=== PATIENT | female | born 1980 | race Caucasian/White ===

== ENCOUNTER → 2018-01-17 14:18 | Outpatient (CLI) | payer OTHER, SELFPAY ==
--- NOTE | 2018-01-17 14:21 | CT_ITS ---
CT abdomen pelvis wo con CLINICAL INDICATION: Right lower quadrant pain, bilateral lower abdominal pain ITS.REASON: RLQ pain ORDERING PHYSICIAN: SRI Barboza PATIENT AGE: 37 years COMPARISON: 07/08/1715 TECHNIQUE: Axial images obtained with sagittal and coronal reformats. All CT scans at the facility use one or more dose reduction, viz: automated exposure control; ma/kV adjustment per patient size (including targeted exams where dose is matched to indication; i.e. head); or iterative reconstruction technique. PROCEDURE: Oral Contrast: None IV Contrast: None . FINDINGS: There is a 6 mm noncalcified nodule right lung base laterally unchanged. The remaining lungs are clear. Prior gastric sleeve surgery. No focal liver lesion. The spleen, adrenal glands, and pancreas are unremarkable. No obstructing renal or ureteral calculi. No obvious renal mass. No radio opaque gallstones. No intestinal obstruction or free air. The appendix is slightly prominent measuring up to 7 mm in diameter. There is however no stranding of the periappendiceal fat. There is a minimal amount luminal gas as expected. No abscess or perforation. 4 x 3.6 cm isodensity noted in the left adnexa and may represent an ovarian cyst which may be confirmed with ultrasound if clinically warranted. Minimal amount fluid in the cul-de-sac. No abscess or other pelvic anomalies evident. IMPRESSION: 1. Appendix is slightly prominent. This is of questionable clinical significance. If symptoms persist then, follow-up study within 24 hours with IV and oral contrast would be recommended for further evaluation. 2. 4 cm left ovarian cyst
== END ==
PROVIDERS: PCP Physician Assistant; Visit Provider Physician Assistant
DX: R10.31 Right lower quadrant pain (principal)
CPT/HCPCS: 74176

== ENCOUNTER → 2018-01-30 13:55 | Outpatient (CLI) | payer OTHER, SELFPAY ==
--- NOTE | 2018-01-30 13:57 | US_ITS ---
US pelvis (no fetus) HISTORY: Left adnexal mass/cyst ITS.REASON: Abnormal CT ORDERING PHYSICIAN: SRI Barboza PATIENT AGE: 37 years COMPARISON: 01/17/2018 FINDINGS: There uterus measures 9 x 4 x 5 cm with a combined endometrial thickness of 4 mm. No uterine mass The right ovary is 3 x 2 cm and has an unremarkable appearance. The left ovary is 2 x 2 cm. No adnexal mass evident. Previously noted left ovarian cyst is no longer apparent. No cul-de-sac fluid. IMPRESSION: Negative pelvic ultrasound. Previously described left ovarian cyst no longer apparent
== END ==
PROVIDERS: PCP Physician Assistant; Visit Provider Physician Assistant
DX: R10.2 Pelvic and perineal pain (principal); R93.5 Abnormal findings on diagnostic imaging of other abdominal regions, including retroperitoneum
CPT/HCPCS: 76856

== ENCOUNTER 2018-03-08 12:07 | Outpatient (RCR) | payer OTHER, SELFPAY | END 2018-03-08 12:08 | disposition home or self-care (01) | LOC: PT 12:07 | PROVIDERS: PCP Physician Assistant; Visit Provider Orthopaedic Surgery | DX: S93.402A Sprain of unspecified ligament of left ankle, initial encounter (principal) | CPT/HCPCS: 97760 ==

== ENCOUNTER → 2018-07-19 18:02 | Outpatient (CLI) | payer OTHER, SELFPAY ==
[2018-07-19 18:31] LABS: Basophils % 0.3 % (0.1-2.0); Eosinophils # 0.1 K/mm3 (0.0-0.4); Eosinophils % 1.1 % (0.1-12.0); Hematocrit 39.8 % (37.0-47.0); Hemoglobin 12.8 g/dL (12.2-16.2); Lymphocytes # 2.8 K/mm3 (0.7-4.5); Lymphocytes % 32.1 K/mm3 (10-50); Mean Corpuscular HGB Conc 32.1 g/dL (31.8-35.4); Mean Corpuscular Hemoglobin 27.1 pg (27.0-31.2); Mean Corpuscular Volume 84.5 fl (81-99); Mean Platelet Volume 7.9 fl (7.4-10.4); Monocytes # 0.3 K/mm3 (0.1-1.0); Monocytes % 3.3 % (1.7-9.3); Neutrophils # 5.5 K/mm3 (1.8-7.8); Neutrophils % 63.2 % (37.0-80.0); Platelet Count 279 K/mm3 (142-424); Red Blood Count 4.71 M/mm3 (4.20-5.40); Red Cell Distribution Width 13.4 % (11.5-17.5); White Blood Count 8.8 K/mm3 (4.8-10.8)
[2018-07-19 19:27] LABS: Alanine Aminotransferase 21 U/L (12-78); Albumin Level 3.7 gm/dL (3.4-5.0); Albumin/Globulin Ratio 1.2 (1.1-1.8); Alkaline Phosphatase 108 U/L (46-116); Anion Gap 13.3 mEq/L (5-15); Aspartate Amino Transferase 17 U/L (15-37); Bilirubin,Total 0.3 mg/dL (0.2-1.0); Blood Urea Nitrogen 14 mg/dL (7-18); Calcium 8.4 mg/dL (8.5-10.1); Carbon Dioxide 27 mmol/L (21.0-32.0); Chloride 105 mmol/L (98-107); Chol/HDL Ratio 2.7 (1-3.5); Cholesterol 131 mg/dL (140-200); Creatinine,Serum 0.65 mg/dL (0.55-1.02); Estimated Glomerular Filt Rate 102 ml/min (>60); GFR (African American) 123 ML/MIN (>60); Globulin 3.1 gm/dl (1.3-3.2); Glucose 81 mg/dL (74-106); HDL Cholesterol 49 mg/dL (29-89); LDL Cholesterol 71 mg/dL (0-130); Potassium 4.3 mmoL/L (3.5-5.1); Sodium 141 mmol/L (136-145); T4 (Thyroxine) 13.3 ug/dl (4.7-13.3); Total Protein,Serum 6.8 gm/dL (6.4-8.2); Triglycerides 53 mg/dL (30-200); VLDL Cholesterol 11 mg/dL (0-40)
[2018-07-21 14:15] LABS: Vitamin D 25 Hydroxy 41.5 ng/mL (30.0-100.0)
== END ==
PROVIDERS: Visit Provider Physician Assistant
DX: E07.9 Disorder of thyroid, unspecified (principal)
CPT/HCPCS: 80053; 80061; 82652; 84436; 84443; 85025

== ENCOUNTER → 2019-06-26 16:30 | Outpatient (CLI) | payer OTHER, SELFPAY ==
--- NOTE | 2019-06-26 16:40 | XR_ITS ---
PROCEDURE: XR LUMBAR SPINE MIN 4V CLINICAL INDICATION: LOW BACK PAIN COMPARISON: LS5 LUMBAR SPINE 5 VIEWS from 10/29/2013 FINDINGS: Mild thoracolumbar curvature convex left. There is degenerative disc disease at L1-L2 L2-L3 and L3-L4 and L5-S1 which is slightly progressed compared to the previous exam. No fracture or dislocation SI joints have an unremarkable appearance IMPRESSION: Progression of degenerative changes. Dictated by: Yrn Pruitt MD 06/26/2019 20:12 Electronically signed by Yrn Pruitt MD in [place] 06/26/2019 20:12
== END ==
PROVIDERS: PCP Family Medicine; Visit Provider Family Medicine
DX: M54.5 Low back pain (principal)
CPT/HCPCS: 72110

== ENCOUNTER → 2019-07-05 15:44 | Outpatient (CLI) | payer OTHER, SELFPAY ==
--- NOTE | 2019-07-05 15:47 | MR_ITS ---
PROCEDURE: MR LUMBAR SPINE WO CON CLINICAL INDICATION: LOW BACK PAIN, LUMBAR DDD Low back pain with bilateral hip and buttock pain COMPARISON: XR LUMBAR SPINE MIN 4V from 06/26/2019 TECHNIQUE: Standard multiplanar multiecho sequences are performed without contrast. 3-D MIP and myelographic images are also rendered and reviewed FINDINGS: There is normal alignment. The spinal cord ends at the L2 level. T11-T12: Mild degenerative disc disease with mild facet ligamentum hypertrophy. T12-L1: Mild degenerative disc disease with mild right-sided facet and ligamentum hypertrophy with type 1 endplate changes along the anterior and inferior endplate of T12. L1-L2: Mild degenerative disc disease the L2-L3: Mild degenerative disc disease with mild disc desiccation and minimal bulging disc. Mild bilateral foraminal narrowing L3-L4: Unremarkable. L4-5: Mild facet hypertrophic change with mild bilateral foraminal narrowing L5-S1: There is a small left paracentral disc protrusion/herniation. This is causing narrowing of the left lateral recess and is abutting the left S1 nerve root. There are type 1 endplate changes at this level. IMPRESSION: 1. Small left paracentral disc protrusion/herniation at L5-S1 abutting the anterior medial aspect of the left S1 nerve root 2. Mild multilevel lumbar spondylosis with degenerative disc disease and facet ligamentum hypertrophy. Please see above for detailed description at each level Dictated by: Yrn Pruitt MD 07/06/2019 06:22 Electronically signed by Yrn Pruitt MD in [place] 07/06/2019 06:22
== END ==
PROVIDERS: PCP Family Medicine; Visit Provider Family Medicine
DX: M54.5 Low back pain (principal); M51.36 Other intervertebral disc degeneration, lumbar region
CPT/HCPCS: 72148; 76376

== ENCOUNTER → 2019-07-10 10:13 | Outpatient (POV) | payer OTHER, SELFPAY ==
[2019-07-10 10:54] VITALS: BP 131/80; PULSE 60; RESP 18; O2SAT 99; BMI 35.4
--- NOTE | 2019-07-10 12:17 | HMH.PMCON ---
Assessment and Plan (1) Lumbar back pain Current visit: Yes Status: Acute Category: Medical Code(s): M54.5 - Low back pain (2) Lumbar radiculopathy Current visit: Yes Status: Acute Category: Medical Code(s): M54.16 - Radiculopathy, lumbar region (3) Sacroiliitis Current visit: Yes Status: Acute Category: Medical Code(s): M46.1 - Sacroiliitis, not elsewhere classified - Assessment and plan all Dx Assessment and Plan for all problems:: Given the patient's symptoms, I do think she would benefit from bilateral SI joint injections. She does have notable point tenderness noted to bilateral SI joints. We will schedule her for the injections and see her back in the clinic following the procedure to reassess her symptoms. He has been instructed to call the clinic if she has any questions before her next appointment. Dr. Lawson has reviewed this note and agrees with this plan of care. This note was dictated using voice recognition software and make contain errors or omissions. HPI - Data of Consult Consult date: 07/10/19 Requesting Physician: Ashley Ortiz APRN Primary Care Provider: Rudi Arce MD - Consult Narrative Reason for consult: Back pain, bilateral groin pain History of present illness: Ms. Chaudhari is a 38 year old female who presents today for consultation for low back pain with radiation into bilateral groin area. Patient says she has had this pain for greater than 2 years. She says the pain has progressively gotten worse. Patient says she has had multiple consultations and tests for her groin pain, however, patient states that they were unable to find anything . Patient does report that her pain is worse with ambulating and with standing. She says she does get some relief when she is sitting. She rates her pain a 7 out of 10 today. She did have an MRI imaging. She is also following up with a chiropractor and says that she is got little to no relief with him. She is continuing with anti-inflammatories and a home stretching program. She has tried ice and heat therapies with little to no relief. She has also tried physical therapy for greater than 6 weeks in the past. Patient has never had injective therapy. CC: Ashley Ortiz APRN [facility] History I have reviewed the patient's past medical history: Yes 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: Reports:: Hypertension Denies:: Cancer, Diabetes Mellitus Type 1, Diabetes Mellitus Type 2, MRSA *Have you ever received a pneumonia vaccine?: No *Have you received a flu vaccine this season?: No Other 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: Reports: Hypothyroidism, Thyroid Disease Laterality Cases: Bilateral: Tonsillectomy, Other Other Surgeries: Yes: Bariatric Surgery, Cardiac Catheterization, , Thyroidectomy, Other Amputation: No Fractures: No - *Social History Smoking Status: Never smoker Alcohol Intake: never Alcohol Intake Frequency:: holidays/special occasions only *Occupational Status:: other Housing: house Household Members: other *Travel in the last 8 weeks: None Family Hx:: Diabetes, Stroke Review of Systems - Review of Systems Review of Systems General: No recent weight changes, no fever, no sleep disturbances Respiratory: No cough, no shortness of air, no recurring pulmonary infections Cardiovascular/peripheral vascular: No chest pain, no palpitations, no edema, no shortness of breath Gastrointestinal: No new onset incontinence, normal bowel movements reported Genitourinary: No new onset incontinence Musculoskeletal: Back pain, bilateral hip pain, bilateral groin pain Psychiatric: Normal mood/affect Neurological: [Denies weakness in extremities], [denies balance issues] Meds Home Medications Medication Instructions Recorded Confirmed Type etonogestrel 68 mg subdermal 1 implant SUBDERMAL ONCE 12/28/17 10/10/18 History implant levothyroxine 150 mcg tablet 150 mcg PO DAILY #90 tab 03/01/19 Rx PARoxetine HCl [Paxil] 10 mg PO SUZETTE
--- NOTE | 2019-07-10 12:20 | P.CONS_ITS ---
Assessment and Plan (1) Lumbar back pain Current visit: Yes Status: Acute Category: Medical Code(s): M54.5 - Low back pain (2) Lumbar radiculopathy Current visit: Yes Status: Acute Category: Medical Code(s): M54.16 - Radiculopathy, lumbar region (3) Sacroiliitis Current visit: Yes Status: Acute Category: Medical Code(s): M46.1 - Sacroiliitis, not elsewhere classified - Assessment and plan all Dx Assessment and Plan for all problems:: Given the patient's symptoms, I do think she would benefit from bilateral SI joint injections. She does have notable point tenderness noted to bilateral SI joints. We will schedule her for the injections and see her back in the clinic following the procedure to reassess her symptoms. He has been instructed to call the clinic if she has any questions before her next appointment. Dr. Lawson has reviewed this note and agrees with this plan of care. This note was dictated using voice recognition software and make contain errors or omissions. HPI - Data of Consult Consult date: 07/10/19 Requesting Physician: Ashley Ortiz APRN Primary Care Provider: Rudi Arce MD - Consult Narrative Reason for consult: Back pain, bilateral groin pain History of present illness: Ms. Chaudhari is a 38 year old female who presents today for consultation for low back pain with radiation into bilateral groin area. Patient says she has had this pain for greater than 2 years. She says the pain has progressively gotten worse. Patient says she has had multiple consultations and tests for her groin pain, however, patient states that they were unable to find anything . Patient does report that her pain is worse with ambulating and with standing. She says she does get some relief when she is sitting. She rates her pain a 7 out of 10 today. She did have an MRI imaging. She is also following up with a chiropractor and says that she is got little to no relief with him. She is continuing with anti-inflammatories and a home stretching program. She has tried ice and heat therapies with little to no relief. She has also tried physical therapy for greater than 6 weeks in the past. Patient has never had injective therapy. CC: Ashley Ortiz APRN [facility] History I have reviewed the patient's past medical history: Yes 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: Reports:: Hypertension Denies:: Cancer, Diabetes Mellitus Type 1, Diabetes Mellitus Type 2, MRSA *Have you ever received a pneumonia vaccine?: No *Have you received a flu vaccine this season?: No Other 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: Reports: Hypothyroidism, Thyroid Disease Laterality Cases: Bilateral: Tonsillectomy, Other Other Surgeries: Yes: Bariatric Surgery, Cardiac Catheterization, , Thyroidectomy, Other Amputation: No Fractures: No - *Social History Smoking Status: Never smoker Alcohol Intake: never Alcohol Intake Frequency:: holidays/special occasions only *Occupational Status:: other Housing: house Household Members: other *Travel in the last 8 weeks: None Family Hx:: Diabetes, Stroke Review of Systems - Review of Systems Review of Systems General: No recent weight changes, no fever, no sleep disturbances Respiratory: No cough, no shortness of air, no recurring pulmonary infections Cardiovascular/peripheral vascular: No chest pain, no palpitations, no edema, no shortness of breath Gastrointestinal: No new onset incontinence, normal bowel movements reported Genitourinary: No new onset incontinence Musculoskeletal: Back pain, bilateral hip pain, bilateral groin pain P
== END ==
PROVIDERS: PCP Family Medicine; Visit Provider Clinical Nurse Specialist Family Health
DX: M54.5 Low back pain (principal); M54.16 Radiculopathy, lumbar region; M46.1 Sacroiliitis, not elsewhere classified
CPT/HCPCS: 99202

== ENCOUNTER → 2019-08-14 10:23 | Outpatient (POV) | payer OTHER, SELFPAY ==
[2019-08-14 10:41] VITALS: BP 111/67; PULSE 73; RESP 18; O2SAT 98; BMI 35.4
--- NOTE | 2019-08-14 11:04 | P.CONS_ITS ---
[facility] Pain Management SOAP Note Subjective:: Patient is a pleasant 38-year-old white female who presents today for follow-up after bilateral SI joint injections. Patient rates her pain an 8 out of 10. For 2 weeks she had 90% pain relief. Was able to do much more. Patient states that she did extremely well and would like to repeat the injections. Patient I discussed long-term plans I do think a repeat injection will be beneficial. She is also utilizing an SI joint belt and is continuing a home stretching program. ROS General: no recent weight change, no fever, no sleep disturbances Respiratory: no cough, no shortness of air, no recurring pulmonary infections Cardiovascular/Peripheral Vascular: No chest pain, No palpitations, no edema, no shortness of breath. Gastrointestinal: no new onset incontinence, normal bowel movements reported Genitourinary: no new onset incontinence Musculoskeletal: Bilateral SI joint pain Psychiatric: normal mood/ affect Neurological: [denies new onset weakness in extremities], [denies new onset balance issues] Objective:: Physical Exam General: Alert and oriented x3, no acute distress, pleasant and cooperative, [on room air] Lungs: Resps E/U, Symmetrical chest expansion, Eyes: PERRL Musculoskeletal: Flexion and extension of lumbar spine somewhat guarded secondary to pain, deep tendon reflexes normal, strength in upper and lower extremities [5/5], [abnormal gait noted] positive Mary test positive SI joint compression test and positive Marin's test bilaterally. Neurological: speech clear, yard cleaner equal, no gross sensory deficits Assessment:: Sacroiliitis Plan:: We will repeat her SI joint injections and potentially talk about an RFA in the future. She is continuing her home stretching program. Patient's been instructed to call the office if she has any issues prior to her next peg ointment. Dr. Lawson has reviewed this note and agrees with this plan of care. This note was dictated using voice recognition software and may contain errors or omissions [facility] History I have reviewed the patient's past medical history: Yes 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: Reports:: Hypertension Denies:: Cancer, Diabetes Mellitus Type 1, Diabetes Mellitus Type 2, MRSA, Seizures *Have you ever received a pneumonia vaccine?: Yes *Have you received a flu vaccine this season?: Yes Other 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: Reports: Hypothyroidism, Thyroid Disease Laterality Cases: Bilateral: Tonsillectomy, Other Other Surgeries: Yes: Bariatric Surgery, Cardiac Catheterization, , Thyroidectomy, Other Amputation: No Fractures: No - *Social History Smoking Status: Never smoker Alcohol Intake: never Alcohol Intake Frequency:: holidays/special occasions only *Occupational Status:: other Housing: house Household Members: other *Travel in the last 8 weeks: None Family Hx:: Cancer, Diabetes, Thyroid Disorder
== END ==
PROVIDERS: PCP Family Medicine; Visit Provider Clinical Nurse Specialist Family Health
DX: M46.1 Sacroiliitis, not elsewhere classified (principal)
CPT/HCPCS: 99212

== ENCOUNTER → 2019-09-25 11:32 | Outpatient (POV) | payer OTHER, SELFPAY ==
[2019-09-25 11:57] VITALS: BP 164/89; PULSE 76; RESP 18; O2SAT 98; BMI 37.5
--- NOTE | 2019-09-25 12:10 | P.CONS_ITS ---
[facility] Pain Management SOAP Note Subjective:: Patient is a pleasant 38-year-old white female who presents today for follow-up after SI joint injections. Patient got about 90% relief of her symptomology for a week. Patient gets good relief with her SI joint injections however then her pain begins to return. We discussed about next steps including an RFA and potential coronary lock procedure. Patient is interested in pursuing an RFA and I do believe it would be beneficial for her. She has had pain for over 6 months and is failed physical therapy, anti-inflammatories, medication. Patient rates her pain today a 7 out of 10. She is continuing a home stretching program. ROS General: no recent weight change, no fever, no sleep disturbances Respiratory: no cough, no shortness of air, no recurring pulmonary infections Cardiovascular/Peripheral Vascular: No chest pain, No palpitations, no edema, no shortness of breath. Gastrointestinal: no new onset incontinence, normal bowel movements reported Genitourinary: no new onset incontinence Musculoskeletal: SI joint pain bilaterally Psychiatric: normal mood/ affect Neurological: [denies new onset weakness in extremities], [denies new onset balance issues] Objective:: Physical Exam General: Alert and oriented x3, no acute distress, pleasant and cooperative, [on room air] Lungs: Resps E/U, Symmetrical chest expansion, Eyes: PERRL Musculoskeletal: Flexion and extension of lumbar spine somewhat guarded secondary to pain, deep tendon reflexes normal, strength in upper and lower extremities [5/5], antalgic gait noted, positive SI joint compression test positive Mary test positive Marin's test bilaterally Neurological: speech clear, hydraulic lift driver 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 We will start with the right side in 2 weeks later do the left side. She is been instructed to call the office if she has any issues prior to her next appointment. I will follow-up with her after her injections reassess her symptoms at that time Dr. Lawson has reviewed this note and agrees with this plan of care. This note was dictated using voice recognition software and may contain errors or omissions [facility] History I have reviewed the patient's past medical history: Yes 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: Reports:: Hypertension Denies:: Cancer, Diabetes Mellitus Type 1, Diabetes Mellitus Type 2, MRSA, Seizures *Have you ever received a pneumonia vaccine?: Yes *Have you received a flu vaccine this season?: Yes Other 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: Reports: Hypothyroidism, Thyroid Disease Laterality Cases: Bilateral: Tonsillectomy, Other Other Surgeries: Yes: Bariatric Surgery, Cardiac Catheterization, , Thyroidectomy, Other Amputation: No Fractures: No - *Social History Smoking Status: Former smoker Alcohol Intake: never Alcohol Intake Frequency:: holidays/special occasions only *Occupational Status:: other Housing: house Household Members: spouse, children, other *Travel in the last 8 weeks: None Family Hx:: Cancer, Diabetes, Thyroid Disorder
== END ==
PROVIDERS: PCP Family Medicine; Visit Provider Clinical Nurse Specialist Family Health
DX: M46.1 Sacroiliitis, not elsewhere classified (principal)
CPT/HCPCS: 99212

== ENCOUNTER 2020-01-01 17:42 | Emergency (ER) | payer OTHER, SELFPAY ==
[2020-01-01 17:57] VITALS: BP 100/68; PULSE 58; RESP 16; TEMP 36.9; O2SAT 100; BMI 36.0
--- NOTE | 2020-01-01 18:08 | HMH.EDGENADL ---
ED Disposition Clinical Impression: Right ovarian cyst, Right lower quadrant pain, Pulmonary nodule seen on imaging study Disposition: Home, Self-Care Condition on Discharge: Good Instructions: DI for Ovarian Cyst, DI for Abdominal Pain-Adult Additional Instructions: Follow-up with primary care provider or [employer] for ovarian cyst. Follow-up with primary care provider for pulmonary nodules. Tylenol 3 as needed for pain. Additional instructions for ABDOMINAL PAIN: See your physician as soon as possible for further evaluation. Return immediately if worsening abdominal pain, vomiting, shortness of breath, fever, vomiting of blood or abdominal distention. Additional instructions for CONTROLLED SUBSTANCES: You have been prescribed a medication that is a controlled substance. Controlled substances include pain medications known as opiates and sedative nerve medications known as benzodiazepines. Tramadol, fioricet, and gabapentin are also controlled substances. Some common opiates include: Codeine (such as Tylenol #3) Hydrocodone (Vicodin, Lortab, Lorcet, [place]) Oxycodone (Percocet, Percodan, Oxycodone, Oxy IR) Some common benzodiazepines include: Diazepam (Valium) Lorazepam (Ativan) Alprazolam (Xanax) Clonazepam (Klonopin) Oxazepam (Serax) All of these controlled substances are highly addictive and frequently abused. Misuse can and frequently does lead to addiction as well as overdose and . Medication should be stored in a locked cabinet or other secure storage unit. Do not store the medication in a motor vehicle. Short term supplies, 3 days or less, are prescribed because of the highly addictive nature of the medication. Any of the controlled substance medication NOT taken should be disposed of properly and NOT SAVED. The recommended method of disposing of unused medications is: Place the medicines in a sealable plastic bag. If the medicine is a solid, crush it or add water to dissolve it. Add something undesirable (cat litter, coffee grounds, etc.) Dispose of sealed bag in household trash Do not flush or pour unused medicines down a sink or drain. Controlled substances should not be shared, given away or sold. Because of the addictive nature and frequent abuse, these medications are sometimes stolen. These medications should be kept in a safe place where they cannot be stolen. Do not keep them in your car or purse. Lost or stolen prescriptions for controlled substances WILL NOT BE REFILLED in this emergency department, regardless of whether a police report was filed. Referrals: Rudi Arce MD [Primary Care Provider] - - Critical Care Critical Care Time: No Attestation: On , the high probability of a clinically significant, sudden or life threatening deterioration of the following system(s) required my full and direct attention, intervention and personal management. The time I documented below is in addition to time spent performing reported procedures but includes the following listed in this critical care notation. Medical Decision Making - Greg Inquiry Pt receiving controlled substance: Yes Greg was queried for this patient: Yes Reference #:: [id number] Risks and benefits of using a controlled substance: were discussed with pt by me Comment: 0 rxs. Vital Signs: 01/01/20 17:57 Temperature 98.4 F Temperature Source Oral Pulse Rate [Right Brachial] 58 L Respiratory Rate 16 Blood Pressure [Right Arm] 100/68 L Blood Pressure Mean [Right Arm] 78 Blood Pressure Source [Right Arm] Automatic Cuff Blood Pressure Position [Right Arm] Sitting 02 Sat by Pulse Oximetry 100 Oxygen Delivery Method Room Air - Lab Data Lab Results 01/01/20 18:07: Urine Color Yellow, Urine Appearance Clear, Urine pH 6.5, Ur Specific [place] 1.025, Urine Protein Negative, Urine Glucose (UA) Negative, Urine Ketones Negative, Urine Blood Negative, Urine Nitrate Negative, Urine Bilirubin Negative, Urine
--- NOTE | 2020-01-01 18:35 | CT_ITS ---
PROCEDURE: CT ABDOMEN PELVIS W CON CLINICAL INDICATION: ABD PAIN Right flank pain radiating into the back COMPARISON: ABDPELWO CT abdomen pelvis wo con from 04/15/2018 TECHNIQUE: IV Contrast: 75ML OPTIRAY 350 Oral Contrast none Axial images obtained with sagittal and coronal reformats. All CT scans at the facility use one or more dose reduction, viz: automated exposure control, ma/kV adjustment per patient size (including targeted exams where dose is matched to indication, i.e. head), or iterative reconstruction technique. FINDINGS: LOWER THORAX: Stable right lower lobe nodule which may be partially calcified. Stable left lower lobe nodule which may also be partially calcified. ABDOMEN & PELVIS: The liver, gallbladder, spleen, pancreas and adrenal glands are unremarkable., there are postsurgical changes of the stomach from prior gastric sleeve surgery. No renal or ureteral calculi. No hydronephrosis. No evidence of appendicitis or diverticulitis. No intestinal obstruction or free air. There is a 5.7 x 3.9 cm right adnexal cystic appearing lesion. Consider ultrasound for more thorough evaluation. There is mild prominence of the left pelvic veins which may be seen with pelvic congestion syndrome. No acute bony findings. IMPRESSION: 1. 5.7 x 3.9 cm right adnexal cystic appearing lesion. Suggest ultrasound for further characterization. 2. Possible pelvic congestion syndrome. 3. Otherwise negative with incidental findings as described above. Dictated by: Yrn Pruitt MD 01/02/2020 07:03 Electronically signed by Yrn Pruitt MD in [place] 01/02/2020 07:03
[2020-01-01 18:41] LABS: Microscopic, Urine URINE MICROSCOPIC (MICROSCOPIC)
[2020-01-01 18:46] LABS: Chloride 105 mmol/L (98-107); Potassium 3.6 mmoL/L (3.5-5.1); Sodium 138 mmol/L (136-145)
[2020-01-01 18:46] LABS: Appearance,Urine CLEAR (Clear); Bilirubin,Urine Negative (Negative); Blood, Urine Negative (Negative); Color,Urine YELLOW (Yellow); Glucose,Urine (UA) Negative (Negative); Ketones,Urine Negative (Negative); Leukocyte Esterase,Urine Negative (Negative); Nitrate,Urine Negative (Negative); PH,Urine 6.5 (5.0-8.5); Protein,Urine Negative (Negative); Specific Gravity, Urine 1.025 (1.005-1.030); Urobilinogen,Urine 0.2 EU/dl (0.2)
[2020-01-01 18:48] LABS: Amylase 68 U/L (30-110); Blood Urea Nitrogen 14 mg/dl (7-17); Creatinine Clearance Estimated 205 mL/min (50-200); Estimated Glomerular Filt Rate 111 ml/min (>60); GFR (African American) 134 ML/MIN (>60); Lipase 170 U/L (23-300)
[2020-01-01 18:49] LABS: Alanine Aminotransferase 12 U/L (12-78); Albumin Level 3.9 g/dl (3.5-5.0); Albumin/Globulin Ratio 1.5 (1.1-1.8); Alkaline Phosphatase 73 U/L (38-126); Anion Gap 8.6 mEq/L (5-15); Aspartate Amino Transferase 24 U/L (14-36); Calcium 8.2 mg/dl (8.4-10.2); Carbon Dioxide 28 mmol/L (22.0-30.0); Globulin 2.6 g/dL (1.3-3.2); Glucose 86 mg/dl (74-100); Total Protein,Serum 6.5 g/dl (6.3-8.2)
[2020-01-01 18:53] LABS: Basophils % 0.3 % (0.1-2.0); Eosinophils # 0.1 K/mm3 (0.0-0.4); Eosinophils % 0.8 % (0.1-12.0); Hematocrit 39.7 % (37.0-47.0); Hemoglobin 12.6 g/dL (12.2-16.2); Lymphocytes # 3.5 K/mm3 (0.7-4.5); Lymphocytes % 27.5 % (10-50); Mean Corpuscular HGB Conc 31.7 g/dL (31.8-35.4); Mean Corpuscular Hemoglobin 27.6 pg (27.0-31.2); Mean Corpuscular Volume 87.2 fl (81-99); Mean Platelet Volume 7.7 fl (7.4-10.4); Monocytes # 0.4 K/mm3 (0.1-1.0); Monocytes % 2.8 % (1.7-9.3); Neutrophils # 8.8 K/mm3 (1.8-7.8); Neutrophils % 68.6 % (37.0-80.0); Platelet Count 269 K/mm3 (142-424); Red Blood Count 4.55 M/mm3 (4.20-5.40); Red Cell Distribution Width 13.4 % (11.5-17.5); White Blood Count 12.9 K/mm3 (4.8-10.8)
[2020-01-01 18:54] LABS: Bilirubin,Total 0.1 mg/dl (0.2-1.3)
[2020-01-01 18:58] LABS: Urine Pregnancy, HCG Qual. Negative (Negative)
[2020-01-01 19:04] LABS: Bacteria,Urine Trace /lpf
[2020-01-01 19:51] VITALS: BP 132/75; PULSE 81; RESP 19; TEMP 36.8; O2SAT 98
== END 2020-01-01 20:13 | disposition home or self-care (01) ==
PROVIDERS: Emergency Provider Emergency Medicine; PCP Family Medicine
DX: N83.201 Unspecified ovarian cyst, right side (principal); R91.1 Solitary pulmonary nodule; I10 Essential (primary) hypertension; E03.9 Hypothyroidism, unspecified; Z87.891 Personal history of nicotine dependence; Z90.09 Acquired absence of other part of head and neck
CPT/HCPCS: 74177; 80053; 81001; 81025; 82150; 83690; 85025; 96374; 96375; 99282; 99283; J2405; Q9967

== ENCOUNTER 2020-01-04 09:17 | Day surgery (SDC) | payer OTHER, SELFPAY ==
[2020-01-04 09:31] VITALS: BP 139/87; PULSE 75; RESP 18; TEMP 36.8; O2SAT 96; BMI 36.0
[2020-01-04 09:49] VITALS: BP 123/64; PULSE 70; RESP 18; O2SAT 99
[2020-01-04 09:57] VITALS: BP 125/68; PULSE 70; RESP 18; O2SAT 98
--- NOTE | 2020-01-04 10:03 | HMH.PMPROC ---
- Procedure Date: 01/04/20 Time: 10:03 Anesthesiologist:: Jame Lawson MD Complications:: None Pre-procedure Diagnosis:: Sacroiliitis Post-procedure Diagnosis:: Same Indications for Procedure:: Patient is a pleasant 39-year-old white female who we are treating for chronic sacroiliitis. She is status post right SI joint RFA. She presents for left SI joint RFA today. She has previously had SI joint injections which have given her great relief however they have been short-lived. Her pain is returned significantly over her left SI joint. She has a positive Stanford's test on left side. She has a positive Mary test on left side. She has a positive SI joint compression test on left side. Her pain is starting to affect her activities of daily living and functionality. We will do a left SI joint RFA to give her long-term relief to keep her out of the emergency room and off oral opioids. We will do this today. Procedure Details:: Left SI joint RFA Informed consent was obtained the risk and benefits of the procedure were explained the patient. Patient was taken to the procedure room placed prone on the procedure table. She was prepped and draped in sterile fashion. C-arm fluoroscopy was used to view the left SI joint. A 20-gauge RF needle was placed into the left SI joint. Will place a total of 4 needles encompassing the entire left SI joint. We underwent sensory stimulation. There is good sensory stimulation at all needles at 0.8 V. We then underwent motor stimulation. There was no motor stimulation at all needles at 3 V. We then anesthetized all needles with lidocaine and Depo-Medrol. We then burned each needle for 4 minutes at 80 ?C encompassing the entire left SI joint. Patient tolerated the procedure well with no complications. Plan and Disposition:: We will follow-up with her in 2 weeks. Will reevaluate her symptoms at that time.
[2020-01-04 10:12] VITALS: BP 140/86; PULSE 63; RESP 20; O2SAT 96
== END 2020-01-04 10:13 | disposition home or self-care (01) ==
LOC: SC.PAINP 09:20
PROVIDERS: PCP Family Medicine; Visit Provider Anesthesiology
DX: M46.1 Sacroiliitis, not elsewhere classified (principal); Z79.899 Other long term (current) drug therapy; Z79.3 Long term (current) use of hormonal contraceptives; I10 Essential (primary) hypertension; Z80.9 Family history of malignant neoplasm, unspecified; Z83.3 Family history of diabetes mellitus; Z83.49 Family history of other endocrine, nutritional and metabolic diseases
CPT/HCPCS: 64625; J1040

== ENCOUNTER → 2020-01-28 09:33 | Outpatient (POV) | payer OTHER, SELFPAY ==
--- NOTE | 2020-01-28 09:37 | HMH.VVPMSO ---
[facility] Virtual Visit SOAP Consent for virtual visit:: With the recent concerns about the COVID-19, we are trying to minimize exposure to you by shifting to telehealth appointments whenever possible. It restricts me from seeing you in person, but the trade off is protecting you during this pandemic. Can you see and hear me okay, and do you consent to this option? If not, I would be happy to see if we can reschedule your appointment in the future, when feasible. Has patient consented to this virtual visit?: Yes Subjective:: Patient is a pleasant 39-year-old white female who we are treating for chronic sacroiliitis she is following up after her second SI joint RFA. She is now had bilateral sides done. She rates her pain a 2 out of 10 and has had over 80% relief of her symptomology. Patient overall doing well would like to follow-up in a couple months. ROS General: no recent weight change, no fever, no sleep disturbances Respiratory: no cough, no shortness of air, no recurring pulmonary infections Cardiovascular/Peripheral Vascular: No chest pain, No palpitations, no edema, no shortness of breath. Gastrointestinal: no new onset incontinence, normal bowel movements reported Genitourinary: no new onset incontinence Musculoskeletal: SI joint pain at times Psychiatric: normal mood/ affect Neurological: [denies new onset weakness in extremities], [denies new onset balance issues] Objective:: Physical exam: Constitutional: Healthy appearing, well-developed, alert, in no acute distress Psychiatric: Judgment and insight intact, Alert and oriented x4 Mood and affect: Mood normal, affect appropriate Head and face: Inspection: Normocephalic atraumatic, extraocular movement intact Respiratory: Breathing nonlabored, nondyspneic Cardiovascular: No cyanosis, clubbing, or edema observed Skin: Head and neck: Skin with no lesions or rash observed Gait: Able to walk without assistive device: Able to heel and toe walk Neurologic: Sensation grossly intact per patient Musculoskeletal: Decreased range of motion lumbar spine noted Assessment:: Sacroiliitis Plan:: We will see the patient back in 3 months reassess her symptoms at that time she has been instructed to call the office if she has any issues prior to her next appointment. This encounter was performed as a telemedicine visit via secure 2 way video and audio to minimize risk and transmission of Covid-19. The patient and we understand the limitations of a telemedicine visit including inability to check reflexes, possibly missing subtle findings on physical exam. Alternative options were presented to the patient and the patient elected to proceed with the visit. We specifically discussed risk factors for Covid-19 including age, heart or lung disease, diabetes, immunosuppression and travel. We also discussed that NSAIDs may worsen Covid-19 infection symptoms and that they should not be used to treat Covid-19 symptoms. Patient was also informed that corticosteroids in any form oral or injectable will decrease immune response and may increase risk of Covid-[address] Lawson has reviewed this patient's chart and this note and agrees with plan of care. Patient has been instructed to call the office if they have any issues prior to the next appointment. Time In:: 09:35 Time Out:: 09:45 [facility] History I have reviewed the patient's past medical history: Yes 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: Reports:: Hypertension Denies:: Cancer, Diabetes Mellitus Type 1, Diabetes Mellitus Type 2, MRSA, Seizures *Have you ever received a pneumonia vaccine?: No *Have you received a flu vaccine this season?: No Other 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: Reports: Hypothyroidism, Thyroid Disease Laterality Cases: Bilateral: Tonsillectomy, Other Other Surgeries: Yes: Bariatric Surgery, Cardiac Catheterization, , Thyroidectomy, Other Amputation: No Fractures: No - *Social History Smoking Status: Former smoker Alcohol Intake: ne
== END ==
PROVIDERS: Visit Provider Clinical Nurse Specialist Family Health
DX: M46.1 Sacroiliitis, not elsewhere classified (principal)
CPT/HCPCS: 99212

== ENCOUNTER 2020-02-24 16:20 | Emergency (ER) | payer OTHER, SELFPAY ==
[2020-02-24 16:34] VITALS: BP 118/86; PULSE 60; RESP 18; TEMP 36.8; O2SAT 99; BMI 37.5
--- NOTE | 2020-02-24 16:38 | HMH.EDUTC ---
[facility] [place] Clinical Impression: Bee sting reaction Qualifiers: Encounter type: initial encounter Injury intent: undetermined intent Qualified Code(s): T63.444A - Toxic effect of venom of bees, undetermined, initial encounter Disposition: Home, Self-Care Condition on Discharge: Good Instructions: How to Care for an Insect Bite or Sting, Insect Bites and Stings (Alternative Therapy), Insect Bites and Stings, DI for Insect Bites and Stings Additional Instructions: Keep area clean and dry *Watch area for worsening of swelling and redness Over the counter Benadryl may help with itching and irritation of sting Follow up with family doctor if needed Ice to area may help with swelling Return if needed Straight to ER if any life threatening symptoms Prescriptions: Fluticasone Propionate [Flonase 50mcg nasal spray 16gm] 1 spr NS DAILY #1 bottle Transmission Status: Received by [facility] Referrals: Rudi Arce MD [Primary Care Provider] - As needed Forms: Work/School Release Medical Decision Making - Greg Inquiry Pt receiving controlled substance: No Greg was queried for this patient: No Vital Signs: 02/24/20 16:34 Temperature 98.3 F Temperature Source Oral Pulse Rate [Right Brachial] 60 Respiratory Rate 18 Blood Pressure [Right Arm] 118/86 Blood Pressure Mean [Right Arm] 96 Blood Pressure Source [Right Arm] Automatic Cuff Blood Pressure Position [Right Arm] Sitting 02 Sat by Pulse Oximetry 99 Oxygen Delivery Method Room Air Orders (Tests/Meds): ED MEDICATIONS Discontinued Medications Generic Name Dose Route Start Last Admin Trade Name Freq PRN Reason Stop Dose Admin Methylprednisolone Sodium Succinate 125 mg 02/24/20 16:39 Solu-Medrol 125mg/2ml Vial IM 02/24/20 16:40 ONCE ONE [facility] [place] HPI - General Stated complaint: Stung by wasp 02/23/20 on l hand, swelling Time Seen by Provider: 02/24/20 16:39 Mode of Arrival: Ambulatory Source of Information: Patient Limitations: No Limitations Description of Symptoms (Recalled from Triage Doc. by RN): Pt reports beig stung by a bee yesterday evening on her left hand. Swelling, redness noted. HEENT Symptoms (Recalled from RN notes): No Resp Symptoms (Recalled from RN notes): No Skin Symptoms (Recalled from RN notes): No MS Symptoms (Recalled from RN notes): No Functional Status (Recalled from RN notes): Na - History of Present Illness Provider Complaint: Patient states that she was outside yesterday and she was stung on her right hand/finger States that she has continued to have swelling and redness States that she has taken over the counter Benadryl but didnt help and now swelling is starting to go up into her wrist area - Related Data Home Medications Medication Instructions Recorded Confirmed PARoxetine HCl [Paxil] 10 mg PO DAILY 04/27/19 01/04/20 Etonogestrel [Nexplanon] 68 mg SQ CONT 12/18/19 01/04/20 Previous Rx's Medication Instructions Recorded levothyroxine 150 mcg tablet 150 mcg PO DAILY #90 tab 03/01/19 Fluticasone Propionate [Flonase 1 spr NS DAILY #1 bottle 02/24/20 50mcg nasal spray 16gm] Allergies Allergy/AdvReac Type Severity Reaction Status Date / Time No Known Allergies Allergy Verified 01/04/20 09:31 - Worker's Comp Is this a Worker's Comp case?: No [facility] History - Hepatitis A Screen Drug use history?: No High risk sexual behaviors?: No History of sexually transmitted infection?: No Currently employed?: No Childcare worker?: No Do you have indoor plumbing?: Yes Do you have electricity?: Yes Attestation statement:: This patient has been screened for Hepatitis A risk factors. I have reviewed the patient's past medical history: Yes 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: Reports:: Hypertension Denies:: Cancer, Diabetes Mellitus Type 1, Diabetes Mellitus Type 2, MRSA, Seizures Other 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: Reports: Hypothyroidism, Thyroid Disease Laterality Cases: Bilateral: Tonsillectomy, Other Other
--- NOTE | 2020-02-24 16:52 | PC.NURSE ---
Solu-medrol 125 given in left deltoid at this time. Unable to sign off on in emr
[2020-02-24 17:09] VITALS: BP 118/86; PULSE 60; RESP 18; TEMP 36.8; O2SAT 99
== END 2020-02-24 17:10 | disposition home or self-care (01) ==
PROVIDERS: Emergency Provider Nurse Practitioner; PCP Family Medicine
DX: T63.441A Toxic effect of venom of bees, accidental (unintentional), initial encounter (principal); I10 Essential (primary) hypertension; E03.9 Hypothyroidism, unspecified; Z87.891 Personal history of nicotine dependence; Z79.899 Other long term (current) drug therapy
CPT/HCPCS: 99201

== ENCOUNTER 2020-05-14 07:34 | Emergency (ER) | payer OTHER, SELFPAY ==
--- NOTE | 2020-05-14 07:29 | ECG_ITS ---
APPROVED REPORT Exam: Resting ECG HR:69 bpm ECG Measurements Heart Rate 69 AXES WI 134 P 69 QRSd 76 QRS 43 QT 396 T 54 QTc 424 <Conclusion> Normal sinus rhythm Low voltage QRS Borderline ECG Electronically signed by : Oscar Ochoa, 05/18/2020 07:16:29
[2020-05-14 07:35] VITALS: BP 144/86; PULSE 82; RESP 17; TEMP 36.8; O2SAT 100; BMI 37.5
--- NOTE | 2020-05-14 07:41 | XR_ITS ---
PROCEDURE: XR CHEST 2V CLINICAL HISTORY: SOA Chest pain with shortness of air, former smoker COMPARISON: CR CXR CHEST(2 VIEWS-NOT PORTABLE) from 04/27/2014 CR CXR CHEST(2 VIEWS-NOT PORTABLE) from 06/03/2014 FINDINGS: The cardiomediastinal silhouette and pulmonary vascularity are within normal limits. The lungs are clear without infiltrates, suspicious nodules, or pleural effusions. No acute bony abnormalities. IMPRESSION: No acute findings. Dictated by: Yrn Pruitt MD 05/14/2020 08:45 Yrn Pruitt MD in [place] 05/14/2020 08:45
--- NOTE | 2020-05-14 07:57 | HMH.EDGENADL ---
ED Disposition Clinical Impression: Chest pain Qualifiers: Chest pain type: chest pain on breathing Qualified Code(s): R07.1 - Chest pain on breathing Disposition: Home, Self-Care Condition on Discharge: Good Referrals: Rudi Arce MD [Primary Care Provider] - Forms: Work/School Release - Critical Care Critical Care Time: No Attestation: On 05/14/20, the high probability of a clinically significant, sudden or life threatening deterioration of the following system(s) required my full and direct attention, intervention and personal management. The time I documented below is in addition to time spent performing reported procedures but includes the following listed in this critical care notation. Medical Decision Making - Greg Inquiry Pt receiving controlled substance: No Vital Signs: 05/14/20 07:35 05/14/20 09:05 05/14/20 09:30 Temperature 98.2 F Temperature Source Oral Pulse Rate [Right] 82 66 62 Respiratory Rate 17 13 20 Blood Pressure [Right Arm] 144/86 H 123/76 118/78 Blood Pressure Mean [Right Arm] 105 91 91 Blood Pressure Source [Right Arm] Automatic Cuff Blood Pressure Position [Right Arm] Supine 02 Sat by Pulse Oximetry 100 100 98 Oxygen Delivery Method Room Air - Lab Data Lab Results 05/14/20 07:50: WBC 8.5, RBC 4.87, Hgb 13.6, Hct 41.5, MCV 85.2, MCH 27.9, MCHC 32.8, RDW 13.7, Plt Count 283, MPV 7.7, Neut % (Auto) 63.6, Lymph % (Auto) 31.2, Vilas % (Auto) 2.9, Eos % (Auto) 1.9, Baso % (Auto) 0.5, Neut # (Auto) 5.4, Lymph # (Auto) 2.6, Vilas # (Auto) 0.2, Eos # (Auto) 0.2, Baso # (Auto) 0.0 05/14/20 07:50: Sodium 139, Potassium 3.8, Chloride 107, Carbon Dioxide 23, Anion Gap 12.8, BUN 17, Creatinine 0.70, Estimated Creat Clear 184, Estimated GFR 93, Est GFR ( Amer) 112, Glucose 72 L, Calcium 8.7, Troponin I < 0.01 05/14/20 09:55: Troponin I < 0.01 Result diagrams: 05/14/20 07:50 05/14/20 07:50 Orders (Tests/Meds): ORDERS Category Date Time Status Troponin I Q3H Lab 05/14/20 13:45 Ordered ECG Request by /Elda Stat Y 05/14/20 07:40 Ordered - JULIANNA Score for Non-Stemi Age of Patient: 40-49 years old Heart Rate: 70-89 bpm Systolic Blood Pressure: 140-159 mmHg CHF Killip Class: I-No CHF Medical Decision Narrative: At this point, the exact cause of the patient's current symptom complex is unknown. Initial EKG is nondiagnostic and initial delta troponin testing protocols are within normal limits. At the present time, I doubt pulmonary embolus secondary to the lack of tachycardia, tachypnea, or hypoxia. The patient is also PERC negative. Similarly, I doubt aortic dissection or abdominal aortic aneurysm secondary to history and description of pain, the patient's nonfocal vascular examination in all four extremities, and CXR unremarkable for signs of mediastinal widening. Doubt pneumothorax given good bilateral breath sounds and chest X ray with good lung markings out to the periphery. No signs suggestive of pneumonia on history or physical exam as well. Patient discharged home, follow-up with primary care doctor for further work-up. General Adult HPI - General Chief complaint: Chest Pain Stated complaint: chest pain Time Seen by Provider: 05/14/20 07:57 Mode of Arrival: Ambulatory Limitations: No Limitations Description of Symptoms (Recalled from ER Triage Doc. by RN): PT STATES THIS MORNING AT WORK SHE BEGAN TO HAVE MID STERNAL CP AND SOA. - History of Present Illness HPI narrative: Patient presents for chest pain. Pain started last night, stable, not exertional, pain is worse with inspiration. Patient chest pain is 8 out of 10, nonradiating, pleuritic in nature. Patient denies any history of DVT or PE in the past, no history of ACS, OR or stents. Patient went to work today and was told to come here for evaluation. - Related Data Home Medications Medication Instructions Recorded Confirmed PARoxetine HCl [Paxil] 10 mg PO DAILY 04/27/19 01/04/20
[2020-05-14 08:04] LABS: Basophils % 0.5 % (0.1-2.0); Eosinophils # 0.2 K/mm3 (0.0-0.4); Eosinophils % 1.9 % (0.1-12.0); Hematocrit 41.5 % (37.0-47.0); Hemoglobin 13.6 g/dL (12.2-16.2); Lymphocytes # 2.6 K/mm3 (0.7-4.5); Lymphocytes % 31.2 % (10-50); Mean Corpuscular HGB Conc 32.8 g/dL (31.8-35.4); Mean Corpuscular Hemoglobin 27.9 pg (27.0-31.2); Mean Corpuscular Volume 85.2 fl (81-99); Mean Platelet Volume 7.7 fl (7.4-10.4); Monocytes # 0.2 K/mm3 (0.1-1.0); Monocytes % 2.9 % (1.7-9.3); Neutrophils # 5.4 K/mm3 (1.8-7.8); Neutrophils % 63.6 % (37.0-80.0); Platelet Count 283 K/mm3 (142-424); Red Blood Count 4.87 M/mm3 (4.20-5.40); Red Cell Distribution Width 13.7 % (11.5-17.5); White Blood Count 8.5 K/mm3 (4.8-10.8)
[2020-05-14 08:06] LABS: Chloride 107 mmol/L (98-107); Potassium 3.8 mmoL/L (3.5-5.1); Sodium 139 mmol/L (136-145)
[2020-05-14 08:09] LABS: Anion Gap 12.8 mEq/L (5-15); Blood Urea Nitrogen 17 mg/dl (7-17); Calcium 8.7 mg/dl (8.4-10.2); Carbon Dioxide 23 mmol/L (22.0-30.0); Creatinine Clearance Estimated 184 mL/min (50-200); Estimated Glomerular Filt Rate 93 ml/min (>60); GFR (African American) 112 ML/MIN (>60); Glucose 72 mg/dl (74-100)
[2020-05-14 08:22] LABS: Troponin I < 0.01 ng/ml (0.00-0.034)
[2020-05-14 09:05] VITALS: BP 123/76; PULSE 66; RESP 13; O2SAT 100
[2020-05-14 09:30] VITALS: BP 118/78; PULSE 62; RESP 20; O2SAT 98
--- NOTE | 2020-05-14 09:53 | PC.NURSE ---
2ND TROP DRAWN AND SENT TO LAB
[2020-05-14 10:28] LABS: Troponin I < 0.01 ng/ml (0.00-0.034)
[2020-05-14 11:21] VITALS: BP 132/87; PULSE 80; RESP 18; TEMP 36.8; O2SAT 100
== END 2020-05-14 11:21 | disposition home or self-care (01) ==
PROVIDERS: Emergency Medicine; Emergency Provider Emergency Medicine; PCP Family Medicine
DX: R07.1 Chest pain on breathing (principal); R06.02 Shortness of breath; I10 Essential (primary) hypertension; E03.9 Hypothyroidism, unspecified; Z90.09 Acquired absence of other part of head and neck; Z79.899 Other long term (current) drug therapy
CPT/HCPCS: 71046; 80048; 84484; 85025; 93005; 99283

== ENCOUNTER → 2020-05-16 15:41 | Outpatient (CLI) | payer OTHER, SELFPAY ==
[2020-05-16 16:36] LABS: D-Dimer 0.38 ug/mL (0.15-8.0)
[2020-05-18 17:23] LABS: Covid-19 Nasal PCR Sendout UK Not Detected
== END ==
PROVIDERS: PCP Physician Assistant; Visit Provider Physician Assistant
DX: Z03.818 Encounter for observation for suspected exposure to other biological agents ruled out (principal)
CPT/HCPCS: 36415; 85378; U0003; U0004

== ENCOUNTER → 2020-05-21 09:02 | Outpatient (CLI) | payer OTHER, SELFPAY ==
--- NOTE | 2020-05-21 09:06 | US_ITS ---
PROCEDURE: US ABDOMEN LIMITED CLINICAL INDICATION: RUQ ABD PAIN COMPARISON: No exams were available for comparison FINDINGS: PANCREAS: Unremarkable. No obvious mass or abnormal fluid collection. No ductal dilatation LIVER: No focal liver lesions demonstrated. Homogeneous echogenicity. No intrahepatic biliary ductal dilatation evident. There is appropriate direction of blood flow within a non dilated portal vein RIGHT KIDNEY: Unremarkable. Normal size and echogenicity. The right kidney measures 11.8 x 5.5 x 6.1 cm. No hydronephrosis GALLBLADDER: No gallstones, gallbladder wall thickening, pericholecystic fluid, or biliary dilatation. IMPRESSION: Unremarkable limited abdominal ultrasound as detailed above disc Dictated by: Dr. Syed Quick MD 05/22/2020 13:20 Dr. Syed Quick MD in [place] 05/22/2020 13:20
== END ==
PROVIDERS: PCP Family Medicine; Visit Provider Family Medicine
DX: R10.11 Right upper quadrant pain (principal)
CPT/HCPCS: 76705

== ENCOUNTER → 2020-05-30 12:39 | Outpatient (CLI) | payer OTHER, SELFPAY ==
--- NOTE | 2020-05-30 12:42 | US_ITS ---
PROCEDURE: US TRANSVAGINAL CLINICAL INDICATION: PELVIC PAIN COMPARISON: US PTV US PELVIS-TRANSVAGINAL ONLY from 09/29/2015 FINDINGS: UTERUS: 8cm x 5cmx 4cm with a combined endometrial thickness of 9.4mm LEFT OVARY: [id number] with a volume of 48.5ml. RIGHT OVARY: [id number] with a volume of 5.4ml. There is a 5 x 3 cm simple appearing left ovarian cyst and a 15 mm simple appearing right ovarian cyst. No cul-de-sac fluid is evident. IMPRESSION: 5 cm simple appearing left ovarian cyst. Suggest 3 month follow-up to confirm resolution or stability Dictated by: Yrn Pruitt MD 05/30/2020 14:48 Yrn Pruitt MD in [place] 05/30/2020 14:48
== END ==
PROVIDERS: PCP Family Medicine; Visit Provider Family Medicine
DX: R10.2 Pelvic and perineal pain (principal)
CPT/HCPCS: 76830

== ENCOUNTER → 2020-07-16 13:15 | Outpatient (CLI) | payer OTHER, SELFPAY ==
--- NOTE | 2020-07-16 13:15 | US_ITS ---
PROCEDURE: US TRANSVAGINAL CLINICAL INDICATION: possible Lt. ovarian cyst A cysts on the right breast scalp left light the a fibroadenoma missing hypokinetic septated cyst right air VA once he feels than on the tiny cyst but not well itself was ideas solid left EIA MLO the like mm 4 mm highly ice optimal ring-like but I but the right 1 at the 8 young a degenerative facet there like 5th endo solid is 1 of the 1 solid in the right breast as it looks like a fibroid COMPARISON: US US TRANSVAGINAL from 05/30/2020 FINDINGS: UTERUS: 8cm x 5cmx 4cm with a combined endometrial thickness of 8mm LEFT OVARY: [id number] with a volume of 25.6ml. RIGHT OVARY: [id number] with a volume of 5.5ml. Endometrial thickness is 8 mm. There is an area of hypoechogenicity in the fundus of the uterus at 2.4 cm consistent with a fibroid. An additional area of decreased echogenicity in the posterior body of the uterus at 8 mm consistent with a fibroid. There is a 3.9 x 2.6 cm left ovarian simple cyst. Small right ovarian follicles are present. There is bilateral ovarian blood flow. No cul-de-sac fluid IMPRESSION: Uterine fibroids. Simple appearing 3.9 cm left ovarian cyst. Previously the left ovarian cyst measures 5.5 x 3.6 cm. Previously noted right ovarian cyst has resolved Dictated by: Yrn Pruitt MD 07/16/2020 16:31 Yrn Pruitt MD in [place] 07/16/2020 16:31
== END ==
PROVIDERS: PCP Family Medicine; Visit Provider Nurse Practitioner Obstetrics & Gynecology
DX: N83.209 Unspecified ovarian cyst, unspecified side (principal)
CPT/HCPCS: 76830

== ENCOUNTER → 2020-07-25 15:55 | Outpatient (CLI) | payer OTHER, SELFPAY ==
[2020-07-25 17:10] LABS: Basophils % 0.4 % (0.1-2.0); Eosinophils # 0.1 K/mm3 (0.0-0.4); Eosinophils % 0.8 % (0.1-12.0); Hemoglobin 14.1 g/dL (12.2-16.2); Lymphocytes % 24.1 % (10-50); Mean Corpuscular HGB Conc 32.8 g/dL (31.8-35.4); Mean Corpuscular Hemoglobin 27.9 pg (27.0-31.2); Mean Corpuscular Volume 85.1 fl (81-99); Mean Platelet Volume 7.6 fl (7.4-10.4); Monocytes # 0.3 K/mm3 (0.1-1.0); Monocytes % 2.7 % (1.7-9.3); Neutrophils # 8.9 K/mm3 (1.8-7.8); Platelet Count 352 K/mm3 (142-424); Red Blood Count 5.06 M/mm3 (4.20-5.40); Red Cell Distribution Width 14.4 % (11.5-17.5); White Blood Count 12.3 K/mm3 (4.8-10.8)
[2020-07-25 17:53] LABS: Anion Gap 13.2 mEq/L (5-15); Blood Urea Nitrogen 20 mg/dl (7-17); Calcium 8.8 mg/dl (8.4-10.2); Carbon Dioxide 28 mmol/L (22.0-30.0); Chloride 105 mmol/L (98-107); Estimated Glomerular Filt Rate 79 ml/min (>60); GFR (African American) 96 ML/MIN (>60); Glucose 73 mg/dl (74-100); HCG Qualitative, Serum Negative (Negative); Potassium 4.2 mmoL/L (3.5-5.1); Sodium 142 mmol/L (136-145)
[2020-07-25 19:14] LABS: Coronavirus 19 IgG Antibody Negative (Negative); Coronavirus 19 IgM Antibody Negative (Negative)
== END ==
PROVIDERS: Visit Provider Nurse Practitioner Obstetrics & Gynecology
DX: Z01.818 Encounter for other preprocedural examination (principal); N83.209 Unspecified ovarian cyst, unspecified side; R10.2 Pelvic and perineal pain
CPT/HCPCS: 36415; 80048; 84703; 85025; 86328

== ENCOUNTER 2020-07-28 06:10 | Day surgery (SDC) | payer OTHER, SELFPAY ==
[2020-07-24 14:00] VITALS: BMI 39.3
[2020-07-28] VITALS (13 sets, daily range): BP systolic 118–165; BP diastolic 70–104; PULSE 55–87; RESP 13–18; TEMP 36.4–43; O2SAT 98–100
--- NOTE | 2020-07-28 06:50 | HMH.ANESCL ---
[facility] Anesthesia Checklist - Structural Data Admitted From: Home Planned Operative Procedure/s: dx lap Consent for Planned Operative Procedure(s) Verified: Yes - Additional verifications Anesthesia Reactions: No Hx Blood Transfusions: No Blood Transfusion Reaction: No - Airway Assessment C-Spine Mobility Assessed: Yes TMJ Mobility Assessed: Yes Dentition: Good Dentition - Neurological Assessment Level of Consciousness: Awake, Alert, Appropriate - Anesthesia Plan Anesthesia Risk discussed: Yes Anesthesia Plan: Verified ASA Class: II Anesthesia Type: General [facility] History I have reviewed the patient's past medical history: Yes 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: Reports:: Hypertension Denies:: Cancer, Diabetes Mellitus Type 1, Diabetes Mellitus Type 2, Internal Pacemaker, MRSA, Seizures *Have you ever received a pneumonia vaccine?: No *Have you received a flu vaccine this season?: Yes Other 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: Reports: Hypothyroidism, Thyroid Disease. Denies: Blood Transfusion Reaction Anesthesia experience/problems:: none Laterality Cases: Bilateral: Tonsillectomy, Other Other Surgeries: Yes: Bariatric Surgery, Cardiac Catheterization, , Thyroidectomy, Other. No: Pacemaker Amputation: No Fractures: No - *Social History Last grade of school completed: Some college Smoking Status: Former smoker Alcohol Intake: never Alcohol Intake Frequency:: holidays/special occasions only Substance Use Type: denies use *Occupational Status:: employed Housing: intermediate Household Members: spouse *Travel in the last 8 weeks: None Family Hx:: Cancer, Diabetes, Thyroid Disorder
--- NOTE | 2020-07-28 07:07 | SUR.PREOP ---
0705- Pt assisted to BR and back to stretcher. Pt stated she was comfortable
--- NOTE | 2020-07-28 08:35 | HMH.OPNOTE ---
Date of procedure: 07/28/20 Pre-op Diagnosis:: Left lower quadrant pain, left ovarian cyst, desire for sterilization Post-op Diagnosis:: Left lower quadrant pain, left ovarian cyst, desire for sterilization Procedure performed:: Laparoscopic bilateral salpingectomy, left ovarian cystectomy Surgeon:: Semaj Allen MD [employer] SERGEANT:: Oscar Cartyty Anesthesia: GETA Estimated blood loss (mL): 50 Clinical Note:: She is a 39-year-old lady who complains of severe left lower quadrant pain. Ultrasounds have shown that she has a persistent left ovarian cyst. After having discussed the risk-benefit she elected to have this cyst removed. She also expressed desire for sterilization risk and benefits as well as the irreversibility of bilateral salpingectomy were discussed with the patient prior to surgery. Operative findings:: She had a 4 cm simple left ovarian cyst. Ovaries and tubes appeared normal. The the appendix was visualized and appeared normal. The upper abdomen appeared normal. The deep pelvis otherwise appeared normal. Operative note:: She was taken to the operating room where general anesthesia was found be adequate. She was prepped and draped in normal sterile fashion in the semilithotomy position. A weighted speculum was placed in the vagina and the anterior lip of the cervix was grasped with a tenaculum. I then inserted a Leona uterine manipulator into the cervical os. The balloon was then insufflated. I changed gloves and injected 10 cc of 0.5% ropivacaine around her umbilicus and made a small incision within the umbilicus. I inserted a Veress needle into the abdominal cavity. The peritoneal cavity was then insufflated with carbon dioxide gas to a pressure of 20 mmHg. I then inserted a 5 millimeter trocar under direct vision. I injected through and through the pubic hairline, made a small incision here and inserted an 8 mm trocar under direct vision. I identified the inferior epigastric artery on the left side, went lateral to these and injected through and through. I then placed a 5 mm trocar here under direct vision. The pelvis and upper abdomen were then inspected and the findings were as previously dictated. I grasped the right tube at the cornua and using harmonic scalpel on coagulation mode I cut through the tube. I then grasped the distal tube and using harmonic scalpel cut along the mesosalpinx. The tube was removed through 8 mm trocar site. This was similarly performed on the patient's left side. The left ovary was grasped and I opened up into the left ovarian cyst and drained straw-colored fluid. I then grasped the ovary and using harmonic scalpel removed a good portion of the ovarian cyst wall. I then rinsed the pelvis well with saline. I then placed a large piece of Surgicel around the left ovary and into the defect where the cyst had been. Once again I assured hemostasis. I then injected 30 cc of 0.5% ropivacaine into the pelvis. After assuring hemostasis the gas was let out of the abdomen and hemostasis was once again assured. The abdomen was then reinsufflated. The secondary trochars were removed under direct vision. The gas was let out her abdomen. The primary trocar was then removed. The 8 mm trocar site was closed deeply with 2-0 Vicryl suture followed by subcuticular 4-0 Monocryl suture. The 5 mm trocar sites were closed with subcuticular 4-0 Monocryl. Sterile dressings were applied. The patient tolerated the procedure well and was taken to the recovery room in excellent condition. All sponge instrument and needle counts were correct. The estimated blood loss was less than 50 cc. Condition: stable Disposition: PACU Specimens:: Bilateral fallopian tubes, ovarian cyst wall Complications:: None
--- NOTE | 2020-07-28 08:50 | HMH.ANESI ---
[facility] Anesthesia Record Part I Intake, IV Amount: 650 Estimated blood loss (mL): 43 Urine output (mL): 100 Blood Products used (#): none Blood Pressure: 153/92 SaO2: 99 Pulse Rate: 67 Respiratory Rate: 18 Temperature: 98.7 F Patient is:: Drowsy, Stable Stable to PACU at:: 08:45
--- NOTE | 2020-07-28 09:53 | SUR.PHASEII ---
Please disregard all charting under Harpreet Jimenez RN wrong patient
--- NOTE | 2020-07-28 10:26 | HMH.ANESII ---
[facility] Anesthesia Record Part II Discharge Time: 09:15 Destination: Surgical Day Care (OP Surgery) PACU nurse assessment reviewed?: Yes Patient Condition:: Good Anesthesia Complications:: None Swallowing reflex intact?: Yes Cyanosis?: No Blood Pressure: 128/77 Pulse Rate: 66 Temperature: 97.9 F Mental Status: Alert & Oriented Pain level:: 5 Nausea and/or vomitting:: None Intake, IV Amount: 35
== END 2020-07-28 10:30 ==
LOC: OR 06:11
PROVIDERS: PCP Family Medicine; Visit Provider Nurse Practitioner Obstetrics & Gynecology
PROC: 0TTB4ZZ Resection of Bladder, Percutaneous Endoscopic Approach (ICD-10-PCS; CPT 51999; principal; 2020-07-28 07:30)
DX: Z30.2 Encounter for sterilization (principal); N83.292 Other ovarian cyst, left side
CPT/HCPCS: 58662; 58700; 96374; J2405; J2710

== ENCOUNTER 2021-01-13 10:07 | Emergency (ER) | payer OTHER, SELFPAY ==
[2021-01-13 10:16] VITALS: BP 123/71; PULSE 60; RESP 18; TEMP 37.2; O2SAT 100; BMI 38.2
[2021-01-13 10:30] VITALS: BP 126/70; PULSE 75; RESP 16; TEMP 36.8; O2SAT 100; BMI 38.2
--- NOTE | 2021-01-13 10:38 | HMH.EDUTC ---
[facility] [place] Disposition Clinical Impression: Otitis media Qualifiers: Otitis media type: unspecified Laterality: left Qualified Code(s): H66.92 - Otitis media, unspecified, left ear Disposition: Home, Self-Care Condition on Discharge: Good Instructions: Ear Infections (Alternative Therapy), Middle Ear Infection, Amoxicillin Additional Instructions: *Monitor Temp, Over the counter Motrin or Tylenol as directed/as needed Tylenol every 4 hours and Motrin every 6 hours (as long as your family doctor has told you that you can take it) for fever or pain. and straight to ER if unable to lower temp less than 101.0 after medication given *Warm salt water gargles may help to soothe the throat *Throat Lozenges *Warm fluids like tea with honey may help to soothe the throat *Sleep elevated *Humidifier/Vaporizer *Flonase 2 sprays in each nostril daily but be aware that it may take 2-3 days before you notice improvement Follow up IMMEDIATELY for new or worsening symptoms or no Noticeable improvement over the next 48-72 hours. 911 for difficulty breathing or swallowing Prescriptions: Amoxicillin [Amoxicillin 875MG Tab] 875 mg PO Q12H #14 tab Transmission Status: Pending to [facility] Fluticasone Propionate [Flonase 50mcg nasal spray 16gm] 1 spr NS DAILY #1 bottle Transmission Status: Pending to [facility] Referrals: Rudi Arce MD [Primary Care Provider] - As needed Forms: Work/School Release Time of Disposition: 10:43 Medical Decision Making - Greg Inquiry Pt receiving controlled substance: No Greg was queried for this patient: No Vital Signs: 01/13/21 10:16 01/13/21 10:30 Temperature 99.0 F 98.2 F Temperature Source Oral Oral Pulse Rate [Left Radial] 60 75 Respiratory Rate 18 16 Blood Pressure [Right Arm] 123/71 126/70 Blood Pressure Mean [Right Arm] 88 88 Blood Pressure Source [Right Arm] Automatic Cuff Automatic Cuff Blood Pressure Position [Right Arm] Sitting Sitting 02 Sat by Pulse Oximetry 100 100 Oxygen Delivery Method Room Air Room Air [facility] HPI - General Stated complaint: ear pain,lutheran and jaw pain Time Seen by Provider: 01/13/21 10:38 Mode of Arrival: Ambulatory Source of Information: Patient Limitations: No Limitations Description of Symptoms (Recalled from Triage Doc. by RN): Left ear ache. hurting down into jaw and cough. HEENT Symptoms (Recalled from RN notes): Yes Resp Symptoms (Recalled from RN notes): Yes Skin Symptoms (Recalled from RN notes): No MS Symptoms (Recalled from RN notes): No Functional Status (Recalled from RN notes): wnl - History of Present Illness Provider Complaint: Patient states that she has been having pain on and off in her left ear for about a week States over the last couple of days it has got worse States that now pain is so bad in her ear it feels like it shoots pain down into her jaw and lutheran area States that she feels like her ear is full and having pressure States that also she has had a nagging cough - Related Data Home Medications Medication Instructions Recorded Confirmed duloxetine 60 mg capsule,delayed 60 mg PO DAILY cap 06/12/20 08/21/20 release meloxicam 15 mg tablet 15 mg PO DAILY tab 06/12/20 08/21/20 etonogestrel 68 mg subdermal 1 implant SUBDERMAL each 08/21/20 08/21/20 implant Previous Rx's Medication Instructions Recorded levothyroxine 150 mcg tablet 150 mcg PO DAILY #90 tab 03/01/19 Oxycodone HCl/Acetaminophen 1 tab PO Q4-6H PRN #20 tab 07/28/20 [Percocet 5/325mg tablet] Amoxicillin [Amoxicillin 875MG 875 mg PO Q12H #14 tab 01/13/21 Tab] Fluticasone Propionate [Flonase 1 spr NS DAILY #1 bottle 01/13/21 50mcg nasal spray 16gm] Allergies Allergy/AdvReac Type Severity Reaction Status Date / Time No Known Allergies Allergy Verified 08/21/20 09:53 - Worker's Comp Is this a Worker's Comp case?: No [facility] History - Hepatitis A Screen Drug use history?: No High risk sexual behaviors
[2021-01-13 11:00] VITALS: BP 126/70; PULSE 75; RESP 16; TEMP 36.8; O2SAT 100
== END 2021-01-13 11:01 | disposition home or self-care (01) ==
PROVIDERS: Emergency Provider Nurse Practitioner; PCP Family Medicine
DX: H66.92 Otitis media, unspecified, left ear (principal); I10 Essential (primary) hypertension; E03.9 Hypothyroidism, unspecified; Z79.899 Other long term (current) drug therapy
CPT/HCPCS: 99202; G0463

== ENCOUNTER → 2021-05-20 09:03 | Outpatient (CLI) | payer OTHER, SELFPAY ==
[2021-05-20 09:15] LABS: Coronavirus 19, PCR Not Detected (NotDetected); Influenza A, PCR Not Detected (NotDetected); Influenza B, PCR Not Detected (NotDetected)
== END ==
PROVIDERS: PCP Family Medicine; Visit Provider Nurse Practitioner Family
DX: Z20.822 Contact with and (suspected) exposure to COVID-19 (principal)
CPT/HCPCS: U0003

== ENCOUNTER 2021-06-24 16:38 | Emergency (ER) | payer OTHER, SELFPAY ==
[2021-06-24 16:38] VITALS: BP 126/82; PULSE 90; RESP 16; TEMP 37; O2SAT 98; BMI 34.7
[2021-06-24 17:04] VITALS: BMI 34.7
--- NOTE | 2021-06-24 17:05 | CT_ITS ---
PROCEDURE INFORMATION: Exam: CT Abdomen And Pelvis With Contrast Exam date and time: 06/24/2021 5:05 PM Age: 40 years old Clinical indication: Abdominal pain; Generalized; Additional info: Abd pain TECHNIQUE: Imaging protocol: Computed tomography of the abdomen and pelvis with contrast. Radiation optimization: All CT scans at this facility use at least one of these dose optimization techniques: automated exposure control; mA and/or kV adjustment per patient size (includes targeted exams where dose is matched to clinical indication); or iterative reconstruction. Contrast material: ISOVUE; Contrast volume: 75 ml; Contrast route: IV; COMPARISON: CT ABDOMEN PELVIS W CON 01/01/2020 7:05 PM FINDINGS: Mediastinal space: Small hiatal hernia. Postsurgical changes seen related to the stomach. Liver: Normal. No mass. Gallbladder and bile ducts: Normal. No calcified stones. No ductal dilation. Pancreas: Normal. No ductal dilation. Spleen: Normal. No splenomegaly. Adrenal glands: Normal. No mass. Kidneys and ureters: Normal. No hydronephrosis. Stomach and bowel: See Mediastinal space finding. Appendix: No evidence of appendicitis. Intraperitoneal space: Unremarkable. No free air. No significant fluid collection. Vasculature: Unremarkable. No abdominal aortic aneurysm. Lymph nodes: Unremarkable. No enlarged lymph nodes. Urinary bladder: Unremarkable as visualized. Reproductive: Prominent bilateral ovaries, but similar to prior. Ultrasound offered if there are any referable symptoms. Bones/joints: Unremarkable. No acute fracture. Soft tissues: Unremarkable. Other findings: Calcified nodule again seen in the left lung base. Another unchanged calcified nodule in the right base. IMPRESSION: No acute intra-abdominal pathology
--- NOTE | 2021-06-24 17:22 | HMH.EDGENADL ---
ED Disposition Clinical Impression: Enteritis Disposition: Home, Self-Care Condition on Discharge: Fair Instructions: DI for Enteritis Additional Instructions: Phenergan take-home pack for nausea and vomiting, then fill prescription for Zofran. Rest and drink plenty of fluids. Tylenol or ibuprofen for pain. Off work until diarrhea resolves. Outpatient diarrhea panel. Additional instructions for VOMITING/DIARRHEA: See your physician as soon as possible for further evaluation. Return immediately if severe abdominal pain, uncontrollable vomiting, shortness of breath, fever, vomiting of blood or abdominal distention. Prescriptions: Ondansetron [Zofran 4mg ODT] 4 mg PO TIDP PRN #10 tab PRN Reason: Nausea And Vomiting Transmission Status: Pending to [facility] Referrals: Rudi Arce MD [Primary Care Provider] - - Critical Care Critical Care Time: No Attestation: On 06/24/21, the high probability of a clinically significant, sudden or life threatening deterioration of the following system(s) required my full and direct attention, intervention and personal management. The time I documented below is in addition to time spent performing reported procedures but includes the following listed in this critical care notation. Medical Decision Making - Greg Inquiry Pt receiving controlled substance: Yes Greg was queried for this patient: Yes Risks and benefits of using a controlled substance: were not discussed with pt by me Vital Signs: 06/24/21 16:38 06/24/21 17:35 06/24/21 18:04 Temperature 98.6 F Temperature Source Oral Pulse Rate 77 71 Pulse Rate [Right] 90 Respiratory Rate 16 16 Blood Pressure 144/97 H 144/97 H Blood Pressure [Right Arm] 126/82 Blood Pressure Mean [Right Arm] 96 Blood Pressure Source [Right Arm] Automatic Cuff Blood Pressure Position Sitting Blood Pressure Position [Right Arm] Sitting 02 Sat by Pulse Oximetry 98 99 95 Oxygen Delivery Method Room Air Room Air - Lab Data Lab Results 06/24/21 17:00: WBC 15.6 H, RBC 4.85, Hgb 13.7, Hct 43.7, MCV 90.2, MCH 28.2, MCHC 31.2 L, RDW 14.2, Plt Count 312, MPV 8.8, Neut % (Auto) 83.1 H, Lymph % (Auto) 12.7, [place] % (Auto) 3.2, Eos % (Auto) 0.6, Baso % (Auto) 0.5, Neut # (Auto) 13.0 H, Lymph # (Auto) 2.0, [place] # (Auto) 0.5, Eos # (Auto) 0.1, Baso # (Auto) 0.1, Total Counted 100, Neutrophils % (Manual) 83 H, Lymphocytes % (Manual) 14, Monocytes % (Manual) 3, Platelet Estimate Normal 06/24/21 17:00: Sodium 140, Potassium 4.2, Chloride 107, Carbon Dioxide 25, Anion Gap 12.2, BUN 15, Creatinine 0.60, Estimated Creat Clear 208, Estimated GFR 110, Est GFR ( Amer) 133, Glucose 83, Calcium 8.4, Total Bilirubin 0.1 L, AST 28, ALT 16, Alkaline Phosphatase 88, Total Protein 7.2, Albumin 4.2, Globulin 3.0, Albumin/Globulin Ratio 1.4, Amylase 103, Lipase 228 06/24/21 17:00: SARS-CoV-2 (PCR) Not detected, Influenza A Untype (PCR) Not detected, Influenza Type B (PCR) Not detected 06/24/21 17:00: Serum HCG, Qual Negative 06/24/21 17:11: Urine Color Yellow, Urine Appearance Clear, Urine pH 5.5, Ur Specific [place] >= 1.030, Urine Protein Negative, Urine Glucose (UA) Negative, Urine Ketones Negative, Urine Blood Negative, Urine Nitrate Negative, Urine Bilirubin Negative, Urine Urobilinogen 0.2, Ur Leukocyte Esterase Negative, Urine WBC 3-5, Ur Squamous Epith Cells Occasional, Urine Bacteria 3+ Result diagrams: 06/24/21 17:00 06/24/21 17:00 Orders (Tests/Meds): ED MEDICATIONS Generic Name Dose Route Start Last Admin Trade Name Freq PRN Reason Stop Dose Admin Promethazine HCl 1 lola 06/24/21 19:48 Promethazine 25mg Tablet Take Home Pack (10) PO 07/24/21 19:47 Q6HP PRN Nausea And Vomiting Discontinued Medications Generic Name Dose Route Start Last Admin Trade Name Freq PRN Reason Stop Dose Admin Sodium Chloride 1,000 mls @ 999 mls/hr 06/24/21 17:15 06/24/21 17:10 Sod Chlor 0.9% 1000ml B
[2021-06-24 17:24] LABS: Microscopic, Urine URINE MICROSCOPIC (MICROSCOPIC)
[2021-06-24 17:30] LABS: Coronavirus 19, PCR Not Detected (NotDetected); Influenza A, PCR Not Detected (NotDetected); Influenza B, PCR Not Detected (NotDetected)
--- NOTE | 2021-06-24 17:30 | PC.NURSE ---
Pt to rad
[2021-06-24 17:35] VITALS: BP 144/97; PULSE 77; RESP 16; O2SAT 99
--- NOTE | 2021-06-24 17:36 | PC.NURSE ---
Ayana called and advised contrast had blown pt's IV. Zheng RN to ayana to start another line.
[2021-06-24 17:37] LABS: Chloride 107 mmol/L (98-107)
[2021-06-24 17:37] LABS: Appearance,Urine CLEAR (Clear); Bilirubin,Urine Negative (Negative); Blood, Urine Negative (Negative); Color,Urine YELLOW (Yellow); Glucose,Urine (UA) Negative (Negative); Ketones,Urine Negative (Negative); Leukocyte Esterase,Urine Negative (Negative); Nitrate,Urine Negative (Negative); PH,Urine 5.5 (5.0-8.5); Protein,Urine Negative (Negative); Specific Gravity, Urine >= 1.030 (1.005-1.030); Urobilinogen,Urine 0.2 EU/dl (0.2)
[2021-06-24 17:38] LABS: Potassium 4.2 mmoL/L (3.5-5.1); Sodium 140 mmol/L (136-145)
[2021-06-24 17:40] LABS: Amylase 103 U/L (30-110); Blood Urea Nitrogen 15 mg/dl (7-17); Creatinine Clearance Estimated 208 mL/min (50-200); Estimated Glomerular Filt Rate 110 ml/min (>60); GFR (African American) 133 ML/MIN (>60)
[2021-06-24 17:41] LABS: Alanine Aminotransferase 16 U/L (12-78); Albumin Level 4.2 g/dl (3.5-5.0); Albumin/Globulin Ratio 1.4 (1.1-1.8); Alkaline Phosphatase 88 U/L (38-126); Anion Gap 12.2 mEq/L (5-15); Aspartate Amino Transferase 28 U/L (14-36); Basophils # 0.1 K/mm3 (0-0.2); Basophils % 0.5 % (0.1-2.0); Calcium 8.4 mg/dl (8.4-10.2); Carbon Dioxide 25 mmol/L (22.0-30.0); Eosinophils # 0.1 K/mm3 (0.0-0.4); Eosinophils % 0.6 % (0.1-12.0); Glucose 83 mg/dl (74-100); Hematocrit 43.7 % (37.0-47.0); Hemoglobin 13.7 g/dL (12.2-16.2); Lipase 228 U/L (23-300); Lymphocytes % 12.7 % (10-50); Mean Corpuscular HGB Conc 31.2 g/dL (31.8-35.4); Mean Corpuscular Hemoglobin 28.2 pg (27.0-31.2); Mean Corpuscular Volume 90.2 fl (81-99); Mean Platelet Volume 8.8 fl (7.4-10.4); Monocytes # 0.5 K/mm3 (0.1-1.0); Monocytes % 3.2 % (1.7-9.3); Neutrophils % 83.1 % (37.0-80.0); Platelet Count 312 K/mm3 (142-424); Red Blood Count 4.85 M/mm3 (4.20-5.40); Red Cell Distribution Width 14.2 % (11.5-17.5); Total Protein,Serum 7.2 g/dl (6.3-8.2); White Blood Count 15.6 K/mm3 (4.8-10.8)
[2021-06-24 17:42] LABS: Bilirubin,Total 0.1 mg/dl (0.2-1.3); MANUAL DIFFERENTIAL MANUAL DIFFERENTIAL (MANUAL DIFF)
[2021-06-24 17:56] LABS: Bacteria,Urine 3+ /lpf; Squamous Epithelial Cell,Urine Occasional #/hpf (0-5)
--- NOTE | 2021-06-24 18:01 | PC.NURSE ---
Pt returned from CT
[2021-06-24 18:04] VITALS: BP 144/97; PULSE 71; O2SAT 95
[2021-06-24 18:14] LABS: Lymphocytes % 14 % (10-50); Monocytes % 3 % (2-9); Neutrophils % 83 % (42-76); Platelet Estimate Normal; Total Cells Counted 100
[2021-06-24 18:27] LABS: HCG Qualitative, Serum Negative (Negative)
[2021-06-24 20:19] VITALS: BP 135/72; PULSE 80; RESP 20; TEMP 36.6; O2SAT 99
--- NOTE | 2021-06-24 20:35 | PC.NURSE ---
pT GIVEN OUTPT ORDER FOR DIARRHEA PANEL, AND SUPPLIES & INSTRUCTIONS FOR COLLECTION.
== END 2021-06-24 20:34 | disposition home or self-care (01) ==
PROVIDERS: Emergency Provider Emergency Medicine; PCP Family Medicine
DX: K52.9 Noninfective gastroenteritis and colitis, unspecified (principal); I10 Essential (primary) hypertension; E03.9 Hypothyroidism, unspecified; Z20.822 Contact with and (suspected) exposure to COVID-19
CPT/HCPCS: 74177; 80053; 81001; 82150; 83690; 84703; 85007; 85025; 87086; 96365; 96375; 99283; C9803; J2405; Q9967; U0003; U0005

== ENCOUNTER → 2021-06-25 13:40 | Outpatient (CLI) | payer OTHER, SELFPAY ==
[2021-06-25 13:54] LABS: Adenovirus F 40/41, stool Not Detected (NotDetected); Astrovirus Not Detected (NotDetected); Campylobacter Not Detected (NotDetected); Clostridium Difficile A/B, PCR Not Detected (NotDetected); Cryptosporidium Not Detected (NotDetected); Cyclospora Cayetanesis Not Detected (NotDetected); Entamoeba histolytica Not Detected (NotDetected); Enteroaggregative E coli Not Detected (NotDetected); Enteropathogenic E coli Not Detected (NotDetected); Enterotoxigenic E coli Not Detected (NotDetected); Giardia lamblia Not Detected (NotDetected); Norovirus Not Detected (NotDetected); Plesimonas Shigalloides, PCR Not Detected (NotDetected); Rotavirus A Not Detected (NotDetected); Salmonella, PCR Not Detected (NotDetected); Sapovirus Not Detected (NotDetected); Shiga-like toxin E coli Not Detected (NotDetected); Shigella Enterovasive E coli Not Detected (NotDetected); Vibrio Cholerae Not Detected (NotDetected); Vibrio, PCR Not Detected (NotDetected); Yersinia Entercolitica, PCR Not Detected (NotDetected)
== END ==
PROVIDERS: PCP Family Medicine; Visit Provider Emergency Medicine
DX: K52.9 Noninfective gastroenteritis and colitis, unspecified (principal)
CPT/HCPCS: 87506

== ENCOUNTER → 2021-07-16 09:00 | Outpatient (CLI) | payer OTHER, SELFPAY ==
[2021-07-16 16:40] VITALS: BMI 35.5
== END ==
PROVIDERS: PCP Family Medicine; Visit Provider Nurse Practitioner
DX: R09.89 Other specified symptoms and signs involving the circulatory and respiratory systems (principal)

== ENCOUNTER → 2021-08-12 17:28 | Outpatient (CLI) | payer OTHER, SELFPAY ==
[2021-08-12 22:07] VITALS: BMI 34.0
== END ==
PROVIDERS: PCP Family Medicine; Visit Provider Nurse Practitioner Family
DX: R05.9 Cough, unspecified (principal); R09.89 Other specified symptoms and signs involving the circulatory and respiratory systems; H92.09 Otalgia, unspecified ear
CPT/HCPCS: 96374; 96375

== ENCOUNTER → 2021-08-31 08:51 | Outpatient (CLI) | payer OTHER, SELFPAY ==
--- NOTE | 2021-08-31 08:55 | XR_ITS ---
PROCEDURE: XR FOOT WT BEARING LT 3V CLINICAL INDICATION: pain COMPARISON: CR FTL3 FOOT-LT-3 VIEWS from 08/13/2014 CR FTL3 FOOT-LT-3 VIEWS from 12/25/2014 CR [id number] XR foot LT min 3V from 03/02/2018 FINDINGS: No fracture or dislocation. No lytic or blastic change. There is normal mineralization. Bony hypertrophic changes are present along the dorsal aspect of the talonavicular joint with mild pes planus. Prominent calcaneal spur. Other findings:None. IMPRESSION: No change with no acute finding. Hypertrophic change at the dorsal aspect of the talonavicular joint with mild pes planus Dictated by: Yrn Pruitt MD 08/31/2021 12:46 Yrn Pruitt MD in [place] 08/31/2021 12:46
--- NOTE | 2021-08-31 08:55 | XR_ITS ---
PROCEDURE: XR FOOT WT BEARING RT 3V CLINICAL INDICATION: pain COMPARISON: CR FTL3 FOOT-LT-3 VIEWS from 08/13/2014 CR FTL3 FOOT-LT-3 VIEWS from 12/25/2014 CR [id number] XR foot LT min 3V from 03/02/2018 FINDINGS: Hallux valgus with mild osteoarthritis at the 1st MTP joint and hypertrophic changes at the distal aspect of the 1st metatarsal. There is hyperostosis along the anterior aspect of the proximal aspect of the navicular. A lucency is present at the bony prominence and could represent an old fracture versus ununited ossification center. Prominent calcaneal spur. Other findings:None. IMPRESSION: Osteoarthritis with hallux valgus at the 1st MTP joint and bunion formation Bony projection along the anterior and proximal aspect of the navicular with lucency at its base and could represent an old fracture or ununited ossification center Dictated by: Yrn Pruitt MD 08/31/2021 12:48 Yrn Pruitt MD in [place] 08/31/2021 12:48
== END ==
PROVIDERS: PCP Family Medicine; Visit Provider Podiatrist
DX: M79.672 Pain in left foot (principal); M79.671 Pain in right foot
CPT/HCPCS: 73630

== ENCOUNTER → 2021-09-17 14:55 | Outpatient (CLI) | payer OTHER, SELFPAY ==
[2021-09-17 18:23] VITALS: BMI 34.9
== END ==
PROVIDERS: PCP Family Medicine; Visit Provider Nurse Practitioner
DX: J06.9 Acute upper respiratory infection, unspecified (principal)

== ENCOUNTER → 2021-10-11 20:02 | Outpatient (CLI) | payer OTHER, SELFPAY ==
[2021-10-11 21:28] VITALS: BMI 34.9
== END ==
PROVIDERS: PCP Family Medicine; Visit Provider Nurse Practitioner
DX: M54.50 Low back pain, unspecified (principal); M46.1 Sacroiliitis, not elsewhere classified
CPT/HCPCS: J0696

== ENCOUNTER → 2021-10-12 18:11 | Outpatient (CLI) | payer OTHER, SELFPAY ==
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
[2021-10-12 21:46] VITALS: BMI 34.9
== END ==
PROVIDERS: PCP Family Medicine; Visit Provider Nurse Practitioner Family
DX: M25.561 Pain in right knee (principal); S89.91XA Unspecified injury of right lower leg, initial encounter
CPT/HCPCS: 73562

== ENCOUNTER → 2021-10-13 09:42 | Outpatient (POV) | payer OTHER, SELFPAY ==
[2021-10-13 10:05] VITALS: BP 157/83; PULSE 82; RESP 20; TEMP 36.8; O2SAT 100; BMI 34.0
--- NOTE | 2021-10-13 10:20 | HMH.PMCON ---
Assessment and Plan (1) Low back pain Status: Chronic Category: Medical Code(s): M54.50 - Low back pain, unspecified (2) Bilateral sacroiliitis Status: Chronic Category: Medical Code(s): M46.1 - Sacroiliitis, not elsewhere classified - Assessment and plan all Dx Assessment and Plan for all problems:: Patient would like to proceed with bilateral SI joint injections. If she does not get significant relief she would like to proceed with corner lock. She is having worse pain on the right side. She has gotten significant relief at about 70 to 80% in the past with initial injections, however, relief is short-lived. We will follow up with her after the injections for further evaluation. She has tried conservative therapies and failed. She continues with home stretching. Possible side effects of corticosteroids have been discussed with the patient. Risks and benefits of the procedure have been explained to the patient. Patient would like to proceed with the procedure. Patient has been instructed to contact the clinic with any concerns before the next appointment. Dr. Lawson has reviewed this note and agrees with this plan of care. This note was dictated using voice recognition software and make contain errors or omissions. HPI - Data of Consult Patient: new to practice Consult date: 10/13/21 Requesting Physician: Ashley Ortiz APRN - Consult Narrative Reason for consult: Bilateral low back pain History of present illness: Ms. Chaudhari is a 41 year old female who presents today for consultation for chronic low back pain. She is been seen in the clinic in 2020 for bilateral sacroiliitis. She has had bilateral SI injections as well as bilateral SI RFA's. She got significant relief but pain did return. 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 She says that she is having significant pain low back with radiation into bilateral buttock and hips. She is also having worse pain into her right back area. The pain does not radiate past the knees. She says pain is constant and is stabbing and throbbing in nature. Movement does not change the pain. She says she is now unable to sleep due to pain. She has seen Dr. Prater in the past. She is currently on ibuprofen 800 mg 3 times daily as needed as well as chiropractic therapy with minimal relief. She has tried physical therapy for more than 6 weeks and continues with home stretching. She rates her pain a 10 out of 10 today. CC: Ashley Ortiz APRN [facility] History I have reviewed the patient's past medical history: Yes 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: Reports:: Hypertension Denies:: Cancer, Diabetes Mellitus Type 1, Diabetes Mellitus Type 2, Internal Pacemaker, MRSA, Seizures *Have you ever received a pneumonia vaccine?: No *Have you received a flu vaccine this season?: Yes Other 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: Reports: Arthritis, Hypothyroidism, Thyroid Disease. Denies: Blood Transfusion Reaction Laterality Cases: Bilateral: Tonsillectomy, Other Other Surgeries: Yes: Bariatric Surgery, Cardiac Catheterization, , Thyroidectomy, Other. No: Pacemaker Amputation: No Fractures: No - *Social History Smoking Status: Former smoker Alcohol Intake: never Alcohol Intake Frequency:: holidays/special occasions only Substance Use Type: denies use *Occupational Status:: employed Housing: house Household Members: other *Travel in the last 8 weeks: None Family Hx:: Cancer, Diabetes, Thyroid Disorder Review of Systems - Review of Systems Review of Systems General: No recent weight changes, no fever, no sleep disturbances Respiratory: No cough, no shortness of air, no recurring pulmonary infections Cardiovascular/peripheral vascular: No chest pain, no palpitations, no edema, no shortness of breath Gastrointestinal: No new onset incontinence, normal bowel movements reported Genitourinary: No new onset incontinence Musculoskeletal: Low back pain wit
== END ==
PROVIDERS: Visit Provider Clinical Nurse Specialist Family Health
DX: M54.50 Low back pain, unspecified (principal); M46.1 Sacroiliitis, not elsewhere classified
CPT/HCPCS: 99202; G0463

== ENCOUNTER 2021-11-03 15:30 | Day surgery (SDC) | payer OTHER, SELFPAY ==
[2021-11-03 15:33] VITALS: BP 149/91; PULSE 86; RESP 20; TEMP 36.7; O2SAT 99; BMI 37.5
[2021-11-03 15:46] VITALS: BP 124/72; PULSE 77; RESP 18; O2SAT 100
[2021-11-03 15:47] VITALS: PULSE 85; RESP 18; O2SAT 99
--- NOTE | 2021-11-03 15:50 | HMH.PMPROC ---
- Procedure Date: 11/03/21 Time: 15:51 Anesthesiologist:: Jame Lawson MD Complications:: None Pre-procedure Diagnosis:: Sacroiliitis Post-procedure Diagnosis:: Same Indications for Procedure:: Patient is a pleasant 41-year-old white female who we are treating for bilateral hip pain. She is tender over both SI joints. She has a positive Stanford's test bilaterally. She is positive Mary test bilaterally. She is positive SI joint compression test bilaterally. We will plan on bilateral SI joint injections under fluoroscopy today to help with pain symptoms. Procedure Details:: B/L SI joint injection under fluoroscopy Informed consent was obtained and the risks and benefits of the procedure was explained to the patient. The patient was taken to the procedure room and placed prone on the procedure table. The patient was prepped using ChloraPrep. The skin and subcutaneous tissues overlying the SI joints were anesthetized using lidocaine. I placed a 22-gauge needle first in the left SI joint and second in the right SI joint. Needle placement was confirmed with dye. After this we injected 5 mL bupivacaine 0.25% and Depo-Medrol 40 mg into each SI joint. Patient tolerated the procedure well with no complication. Plan and Disposition:: We will follow-up with her in 2 weeks. Will reevaluate symptoms at that time.
[2021-11-03 15:56] VITALS: BP 132/91; PULSE 73; RESP 20; O2SAT 100
== END 2021-11-03 15:56 | disposition home or self-care (01) ==
LOC: SC.PAINP 15:31
PROVIDERS: PCP Family Medicine; Visit Provider Anesthesiology
DX: M46.1 Sacroiliitis, not elsewhere classified (principal); I10 Essential (primary) hypertension; E03.9 Hypothyroidism, unspecified; M19.90 Unspecified osteoarthritis, unspecified site; M79.7 Fibromyalgia; Z87.891 Personal history of nicotine dependence; F41.9 Anxiety disorder, unspecified
CPT/HCPCS: 27096; 76000; G0260; Q9966

== ENCOUNTER → 2021-12-12 11:35 | Outpatient (CLI) | payer OTHER, SELFPAY ==
[2021-12-12 20:56] VITALS: BMI 38.0
== END ==
PROVIDERS: PCP Family Medicine; Visit Provider Nurse Practitioner Family
DX: J06.9 Acute upper respiratory infection, unspecified (principal)
CPT/HCPCS: J2405

== ENCOUNTER 2021-12-18 19:06 | Emergency (ER) | payer OTHER, SELFPAY ==
[2021-12-18 19:06] VITALS: BP 133/85; PULSE 87; RESP 18; TEMP 37; O2SAT 100; BMI 36.0
[2021-12-18 19:57] LABS: Microscopic, Urine URINE MICROSCOPIC (MICROSCOPIC)
--- NOTE | 2021-12-18 20:11 | CT_ITS ---
PROCEDURE INFORMATION: Exam: CT Abdomen With Contrast Exam date and time: 12/18/2021 8:35 PM Age: 41 years old Clinical indication: Abdominal pain; Generalized TECHNIQUE: Imaging protocol: Computed tomography images of the abdomen with intravenous contrast. Radiation optimization: All CT scans at this facility use at least one of these dose optimization techniques: automated exposure control; mA and/or kV adjustment per patient size (includes targeted exams where dose is matched to clinical indication); or iterative reconstruction. Contrast material: ISOVUE; Contrast volume: 75 ml; Contrast route: IV; COMPARISON: CT ABDOMEN PELVIS W CON 06/24/2021 5:24 PM FINDINGS: Tubes, catheters and devices: None noted. Lungs: Lung bases appear clear. Pleural space: No pleural effusion is noted. Heart: No significant coronary calcifications. No significant cardiomegaly. No large pericardial effusion. Liver: Normal. No mass. Gallbladder and bile ducts: Normal. No calcified stones. No ductal dilation. Pancreas: Normal. No ductal dilation. Spleen: Normal. No splenomegaly. Adrenals: Normal. No mass. Kidneys and ureters: Normal. No hydronephrosis. Stomach and bowel: Gastric bypass. No obstruction. No mucosal thickening. Intraperitoneal space: Unremarkable. No free air. No significant fluid collection. Retroperitoneal space: No retroperitoneal inflammatory changes are noted. Lymph nodes: Unremarkable. No enlarged lymph nodes. Vasculature: Unremarkable. No abdominal aortic aneurysm. Bones/joints: Vacuum disc L5-S1. No acute fracture. No dislocation. Soft tissues: Unremarkable. IMPRESSION: 1. No acute findings. 2. Gastric bypass.
[2021-12-18 20:17] LABS: Basophils # 0.1 K/mm3 (0-0.2); Basophils % 0.8 % (0.1-2.0); Eosinophils # 0.1 K/mm3 (0.0-0.4); Eosinophils % 1.2 % (0.1-12.0); Hematocrit 43.8 % (37.0-47.0); Hemoglobin 14.1 g/dL (12.2-16.2); Lymphocytes # 2.3 K/mm3 (0.7-4.5); Lymphocytes % 20.3 % (10-50); Mean Corpuscular HGB Conc 32.3 g/dL (31.8-35.4); Mean Corpuscular Hemoglobin 28.6 pg (27.0-31.2); Mean Corpuscular Volume 88.4 fl (81-99); Mean Platelet Volume 7.7 fl (7.4-10.4); Monocytes # 0.4 K/mm3 (0.1-1.0); Monocytes % 3.9 % (1.7-9.3); Neutrophils # 8.2 K/mm3 (1.8-7.8); Neutrophils % 73.8 % (37.0-80.0); Platelet Count 369 K/mm3 (142-424); Red Blood Count 4.95 M/mm3 (4.20-5.40); Red Cell Distribution Width 14.4 % (11.5-17.5); White Blood Count 11.1 K/mm3 (4.8-10.8)
[2021-12-18 20:23] LABS: Appearance,Urine CLEAR (Clear); Bilirubin,Urine Negative (Negative); Blood, Urine TRACE-I (Negative); Color,Urine YELLOW (Yellow); Glucose,Urine (UA) Negative (Negative); Ketones,Urine Negative (Negative); Leukocyte Esterase,Urine Negative (Negative); Nitrate,Urine Negative (Negative); Protein,Urine Negative (Negative); Specific Gravity, Urine <= 1.005 (1.005-1.030); Urobilinogen,Urine 0.2 EU/dl (0.2)
[2021-12-18 20:27] LABS: Urine Pregnancy, HCG Qual. Negative (Negative)
[2021-12-18 20:39] LABS: Erythrocyte Sedimentation Rate 14 mm/hr (0-20)
[2021-12-18 20:44] LABS: Alanine Aminotransferase 17 U/L (12-78); Albumin Level 4.2 g/dl (3.5-5.0); Albumin/Globulin Ratio 1.6 (1.1-1.8); Alkaline Phosphatase 73 U/L (38-126); Amylase 75 U/L (30-110); Anion Gap 10.9 mEq/L (5-15); Aspartate Amino Transferase 22 U/L (14-36); Bilirubin,Total 0.4 mg/dl (0.2-1.3); Blood Urea Nitrogen 14 mg/dl (7-17); Calcium 8.6 mg/dl (8.4-10.2); Carbon Dioxide 27 mmol/L (22.0-30.0); Chloride 107 mmol/L (98-107); Creatinine Clearance Estimated 172 mL/min (50-200); Estimated Glomerular Filt Rate 92 ml/min (>60); GFR (African American) 111 ML/MIN (>60); Globulin 2.7 g/dL (1.3-3.2); Glucose 70 mg/dl (74-100); Lipase 163 U/L (23-300); Potassium 4.9 mmoL/L (3.5-5.1); Sodium 140 mmol/L (136-145); Total Protein,Serum 6.9 g/dl (6.3-8.2)
--- NOTE | 2021-12-18 20:55 | HMH.EDNVD ---
ED Disposition Clinical Impression: Abdominal pain Qualifiers: Abdominal location: generalized Qualified Code(s): R10.84 - Generalized abdominal pain Disposition: Home, Self-Care Condition on Discharge: Good Instructions: DI for Acute Abdominal Pain Additional Instructions: see pcp for follow up and possible gb eval Referrals: Rudi Arce MD [Primary Care Provider] - - Critical Care Critical Care Time: No Attestation: On 12/18/21, the high probability of a clinically significant, sudden or life threatening deterioration of the following system(s) required my full and direct attention, intervention and personal management. The time I documented below is in addition to time spent performing reported procedures but includes the following listed in this critical care notation. Medical Decision Making - Medical Records Medical records reviewed: Yes: I reviewed the patient's medical records. - Greg Inquiry Pt receiving controlled substance: No Vital Signs: 12/18/21 19:06 12/18/21 22:19 Temperature 98.6 F 98.6 F Temperature Source Oral Oral Pulse Rate 81 Pulse Rate [Left Radial] 87 Respiratory Rate 18 18 Blood Pressure 124/75 Blood Pressure [Right Arm] 133/85 Blood Pressure Mean [Right Arm] 101 02 Sat by Pulse Oximetry 100 Oxygen Delivery Method Room Air Room Air - Lab Data Lab results reviewed: Yes: I reviewed the patient's lab results. Lab Results 12/18/21 19:38: Urine Color Yellow, Urine Appearance Clear, Urine pH 6.0, Ur Specific [place] <= 1.005, Urine Protein Negative, Urine Glucose (UA) Negative, Urine Ketones Negative, Urine Blood Trace-i, Urine Nitrate Negative, Urine Bilirubin Negative, Urine Urobilinogen 0.2, Ur Leukocyte Esterase Negative, Urine RBC 3-5, Ur Squamous Epith Cells 3-5 12/18/21 19:38: Urine HCG, Qual Negative 12/18/21 20:00: WBC 11.1 H, RBC 4.95, Hgb 14.1, Hct 43.8, MCV 88.4, MCH 28.6, MCHC 32.3, RDW 14.4, Plt Count 369, MPV 7.7, Neut % (Auto) 73.8, Lymph % (Auto) 20.3, [place] % (Auto) 3.9, Eos % (Auto) 1.2, Baso % (Auto) 0.8, Neut # (Auto) 8.2 H, Lymph # (Auto) 2.3, [place] # (Auto) 0.4, Eos # (Auto) 0.1, Baso # (Auto) 0.1, ESR 14 12/18/21 20:00: Sodium 140, Potassium 4.9, Chloride 107, Carbon Dioxide 27, Anion Gap 10.9, BUN 14, Creatinine 0.70, Estimated Creat Clear 172, Estimated GFR 92, Est GFR ( Amer) 111, Glucose 70 L, Calcium 8.6, Total Bilirubin 0.4, AST 22, ALT 17, Alkaline Phosphatase 73, C-Reactive Protein 3.0, Total Protein 6.9, Albumin 4.2, Globulin 2.7, Albumin/Globulin Ratio 1.6, Amylase 75, Lipase 163, Procalcitonin 0.036 Result diagrams: 12/18/21 20:00 12/18/21 20:00 Orders (Tests/Meds): ED MEDICATIONS Generic Name Dose Route Start Last Admin Trade Name Freq PRN Reason Stop Dose Admin Sodium Chloride 8 ml 12/18/21 20:05 Sodium Chloride 0.9% 10ml Vial IV 01/17/22 20:04 NEEDED PRN dilute pepcid Discontinued Medications Generic Name Dose Route Start Last Admin Trade Name Freq PRN Reason Stop Dose Admin Famotidine 20 mg 12/18/21 20:05 12/18/21 20:15 Famotidine 20mg/2ml Vial IV 12/18/21 20:06 20 mg ONCE ONE Administration Sodium Chloride 1,000 mls @ 999 mls/hr 12/18/21 20:15 12/18/21 20:15 Sod Chlor 0.9% 1000ml Bag IV 12/18/21 21:15 999 mls/hr .Q1H1M HARVINDER Administration Iopamidol 75 ml 12/18/21 20:44 12/18/21 20:45 Iopamidol-370 (76%);100ml Bottle IV 12/18/21 20:45 75 ml ONCE ONE Administration Ketorolac Tromethamine 30 mg 12/18/21 20:05 12/18/21 20:15 Ketorolac 30mg/Ml Vial IV 12/18/21 20:06 30 mg ONCE ONE Administration Metoclopramide HCl 10 mg 12/18/21 20:05 12/18/21 20:15 Metoclopramide Hcl 10mg/2ml Vial IVP 12/18/21 20:06 10 mg ONCE ONE Administration Ondansetron HCl 4 mg 12/18/21 20:05 12/18/21 20:14 Ondansetron 4mg/2ml Vial IV 12/18/21 20:06 4 mg ONCE ONE Administration Sodium Chloride 10 ml 12/18/21 20:44 12/18/21 20:45 Sodium Chloride 0.9
[2021-12-18 21:05] LABS: Procalcitonin 0.036 ng/mL (0.0-2.0)
[2021-12-18 22:19] VITALS: BP 124/75; PULSE 81; RESP 18; TEMP 37; O2SAT 100
== END 2021-12-18 22:34 | disposition home or self-care (01) ==
PROVIDERS: Emergency Provider Emergency Medicine; PCP Family Medicine
DX: R10.84 Generalized abdominal pain (principal); R11.10 Vomiting, unspecified; I10 Essential (primary) hypertension
CPT/HCPCS: 74160; 80053; 81001; 81025; 82150; 83690; 84145; 85025; 85651; 86140; 96360; 96365; 96375; 99284; J2405; Q9967

== ENCOUNTER → 2021-12-29 09:13 | Outpatient (CLI) | payer OTHER, SELFPAY ==
--- NOTE | 2021-12-29 09:16 | US_ITS ---
FINAL REPORT CLINICAL HISTORY: EPIGASTRIC PAIN FINDINGS: Ultrasound images of the right upper quadrant were obtained. The liver parenchyma is normal in echogenicity. The gallbladder is well visualized and the wall appears normal. There is a trace amount of sludge. There are no gallstones. The common duct is normal. Limited images of the right kidney are unremarkable. IMPRESSION: Trace amount of sludge in the gallbladder. Reviewed, Interpreted and Dictated by Juarez Carr MD Transcribed by Jamari Martinez Authenticated by Juarez Carr MD on 12/29/2021 12:30:[address] [facility]
== END ==
PROVIDERS: PCP Family Medicine; Visit Provider Family Medicine
DX: R10.13 Epigastric pain (principal)
CPT/HCPCS: 76705

== ENCOUNTER → 2022-01-12 08:49 | Outpatient (CLI) | payer OTHER, SELFPAY ==
--- NOTE | 2022-01-12 08:51 | US_ITS ---
FINAL REPORT CLINICAL HISTORY: heavy bleeding; pelvic pain FINDINGS: US TRANSVAGINAL Transvaginal sonographic images of the pelvis were obtained. The uterus measures 8.4 x 4.6 x 5.5 cm. The endometrium measures 8 mm, which is within normal limits. There are 2 fibroids within the uterus measuring up to 1.7 cm. A scar is noted. The right ovary measures 2.9 cm in length and left ovary measures 5.4 cm in length. Normal blood flow seen to the ovaries. A 5.1 x 2.6 cm left ovarian cyst is seen which appears to be a simple cyst and is probably physiologic. There is no evidence of free fluid. IMPRESSION: Uterine fibroids. Left ovarian cyst. Recommend follow-up ultrasound in 6 or 10 weeks. Reviewed, Interpreted and Dictated by Juarez Carr MD Transcribed by Hanny Rivas Authenticated by Juarez Carr MD on 01/12/2022 11:15:27 AM [facility]
== END ==
PROVIDERS: PCP Family Medicine; Visit Provider Nurse Practitioner Obstetrics & Gynecology
DX: N92.0 Excessive and frequent menstruation with regular cycle (principal)
CPT/HCPCS: 76830

== ENCOUNTER → 2022-01-13 16:35 | Outpatient (CLI) | payer OTHER, SELFPAY ==
[2022-01-13 20:14] VITALS: BMI 35.7
== END ==
PROVIDERS: PCP Family Medicine; Visit Provider Nurse Practitioner Family
DX: R10.2 Pelvic and perineal pain (principal)
CPT/HCPCS: J0696

== ENCOUNTER → 2022-01-15 10:05 | Outpatient (CLI) | payer OTHER, SELFPAY ==
--- NOTE | 2022-01-15 10:09 | NM_ITS ---
FINAL REPORT CLINICAL HISTORY: SLUDGE,APIGASTRIC PAIN FINDINGS: HEPATOBILIARY SCAN WITH CCK INJECTION Following intravenous administration of approximately 8.74 of technetium Choletec, multiple scintigraphic images were obtained. The hepatic parenchymal phase shows homogeneous distribution of the tracer throughout the liver. Prompt appearance of tracer is noted in the intrahepatic and extrahepatic biliary systems. The gallbladder visualizes normal. Biliary to bowel transit is within normal limits. Following intravenous CCK injection, gallbladder ejection fraction is estimated to be 89 %. IMPRESSION: Normal gallbladder ejection fraction of 89 %. Reviewed, Interpreted and Dictated by Juarez Carr MD Transcribed by Jamari Martinez Authenticated by Juarez Carr MD on 01/15/2022 03:18:35 PM [facility]
== END ==
PROVIDERS: PCP Family Medicine; Visit Provider Family Medicine
DX: R10.13 Epigastric pain (principal); K82.8 Other specified diseases of gallbladder
CPT/HCPCS: 78227; A9537; J2805

== ENCOUNTER → 2022-02-01 14:12 | Outpatient (CLI) | payer OTHER, SELFPAY ==
[2022-02-01 14:55] LABS: Basophils # 0.1 K/mm3 (0-0.2); Eosinophils # 0.1 K/mm3 (0.0-0.4); Hematocrit 42.1 % (37.0-47.0); Hemoglobin 13.6 g/dL (12.2-16.2); Lymphocytes # 3.1 K/mm3 (0.7-4.5); Lymphocytes % 26.2 % (10-50); Mean Corpuscular HGB Conc 32.3 g/dL (31.8-35.4); Mean Corpuscular Hemoglobin 28.1 pg (27.0-31.2); Mean Corpuscular Volume 86.9 fl (81-99); Mean Platelet Volume 7.9 fl (7.4-10.4); Monocytes # 0.4 K/mm3 (0.1-1.0); Monocytes % 3.4 % (1.7-9.3); Neutrophils % 68.5 % (37.0-80.0); Platelet Count 326 K/mm3 (142-424); Red Blood Count 4.84 M/mm3 (4.20-5.40); Red Cell Distribution Width 14.2 % (11.5-17.5); White Blood Count 11.7 K/mm3 (4.8-10.8)
[2022-02-01 15:32] LABS: HCG Qualitative, Serum Negative (Negative)
[2022-02-01 15:35] LABS: Anion Gap 10.5 mEq/L (5-15); Blood Urea Nitrogen 17 mg/dl (7-17); Calcium 8.5 mg/dl (8.4-10.2); Carbon Dioxide 27 mmol/L (22.0-30.0); Chloride 107 mmol/L (98-107); Estimated Glomerular Filt Rate 92 ml/min (>60); GFR (African American) 111 ML/MIN (>60); Glucose 93 mg/dl (74-100); Potassium 4.5 mmoL/L (3.5-5.1); Sodium 140 mmol/L (136-145)
== END ==
PROVIDERS: Visit Provider Nurse Practitioner Obstetrics & Gynecology
DX: Z01.818 Encounter for other preprocedural examination (principal); N92.0 Excessive and frequent menstruation with regular cycle; Z11.52 Encounter for screening for COVID-19
CPT/HCPCS: 36415; 80048; 84703; 85025; C9803; U0003; U0005

== ENCOUNTER 2022-02-03 07:16 | Day surgery (SDC) | payer OTHER, SELFPAY ==
[2022-02-01 13:51] VITALS: BMI 37.5
[2022-02-03] VITALS (10 sets, daily range): BP systolic 115–139; BP diastolic 70–93; PULSE 66–111; RESP 12–18; TEMP 36.8–43; O2SAT 98–100
--- NOTE | 2022-02-03 08:09 | HMH.ANESCL ---
[facility] Anesthesia Checklist - Patient Identification Patient Identification: Arm Band - Structural Data Admitted From: Home Planned Operative Procedure/s: Hyst/D & C/ Novasure Consent for Planned Operative Procedure(s) Verified: Yes - NPO Status Verified Time NPO: 00:00 - Additional verifications Anesthesia Reactions: No Hx Blood Transfusions: No Blood Transfusion Reaction: No - Airway Assessment C-Spine Mobility Assessed: Yes TMJ Mobility Assessed: Yes Dentition: Good Dentition - Neurological Assessment Level of Consciousness: Awake Hx Seizures: No Numbness or tingling in extremities: No - Anesthesia Plan Anesthesia Risk discussed: Yes Anesthesia Plan: Verified ASA Class: II Anesthesia Type: General [facility] History I have reviewed the patient's past medical history: Yes 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: Reports:: Anxiety, Depression Denies:: Cancer, Diabetes Mellitus Type 1, Diabetes Mellitus Type 2, Internal Pacemaker, MRSA, Seizures *Have you ever received a pneumonia vaccine?: No *Have you received a flu vaccine this season?: Yes Other 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: Reports: Arthritis, Hypothyroidism, Thyroid Disease. Denies: Blood Transfusion Reaction Anesthesia experience/problems:: None Laterality Cases: Bilateral: Tonsillectomy, Other Other Surgeries: Yes: Bariatric Surgery, Cardiac Catheterization, , Thyroidectomy, Other. No: Pacemaker Amputation: No Fractures: No - *Social History Last grade of school completed: Some college Smoking Status: Former smoker Alcohol Intake: never Alcohol Intake Frequency:: holidays/special occasions only Substance Use Type: denies use *Occupational Status:: employed Housing: house Household Members: other *Travel in the last 8 weeks: None Family Hx:: No significant family history HAND NAILER history: Tubal Ligation
--- NOTE | 2022-02-03 09:45 | HMH.OPNOTE ---
Date of procedure: 02/03/22 Pre-op Diagnosis:: Menorrhagia Post-op Diagnosis:: Menorrhagia Procedure performed:: hysteroscopy, dilation and curettage, NovaSure ablation Surgeon:: Semaj Allen MD CORPORATE DEVELOPMENT ANALYST:: Mikey Welch Anesthesia: LMA Estimated blood loss (mL): 50 Clinical Note:: She is a 41-year-old lady who complains of heavy periods. After having discussed the risk and benefits she elected to have a hysteroscopy, D&C and NovaSure ablation. Operative findings:: She had a normal-appearing endometrial cavity. The endometrium appeared thin. Tubal ostia were both seen and appeared normal. Operative note:: She was taken to the operating room where LMA anesthesia was found be adequate. She was prepped and draped in the normal sterile fashion in the lithotomy position. A weighted speculum was placed in the vagina and the anterior lip of the cervix was grasped with a tenaculum. The cervix was then dilated to approximately 6 mm. I then inserted a hysteroscope into the uterine cavity and the findings were as previously dictated. I then performed a gentle curettage with a medium curette. I then sounded the uterus and determine the length of the uterus. I then inserted the NovaSure device and determine the width of the endometrial cavity. The length of the cavity was 6.0 cm and the width was 3.3 cm. This was placed into the NovaSure device. I then ran the device through its program. I further inspected the endometrial cavity and was found to be completely charred. I then injected 30 cc of 0.5% ropivacaine at the 3:00, 5:00, 7:00, and 9:00 positions of the cervix. She tolerated procedure well and was taken to the recovery room in excellent condition. All sponge and instrument counts were correct. The estimated blood loss was less than 50 cc. Condition: stable Disposition: PACU Specimens:: Endometrial curettings Complications:: None
--- NOTE | 2022-02-03 09:47 | P.PN_ITS ---
[facility] Anesthesia Record Part I Intake, IV Amount: 500 Estimated blood loss (mL): 0 Urine output (mL): 0 Blood Pressure: 139/85 SaO2: 99 Pulse Rate: 108 Respiratory Rate: 12 Temperature: 98.5 F Patient is:: Awake, Stable Stable to PACU at:: 09:45
--- NOTE | 2022-02-04 07:52 | P.PN_ITS ---
[facility] Anesthesia Record Part II Discharge Time: 10:15 Destination: home PACU nurse assessment reviewed?: Yes Patient Condition:: Good Anesthesia Complications:: None Swallowing reflex intact?: Yes Cyanosis?: No Blood Pressure: 133/85 Pulse Rate: 92 Temperature: 98.2 F Mental Status: Alert & Oriented Pain level:: 0 Nausea and/or vomitting:: None Intake, IV Amount: 0
[2022-02-04 07:53] VITALS: BP 133/85; PULSE 92; TEMP 36.8
== END 2022-02-03 10:50 | disposition home or self-care (01) ==
LOC: OR 07:18
PROVIDERS: PCP Family Medicine; Visit Provider Nurse Practitioner Obstetrics & Gynecology
PROC: 0U5B8ZZ Destruction of Endometrium, Via Natural or Artificial Opening Endoscopic (ICD-10-PCS; CPT 58563; principal; 2022-02-03 09:00)
DX: N92.0 Excessive and frequent menstruation with regular cycle (principal); F41.9 Anxiety disorder, unspecified; F32.A Depression, unspecified; M19.90 Unspecified osteoarthritis, unspecified site; E03.9 Hypothyroidism, unspecified; Z87.891 Personal history of nicotine dependence; Z79.899 Other long term (current) drug therapy
CPT/HCPCS: 58563; 96374; J2405

== ENCOUNTER → 2022-03-16 15:07 | Outpatient (CLI) | payer OTHER, SELFPAY ==
[2022-03-16 17:04] LABS: Strep Scrn Group A (Rapid) Negative (Negative)
== END ==
PROVIDERS: PCP Family Medicine; Visit Provider Nurse Practitioner Family
DX: J02.9 Acute pharyngitis, unspecified (principal)
CPT/HCPCS: 87430

== ENCOUNTER → 2022-04-18 09:04 | Outpatient (CLI) | payer OTHER, SELFPAY ==
[2022-04-18 20:31] VITALS: BMI 37.5
== END ==
PROVIDERS: PCP Family Medicine; Visit Provider Nurse Practitioner Family
DX: J06.9 Acute upper respiratory infection, unspecified (principal)
CPT/HCPCS: C9803; U0003; U0005

== ENCOUNTER → 2022-05-23 11:15 | Outpatient (CLI) | payer OTHER, SELFPAY ==
[2022-05-23 11:32] VITALS: BMI 36.8
== END ==
PROVIDERS: PCP Family Medicine; Visit Provider Nurse Practitioner
DX: J02.0 Streptococcal pharyngitis (principal)
CPT/HCPCS: J0561

== ENCOUNTER → 2022-06-17 16:40 | Outpatient (CLI) | payer OTHER, SELFPAY ==
[2022-06-17 16:51] VITALS: BMI 36.0
== END ==
PROVIDERS: PCP Family Medicine; Visit Provider Nurse Practitioner Family
DX: M54.50 Low back pain, unspecified (principal)
CPT/HCPCS: 96372

== ENCOUNTER → 2022-06-23 08:47 | Outpatient (POV) | payer OTHER, SELFPAY ==
[2022-06-23 08:59] VITALS: BP 141/94; PULSE 75; RESP 18; TEMP 36.4; O2SAT 99; BMI 36.8
--- NOTE | 2022-06-23 09:15 | EXP.PAIN.SOA ---
[facility] Pain Management SOAP Note Subjective:: Patient is a pleasant 41-year-old female that presents today for follow-up. We are currently treating the patient for sacroiliitis, chronic low back pain, degenerative disc disease of lumbar spine with lumbar radiculopathy symptoms. Today she rates her pain a 10 out of 10. She states the pain is all in her low back with radicular symptoms into her bilateral lower extremities. We have done multiple SI injections in the past as well as a RFA procedure with some improvement of her symptoms. Patient describes this as a aching, throbbing, occasional sharp pain that is worse with increased activity. Patient states it affects her activities of daily living and often makes turning or bending down painful. Patient states that she has trouble sleeping at night due to the pain and often has numbness in her legs. Patient has been to the chiropractor however this did not help but made her symptoms worse. Patient has tried [id number] Tylenol with minimal improvement of her symptoms. Patient is not currently on any scheduled medications. Her Greg is [phone]. It has been reviewed and appropriate. Review of Systems: General: No recent weight changes, no fever, no sleep disturbances Respiratory: No cough, no shortness of air, no recurring pulmonary infections Cardiovascular/peripheral vascular: No chest pain, no palpitations, no edema, no shortness of breath Gastrointestinal: No new onset incontinence, normal bowel movements reported Genitourinary: No new onset incontinence Musculoskeletal: Low back pain, leg pain Psychiatric: [Normal mood/affect] Neurological: [Denies weakness in extremities], [denies balance issues] Objective:: Physical Exam: General: Alert and oriented x3, no acute distress, pleasant and cooperative Lungs: Respirations even and unlabored, symmetrical chest expansion Eyes: PERRL Musculoskeletal: Flexion and extension of lumbar [spine] somewhat guarded secondary to pain, [antalgic gait noted]. Positive Kemps test Neurological: Speech clear, no gross sensory deficit FINDINGS: There is normal alignment.? The spinal cord ends at the L2 level. T11-T12: Mild degenerative disc disease with mild facet ligamentum hypertrophy. T12-L1: Mild degenerative disc disease with mild right-sided facet and ligamentum hypertrophy with type 1 endplate changes along the anterior and inferior endplate of T12. L1-L2: Mild degenerative disc disease the L2-L3: Mild degenerative disc disease with mild disc desiccation and minimal bulging disc.? Mild bilateral foraminal narrowing L3-L4: Unremarkable. L4-5: Mild facet hypertrophic change with mild bilateral foraminal narrowing L5-S1: There is a small left paracentral disc protrusion/herniation.? This is causing narrowing of the left lateral recess and is abutting the left S1 nerve root.? There are type 1 endplate changes at this level. IMPRESSION: 1. Small left paracentral disc protrusion/herniation at L5-S1 abutting the anterior medial aspect of the left S1 nerve root 2. Mild multilevel lumbar spondylosis with degenerative disc disease and facet ligamentum hypertrophy.? Please see above for detailed description at each level Dictated by:? Yrn Pruitt MD 07/06/2019 06:22 Electronically signed by? Yrn Pruitt MD in OV 07/06/2019 06:22 Assessment:: Sacroiliitis, chronic low back pain, degenerative disc disease lumbar spine with lumbar radiculopathy symptoms, lumbar spondylosis, lumbar arthropathy Plan:: Patient continues to have significant pain in her low back that radiates into her bilateral lower extremities. Patient had limited range of motion of her lumbar spine and a positive Kemps test during today's visit. I have discussed with the patient regarding trying a diagnostic medial branch block. Risk and benefits have been discussed with the patient. She would like to proceed forward with these injections. I will also order the patient tizanidine
== END | disposition home or self-care (01) ==
PROVIDERS: PCP Family Medicine; Visit Provider Nurse Practitioner Family
DX: M51.16 Intervertebral disc disorders with radiculopathy, lumbar region (principal); M47.26 Other spondylosis with radiculopathy, lumbar region; M46.1 Sacroiliitis, not elsewhere classified
CPT/HCPCS: 99212; G0463

== ENCOUNTER 2022-06-25 10:59 | Emergency (ER) | payer OTHER, SELFPAY ==
[2022-06-25] VITALS (10 sets, daily range): BP systolic 102–132; BP diastolic 69–85; PULSE 64–92; RESP 12–18; TEMP 36.6–36.8; O2SAT 97–100; BMI 29.9
--- NOTE | 2022-06-25 10:59 | ECG_ITS ---
APPROVED REPORT Exam: Resting ECG HR:66 bpm ECG Measurements Heart Rate 66 AXES WV 149 P 77 QRSd 80 QRS 64 QT 391 T 60 QTc 404 Conclusion SINUS RHYTHM NORMAL ECG UNCONFIRMED REPORT Electronically signed by : Oscar Ochoa MD 06/28/2022 18:03:24
--- NOTE | 2022-06-25 11:08 | XR_ITS ---
FINAL REPORT CLINICAL HISTORY: cp in middle of chest COMPARISON: May 14, 2020 FINDINGS: The heart size is normal. The mediastinum is within normal limits. There is no acute cardiopulmonary process. There is no pleural effusion. There is no pneumothorax. The bony thorax is intact. IMPRESSION: No acute cardiopulmonary process. Reviewed, Interpreted and Dictated by Khanh Schmitz III, MD Transcribed by Jamari Martinez Authenticated and [facility]
--- NOTE | 2022-06-25 11:13 | PC.NURSE ---
MARGE RODRIGUEZ at
[2022-06-25 11:17] LABS: Basophils # 0.1 K/mm3 (0-0.2); Basophils % 0.5 % (0.1-2.0); Eosinophils # 0.1 K/mm3 (0.0-0.4); Eosinophils % 0.8 % (0.1-12.0); Hematocrit 43.9 % (37.0-47.0); Hemoglobin 13.4 g/dL (12.2-16.2); Lymphocytes # 2.7 K/mm3 (0.7-4.5); Lymphocytes % 22.4 % (10-50); Mean Corpuscular HGB Conc 30.5 g/dL (31.8-35.4); Mean Corpuscular Hemoglobin 26.8 pg (27.0-31.2); Mean Platelet Volume 7.2 fl (7.4-10.4); Monocytes # 0.4 K/mm3 (0.1-1.0); Monocytes % 3.3 % (1.7-9.3); Neutrophils # 8.9 K/mm3 (1.8-7.8); Neutrophils % 72.9 % (37.0-80.0); Platelet Count 332 K/mm3 (142-424); Red Blood Count 4.99 M/mm3 (4.20-5.40); Red Cell Distribution Width 13.6 % (11.5-17.5); White Blood Count 12.2 K/mm3 (4.8-10.8)
--- NOTE | 2022-06-25 11:17 | HMH.EDGENADL ---
Discharge Plan Disposition Patient Disposition: Home, Self-Care Condition: Good Chief Complaint: Chest Pain Prescriptions Prescriptions: No Action duloxetine 60 mg capsule,delayed release(DR/EC) 60 mg PO DAILY meloxicam 15 mg tablet 15 mg PO DAILY levothyroxine 150 mcg tablet 150 mcg PO DAILY Qty: 90 0RF tizanidine [Zanaflex] 4 mg tablet 4 mg PO HS Qty: 14 0RF Referrals Follow up/Referrals: Provider,MD Stefany [Referring] - See instructions Lemuel Riggins MD [Staff Physician] - See instructions (Please call and make an appointment with cardiology) Activity Restrictions/Add. Instructions Additional Instructions/Restrictions: At this time was felt you are safe to be discharged from the emergency department. If new or worsening symptoms please do not hesitate to return for continued evaluation at this time. Please call and schedule an appointment with cardiology for continued evaluation. Clinical Impressions Clinical Impression: Chest pain Discharge ED Provider: Omer Galvan General Adult HPI General Chief complaint: Chest Pain Stated complaint: Chest Pain Time Seen by Provider: 06/25/22 11:40 Mode of Arrival: Ambulatory Source of Information: Patient Limitations: No Limitations Description of Symptoms (Recalled from ER Triage Doc. by RN): pt to ed c/o mid sternal chest pain that radiates to her shoulder blades. pt states she has been having this pain x1 week. pt denies any associated symptoms besides the pain. pt reports nothing makes this pain better or worse. History of Present Illness HPI narrative: Patient is a 41-year-old female with past medical history of hyperthyroidism status post thyroidectomy, otherwise healthy who presents emergency department for evaluation of chest pain. It has been waxing and waning over the course of 1 week, chest pain in a bandlike distribution across her chest, intermittently radiating to her shoulder blades. Pain is moderate in intensity. Denies other acute complaints at this time. No cough or fevers. No abdominal pain. Related Data Home Medications Medication Instructions Recorded Confirmed duloxetine 60 mg capsule,delayed 60 mg PO DAILY Depression 06/12/20 06/23/22 release meloxicam 15 mg tablet 15 mg PO DAILY Pain 01/06/22 06/23/22 Previous Rx's Medication Instructions Recorded levothyroxine 150 mcg tablet 150 mcg PO DAILY thyroid #90 tabs 03/01/19 tizanidine 4 mg tablet (Zanaflex) 4 mg PO HS #14 tabs 06/23/22 Allergies Allergy/AdvReac Type Severity Reaction Status Date / Time No Known Allergies Allergy Verified 02/16/22 11:50 PFSH [facility] 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 (Updated 06/25/22 @ 15:00 by Omer Galvan MD) Anxiety Hypothyroidism RLQ abdominal pain Social History Smoking Status: Never smoker second hand exposure: No alcohol intake: never substance use type: denies use current occupational status: employed Travel in the last 8 weeks: None household members: other housing: house current occupation: [employer] current occupational exposures/hazards: No caffeine: Yes ROS Obtained: Yes All systems reviewed & no additional complaints except as documented Physical Exam General General appearance: alert and in no apparent distress Head Head exam: atraumatic and normocephalic Eye Eye exam: Present PERRL and EOMI ENT ENT exam: Present mucous membranes moist Neck Neck exam: Present normal inspection Chest Chest inspection: Present normal inspection and symmetric chest wall rise Respiratory Respiratory exam: Present normal lung sounds bilaterally; Absent respiratory distress Cardiovascular Cardiovascular exam: Present regular rate and normal rhythm Abdominal Exam Abdominal exam: Present soft; Absent tenderness Extremities Exam Extremities exam: Present normal inspection Neurological Exam Neurological exam: Present alert and oriented X3 Psychiatric Psychiatric exam: Present normal affec
--- NOTE | 2022-06-25 11:20 | PC.NURSE ---
IV established and blood sent to the lab
[2022-06-25 11:27] LABS: Anion Gap 11.8 mEq/L (5-15); Blood Urea Nitrogen 21 mg/dl (7-17); Calcium 8.3 mg/dl (8.4-10.2); Carbon Dioxide 27 mmol/L (22.0-30.0); Chloride 102 mmol/L (98-107); Creatinine Clearance Estimated 118 mL/min (50-200); Estimated Glomerular Filt Rate 79 ml/min (>60); GFR (African American) 95 ML/MIN (>60); Glucose 90 mg/dl (74-100); Potassium 4.8 mmoL/L (3.5-5.1); Sodium 136 mmol/L (136-145)
[2022-06-25 11:32] LABS: D-Dimer 0.39 ug/mL (0.0-0.5)
[2022-06-25 11:42] LABS: Troponin I < 0.01 ng/ml (0.00-0.034)
--- NOTE | 2022-06-25 12:05 | PC.NURSE ---
rounded on pt. no needs at this time
--- NOTE | 2022-06-25 12:34 | PC.NURSE ---
checked on pt at this time, pt states no needs at this time, pt updated on POC (second troponin at 3 hr ignacio if not normal plan to d/c home Per ER MD). Pt verbalized understanding
--- NOTE | 2022-06-25 12:48 | PC.NURSE ---
pt up to BR
--- NOTE | 2022-06-25 14:16 | PC.NURSE ---
second troponin sent to the lab
[2022-06-25 14:50] LABS: Troponin I < 0.01 ng/ml (0.00-0.034)
[2022-06-26 18:16] LABS: C-Reactive Protein 4.3 mg/L (0-4)
[2022-06-26 18:28] LABS: Erythrocyte Sedimentation Rate 15 mm/hr (0-20)
[2022-06-26 18:29] LABS: Free T4 (Free Thyroxine) 1.09 ng/dl (0.78-2.19)
[2022-06-26 18:43] LABS: Thyroid Stimulating Hormone 2.03 uIU/mL (0.465-4.68)
== END 2022-06-25 15:14 | disposition home or self-care (01) ==
PROVIDERS: Nurse Practitioner Family; Emergency Provider Emergency Medicine; PCP Family Medicine
DX: R07.9 Chest pain, unspecified (principal); Z79.899 Other long term (current) drug therapy; E89.0 Postprocedural hypothyroidism
CPT/HCPCS: 71045; 80048; 84439; 84443; 84484; 85025; 85378; 85651; 86140; 93005; 99284

== ENCOUNTER 2022-07-02 13:42 | Day surgery (SDC) | payer OTHER, SELFPAY ==
[2022-07-02 13:55] VITALS: BP 119/75; PULSE 67; RESP 20; O2SAT 100; BMI 36.0
[2022-07-02 14:09] VITALS: BP 116/71; PULSE 66; RESP 18; O2SAT 98
[2022-07-02 14:10] VITALS: BP 116/70; PULSE 69; RESP 18; O2SAT 98
[2022-07-02 14:30] VITALS: BP 119/75; PULSE 67; RESP 20; O2SAT 100
--- NOTE | 2022-07-02 15:27 | EXP.PAIN.PRO ---
Procedure Date: 07/02/22 Time: 15:28 Anesthesiologist:: Jame Lawson MD Complications:: None Pre-procedure Diagnosis:: Degenerative disc disease of lumbar spine with lumbar spondylosis and lumbar facet arthropathy Post-procedure Diagnosis:: Same Indications for Procedure:: This patient is a pleasant 41-year-old white female who we have been treating for low back pain with lumbar spondylosis and lumbar facet arthropathy. She has increasing pain in her back over the facet joints of L4-5 and L5-S1. She has increased pain with extension and twisting. We will plan on lumbar medial branch block/facet joint injections of L4-5 and L5-S1 today. Procedure Details:: Lumbar medial branch block diagnostic #1 Informed consent was obtained and the risks and benefits of the procedure was explained to the patient. The back was prepped using ChloraPrep. The skin and subcutaneous tissues were anesthetized using lidocaine. I placed 22-gauge spinal needles into the facet joint/medial branches of L4-L5 and L5-S1 bilaterally. Needle placement was confirmed with dye. After this we injected 3 mL bupivacaine 0.25% and Depo-Medrol 20 mg into each facet joint/medial branch of L4-L5 and L5-S1 bilaterally. We used a total of 80 mg Depo-Medrol for both levels bilaterally. The patient tolerated the procedure well with no complications. Plan and Disposition:: We will follow-up with this patient in 2 weeks. Will reevaluate symptoms at that time. If successful we will plan on a second round of diagnostic medial branch blocks of L4-5 and L5-S1 followed by RFA if needed.
== END 2022-07-02 14:30 | disposition home or self-care (01) ==
LOC: SC.PAINP 13:42
PROVIDERS: PCP Family Medicine; Visit Provider Anesthesiology
DX: M51.36 Other intervertebral disc degeneration, lumbar region (principal); M47.896 Other spondylosis, lumbar region
CPT/HCPCS: 64493; 64494; J1040; Q9966

== ENCOUNTER → 2022-07-15 15:23 | Outpatient (POV) | payer OTHER, SELFPAY ==
[2022-07-15 15:31] VITALS: BP 121/76; PULSE 87; RESP 18; TEMP 36.6; O2SAT 98; BMI 36.0
--- NOTE | 2022-07-15 15:40 | A.OFFVIS_ITS ---
[facility] Pain Management SOAP Note Subjective:: Patient is a pleasant 41-year-old female who presents today for follow-up of lumbar medial branch block at L4-L5 and L5-S1 bilaterally. We are currently treating the patient for degenerative disc disease of lumbar spine with lumbar radiculopathy symptoms, lumbar spondylosis and lumbar facet arthropathy. Today the patient states she had at least 65% improvement following this injection lasting for 1 week. Today she rates her pain a 6 out of 10. She states her pain is back at her baseline. Patient denies any new injury or trauma. Patient denies any new change to location or type of pain she experiences. Patient does have low back pain that radiates into her bilateral lower extremities. We have done multiple SI injections in the past as well as an RFA procedure with some improvement of her symptoms. Patient was recently given a muscle relaxer that she states did provide significant improvement of her symptoms. She is requesting a refill at today's visit. Patient does take [id number] Tylenol as needed however states this does not improve any of her symptoms. She is not currently on any scheduled medications. Her Greg is [id number]. It has been reviewed and appropriate. Review of Systems: General: No recent weight changes, no fever, no sleep disturbances Respiratory: No cough, no shortness of air, no recurring pulmonary infections Cardiovascular/peripheral vascular: No chest pain, no palpitations, no edema, no shortness of breath Gastrointestinal: No new onset incontinence, normal bowel movements reported Genitourinary: No new onset incontinence Musculoskeletal: Low back pain Psychiatric: [Normal mood/affect] Neurological: [Denies weakness in extremities], [denies balance issues] Objective:: Physical Exam: General: Alert and oriented x3, no acute distress, pleasant and cooperative Lungs: Respirations even and unlabored, symmetrical chest expansion Eyes: PERRL Musculoskeletal: Flexion and extension of lumbar [spine] somewhat guarded secondary to pain, [antalgic gait noted] Neurological: Speech clear, no gross sensory deficit Assessment:: Degenerative disc disease of lumbar spine with lumbar radiculopathy symptoms, lumbar spondylosis, lumbar facet arthropathy Plan:: Patient had significant relief of her pain symptoms following her first medial branch block of her lumbar spine. I have discussed with the patient about repeating this injection. Risk and benefits were discussed with the patient. She would like to proceed forward with this plan of care. I will also refill the patient's tizanidine 4 mg at night and provide a 1 month supply of this medication. We will schedule the patient for her second medial branch block of her lumbar spine at L4-L5 and L5-S1 bilaterally. Patient has been instructed to contact the clinic with any concerns before the next appointment. Dr. Lawson has reviewed this note and agrees with this plan of care. This note was dictated using voice recognition software and make contain errors or omissions. PFSH PFSH 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 Anxiety Hypothyroidism RLQ abdominal pain Family History (Updated 07/02/22 @ 14:58 by Annalisa Falk RN) Other No significant family history Social History (Updated 07/02/22 @ 14:58 by Annailsa Falk RN) Smoking Status: Never smoker second hand exposure: No alcohol intake: never substance use type: denies use current occupational status: employed Travel in the last 8 weeks: None household members: other housing: house current occupation: [employer] current occupational exposures/hazards:
== END | disposition home or self-care (01) ==
PROVIDERS: PCP Family Medicine; Visit Provider Nurse Practitioner Family
DX: M51.16 Intervertebral disc disorders with radiculopathy, lumbar region (principal); M47.26 Other spondylosis with radiculopathy, lumbar region; Z79.899 Other long term (current) drug therapy
CPT/HCPCS: 99212; G0463

== ENCOUNTER 2022-07-20 08:01 | Day surgery (SDC) | payer OTHER, SELFPAY ==
[2022-07-20 08:14] VITALS: BP 120/84; PULSE 73; RESP 18; TEMP 36.7; O2SAT 100; BMI 36.0
[2022-07-20 08:45] VITALS: BP 105/81; PULSE 67; RESP 18; O2SAT 97
[2022-07-20 08:50] VITALS: BP 120/67; PULSE 60; RESP 20; O2SAT 100
--- NOTE | 2022-07-20 09:29 | EXP.PAIN.PRO ---
Procedure Date: 07/20/22 Time: 08:15 Anesthesiologist:: Marin Lazo CRNA Complications:: None Pre-procedure Diagnosis:: Degenerative disease lumbar spine multilevels. Lumbar spondylosis. Multilevel lumbar facet arthropathy. Post-procedure Diagnosis:: Same. Indications for Procedure:: Pleasant 41-year-old female that comes our clinic today for repeat lumbar facet/medial branch block L4-5, L5-S1 bilaterally. Patient complains of low back pain with increase in intensity with flexion, extension, left and right rotation. Procedure Details:: Informed consent was obtained and the risk and benefits of the procedure was explained to the patient. Patient was taken to the procedure room where noninvasive monitors were placed, including noninvasive blood pressure cuff as well as pulse oximeter. The area over the lumbar spine was cleansed using chlorhexidine as a cleansing solution. I anesthetized the skin and subcutaneous tissues with 1% Lidocaine. I placed 22-gauge spinal needles into the facet joint/ medial branches of L4-L5, and L5-S1] bilaterally. Needle placement was confirmed with fluoroscopy. After confirmation of needle placement, each site was injected with 1 mL of 1% lidocaine and 0.25 % Marcaine and 10 mg of Depo-Medrol. A total of 80 mg of depo medrol was used for bilateral medial branch blocks of L4-L5, and L5-S1] bilaterally. Patient tolerated the procedure without difficulty. There were no complications. Plan and Disposition:: Patient was discharged without incident.
== END 2022-07-20 08:50 | disposition home or self-care (01) ==
PROVIDERS: PCP Family Medicine; Visit Provider Nurse Anesthetist, Certified Registered
DX: M51.36 Other intervertebral disc degeneration, lumbar region (principal); M47.816 Spondylosis without myelopathy or radiculopathy, lumbar region
CPT/HCPCS: 64493; 64494; J1030

== ENCOUNTER → 2022-08-17 10:18 | Outpatient (CLI) | payer OTHER, SELFPAY ==
[2022-08-17 10:34] VITALS: BMI 36.0
== END ==
LOC: COVID.OUT 10:19 → UTC.OUT 10:21
PROVIDERS: PCP Family Medicine; Visit Provider Nurse Practitioner Family
DX: M46.1 Sacroiliitis, not elsewhere classified (principal)
CPT/HCPCS: 96372

== ENCOUNTER → 2022-08-18 15:27 | Outpatient (POV) | payer OTHER, SELFPAY ==
[2022-08-18 15:37] VITALS: BP 138/81; PULSE 61; RESP 18; O2SAT 97; BMI 36.0
--- NOTE | 2022-08-18 15:48 | EXP.PAIN.SOA ---
[facility] Pain Management SOAP Note Subjective:: Patient is a pleasant 41-year-old female who presents today for follow-up of lumbar medial branch block L4-L5 and L5-S1 bilaterally on 07/20/2022. We are currently treating the patient for degenerative disc disease lumbar spine multilevels with lumbar radiculopathy symptoms, lumbar spondylosis and lumbar facet arthropathy. Today the patient states she has had approximately 30% relief following this injection however only lasting approximately a day and a half. Today the patient rates her pain a 10 out of 10. Patient denies any new injury or trauma. Patient denies any change location or type of pain she experiences. Patient states the pain is all in her low back that radiates into her bilateral hips and down her legs. Patient describes this as a aching, throbbing sensation that is worse with increased activity. Patient frequently cannot tolerate prolonged sitting, standing, walking due to the pain. Patient has done multiple injections in the past including a lumbar epidural steroid injection, multiple SI injections and RFA procedure with some improvement of her symptoms. Patient is currently prescribed tizanidine 4 mg at bedtime however she states she has not noticed significant improvement with this medicine. She is not on any scheduled medications. Her Greg is [phone]. It has been reviewed and appropriate. Review of Systems: General: No recent weight changes, no fever, no sleep disturbances Respiratory: No cough, no shortness of air, no recurring pulmonary infections Cardiovascular/peripheral vascular: No chest pain, no palpitations, no edema, no shortness of breath Gastrointestinal: No new onset incontinence, normal bowel movements reported Genitourinary: No new onset incontinence Musculoskeletal: Low back pain, bilateral hip pain, leg pain Psychiatric: [Normal mood/affect] Neurological: [Denies weakness in extremities], [denies balance issues] Objective:: Physical Exam: General: Alert and oriented x3, no acute distress, pleasant and cooperative Lungs: Respirations even and unlabored, symmetrical chest expansion Eyes: PERRL Musculoskeletal: Flexion and extension of lumbar [spine] somewhat guarded secondary to pain, [antalgic gait noted] extreme point tenderness along bilateral SI's and positive bilateral Stanford's, Cyrus's, Gaenslen's, compression and distraction exam Neurological: Speech clear, no gross sensory deficit Assessment:: Degenerative disc disease of lumbar spine multilevels with lumbar radiculopathy symptoms, lumbar spondylosis, lumbar facet arthropathy, sacroiliitis Plan:: Patient is experiencing significant pain in her low back that radiates into her bilateral lower extremities and hips. Patient did have limited range of motion of her lumbar spine and extreme point tenderness along her bilateral SI's with positive bilateral Stanford's, Cyrus's, Gaenslen's, compression and distraction exam. I have discussed with the patient that she may benefit from repeat SI injections. Risk and benefits were discussed with the patient. She would like to proceed forward with this plan of care. I have also counseled the patient that in the future she might benefit from diagnostic intra-articular hip injections. I will stop her tizanidine medication and prescribe cyclobenzaprine 10 mg at bedtime and provide a 30-day supply of this medication. I will also order the patient a compounding cream. We will schedule the patient for bilateral SI injections. Patient has been instructed to contact the clinic with any concerns before the next appointment. Dr. Lawson has reviewed this note and agrees with this plan of care. This note was dictated using voice recognition software and make contain errors or omissions. [facility] Disclaimer: The information contained in this section may have been updated after the patient was seen, as this information can be updated by other users. 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 (Reviewed 07/20/22 @ 08:1
== END | disposition home or self-care (01) ==
PROVIDERS: Visit Provider Nurse Practitioner Family
DX: M51.16 Intervertebral disc disorders with radiculopathy, lumbar region (principal); M47.26 Other spondylosis with radiculopathy, lumbar region; M46.1 Sacroiliitis, not elsewhere classified; Z79.899 Other long term (current) drug therapy
CPT/HCPCS: 99212; G0463

== ENCOUNTER 2022-08-24 07:43 | Day surgery (SDC) | payer OTHER, SELFPAY ==
[2022-08-24 08:13] VITALS: BP 113/71; PULSE 75; RESP 18; TEMP 36.5; O2SAT 96; BMI 36.0
[2022-08-24 08:34] VITALS: BP 147/79; PULSE 71; RESP 18; O2SAT 98
[2022-08-24 08:37] VITALS: BP 147/72; PULSE 71; RESP 18; O2SAT 98
[2022-08-24 08:39] VITALS: BP 131/76; PULSE 63; RESP 18; O2SAT 96
--- NOTE | 2022-08-24 09:30 | P.PCN_ITS ---
Procedure Date: 08/24/22 Time: 08:20 Anesthesiologist:: Marin Lazo CRNA Complications:: None Pre-procedure Diagnosis:: Bilateral sacroiliitis Post-procedure Diagnosis:: Same. Indications for Procedure:: Patient is a pleasant 41-year-old female that comes our clinic today for bilateral sacroiliac joint injections. She has extreme point tenderness upon examination over the bilateral SI joints. She rates her pain 8/10. Patient states she has had sacroiliac joint injections in the past which have proved to relieve her pain however, they do not last. Patient's had lumbar epidural steroid injections with a similar result. Patient also complains of pain following sacroiliac joint rhizotomy. Sacroiliac joint ablation did help for some time. However the pain returned. Patient has not seen spine surgery for consultation in the past. I suggest to the patient today we pursue consultation with spine surgery for opinion. If no surgery recommended we will have a clearer picture of how to treat her going forward. Procedure Details:: Procedure: Bilateral sacroiliac joint injections under fluoroscopy Informed consent was obtained and the risks and benefits of the procedure were explained to the patient.~ The patient was taken to the procedure room and noninvasive monitors were placed including a noninvasive blood pressure cuff and pulse oximeter.~ The patient was placed prone on the procedure table. Both hips were cleansed using Betadine as a cleansing solution. C-arm fluoroscopy was used to view the right sacroiliac joint.~ The skin and subcutaneous tissues were anesthetized using lidocaine 1.5% and a 25-gauge needle.~ After this, a 22-gauge spinal needle was inserted under fluoroscopic guidance into the inferior aspect of the right sacroiliac joint.~ Omnipaque dye was injected and good spread was seen throughout the joint.~ After this, approximately 5 mL of bupivacaine, 0.25% and Depo-Medrol, 40 mg was incrementally injected into the right sacroiliac joint. We then moved to the left sacroiliac joint.~ The skin and subcutaneous tissues were anesthetized using lidocaine 1.5% and a 25-gauge needle.~ After this, a 22- gauge spinal needle was inserted under fluoroscopic guidance into the inferior aspect of the left sacroiliac joint.~ Omnipaque dye was injected and good spread was seen throughout the joint. After this, approximately 5 mL of bupivacaine, 0.25% and Depo-Medrol, 40 mg was incrementally injected into the left sacroiliac joint.~ The patient tolerated the procedure well with no complications. The patient was observed in the Pain Clinic and then was discharged home neurologically intact. Plan and Disposition:: Patient will follow-up in the clinic for evaluation. Also, we will refer the patient for spine consultation.
== END 2022-08-24 08:39 | disposition home or self-care (01) ==
LOC: SC.PAINP 07:43
PROVIDERS: PCP Family Medicine; Visit Provider Nurse Anesthetist, Certified Registered
DX: M46.1 Sacroiliitis, not elsewhere classified (principal)
CPT/HCPCS: 27096; G0260; J1030

== ENCOUNTER 2022-09-28 19:28 | Outpatient (CLI) | payer OTHER, SELFPAY ==
[2022-09-28 19:35] VITALS: BMI 36.0
[2022-09-28 19:52] VITALS: O2SAT 98
== END 2022-09-28 19:52 | disposition home or self-care (01) ==
PROVIDERS: PCP Family Medicine; Visit Provider Nurse Practitioner Family
DX: M54.50 Low back pain, unspecified (principal)

== ENCOUNTER → 2022-11-15 09:12 | Outpatient (CLI) | payer OTHER, SELFPAY ==
--- NOTE | 2022-11-15 09:18 | FL_ITS ---
FINAL REPORT CLINICAL HISTORY: DYSPHAGIA, FT1:38 FINDINGS: UPPER GI EXAM HISTORY: Dysphagia. Heartburn. PROCEDURE: The patient ingested barium. Spot and overhead films were obtained. FINDINGS: No esophageal stricture is identified. There is a small sliding-type hiatal hernia. Gastroesophageal reflux was demonstrated to the thoracic inlet. The patient is status post sleeve gastrectomy. The stomach empties appropriately. The duodenum is unremarkable. FLUOROSCOPY TIME: 1 minute 38 seconds. 18 radiographs were obtained. IMPRESSION: Postoperative changes of sleeve gastrectomy. Small sliding-type hiatal hernia with gastroesophageal reflux. Films reviewed , interpreted and dictated by Dr. Shanel Dutta. Transcribed by Tej Rashid PA-C. Reviewed, Interpreted and Dictated by Shanel Dutta MD Transcribed by SRI Victor Authenticated and [facility]
== END ==
PROVIDERS: PCP Family Medicine; Visit Provider Family Medicine
DX: R13.19 Other dysphagia (principal)
CPT/HCPCS: 74240

== ENCOUNTER → 2022-12-25 07:38 | Outpatient (CLI) | payer OTHER, SELFPAY ==
--- NOTE | 2022-12-25 07:54 | XR_ITS ---
PROCEDURE INFORMATION: Exam: XR Cervical Spine Exam date and time: 12/25/2022 7:47 AM Age: 42 years old Clinical indication: Radicular pain (radiculopathy); Cervical region; Additional info: Pain radiculopathy TECHNIQUE: Imaging protocol: Radiologic exam of the cervical spine. Views: 2 or 3 views. COMPARISON: CR XR CHEST PORTABLE 06/25/2022 11:57 AM FINDINGS: Bones/joints: No acute fracture or malalignment. Mild degenerative disc disease at C5-C6 and C6-C7. Soft tissues: Unremarkable. IMPRESSION: No acute fracture or malalignment.
== END ==
PROVIDERS: PCP Family Medicine; Visit Provider Family Medicine
DX: M54.12 Radiculopathy, cervical region (principal)
CPT/HCPCS: 72040

== ENCOUNTER 2023-01-04 17:09 | Outpatient (CLI) | payer OTHER, SELFPAY ==
[2023-01-04 17:25] VITALS: BMI 36.0
[2023-01-04 17:26] VITALS: RESP 20; TEMP 36.8; O2SAT 98
== END 2023-01-04 17:26 | disposition home or self-care (01) ==
LOC: INF 17:10
PROVIDERS: PCP Family Medicine; Visit Provider Nurse Practitioner Family
DX: J06.9 Acute upper respiratory infection, unspecified (principal)
CPT/HCPCS: J0696

== ENCOUNTER → 2023-03-29 13:09 | Outpatient (CLI) | payer OTHER, SELFPAY ==
[2023-03-29 13:25] VITALS: BMI 38.7
== END ==
PROVIDERS: PCP Family Medicine; Visit Provider Nurse Practitioner Family
DX: M25.50 Pain in unspecified joint (principal)

== ENCOUNTER → 2023-04-28 10:37 | Outpatient (POV) | payer OTHER, SELFPAY ==
--- NOTE | 2023-04-28 10:55 | EXP.PAIN.SOA ---
[facility] Pain Management SOAP Note Subjective:: Patient is a pleasant 42-year-old female who presents today for follow-up. We are currently treating the patient for degenerative disc disease of lumbar spine with lumbar radiculopathy symptoms, lumbar spondylosis, lumbar facet arthropathy. Today she rates her pain a 10 out of 10. Patient states that for the last months she has had severe low back pain that is into her buttocks and bilateral hips that radiate into her legs. Patient denies any new trauma or injury. She does state this is a constant throbbing sensation that she cannot tolerate sitting or walking due to the pain. Patient states she gets very little sleep due to the worsening symptoms. It does interfere with her ability perform activities of daily living such as cooking or cleaning. Patient in the past has had chronic sacroiliitis and done well with SI injections. Patient has tried multiple medications such as gabapentin, tizanidine and cyclobenzaprine with minimal relief. She is prescribed compounding cream. Her Greg is [id number]. Its been reviewed and appropriate. Review of Systems: General: No recent weight changes, no fever, no sleep disturbances Respiratory: No cough, no shortness of air, no recurring pulmonary infections Cardiovascular/peripheral vascular: No chest pain, no palpitations, no edema, no shortness of breath Gastrointestinal: No new onset incontinence, normal bowel movements reported Genitourinary: No new onset incontinence Musculoskeletal: Low back pain, buttocks pain, bilateral hip pain, bilateral leg pain Psychiatric: [Normal mood/affect] Neurological: [Denies weakness in extremities], [denies balance issues] Objective:: Physical Exam: General: Alert and oriented x3, no acute distress, pleasant and cooperative Lungs: Respirations even and unlabored, symmetrical chest expansion Eyes: PERRL Musculoskeletal: Flexion and extension of lumbar [spine] somewhat guarded secondary to pain, [antalgic gait noted] negative point tenderness along bilateral SIs and negative Stanford's; point tenderness noted along her sacral spine Neurological: Speech clear, no gross sensory deficit Assessment:: Degenerative disc disease of lumbar spine with lumbar radiculopathy symptoms, lumbar spondylosis, lumbar facet arthropathy, low back pain, buttocks pain Plan:: Patient is experiencing significant pain in her buttocks with radiating symptoms to her hips and her bilateral legs. Patient had limited range of motion of her lumbar spine during today's visit however she was negative for point tenderness at her SIs and negative on Stanford's exam. Patient did have point tenderness along her sacral spine. I have discussed with the patient that she may benefit from a caudal epidural steroid injection. Risk and benefits were explained to the patient and she would like to proceed forward with this plan of care. I will also send in a 14-day supply of methocarbamol 750 mg twice daily along with prednisone 20 mg twice daily and provide a 7-day supply of this medication. Patient will be scheduled for a caudal epidural. Patient has been instructed to contact the clinic with any concerns before the next appointment. Dr. Lawson has reviewed this note and agrees with this plan of care. This note was dictated using voice recognition software and make contain errors or omissions. [facility] Disclaimer: The information contained in this section may have been updated after the patient was seen, as this information can be updated by other users. 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 Anxiety Hypothyroidism RLQ abdominal pain Family History Other No significant family history Social History Smoking Status: Never smoker second hand exposure: No alcohol intake: never substance use type: denies use current o
[2023-04-28 11:52] VITALS: BP 137/97; PULSE 81; RESP 18; O2SAT 99; BMI 35.9
== END | disposition home or self-care (01) ==
PROVIDERS: PCP Family Medicine; Visit Provider Nurse Practitioner Family
DX: M51.16 Intervertebral disc disorders with radiculopathy, lumbar region (principal); M47.26 Other spondylosis with radiculopathy, lumbar region; M79.18 Myalgia, other site
CPT/HCPCS: 99212; G0463

== ENCOUNTER 2023-05-03 10:16 | Day surgery (SDC) | payer OTHER, SELFPAY ==
[2023-05-03 10:35] VITALS: BP 162/99; PULSE 70; RESP 18; TEMP 37.4; O2SAT 100; BMI 36.0
[2023-05-03 10:51] VITALS: BP 135/80; PULSE 62; RESP 18; O2SAT 98
[2023-05-03 10:52] VITALS: BP 135/80; PULSE 68; RESP 18; O2SAT 100
--- NOTE | 2023-05-03 10:59 | EXP.PAIN.PRO ---
Procedure Date: 05/03/23 Time: 10:50 Anesthesiologist:: Marin Lazo CRNA Complications:: None Pre-procedure Diagnosis:: Degenerative disease lumbar spine multilevels. Lumbar radiculopathy. Bilateral sacroiliitis. Post-procedure Diagnosis:: Same. Indications for Procedure:: Patient is a very pleasant 42-year-old female that comes our clinic today for consult epidural steroid injection. Patient has had low lumbar and posterior hip pain bilaterally for quite some time. Bilateral sacroiliac joint injections did help to some degree. Procedure Details:: Procedure: Caudal epidural steroid injection under fluoroscopy Informed consent was obtained and the risks and benefits of the procedure were explained to the patient. The patient was taken to the procedure room and noninvasive monitors placed, including noninvasive blood pressure cuff and pulse oximeter. The sacrum was viewed using C-arm Fluoroscopy in lateral position and prepped using Chloraprep as a cleansing solution and the caudal space was visualized. Skin and subcutaneous tissues were anesthetized using lidocaine 1.5% and a 25-gauge needle. After this, an 22-gauge spinal epidural needle was placed into the caudal space. After confirmation of needle placement in the caudal space, with dye, a solution containing normal saline, 3 mL and Depo-Medrol 80 mg were incrementally injected into the lumbar epidural space. The patient tolerated the procedure well with no complications. Plan and Disposition:: Patient was discharged without incident.
[2023-05-03 11:00] VITALS: BP 175/93; PULSE 62; RESP 16; O2SAT 100
== END 2023-05-03 11:00 | disposition home or self-care (01) ==
PROVIDERS: PCP Family Medicine; Visit Provider Nurse Anesthetist, Certified Registered
DX: M51.16 Intervertebral disc disorders with radiculopathy, lumbar region (principal); M46.1 Sacroiliitis, not elsewhere classified
CPT/HCPCS: 62323; J1030; Q9966

== ENCOUNTER 2023-05-11 17:37 | Emergency (ER) | payer OTHER, SELFPAY ==
[2023-05-11] VITALS (12 sets, daily range): BP systolic 124–137; BP diastolic 79–101; PULSE 63–91; RESP 11–20; TEMP 36.8–37.1; O2SAT 94–100; BMI 36.0
--- NOTE | 2023-05-11 17:37 | ECG_ITS ---
APPROVED REPORT Exam: Resting ECG HR:92 bpm ECG Measurements Heart Rate 92 AXES AL 132 P 65 QRSd 83 QRS 23 QT 331 T 51 QTc 380 Conclusion SINUS RHYTHM NORMAL ECG UNCONFIRMED REPORT Electronically signed by : Oscar Ochoa MD 05/12/2023 06:40:26
--- NOTE | 2023-05-11 18:04 | XR_ITS ---
PROCEDURE INFORMATION: Exam: XR Chest Exam date and time: 05/11/2023 6:03 PM Age: 42 years old Clinical indication: Pain; Left-sided; Additional info: Chest pain TECHNIQUE: Imaging protocol: Radiologic exam of the chest. Views: 2 views. COMPARISON: CR XR CHEST PORTABLE 06/25/2022 11:57 AM FINDINGS: Lungs: Unremarkable. No consolidation. Pleural spaces: Unremarkable. No pleural effusion. No pneumothorax. Heart/Mediastinum: Unremarkable. No cardiomegaly. Bones/joints: Unremarkable. IMPRESSION: No acute findings.
--- NOTE | 2023-05-11 18:12 | PC.NURSE ---
to radiology for chest xray
--- NOTE | 2023-05-11 18:15 | HMH.EDGENADL ---
Discharge Plan Disposition Patient Disposition: Home, Self-Care Condition: Good Chief Complaint: Chest Pain Prescriptions Prescriptions: No Action duloxetine 60 mg capsule,delayed release(DR/EC) 60 mg PO DAILY meloxicam 15 mg tablet 15 mg PO DAILY levothyroxine 150 mcg tablet 150 mcg PO DAILY Qty: 90 0RF cyclobenzaprine [cyclobenzaprine] 10 mg tablet 10 mg PO HS ondansetron 4 mg Tablet,Disintegrating 4 mg PO Q8H PRN (Reason: Nausea) Qty: 20 0RF tizanidine [Zanaflex] 4 mg tablet 4 mg PO HS Qty: 30 0RF prednisone 20 mg tablet 20 mg PO BID methocarbamol 750 mg tablet 750 mg PO BID Referrals Follow up/Referrals: Rudi Arce MD [Primary Care Provider] - See instructions Activity Restrictions/Add. Instructions Additional Instructions/Restrictions: At this time is felt you are safe to be discharged home. If new or worsening symptoms please do not hesitate to return the emergency department. If symptoms persist please follow-up with your family doctor within 1 week. Clinical Impressions Clinical Impression: Chest pain Discharge ED Provider: Omer Galvan General Adult HPI General Chief complaint: Chest Pain Stated complaint: cp Time Seen by Provider: 05/11/23 17:37 Mode of Arrival: Ambulatory Source of Information: Patient Limitations: No Limitations Description of Symptoms (Recalled from ER Triage Doc. by RN): pt to ed c/o center chest pain that radiates into her left arm. pt reports pain intermittently since this morning. pt also reports SOA at rest today. History of Present Illness HPI narrative: Patient is a 42-year-old female with past medical history of previous chest pain with reported clean heart catheterization who presents emergency department for evaluation of chest pain. Patient states that it began this morning, onset was acute, moderate to severe in intensity, comes and goes, radiates to the shoulder blades. She has a bifrontal headache, does not state that she has any vision changes, no other acute complaints at this time. Related Data Home Medications Medication Instructions Recorded Confirmed duloxetine 60 mg capsule,delayed 60 mg PO DAILY Depression 06/12/20 05/03/23 release meloxicam 15 mg tablet 15 mg PO DAILY Pain 01/06/22 05/03/23 cyclobenzaprine 10 mg tablet 10 mg PO HS muscle spasms 08/24/22 05/03/23 methocarbamol 750 mg tablet 750 mg PO BID . 05/03/23 05/03/23 prednisone 20 mg tablet 20 mg PO BID . 05/03/23 05/03/23 Previous Rx's Medication Instructions Recorded levothyroxine 150 mcg tablet 150 mcg PO DAILY thyroid #90 tabs 03/01/19 tizanidine 4 mg tablet (Zanaflex) 4 mg PO HS MUSCLES #30 tabs 07/15/22 ondansetron 4 mg disintegrating 4 mg PO Q8H PRN Nausea #20 tabs 11/12/22 tablet Allergies Allergy/AdvReac Type Severity Reaction Status Date / Time No Known Allergies Allergy Verified 05/03/23 10:40 [facility] Disclaimer: The information contained in this section may have been updated after the patient was seen, as this information can be updated by other users. 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 (Updated 05/11/23 @ 22:44 by Omer Galvan MD) Anxiety Hypothyroidism RLQ abdominal pain Family History Other No significant family history Social History Smoking Status: Never smoker second hand exposure: No alcohol intake: never substance use type: denies use current occupational status: employed Travel in the last 8 weeks: None household members: other housing: house current occupation: [employer] current occupational exposures/hazards: No caffeine: Yes ROS Obtained: Yes Systems reviewed as appropriate & no additional complaints except as documented Physical Exam General General appearance: alert and in no apparent distress Head Head exam: atraumatic and normocephalic Eye
--- NOTE | 2023-05-11 18:33 | CT_ITS ---
PROCEDURE INFORMATION: Exam: CTA Chest With Contrast Exam date and time: 05/11/2023 6:52 PM Age: 42 years old Clinical indication: Sternal or substernal pain and left-sided; Additional info: Chest pain radiating to shoulder blades TECHNIQUE: Imaging protocol: Computed tomographic angiography of the chest with contrast. Exam focused on the arteries. 3D rendering (Not supervised by radiologist): MIP and/or 3D reconstructed images were created by the technologist. Radiation optimization: All CT scans at this facility use at least one of these dose optimization techniques: automated exposure control; mA and/or kV adjustment per patient size (includes targeted exams where dose is matched to clinical indication); or iterative reconstruction. Contrast material: ISOVUE 370; Contrast volume: 100 ml; Contrast route: INTRAVENOUS (IV); REPORTING DATA: Count of CT and Cardiac NM exams in prior 12 months: This patient has received 0 known CTs and 0 known cardiac nuclear medicine studies in the 12 months prior to the current study. COMPARISON: CR XR CHEST 2V 11/05/2023 18:03 FINDINGS: Pulmonary arteries: No pulmonary emboli. Aorta: Unremarkable. No aortic aneurysm. No aortic dissection. Lungs: Subtle right upper lobe ground-glass opacities. Pleural spaces: Unremarkable. No pneumothorax. No pleural effusion. Heart: Unremarkable. No cardiomegaly. No pericardial effusion. Lymph nodes: Unremarkable. No enlarged lymph nodes. Diaphragm: Small hiatal hernia. Gallbladder and bile ducts: Contracted gallbladder. Stomach and bowel: Status post gastric sleeve. Liquid fecal contents in the colon could correlate with diarrhea. Bones/joints: Unremarkable. No acute fracture. Soft tissues: Unremarkable. Other findings: Stigmata of old granulomatous disease. IMPRESSION: 1. No pulmonary emboli. 2. Subtle right upper lobe ground-glass opacities. Atypical infection versus aspiration pneumonitis would be most likely. 3. Liquid fecal contents in the colon could correlate with diarrhea. Please exclude enterocolitis.
[2023-05-11 18:48] LABS: Basophils % 0.3 % (0.1-2.0); Chloride 105 mmol/L (98-107); Eosinophils # 0.1 K/mm3 (0.0-0.4); Eosinophils % 0.4 % (0.1-12.0); Hematocrit 46.3 % (37.0-47.0); Hemoglobin 14.8 g/dL (12.2-16.2); Lymphocytes # 3.5 K/mm3 (0.7-4.5); Lymphocytes % 23.4 % (10-50); Mean Corpuscular HGB Conc 31.9 g/dL (31.8-35.4); Mean Corpuscular Hemoglobin 27.1 pg (27.0-31.2); Mean Corpuscular Volume 84.8 fl (81-99); Mean Platelet Volume 7.9 fl (7.4-10.4); Monocytes # 0.5 K/mm3 (0.1-1.0); Monocytes % 3.4 % (1.7-9.3); Neutrophils # 10.9 K/mm3 (1.8-7.8); Neutrophils % 72.6 % (37.0-80.0); Platelet Count 362 K/mm3 (142-424); Red Blood Count 5.45 M/mm3 (4.20-5.40); Red Cell Distribution Width 14.7 % (11.5-17.5); Sodium 138 mmol/L (136-145)
[2023-05-11 18:50] LABS: Blood Urea Nitrogen 19 mg/dl (7-17); Creatinine Clearance Estimated 149 mL/min (50-200); Estimated Glomerular Filt Rate 78 ml/min (>60); GFR (African American) 95 ML/MIN (>60)
[2023-05-11 18:51] LABS: Alanine Aminotransferase 22 U/L (12-78); Albumin Level 4.1 g/dl (3.5-5.0); Albumin/Globulin Ratio 1.2 (1.1-1.8); Alkaline Phosphatase 105 U/L (38-126); Aspartate Amino Transferase 33 U/L (14-36); Bilirubin,Total 0.5 mg/dl (0.2-1.3); Calcium 8.9 mg/dl (8.4-10.2); Carbon Dioxide 24 mmol/L (22.0-30.0); Globulin 3.3 g/dL (1.3-3.2); Glucose 76 mg/dl (74-100); Lipase 212 U/L (23-300); Total Protein,Serum 7.4 g/dl (6.3-8.2)
[2023-05-11 19:01] LABS: MANUAL DIFFERENTIAL MANUAL DIFFERENTIAL (MANUAL DIFF)
[2023-05-11 19:22] LABS: Troponin I < 0.01 ng/ml (0.00-0.034)
--- NOTE | 2023-05-11 19:28 | PC.NURSE ---
rounded on pt nothing needed at this time,call light at bs
[2023-05-11 20:19] LABS: Lymphocytes % 30 % (10-50); Monocytes % 1 % (2-9); Neutrophils % 69 % (42-76); Total Cells Counted 100
[2023-05-11 20:20] LABS: Platelet Estimate Normal; RBC Morphology Normal
[2023-05-11 22:15] LABS: Troponin I < 0.01 ng/ml (0.00-0.034)
== END 2023-05-11 22:58 | disposition home or self-care (01) ==
PROVIDERS: Emergency Provider Emergency Medicine; PCP Family Medicine
DX: R07.89 Other chest pain (principal); E03.9 Hypothyroidism, unspecified; F41.9 Anxiety disorder, unspecified
CPT/HCPCS: 36415; 71046; 71275; 80053; 83690; 84484; 85007; 85025; 93005; 96361; 96374; 96375; 99285; J0131; Q9967

== ENCOUNTER → 2023-05-19 10:26 | Outpatient (POV) | payer OTHER, SELFPAY ==
--- NOTE | 2023-05-19 10:38 | A.OFFVIS_ITS ---
[facility] Pain Management SOAP Note Subjective:: Patient is a pleasant 42-year-old female who presents today for follow-up of caudal epidural on 05/03/2023. We are currently treating the patient for degenerative disc disease of lumbar spine with lumbar radiculopathy symptoms, lumbar spondylosis, lumbar facet arthropathy. Today she rates her pain a 0 out of 10. She states that she has had 100% improvement following her caudal epidural and it is still continuing to provide relief. Patient states she has been able to increase her activity with decreased pain symptoms. She states she is also felt more functional overall. Patient states that her sleeping is back to normal. At our last visit we did try methocarbamol 750 mg twice daily and she states those muscle relaxers did make a big improvement. She is requesting a refill today. Her Greg is [phone]. Its been reviewed and appropriate. Review of Systems: General: No recent weight changes, no fever, no sleep disturbances Respiratory: No cough, no shortness of air, no recurring pulmonary infections Cardiovascular/peripheral vascular: No chest pain, no palpitations, no edema, no shortness of breath Gastrointestinal: No new onset incontinence, normal bowel movements reported Genitourinary: No new onset incontinence Musculoskeletal: Low back pain Psychiatric: [Normal mood/affect] Neurological: [Denies weakness in extremities], [denies balance issues] Objective:: Physical Exam: General: Alert and oriented x3, no acute distress, pleasant and cooperative Lungs: Respirations even and unlabored, symmetrical chest expansion Eyes: PERRL Musculoskeletal: Flexion and extension of lumbar [spine] somewhat guarded secondary to pain, [antalgic gait noted] Neurological: Speech clear, no gross sensory deficit Assessment:: Degenerative disc disease of lumbar spine with lumbar radiculopathy symptoms, lumbar spondylosis, lumbar facet arthropathy Plan:: Patient has had significant improvement following her caudal epidural and does not require any additional injective therapy at this time. I will refill the patient's methocarbamol 750 mg twice daily and provide a 1 month supply of this medication. Patient will return to clinic in 1 month for reevaluation of symptoms and plan of care. Patient has been instructed to contact the clinic with any concerns before the next appointment. Dr. Lawson has reviewed this note and agrees with this plan of care. This note was dictated using voice recognition software and make contain errors or omissions. [facility] Disclaimer: The information contained in this section may have been updated after the patient was seen, as this information can be updated by other users. 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 (Updated 05/11/23 @ 22:44 by Omer Galvan MD) Anxiety Hypothyroidism RLQ abdominal pain Family History Other No significant family history Social History Smoking Status: Never smoker second hand exposure: No alcohol intake: never substance use type: denies use current occupational status: employed Travel in the last 8 weeks: None household members: other housing: house current occupation: [employer] current occupational exposures/hazards: No caffeine: Yes
[2023-05-19 12:51] VITALS: BP 139/85; PULSE 82; RESP 18; O2SAT 100; BMI 36.0
== END | disposition home or self-care (01) ==
PROVIDERS: PCP Family Medicine; Visit Provider Nurse Practitioner Family
DX: M51.16 Intervertebral disc disorders with radiculopathy, lumbar region (principal); M47.26 Other spondylosis with radiculopathy, lumbar region
CPT/HCPCS: 99212; G0463

== ENCOUNTER → 2023-06-16 10:41 | Outpatient (POV) | payer OTHER, SELFPAY ==
--- NOTE | 2023-06-16 11:11 | EXP.PAIN.SOA ---
[facility] Pain Management SOAP Note Subjective:: Patient is a pleasant 42-year-old female who presents today for 1 month follow-up. We are currently treating the patient for degenerative disc disease of lumbar spine with lumbar radiculopathy symptoms, lumbar facet arthropathy, lumbar spondylosis. Today she rates her pain a 2 out of 10. Patient denies any new trauma or injury. She states that she is continued to get significant relief following her caudal epidural that was in the middle of April. She states she has been able to increase her activity with decreased pain. Patient is prescribed methocarbamol 750 mg twice a day. Patient denies any side effects from this medication. She states that she does not need refills at this time. Her Greg is [phone]. Its been reviewed and appropriate. Review of Systems: General: No recent weight changes, no fever, no sleep disturbances Respiratory: No cough, no shortness of air, no recurring pulmonary infections Cardiovascular/peripheral vascular: No chest pain, no palpitations, no edema, no shortness of breath Gastrointestinal: No new onset incontinence, normal bowel movements reported Genitourinary: No new onset incontinence Musculoskeletal: Low back pain Psychiatric: [Normal mood/affect] Neurological: [Denies weakness in extremities], [denies balance issues] Objective:: Physical Exam: General: Alert and oriented x3, no acute distress, pleasant and cooperative Lungs: Respirations even and unlabored, symmetrical chest expansion Eyes: PERRL Musculoskeletal: Flexion and extension of lumbar [spine] somewhat guarded secondary to pain, [antalgic gait noted] Neurological: Speech clear, no gross sensory deficit Assessment:: Degenerative disc disease of lumbar spine with lumbar radiculopathy symptoms, lumbar facet arthropathy, lumbar spondylosis, buttocks pain Plan:: Patient has continued to have significant improvement following her caudal epidural and does not require any additional injective therapy. Patient will return to clinic in 3 months for reevaluation of symptoms and plan of care Patient has been instructed to contact the clinic with any concerns before the next appointment. Dr. Lawson has reviewed this note and agrees with this plan of care. This note was dictated using voice recognition software and make contain errors or omissions. [facility] Disclaimer: The information contained in this section may have been updated after the patient was seen, as this information can be updated by other users. 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 (Updated 05/11/23 @ 22:44 by Omer Galvan MD) Anxiety Hypothyroidism RLQ abdominal pain Family History Other No significant family history Social History Smoking Status: Never smoker second hand exposure: No alcohol intake: never substance use type: denies use current occupational status: employed Travel in the last 8 weeks: None household members: other housing: house current occupation: [employer] current occupational exposures/hazards: No caffeine: Yes
[2023-06-16 11:15] VITALS: BP 148/99; PULSE 72; RESP 18; BMI 36.0
== END ==
PROVIDERS: PCP Family Medicine; Visit Provider Nurse Practitioner Family
DX: M51.16 Intervertebral disc disorders with radiculopathy, lumbar region (principal); M47.26 Other spondylosis with radiculopathy, lumbar region; M79.18 Myalgia, other site
CPT/HCPCS: 99212; G0463

== ENCOUNTER → 2023-07-19 15:52 | Outpatient (CLI) | payer OTHER, SELFPAY ==
--- NOTE | 2023-07-19 18:54 | XR_ITS ---
PROCEDURE INFORMATION: Exam: XR Left Knee Exam date and time: 07/19/2023 6:59 PM Age: 42 years old Clinical indication: Other: Pain and swelling; Additional info: Left knee pain. Got up from chair, knee pulled and popped on medial side, now pain and swelling medially TECHNIQUE: Imaging protocol: Radiologic exam of the left knee. Views: 3 views. COMPARISON: CR XR FOOT WT BEARING LT 3V 08/31/2021 9:10 AM FINDINGS: Bones/joints: Mild tricompartmental degenerative changes. No acute fracture. Small calcifications posteriorly that may reflect intra-articular loose bodies. Soft tissues: Normal. IMPRESSION: DJD and possible loose bodies. No evident fracture.
== END ==
PROVIDERS: PCP Family Medicine; Visit Provider Orthopaedic Surgery
DX: M25.562 Pain in left knee (principal)
CPT/HCPCS: 73562

== ENCOUNTER 2023-08-01 13:08 | Emergency (ER) | payer OTHER, SELFPAY ==
[2023-08-01 13:10] VITALS: PULSE 122; RESP 18; TEMP 36.9; O2SAT 97; BMI 37.1
--- NOTE | 2023-08-01 13:34 | EXP.UTC ---
Discharge Plan Disposition Patient Disposition: Home, Self-Care Condition: Good Prescriptions Prescriptions: No Action duloxetine 60 mg capsule,delayed release(DR/EC) 60 mg PO DAILY meloxicam 15 mg tablet 15 mg PO DAILY omeprazole 40 mg capsule,delayed release(DR/EC) PO levothyroxine 150 mcg tablet 150 mcg PO DAILY Qty: 90 0RF cyclobenzaprine [cyclobenzaprine] 10 mg tablet 10 mg PO HS methocarbamol 750 mg tablet 750 mg PO BID Qty: 60 0RF ondansetron 4 mg Tablet,Disintegrating 4 mg PO Q8H PRN (Reason: Nausea) Qty: 20 0RF Referrals Follow up/Referrals: Rudi Arce MD [Primary Care Provider] - See instructions Activity Restrictions/Add. Instructions Additional Instructions/Restrictions: Drink plenty of fluids. Take tylenol or ibuprofen for pain or fever. Follow up with your regular doctor. GO TO THE ER FOR ANY WORSENING SYMPTOMS Clinical Impressions Clinical Impression: Acute viral syndrome Instructions Patient Instructions: DI for Viral Syndrome Discharge ED Provider: Wellington Sow [facility] General Stated complaint: body aches, diarrhea Mode of Arrival: Ambulatory Source of Information: Patient Limitations: No Limitations Time Seen by Provider: 08/01/23 13:33 Description of Symptoms (Recalled from Triage Doc. by RN): coughing, diarrhea, and body aches HEENT Symptoms (Recalled from RN notes): Yes Resp Symptoms (Recalled from RN notes): No Skin Symptoms (Recalled from RN notes): No MS Symptoms (Recalled from RN notes): No Functional Status (Recalled from RN notes): n/a Related Data Home Medications Medication Instructions Recorded Confirmed duloxetine 60 mg capsule,delayed 60 mg PO DAILY Depression 06/12/20 07/21/23 release meloxicam 15 mg tablet 15 mg PO DAILY Pain 01/06/22 07/21/23 cyclobenzaprine 10 mg tablet 10 mg PO HS muscle spasms 08/24/22 07/21/23 omeprazole 40 mg capsule,delayed mg PO 07/05/23 07/21/23 release Previous Rx's Medication Instructions Recorded levothyroxine 150 mcg tablet 150 mcg PO DAILY thyroid #90 tabs 03/01/19 ondansetron 4 mg disintegrating 4 mg PO Q8H PRN Nausea #20 tabs 11/12/22 tablet methocarbamol 750 mg tablet 750 mg PO BID . #60 tabs 05/19/23 Allergies Allergy/AdvReac Type Severity Reaction Status Date / Time No Known Allergies Allergy Verified 08/01/23 13:14 Worker's Comp Is this a Worker's Comp case?: No [facility] Disclaimer: The information contained in this section may have been updated after the patient was seen, as this information can be updated by other users. 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 Anxiety Hypothyroidism RLQ abdominal pain Family History Other No significant family history Social History Smoking Status: Never smoker second hand exposure: No alcohol intake: never substance use type: denies use current occupational status: employed Travel in the last 8 weeks: None household members: other housing: house current occupation: [employer] current occupational exposures/hazards: No caffeine: Yes ROS Obtained: Yes All systems reviewed & no additional complaints except as documented Constitutional Constitutional: Reports chills and Reports fever(s) Eyes Eyes: Denies eye discharge ENT Ears, Nose, Mouth, and Throat: Reports as per HPI Cardiovascular Cardiovascular: Denies chest pain Respiratory Respiratory: Denies chest congestion and Reports cough Gastrointestinal Gastrointestingal: Reports nausea; Denies abdominal pain, constipation, cramping, diarrhea or vomiting Musculoskeletal Musculoskeletal: Denies arthralgias Integumentary/Breasts Skin/Breast: Denies rash Neurologic Neurologic: Denies paresthesias Physical Exam General General appearance: alert and in no apparent distress Head He
[2023-08-01 13:43] VITALS: BP 0/0; PULSE 122; RESP 18; TEMP 36.9; O2SAT 97
[2023-08-01 13:43] LABS: Coronavirus 19, PCR Not Detected (NotDetected); Influenza A, PCR Not Detected (NotDetected); Influenza B, PCR Not Detected (NotDetected)
== END 2023-08-01 13:43 | disposition home or self-care (01) ==
PROVIDERS: Emergency Provider Nurse Practitioner Family; PCP Family Medicine
DX: R05.9 Cough, unspecified (principal); R19.7 Diarrhea, unspecified; B34.9 Viral infection, unspecified
CPT/HCPCS: 87636; 99212; 99213; G0463

== ENCOUNTER → 2023-08-15 10:00 | Outpatient (CLI) | payer OTHER, SELFPAY ==
--- NOTE | 2023-08-15 10:00 | MR_ITS ---
FINAL REPORT TECHNIQUE: Multiplanar MR without contrast CLINICAL HISTORY: INJURY AT WORK 07/14, LEFT KNEE PAIN AND SWELLING, KNEE GIVES OUT COMPARISON: None FINDINGS: Articular cartilage: There is moderate diffuse thinning as well as small osteochondral defects in the weightbearing surfaces of the medial and lateral femoral condyles and tibial plateaus. The largest lateral femoral condyle defect measures 11 x 3 mm in size. The largest medial femoral condyle defect measures 14 x 3 mm in size. Marrow signal: There is minimal subchondral bone marrow edema in the lateral femoral condyle, likely degenerative. Joint fluid: There is a moderate-sized joint effusion and multiple posterior joint bodies, the largest posterior to the posterior cruciate ligament, measuring up to 10 mm in size. At least 5 joint bodies are identified. Menisci: Unremarkable Ligaments: Unremarkable Note is made of prepatellar bursitis. IMPRESSION: Significant degenerative change as described, with multiple osteochondral defects. Moderate joint effusion and multiple posterior joint bodies as described, at least 5 identified. Unremarkable menisci and ligaments. Reviewed, Interpreted and Dictated by Vanessa Salmeron MD Transcribed by Jocelyn Rojas Authenticated and [facility]
== END ==
PROVIDERS: PCP Family Medicine; Visit Provider Orthopaedic Surgery
DX: M23.92 Unspecified internal derangement of left knee (principal)
CPT/HCPCS: 73721

== ENCOUNTER 2023-10-07 10:26 | Outpatient (CLI) | payer OTHER, SELFPAY ==
--- NOTE | 2023-10-07 10:27 | XR_ITS ---
FINAL REPORT CLINICAL HISTORY: Pre Op COMPARISON: 05/11/2023 FINDINGS: Two views of the chest were obtained. The heart size and pulmonary vascularity are within normal limits. The mediastinum is normal. No acute pulmonary abnormality is identified. There is no pneumothorax. The bony thorax is intact. IMPRESSION: No active cardiopulmonary disease. Reviewed, Interpreted and Dictated by Khanh Schmitz III, MD Transcribed by Jocelyn Rojas Authenticated and [facility]
[2023-10-07 10:55] LABS: Basophils # 0.1 K/mm3 (0-0.2); Basophils % 0.6 % (0.1-2.0); Eosinophils # 0.1 K/mm3 (0.0-0.4); Eosinophils % 0.7 % (0.1-12.0); Hematocrit 45.1 % (37.0-47.0); Hemoglobin 14.4 g/dL (12.2-16.2); Lymphocytes # 3.4 K/mm3 (0.7-4.5); Lymphocytes % 30.4 % (10-50); Mean Corpuscular Hemoglobin 27.5 pg (27.0-31.2); Mean Corpuscular Volume 85.9 fl (81-99); Mean Platelet Volume 8.1 fl (7.4-10.4); Monocytes # 0.4 K/mm3 (0.1-1.0); Monocytes % 3.4 % (1.7-9.3); Neutrophils # 7.3 K/mm3 (1.8-7.8); Neutrophils % 64.9 % (37.0-80.0); Platelet Count 337 K/mm3 (142-424); Red Blood Count 5.25 M/mm3 (4.20-5.40); White Blood Count 11.3 K/mm3 (4.8-10.8)
--- NOTE | 2023-10-07 10:57 | ECG_ITS ---
APPROVED REPORT Exam: Resting ECG HR:82 bpm ECG Measurements Heart Rate 82 AXES OH 139 P 67 QRSd 88 QRS 52 QT 362 T 16 QTc 401 Conclusion SINUS RHYTHM NORMAL ECG UNCONFIRMED REPORT Electronically signed by : Oscar Ochoa MD 10/07/2023 15:05:07
[2023-10-07 11:13] LABS: Chloride 103 mmol/L (98-107); Potassium 3.9 mmoL/L (3.5-5.1); Sodium 136 mmol/L (136-145)
[2023-10-07 11:16] LABS: Alanine Aminotransferase 17 U/L (12-78); Albumin Level 3.8 g/dl (3.5-5.0); Albumin/Globulin Ratio 1.5 (1.1-1.8); Alkaline Phosphatase 102 U/L (38-126); Anion Gap 6.9 mEq/L (5-15); Aspartate Amino Transferase 24 U/L (14-36); Bilirubin,Total 0.5 mg/dl (0.2-1.3); Blood Urea Nitrogen 16 mg/dl (7-17); Carbon Dioxide 30 mmol/L (22.0-30.0); Estimated Glomerular Filt Rate 91 ml/min (>60); GFR (African American) 110 ML/MIN (>60); Globulin 2.5 g/dL (1.3-3.2); Total Protein,Serum 6.3 g/dl (6.3-8.2)
[2023-10-07 11:17] LABS: Calcium 8.6 mg/dl (8.4-10.2); Glucose 78 mg/dl (74-100)
== END 2023-10-07 23:59 ==
LOC: LAB 10:27
PROVIDERS: PCP Family Medicine; Visit Provider Orthopaedic Surgery
DX: M93.262 Osteochondritis dissecans, left knee (principal)
CPT/HCPCS: 36415; 71046; 80053; 85025; 93005

== ENCOUNTER 2023-10-17 08:46 | Day surgery (SDC) | payer OTHER, SELFPAY ==
[2023-10-13 17:11] VITALS: BMI 37.1
[2023-10-17] VITALS (12 sets, daily range): BP systolic 115–159; BP diastolic 63–84; PULSE 62–80; RESP 12–18; TEMP 36.2–43; O2SAT 95–100
[2023-10-17 09:09] LABS: Urine Pregnancy, HCG Qual. Negative (Negative)
[2023-10-17] MEDS: LACTATED RINGERS 1000ML 1,000 ML 25 ML IV (09:15)
--- NOTE | 2023-10-17 10:31 | EXP.ANES.CKL ---
[facility] Disclaimer: The information contained in this section may have been updated after the patient was seen, as this information can be updated by other users. 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 Anxiety History of gastroesophageal reflux (GERD) Hypothyroidism RLQ abdominal pain Surgical History History of bariatric surgery History of History of cardiac cath History of colonoscopy History of hernia repair History of hysteroscopy History of tonsillectomy Family History Other No significant family history Social History Smoking Status: Never smoker second hand exposure: No alcohol intake: never substance use type: denies use current occupational status: employed Travel in the last 8 weeks: None household members: other housing: house current occupation: [employer] current occupational exposures/hazards: No caffeine: Yes [facility] Anesthesia Checklist Patient Identification Patient Identification: Verbal (Name & ) Structural Data Admitted From: Home Planned Operative Procedure/s: knee arthroscopy NPO Status Verified Time NPO: 00:00 Additional verifications Anesthesia Reactions: No Hx Blood Transfusions: No Blood Transfusion Reaction: No Airway Assessment Mallampati Score:: Class II C-Spine Mobility Assessed: Yes TMJ Mobility Assessed: Yes Dentition: Good Dentition Neurological Assessment Level of Consciousness: Awake, Alert and Appropriate Anesthesia Plan Anesthesia Risk discussed: Yes Anesthesia Plan: Verified ASA Class: II Anesthesia Type: General
[2023-10-17] MEDS: CEFAZOLIN SODIUM 2 GM in 0.9 % SODIUM CHLORIDE 100 ML IV (11:11)
[2023-10-17] MEDS: RINGERS SOLUTION,LACTATED 6,000 ML 200 ML IR (11:43)
[2023-10-17] MEDS: BUPIVACAINE 0.25% 30ML VIAL 75 MG (11:44)
--- NOTE | 2023-10-17 12:07 | EXP.OP.NOTE ---
Date of procedure: 10/17/23 Pre-op Diagnosis:: Left knee osteoarthritis intra-articular loose bodies Post-op Diagnosis:: Left knee fissuring medial and lateral femoral condyles Left knee intra-articular loose bodies Procedure performed:: Left knee arthroscopy with chondroplasty medial and lateral femoral condyles Left knee arthroscopy with removal intra-articular loose bodies Surgeon:: Santiago Leyva DO DATA WAREHOUSING ENGINEER:: Fredis Feejennifer Anesthesia: GETA Estimated blood loss (mL): 0 Operative findings:: Multiple intra-articular loose bodies intercondylar notch medial joint line Operative note:: Patient is identified preoperatively. Left knee marked with yes my initials. Transferred operative suite. Placed upon operating bed. General anesthesia ministered airway secured. Left lower extremity prepped and draped within the knee au. Marking pen was used to ignacio the bony landmarks in the and standard portal sites. Esmarch was used to exsanguinate the extremity pneumatic tourniquet was inflated to 300 mmHg. Skin knife is used to incise standard anterior lateral portal blunt with trocar was placed in patellofemoral joint exchange with a camera. Diagnostic arthroscopy began. I swept into the medial joint line where the anterior medial portal was made with the help of an 18-gauge spinal needle. Then placed a probe in the medial joint line there is evidence of intra-articular loose body incarcerated under the medial meniscus as well as 2 additional loose bodies intercondylar notch and medial joint line. Using a grasper the intra-articular loose bodies were removed and sucker shaver was used to remove the smaller loose body. There was evidence of fissuring of the medial and lateral femoral condyles with loose fraying cartilage which is likely source of the intra-articular loose bodies to loose dalila cartilage was then debrided with chondroplasty to stable rim. Tensions brought intercondylar notch back into the lateral joint line the lateral joint line also demonstrated fissuring of the lateral femoral condyle and loose dalila cartilage which was debrided back to stable rim. I swept into the medial and lateral gutters there were no further pathology seen there is some wear and tear undersurface of the patella that did track and midline in the trochlea. Cameras removed the joint was drained local anesthesia filtrated the portal sites skin closed with nylon stitch. Sterile dressing placed from toe to thigh. Patient waken anesthesia taken recovery in stable condition. Condition: stable Disposition: PACU Complications:: None apparent
--- NOTE | 2023-10-17 12:08 | P.PNANES_ITS ---
[facility] Anesthesia Record Part I Anesthesia Record I Intake, IV Amount: 800 Hydration: Adequate Estimated blood loss (mL): 5 Urine output (mL): 0 Blood Products used (#): none Blood Pressure: 158/69 SaO2: 96 Pulse Rate: 80 Airway Patency: Patent Respiratory Rate: 16 Temperature: 97.2 F Patient is:: Drowsy and Stable Stable to PACU at:: 12:00
[2023-10-17] MEDS: MORPHINE 2MG/ML SYRINGE 2 MG IV (12:29)
--- NOTE | 2023-10-17 13:13 | EXP.ANES.II ---
[facility] Anesthesia Record Part II Anesthesia Record Part II Discharge Time: 12:40 Destination: Surgical Day Care (OP Surgery) PACU nurse assessment reviewed?: Yes Patient Condition:: Good Anesthesia Complications:: None Swallowing reflex intact?: Yes Airway Patency: Patent Cyanosis?: No Blood Pressure: 120/72 SaO2: 96 Respiratory Rate: 14 Pulse Rate: 73 Temperature: 97.2 F Mental Status: Alert & Oriented Pain level:: 4 Nausea and/or vomitting:: None Intake, IV Amount: 0 Hydration: Adequate
== END 2023-10-17 13:22 | disposition home or self-care (01) ==
PROVIDERS: PCP Family Medicine; Visit Provider Orthopaedic Surgery
PROC: (CPT 29870; principal; 2023-10-17 10:30)
DX: M93.262 Osteochondritis dissecans, left knee (principal); E03.9 Hypothyroidism, unspecified; Z79.899 Other long term (current) drug therapy; M25.462 Effusion, left knee
CPT/HCPCS: 29879; 81025; 96374; J2405

== ENCOUNTER 2023-12-22 12:59 | Outpatient (CLI) | payer OTHER, SELFPAY ==
--- NOTE | 2023-12-22 13:02 | XR_ITS ---
FINAL REPORT CLINICAL HISTORY: LT KNEE INJURY COMPARISON: None FINDINGS: Three views of the left knee reveal no evidence of fracture or dislocation. The bony alignment is normal. Mild degenerative changes present. A small joint effusion is present as well. There are posterior loose bodies noted in the joint space, which measure up to 10 mm in size. No localized soft tissue abnormality is seen. IMPRESSION: No acute abnormality identified. Mild degenerative change with a small joint effusion and posterior loose bodies noted in the joint space, measuring up to 10 mm in size. Reviewed, Interpreted and Dictated by Khanh Schmitz III, MD Transcribed by Jocelyn Rojas Authenticated and . [facility]
== END 2023-12-22 23:59 ==
LOC: RAD 12:59
PROVIDERS: PCP Family Medicine; Visit Provider Physician Assistant
DX: S89.92XA Unspecified injury of left lower leg, initial encounter (principal)
CPT/HCPCS: 73562

== ENCOUNTER 2024-02-15 08:15 | Emergency (ER) | payer OTHER, SELFPAY ==
[2024-02-15 08:25] VITALS: BP 138/92; PULSE 112; RESP 20; TEMP 36.6; O2SAT 99; BMI 39.9
--- NOTE | 2024-02-15 08:36 | EXP.UTC ---
Discharge Plan Disposition Patient Disposition: Home, Self-Care Condition: Good Prescriptions Prescriptions: New methylprednisolone [Medrol (Yusef)] 4 mg tablets,dose pack See Rx Instructions .Route .COMPLEX 6 Days Qty: 21 0RF Rx Instructions: taper pack; No Action duloxetine 60 mg capsule,delayed release(DR/EC) 60 mg PO DAILY meloxicam 15 mg tablet 15 mg PO DAILY levothyroxine 150 mcg tablet 150 mcg PO DAILY Qty: 90 0RF Referrals Follow up/Referrals: Rudi Arce MD [Primary Care Provider] - See instructions Activity Restrictions/Add. Instructions Additional Instructions/Restrictions: Start oral steriods tomorrow Follow up with your Family Doctor if no improvement or any worsening of symptoms Return if needed Straight to ER if any life threatening symptoms Clinical Impressions Clinical Impression: Sciatica Qualifiers: Laterality: bilateral Qualified Code(s): M54.31 - Sciatica, right side Instructions Patient Instructions: Sciatica, DI for Sciatica, Methylprednisolone Discharge ED Provider: Aurea Brown [facility] General Stated complaint: pain in hips, back, leg Mode of Arrival: Ambulatory Source of Information: Patient Limitations: No Limitations Time Seen by Provider: 02/15/24 08:36 Description of Symptoms (Recalled from Triage Doc. by RN): PATIENT C/O BILATERAL HIP PAIN THAT RADIATES DOWN LEGS THAT STARTED YESTERDAY EVENING HEENT Symptoms (Recalled from RN notes): No Resp Symptoms (Recalled from RN notes): No Skin Symptoms (Recalled from RN notes): No MS Symptoms (Recalled from RN notes): Yes Functional Status (Recalled from RN notes): WNL History of Present Illness Provider Complaint: Patient states that she is having bilateral hip pain that goes down into both legs but worse in the right States feels like it did when she had sciatica Denies known injury but has been walking and bending more than usual Denies loss of control of bowel or bladder Related Data Home Medications Medication Instructions Recorded Confirmed duloxetine 60 mg capsule,delayed 60 mg PO DAILY Depression 06/12/20 02/15/24 release meloxicam 15 mg tablet 15 mg PO DAILY Pain 01/06/22 02/15/24 Previous Rx's Medication Instructions Recorded levothyroxine 150 mcg tablet 150 mcg PO DAILY thyroid #90 tabs 03/01/19 methylprednisolone 4 mg tablets in See Rx Instructions .Route 02/15/24 a dose pack (Medrol (Yusef)) .COMPLEX 6 days #21 tabs Allergies Allergy/AdvReac Type Severity Reaction Status Date / Time No Known Allergies Allergy Verified 12/29/23 11:28 Worker's Comp Is this a Worker's Comp case?: No [facility] Disclaimer: The information contained in this section may have been updated after the patient was seen, as this information can be updated by other users. 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 History of gastroesophageal reflux (GERD) Anxiety Hypothyroidism RLQ abdominal pain Surgical History History of History of bariatric surgery History of colonoscopy History of cardiac cath History of hernia repair History of tonsillectomy History of hysteroscopy Family History Other No significant family history Social History Smoking Status: Never smoker second hand exposure: No alcohol intake: never substance use type: denies use current occupational status: employed Travel in the last 8 weeks: None household members: other housing: house current occupation: [employer] current occupational exposures/hazards: No caffeine: Yes ROS Obtained: Yes All systems reviewed & no additional complaints except as documented and Yes Systems reviewed as appropriate & no additional complaints except as documented Constitutional Constitutional: Reports system reviewed and no additional complaints, except as documented, Reports as per HPI and Denies fever(s) ENT Ears, Nose, Mouth, and Throat: Reports system reviewed and no additional complaints, except as documented and Reports as per HPI Cardiovascular Cardiovascular: Reports system reviewed and no additional complaints, except as documented and Reports as per HPI Respiratory Respiratory: Reports system reviewed and no additional complaints, except as documented, Reports as per HPI and Denies shortness of breath Gastrointestinal Gastrointestingal: Reports system reviewed and no additional complaints, except as documented and as per HPI Musculoskeletal Musculoskeletal: Reports system reviewed and no additional complaints, except as documented, Reports as per HPI and Reports other (pain in bilateral hips that radiates to legs ) Physical Exam General General appearance: alert and in no apparent distress Respiratory Respiratory exam: Present normal lung sounds bilaterally; Absent respiratory distress or wheezes Cardiovascular Cardiovascular exam: Present regular rate, normal rhythm and normal heart sounds Back Exam Back exam: Present tenderness and sciatic notch tenderness (R) Back 1 view image: 1. pain in hips/buttock area that radiates into upper legs worse on right pain with sitting and standing Denies known injury Denies loss of control of bowel or bladder Neurological Exam Neurological exam: Present alert, oriented X3 and normal gait Medical Decision Making Greg Inquiry Pt receiving controlled substance: No Greg was queried for this patient: No Vital Signs: 02/15/24 08:25 Temperature 97.9 F Temperature Source Oral Pulse Rate [Right Brachial] 112 H Respiratory Rate 20 Blood Pressure [Right Arm] 138/92 H Blood Pressure Mean [Right Arm] 107 Blood Pressure Source [Right Arm] Automatic Cuff Blood Pressure Position [Right Arm] Sitting 02 Sat by Pulse Oximetry 99 Oxygen Delivery Method Room Air Medical Decision Narrative: Patient state that she has not taken any of her daily meds today including but not limited to meloxicam and states that she has taken Solu Medrol and Toradol in the past without complications or reactions
[2024-02-15] MEDS: KETOROLAC 60MG/2ML VIAL 60 MG IM (08:50)
[2024-02-15] MEDS: METHYLPREDNISOLONE SOD SUCC 125MG VIAL 125 MG IM (08:50)
[2024-02-15 09:00] VITALS: BP 138/92; PULSE 112; RESP 20; TEMP 36.6; O2SAT 99
== END 2024-02-15 09:05 | disposition home or self-care (01) ==
PROVIDERS: Emergency Provider Nurse Practitioner; PCP Family Medicine
DX: M54.31 Sciatica, right side (principal); M25.551 Pain in right hip; M25.552 Pain in left hip
CPT/HCPCS: 96372; 99212; 99214; G0463

== ENCOUNTER 2024-07-11 14:57 | Emergency (ER) | payer OTHER, SELFPAY ==
[2024-07-11 15:15] VITALS: BP 132/78; PULSE 76; RESP 20; TEMP 36.6; O2SAT 100; BMI 40.3
[2024-07-11] MEDS: DEXAMETHASONE 4MG/ML 1ML VIAL 4 MG IM (15:23)
--- NOTE | 2024-07-11 15:26 | EXP.UTC ---
Discharge Plan Disposition Patient Disposition: Home, Self-Care Condition: Good Prescriptions Prescriptions: New prednisone 20 mg tablet 20 mg PO BID Qty: 10 0RF No Action duloxetine 60 mg capsule,delayed release(DR/EC) 60 mg PO DAILY meloxicam 15 mg tablet 15 mg PO DAILY levothyroxine 150 mcg tablet 150 mcg PO DAILY Qty: 90 0RF methylprednisolone [Medrol (Yusef)] 4 mg tablets,dose pack See Rx Instructions .Route .COMPLEX 6 Days Qty: 21 0RF Rx Instructions: taper pack; ondansetron 4 mg Tablet,Disintegrating 4 mg PO Q8H PRN (Reason: Nausea) Qty: 12 0RF ondansetron 4 mg Tablet,Disintegrating 4 mg PO Q8H PRN (Reason: Nausea) Qty: 20 2RF amoxicillin 875 mg tablet 875 mg PO Q12H Qty: 20 0RF methylprednisolone 4 mg Tablets,Dose Pack 4 mg PO DIRECTED 6 Days Qty: 21 0RF Rx Instructions: Take 1 pack as directed for 6 days udjqvvdoxalregy-crudteqxz-IP [Bromfed DM] 2-30-10 mg/5 mL Syrup 5 ml PO Q6H PRN (Reason: Cough) Qty: 240 0RF Referrals Follow up/Referrals: Rudi Arce MD [Primary Care Provider] - See instructions Activity Restrictions/Add. Instructions Additional Instructions/Restrictions: No sign of a bacterial infection. Likely viral. Viruses can take 7-14 days to run their course. Nasal saline and bulb syringe or nose Elo to remove nasal drainage to help with nasal congestion. Hard to eat, drink, sleep with nasal congestion so important to keep this cleaned out. Monitor temp. Tylenol or Motrin as needed for pain or fever Encourage fluids, water, Gatorade, Powerade, Pedialyte if infant/toddler/child Warm salt water gargles Warm fluids Sore throat lozenges Sleep elevated Humidifier/vaporizer Follow-up immediately for new or worsening symptoms or no noticeable improvement over the next 48-72 hours. Clinical Impressions Clinical Impression: Upper respiratory infection, viral Instructions Patient Instructions: DI for Viral Upper Respiratory Infection -- Adult Print Language Print Language: Gabonese Discharge ED Provider: Deneen ([facility])Bruce [facility] [place] HPI General Stated complaint: congestion, sinus pressure, sore throat, Mode of Arrival: Ambulatory Source of Information: Patient Limitations: No Limitations Time Seen by Provider: 07/11/24 15:06 Description of Symptoms (Recalled from Triage Doc. by RN): PATIENT C/O HEAD PRESSURE, SORE THROAT, EAR PAIN, AND COUGH X 3 DAYS HEENT Symptoms (Recalled from RN notes): Yes Resp Symptoms (Recalled from RN notes): Yes Skin Symptoms (Recalled from RN notes): No MS Symptoms (Recalled from RN notes): No Functional Status (Recalled from RN notes): WNL History of Present Illness Provider Complaint: 43-year-old female presents with complaints of head pressure, sore throat, bilateral ear pain, and cough since Tuesday. Related Data Home Medications ?Medication ?Instructions ?Recorded ?Confirmed duloxetine 60 mg capsule,delayed 60 mg PO DAILY Depression 06/12/20 02/15/24 release meloxicam 15 mg tablet 15 mg PO DAILY Pain 01/06/22 02/15/24 Previous Rx's ?Medication ?Instructions ?Recorded levothyroxine 150 mcg tablet 150 mcg PO DAILY thyroid #90 tabs 03/01/19 methylprednisolone 4 mg tablets in See Rx Instructions .Route 02/15/24 a dose pack (Medrol (Yusef)) .COMPLEX 6 days #21 tabs ondansetron 4 mg disintegrating 4 mg PO Q8H PRN Nausea #12 tabs 02/27/24 tablet ondansetron 4 mg disintegrating 4 mg PO Q8H PRN Nausea #20 tabs 04/19/24 tablet amoxicillin 875 mg tablet 875 mg PO Q12H #20 tabs 06/04/24 vdgfyxqgdysjzvn-mjwiagmegbphxgo-BV 5 ml PO Q6H PRN Cough #240 mL 06/04/24 2 mg-30 mg-10 mg/5 mL oral syrup (Bromfed DM) methylprednisolone 4 mg tablets in 4 mg PO DIRECTED 6 days #21 tabs 06/04/24 a dose pack prednisone 20 mg tablet 20 mg PO BID #10 tabs 07/11/24 Allergies Allergy/AdvReac Type Severity Reaction Status Date / Time No Known Allergies Allergy Verified 12/29/23 11:28 Worker's Comp Is this a Worker's Comp case?: No [facility] Disclaimer: The information contained in this section may have been updated after the patient was seen, as this information can be updated by other users. 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) History of gastroesophageal reflux (GERD) Anxiety Hypothyroidism RLQ abdominal pain Surgical History , RADIOLOGY TRANSCRIPTIONIST) History of History of bariatric surgery History of colonoscopy History of cardiac cath History of hernia repair History of tonsillectomy History of hysteroscopy Family History , RADIOLOGY TRANSCRIPTIONIST) No significant family history Social History , RADIOLOGY TRANSCRIPTIONIST) Smoking Status: Never smoker second hand exposure: No alcohol intake: never substance use type: denies use current occupational status: employed Travel in the last 8 weeks: None household members: other housing: house current occupation: [employer] current occupational exposures/hazards: No caffeine: Yes ROS Obtained: Yes Systems reviewed as appropriate & no additional complaints except as documented Physical Exam General General appearance: alert and in no apparent distress Eye Eye exam: Present normal appearance and PERRL ENT ENT exam: Present mucous membranes moist and TM's normal bilaterally Expanded ENT Exam Throat exam: Present tonsillar erythema, tonsillomegaly and tonsillar exudate Respiratory Respiratory exam: Present normal lung sounds bilaterally Cardiovascular Cardiovascular exam: Present regular rate and normal rhythm Abdominal Exam Abdominal exam: Present soft and normal bowel sounds Neurological Exam Neurological exam: Present alert and oriented X3 Skin Skin exam: Present warm and intact Medical Decision Making Medical Records Medical records reviewed: Yes I reviewed the patient's medical records. Screening: Per USPSTF and CDC recommendations, given the prevalence of disease in our region, it is our hospital?s policy to screen for HIV and viral Hepatitis for all patients aged 18 and over and those with ongoing risk factors. Greg Inquiry Pt receiving controlled substance: No Greg was queried for this patient: No Vital Signs: 07/11/24 15:15 Temperature 97.8 F Temperature Source Oral Pulse Rate [Left Brachial] 76 Respiratory Rate 20 Blood Pressure [Left Arm] 132/78 Blood Pressure Mean [Left Arm] 96 Blood Pressure Source [Left Arm] Automatic Cuff Blood Pressure Position [Left Arm] Sitting 02 Sat by Pulse Oximetry 100 Oxygen Delivery Method Room Air Orders (Tests/Meds): ED MEDICATIONS Discontinued Medications Generic Name Dose Route Start Last Admin Trade Name Freq PRN Reason Stop Dose Admin Dexamethasone Sodium Phosphate 4 mg 07/11/24 15:12 07/11/24 15:23 Dexamethasone 4mg/Ml 1ml Vial IM 07/11/24 15:13 4 mg ONCE ONE Administration
[2024-07-11 15:33] VITALS: BP 132/78; PULSE 76; RESP 20; TEMP 36.6; O2SAT 100
== END 2024-07-11 15:34 | disposition home or self-care (01) ==
PROVIDERS: Emergency Provider Nurse Practitioner Family; PCP Family Medicine
DX: J06.9 Acute upper respiratory infection, unspecified (principal)
CPT/HCPCS: 96372; 99213; G0381; J1100

== ENCOUNTER 2024-07-26 10:36 | Emergency (ER) | payer OTHER, SELFPAY ==
[2024-07-26 10:37] VITALS: BP 116/85; PULSE 88; RESP 18; TEMP 36.6; O2SAT 99; BMI 39.1
--- NOTE | 2024-07-26 10:47 | ED_ITS ---
Discharge Plan Disposition Patient Disposition: Home, Self-Care Condition: Good Prescriptions Prescriptions: No Action duloxetine 60 mg capsule,delayed release(DR/EC) 60 mg PO DAILY meloxicam 15 mg tablet 15 mg PO DAILY levothyroxine 150 mcg tablet 150 mcg PO DAILY Qty: 90 0RF prednisone 20 mg tablet 20 mg PO BID Qty: 10 0RF azithromycin [Zithromax] 250 mg tablet 250 mg PO UD DOSE PK Qty: 6 0RF Rx Instructions: Take two (2) tablets today, then one (1) tablet days #2 thru #5 polymyxin B sulf-trimethoprim 10,000 unit- 1 mg/mL drops 1 drp Eye-Left Q3H 7 Days Qty: 10 0RF Rx Instructions: while awake; do not exceed 6 doses in 24 hours methylprednisolone 4 mg Tablets,Dose Pack 4 mg PO DIRECTED 6 Days Qty: 21 0RF Rx Instructions: Take 1 pack as directed for 6 days evitdxurspbervq-bfipsupml-YS [Bromfed DM] 2-30-10 mg/5 mL Syrup 5 ml PO Q6H PRN (Reason: Cough) Qty: 240 0RF ibuprofen [IBU] 800 mg tablet 800 mg PO Q8HP PRN (Reason: Moderate Pain) Qty: 30 0RF methocarbamol 750 mg tablet 750 mg PO QID PRN (Reason: muscle spasm) Qty: 30 1RF methylprednisolone [Medrol (Yusef)] 4 mg tablets,dose pack See Rx Instructions .Route .COMPLEX 6 Days Qty: 21 0RF Rx Instructions: taper pack; ondansetron 4 mg Tablet,Disintegrating 4 mg PO Q8H PRN (Reason: Nausea) Qty: 12 0RF ondansetron 4 mg Tablet,Disintegrating 4 mg PO Q8H PRN (Reason: Nausea) Qty: 20 2RF amoxicillin 875 mg tablet 875 mg PO Q12H Qty: 20 0RF methylprednisolone 4 mg Tablets,Dose Pack 4 mg PO DIRECTED 6 Days Qty: 21 0RF Rx Instructions: Take 1 pack as directed for 6 days mszccwxbamllvhh-vnxsfrusw-LP [Bromfed DM] 2-30-10 mg/5 mL Syrup 5 ml PO Q6H PRN (Reason: Cough) Qty: 240 0RF Referrals Follow up/Referrals: Rudi Arce MD [Primary Care Provider] - See instructions Clinical Impressions Clinical Impression: Head ache Print Language Print Language: Bengali Discharge ED Provider: Wellington Sow [facility] [place] HPI General Stated complaint: severe headache, body aches Time Seen by Provider: 07/26/24 10:47 Related Data Home Medications ?Medication ?Instructions ?Recorded ?Confirmed duloxetine 60 mg capsule,delayed 60 mg PO DAILY Depression 06/12/20 02/15/24 release meloxicam 15 mg tablet 15 mg PO DAILY Pain 01/06/22 02/15/24 Previous Rx's ?Medication ?Instructions ?Recorded levothyroxine 150 mcg tablet 150 mcg PO DAILY thyroid #90 tabs 03/01/19 methylprednisolone 4 mg tablets in See Rx Instructions .Route 02/15/24 a dose pack (Medrol (Yusef)) .COMPLEX 6 days #21 tabs ondansetron 4 mg disintegrating 4 mg PO Q8H PRN Nausea #12 tabs 02/27/24 tablet ondansetron 4 mg disintegrating 4 mg PO Q8H PRN Nausea #20 tabs 04/19/24 tablet amoxicillin 875 mg tablet 875 mg PO Q12H #20 tabs 06/04/24 upmkbgyltgmfeod-lybnwopepjmmehy-MA 5 ml PO Q6H PRN Cough #240 mL 06/04/24 2 mg-30 mg-10 mg/5 mL oral syrup (Bromfed DM) methylprednisolone 4 mg tablets in 4 mg PO DIRECTED 6 days #21 tabs 06/04/24 a dose pack prednisone 20 mg tablet 20 mg PO BID #10 tabs 07/11/24 azithromycin 250 mg tablet 250 mg PO UD DOSE PK #6 tabs 07/20/24 (Zithromax) uuzjvsanasuqhpx-idgvogqrgpsxldk-GF 5 ml PO Q6H PRN Cough #240 mL 07/20/24 2 mg-30 mg-10 mg/5 mL oral syrup (Bromfed DM) ibuprofen 800 mg tablet (IBU) 800 mg PO Q8HP PRN Moderate Pain 07/20/24 #30 tabs methylprednisolone 4 mg tablets in 4 mg PO DIRECTED 6 days #21 tabs 07/20/24 a dose pack polymyxin B sulfate 10,000 1 drp Eye-Left Q3H 7 days #10 mL 07/20/24 unit-trimethoprim 1 mg/mL eye drops methocarbamol 750 mg tablet 750 mg PO QID PRN muscle spasm #30 07/25/24 tabs Allergies Allergy/AdvReac Type Severity Reaction Status Date / Time No Known Allergies Allergy Verified 12/29/23 11:28 [facility] Disclaimer: The information contained in this section may have been updated after the patient was seen, as this information can be updated by other users. 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 (Reviewed 07/11/24 @ 15:27 by Bruce Brothers ([facility]), HORTICULTURE PROFESSOR) History of gastroesophageal reflux (GERD) Anxiety Hypothyroidism RLQ abdominal pain Surgical History (Reviewed 07/11/24 @ 15:27 by Bruce Brothers ([facility]), HORTICULTURE PROFESSOR) History of History of bariatric surgery History of colonoscopy History of cardiac cath History of hernia repair History of tonsillectomy History of hysteroscopy Family History (Reviewed 07/11/24 @ 15:27 by Bruce Brothers ([facility]), HORTICULTURE PROFESSOR) No significant family history Social History (Reviewed 07/11/24 @ 15:27 by Bruce Brothers ([facility]), HORTICULTURE PROFESSOR) Smoking Status: Never smoker second hand exposure: No alcohol intake: never substance use type: denies use current occupational status: employed Travel in the last 8 weeks: None household members: other housing: house current occupation: [employer] current occupational exposures/hazards: No caffeine: Yes ROS Obtained: Yes All systems reviewed & no additional complaints except as documented Constitutional Constitutional: Denies chills and Denies fever(s) Eyes Eyes: Denies eye discharge ENT Ears, Nose, Mouth, and Throat: Denies dizziness, Denies otalgia and Denies sore throat Cardiovascular Cardiovascular: Denies chest pain Respiratory Respiratory: Denies shortness of breath, Denies chest congestion, Denies cough, Denies stridor and Denies wheezing Gastrointestinal Gastrointestingal: Denies nausea or vomiting Musculoskeletal Musculoskeletal: Reports system reviewed and no additional complaints, except as documented and Denies arthralgias Integumentary/Breasts Skin/Breast: Denies rash Neurologic Neurologic: Reports as per HPI, Denies dizziness and Denies paresthesias Allergic/Immunologic Allergic/Immunologic: Denies wheezing Physical Exam General General appearance: alert and in no apparent distress Head Head exam: atraumatic, normocephalic and normal inspection Eye Eye exam: Present normal appearance, PERRL and EOMI ENT ENT exam: Present normal exam, normal oropharynx, mucous membranes moist, TM's normal bilaterally and normal external ear exam Neck Neck exam: Present normal inspection, full ROM and trachea midline; Absent meningismus or lymphadenopathy Chest Chest inspection: Present normal inspection and symmetric chest wall rise; Absent tenderness Respiratory Respiratory exam: Present normal lung sounds bilaterally; Absent respiratory distress Cardiovascular Cardiovascular exam: Present regular rate and normal rhythm; Absent JVD Abdominal Exam Abdominal exam: Present soft and normal bowel sounds; Absent distention, tenderness or guarding Extremities Exam Extremities exam: Present normal inspection, full ROM and normal capillary refill; Absent calf tenderness Back Exam Back exam: Present normal inspection; Absent tenderness Neurological Exam Neurological exam: Present alert, oriented X3, CN II-XII intact, normal gait and reflexes normal; Absent motor sensory deficit Psychiatric Psychiatric exam: Present normal affect and normal mood Skin Skin exam: Present warm, dry, intact and normal color Lymphatic Lymphatic Findings: no adenopathy Medical Decision Making Medical Records Medical records reviewed: No I reviewed the patient's medical records. Screening: Per USPSTF and CDC recommendations, given the prevalence of disease in our region, it is our hospital?s policy to screen for HIV and viral Hepatitis for all patients aged 18 and over and those with ongoing risk factors. Greg Inquiry Pt receiving controlled substance: No
[2024-07-26] MEDS: DEXAMETHASONE 4MG/ML 1ML VIAL 8 MG IM (10:56)
[2024-07-26] MEDS: KETOROLAC 60MG/2ML VIAL 60 MG IM (10:56)
[2024-07-26 11:00] VITALS: BP 116/85; PULSE 88; RESP 18; TEMP 36.6; O2SAT 99
== END 2024-07-26 11:03 | disposition home or self-care (01) ==
LOC: UTC 10:37
PROVIDERS: Emergency Provider Nurse Practitioner Family; PCP Family Medicine
DX: R51.9 Headache, unspecified (principal)
CPT/HCPCS: 99212; G0381; J1100; J1885

== ENCOUNTER 2024-08-03 08:06 | Emergency (ER) | payer OTHER, SELFPAY ==
--- OUTSIDE RECORDS SUMMARY | 2024-08-03 08:08 | XMS_ITS | Clinical Summary ---
Author Organization [facility] Address [address] [place] [address] Care Team Providers Care Data Communications Technician Name Role Phone Rudi Arce MD Primary Care Provider [phone] Family History 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 Relation Name Comments Diabetes Other Relation Name Status Comments Other Social History Tobacco Use Types Packs/Day Years Used Date Smoking Tobacco: Former Comments Unknown Sex and Gender Information Value Date Recorded Sex Assigned at Not on file Legal Sex Female 6:50 PM EDT Gender Identity Not on file Sexual Orientation Not on file Last Filed Vital Signs Vital Sign Reading Time Taken Comments Blood Pressure - - Pulse - - Temperature - - Respiratory Rate - - Oxygen Saturation - - Inhaled Oxygen Concentration - - Weight 149 kg (328 lb 15.9 oz) 10/27/2016 1:55 P M EST Height 170.2 cm (5' 7 ) 10/27/2016 1:55 PM EST Body Mass Index 51.53 10/27/2016 1:55 PM EST Plan of Treatment Health Maintenance Due Date Last Done Comments [facility]-Depression Screening 1979 [facility]-Infant/Child/Adol SDOH Screenings 1979 [facility]-Varicella Vaccines (1 of 2 - 13+ 2-dose series) 1992 [facility]- SDOH Screenings 1997 [facility]-Adult SDOH Screenings 1997 [facility]-DTaP,Tdap,and Td Vaccine s (1 - Tdap) 1998 [facility]-Hepatitis B Vaccines (1 of 3 - 19+ 3-dose series) 1998 [facility]-Pap Smear 2000 [facility]-Cervical Cancer Screening 2009 [facility]-HPV/Cotest 2009 [id number] Vaccine (1 - 20 23-24 season) 2024 [facility]-Influenza Vaccine (#1) 2024 [facility]-Zoster Vaccines (1 of 2) 2029 [facility]-RSV Vaccine: 60+ Years o r (1 - 1-dose 60+ series) 2039 [facility]-HIB Vaccines Aged Out No longer e ligible based on patient's age to complete this topic [facility]-HPV Vaccines Aged Out No longer e ligible based on patient's age to complete this topic [facility]-Hepatitis A Vaccines Aged Out No longer eligible based on patient's age to complete this topic [facility]-IPV Vaccines Aged Out No longer e ligible based on patient's age to complete this topic [facility]-Pneumococcal Vaccine: Pediatrics (0 to 5 Years) and At-Risk Patients (6 to 64 Years) Aged Out No long er eligible based on patient's age to complete this topic [facility]-Rotavirus Vaccines Aged Out No lo nger eligible based on patient's age to complete this topic Care Teams Data Communications Technician Relationship Specialty Start Date End Date Rudi Arce MD [address] [place] [address] PCP - General 01/30/21
--- OUTSIDE RECORDS SUMMARY | 2024-08-03 08:08 | XMS_ITS | Encounter Summary ---
[facility] Organization [facility] Address [address] [place] [address] Care Team Providers Care Lock Tender Chief Operator Name Role Phone Jasmin Ahumada Primary Care Provider [phone] Encounter Details Date Type Department Care Team (Late st Contact Info) Description 11/14/2017 4:30 PM EST Office Visit [facility]ERY [address] [place] [address] Marixa Del Angel PA-C Status post bariatric surgery (Primary Dx); Obesity, Class II, BMI 35-39.9; Fatigue, unspecified type Social History Tobacco Use Types Packs/Day Years Used Date Smoking Tobacco: Former Cigarettes 2 - 2013 Smokeless Tobacco: Never Comments:is around secondhan d smoke infrequently Alcohol Use Standard Drinks/Week Comments No 0 (1 standard drink = 0.6 oz pur e alcohol) Comments No Sex and Gender Information Value Date Recorded Sex Assigned at Not on file Legal Sex Female 12:11 PM EDT Gender Identity Not on file Sexual Orientation Not on file Occupation Industry Job Start Date Job End Date 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, 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 Not on file Not on fi le Not on file documented as of this encounter Last Filed Vital Signs Vital Sign Reading Time Taken Comments Blood Pressure 125/82 11/14/2017 4:04 PM EST Pulse 82 11/14/2017 4:04 PM EST Temperature 36.6 ??C (97.9 ??F) 11/14/2017 4:04 PM ES T Respiratory Rate 18 11/14/2017 4:04 PM EST Oxygen Saturation 99% 11/14/2017 4:04 PM EST Inhaled Oxygen Concentration - - Weight 108 kg (238 lb 8 oz) 11/14/2017 4:[address] Height 170.2 cm (5' 7 ) 11/14/2017 4:04 PM EST Body Mass Index 37.35 11/14/2017 4:04 PM EST documented in this encounter Progress Notes * Marixa Del Angel PA-C - 11/14/2017 4:30 PM EST [facility] Bariatric Surgery [address] [facility] [phone] Patient Name: eJlena Saha. Date of : 1980 Date of Visit: 11/14/2017 Reason for Visit: 9 month postop HPI: Jelena Saha is a 37 y.o. female s/p LSG by GDW on 01/20/17 (hx AGB 2007 JSO, s/p AGBR 2015 GDW), s/p lap HHR by GDW 10/24/17 complicated by gastrotomy with patch and repair, left with PRAVEEN drain. [place] 10/28/17 Was doing well, PRAVEEN removed. Now POD#21 from HHR, 9 months post LSG. Doing well. Denies abdominal pain, nausea, vomiting, reflux, pulm issues. Dysphagia has resolved. Tolerating all foods well. Protein 70g daily, genepro powder and protein bars in addition to meals. 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 Eating high protein frozen meals. On [place] complete, vit C, iron, tumeric, hair/skin/nail vitamin. Finished actigall. On prilosec 40 daily. Not exercising. 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 Presurgery weight: 321 pounds. Today's weight is 108 kg (238 lb 8 oz) pounds,??today's Body mass index is 37.35 kg/(m^2).,??and??her weight loss since surgery is 83 pounds. Past 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: Diagnosis Date ??? Carpal tunnel syndrome ??? Dysphagia ??? Fatigue ??? Fibromyalgia ??? GERD (gastroesophageal reflux disease) better after AGR removed. serum h. pyl neg ??? Hypothyroidism w/hx partial thyroidectomy ??? Leukocytosis 12.77 asx ??? Microcytic erythrocytes ??? Morbid obesity ??? Scoliosis ??? Wears contact lenses ??? Wears eyeglasses Past Surgical History: Procedure Laterality Date ??? CARDIAC CATHETERIZATION no stents, diagnostic, normal ??? SECTION x 2 ??? COLONOSCOPY 2015 ??? ENDOSCOPY N/A 04/28/2016 Procedure: ESOPHAGOGASTRODUODENOSCOPY WITH BIOPSY; Surgeon: Shane Cunha MD; Location: [facility]; Service: ??? GASTRIC BANDING REMOVAL N/A 06/17/2016 Procedure: GASTRIC BANDING REMOVAL LAPAROSCOPIC; Surgeon: Shane Cunha MD; Location: [facility]; Service: ??? GASTRIC SLEEVE LAPAROSCOPIC N/A 01/20/2017 Procedure: GASTRIC SLEEVE LAPAROSCOPIC; Surgeon: Shane Cunha MD; Location: [facility]; Service: ??? LAPAROSCOPIC GASTRIC BANDING APS, JSO 2007 ??? LIPOMA EXCISION left abdomen ??? OTHER SURGICAL HISTORY Left nexplanon control impant left arm ??? STEROID INJECTION most recently 05/2016, wrist ??? THYROIDECTOMY, PARTIAL ??? TONSILLECTOMY ??? WISDOM TOOTH EXTRACTION Outpatient Prescriptions Marked as Taking for the 11/14/17 encounter (Office Visit) with Marixa Del Angel PA-C Medication Sig Dispense Refill ??? levothyroxine (SYNTHROID, LEVOTHROID) 137 MCG tablet Take 137 mcg by mouth daily. ??? Multiple Vitamins-Minerals (MULTIVITAMIN WITH MINERALS) tablet tablet Take 1 tablet by mouth Daily. ??? omeprazole (priLOSEC) 40 MG capsule ??? ursodiol (ACTIGALL) 300 MG capsule 300 mg 2 (Two) Times a Day. ??? vitamin E 100 UNIT capsule Take 100 Units by mouth Daily. No Known Allergies Social History Social History ??? Marital status: Spouse name: N/A ??? Number of children: N/A ??? Years of education: N/A Occupational History ??? 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 Smoking status: Former Smoker Years: 10.00 Types: Cigarettes Quit date: 2013 ??? Smokeless tobacco: Never Used Comment: is around secondhand smoke infrequently ??? Alcohol use No ??? Drug use: No ??? Sexual activity: Defer Comment: Nexplanon Other Topics Concern ??? Not on file Social History Narrative with 2 male children, lives in [place], [place] and works for the [employer]. Lives with two children and boyfriend. Vitals: 11/14/17 1604 BP: 125/82 Pulse: 82 Resp: 18 Temp: 97.9 ??F (36.6 ??C) SpO2: 99% Weight 108 kg (238 lb 8 oz) Body mass index is 37.35 kg/(m^2). Physical Exam Constitutional: She is oriented to person, place, and time. She appears well- developed and well-nourished. HENT: Head: Normocephalic and atraumatic. Cardiovascular: Normal rate and regular rhythm. Pulmonary/Chest: Effort normal and breath sounds normal. Abdominal: Soft. Bowel sounds are normal. Incisions healing well. Neurological: She is alert and oriented to person, place, and time. Skin: Skin is warm and dry. Psychiatric: She has a normal mood and affect. Her behavior is normal. Assessment: ICD-10-CM ICD-9-CM 1. Status post bariatric surgery Z98.84 V45.86 2. Obesity, Class II, BMI 35-39.9 E66.9 278.00 3. Fatigue, unspecified type R53.83 780.79 Plan: Doing well. Continue to focus on good food choices and healthy habits. Advised other protein options besides Genepro powder, recommend 70-100g protein daily, low carbs. Continue vitamins. Continue with PPI. Will obtain labs and contact with results. Call w/ issues/concerns. RTC in 3 months, sooner w/ problems. documented in this encounter Plan of Treatment Not on file documented as of this encounter Procedures Procedure Name Priority Date/Time Associated Diagnosis Comments METHYLMALONIC ACID, SERUM Routine 11/14/2017 4:06 PM EST Fatigue, unspecified type VITAMIN B1, WHOLE BLOOD Routine 11/14/2017 4:06 PM EST Fatigue, unspecified type CBC (NO DIFF) Routine 11/14/2017 4:06 PM EST Fatigue, unspecified type FOLATE Routine 11/14/2017 4:06 PM EST Fatigue, unspecified type FERRITIN Routine 11/14/2017 4:06 PM EST Fatigue, unspecified type COMPREHENSIVE METABOLIC PANEL Routine 11/14/2017 4:06 PM EST Fatigue, unspecified type documented in this encounter Results * Vitamin B1, Whole Blood (11/14/2017 4:06 PM EST) Vitamin B1, Whole Blood 135.4 66.5 - 200.0 nmol/L [facility] Comment: This test was developed and its performance characteristics determined by [facility]. It has not been cleared or approved by the Food and Drug Administration. Blood 11/14/2017 4:06 PM EST 11/14/2017 Narrative [facility] (AMBULATORY) - 11/17/2017 11:16 AM EST Performed at: ??02 - [address] ??[id number] Combat Systems Operator: Diego Jimenez MD, Phone: ??[phone] Patient Fasting: ??N Marixa Del Angel PA-C LAB BLOOD ORDERABLES Final Result [facility] ([facility] [address] [place] [address], [facility] [address] [place] [address], * Methylmalonic Acid, Serum (11/14/2017 4:06 PM EST) Methylmalonic Acid 138 0 - 378 nmol/L [facility] Blood 11/14/2017 4:06 PM EST 11/14/2017 [facility] (AMBULATORY) - 11/17/2017 11:16 AM EST Performed at: ??02 - [facility] [address] ??[id number] Combat Systems Operator: Diego Jimenez MD, Phone: ??[phone] Patient Fasting: ??N Marixa Del Angel PA-C LAB BLOOD ORDERABLES Final Result Performing Organization Address [facility] Co de Phone Number [facility] (AMBULATORY) [address] [place] [address], [facility] [address] [place] [address], * Folate (11/14/2017 4:06 PM EST) Folate 10.9 >3.0 ng/mL [facility] Comment: A serum folate concentration of less than 3.1 ng/mL is considered to represent clinical deficiency. Blood 11/14/2017 4:06 PM EST 11/14/2017 Narrative [facility] (AMBULATORY) - 11/17/2017 11:16 AM EST Performed at: ??01 - [facility] [address] ??[id number] Combat Systems Operator: Daniel Espinosa PhD, Phone: ??[phone] Patient Fasting: ??N Marixa Del Angel PA-C LAB BLOOD ORDERABLES Final Result Performing Organization Address [facility] de Phone Number [facility] (AMBULATORY) [address] [place] [address], [facility] [address] [place] [address], * Ferritin (11/14/2017 4:06 PM EST) Pathologist [facility] Ferritin 116 15 - 150 ng/mL [facility] Blood 11/14/2017 4:06 PM EST 11/14/2017 Narrative [facility] (AMBULATORY) - 11/17/2017 11:16 AM EST Performed at: ??01 - [facility] ??[id number] Combat Systems Operator: Daniel Espinosa PhD, Phone: ??[phone] Patient Fasting: ??N us Marixa Del Angel PA-C LAB BLOOD ORDERABLES Final Result [facility] ([facility]) [address] [place] [address], [facility] [address] [place] [address], * (ABNORMAL) Comprehensive Metabolic Panel (11/14/2017 4:06 PM EST) Glucose 124(H) 65 - 99 mg/dL [facility] BUN 14 6 - 20 mg/dL [facility] Creatinine 0.82 0.57 - 1.00 mg/dL [facility] eGFR Non Am 91 >59 mL/min/1.7 3 [facility] eGFR Am 105 >59 mL/min/1.7 3 [facility] BUN/Creatinine Ratio 17 9 - 23 [facility] Sodium 144 134 - 144 mmol/L [facility] Potassium 4.1 3.5 - 5.2 mmol/L [facility] Chloride 106 96 - 106 mmol/L [facility] Total CO2 23 18 - 29 mmol/L [facility] Calcium 9.1 8.7 - 10.2 mg/dL [facility] Total Protein 6.7 6.0 - 8.5 g/dL [facility] Albumin 4.0 3.5 - 5.5 g/dL [facility] Globulin 2.7 1.5 - 4.5 g/dL [facility] A/G Ratio 1.5 1.2 - 2.2 [facility] Total Bilirubin 0.3 0.0 - 1.2 mg/dL [facility] Alkaline Phosphatase 88 39 - 117 IU/L [facility] AST (SGOT) 12 0 - 40 IU/L [facility] ALT (SGPT) 10 0 - 32 IU/L [facility] Blood 11/14/2017 4:06 PM EST 11/14/2017 Narrative [facility] (AMBULATORY) - 11/17/2017 11:16 AM EST Performed at: ??01 - [facility] [address] [place], [place] ??[id number] Combat Systems Operator: Daniel Espinosa PhD, Phone: ??[phone] Patient Fasting: ??N Marixa Del Angel PA-C LAB BLOOD ORDERABLES Final Result Performing Organization Address [facility]/ZIP Co de Phone Number [facility] (AMBULATORY) [address] [place] [address], [facility] [address] [place] [address], * CBC (No Diff) (11/14/2017 4:06 PM EST) WBC 10.0 3.4 - 10.8 x10E3/uL [facility] RBC 4.91 3.77 - 5.28 x10E6/uL [facility] Hemoglobin 13.3 11.1 - 15.9 g/dL [facility] Hematocrit 40.4 34.0 - 46.6 % [facility] MCV 82 79 - 97 fL [facility] MCH 27.1 26.6 - 33.0 pg [facility] MCHC 32.9 31.5 - 35.7 g/dL [facility] RDW 14.5 12.3 - 15.4 % [facility] Platelets 345 150 - 379 x10E3/uL [facility] Blood 11/14/2017 4:06 PM EST 11/14/2017 Narrative [facility] (AMBULATORY) - 11/17/2017 11:16 AM EST Performed at: ??01 - [facility] [address] ??[id number] Combat Systems Operator: Daniel Espinosa PhD, Phone: ??[phone] Patient Fasting: ??N Marixa Del Angel PA-C LAB BLOOD ORDERABLES Final Result Performing Organization Address [facility]/ZIP Co de Phone Number [facility] (AMBULATORY) [address] [place] [address], [place] [phone] [facility] [address] [place] [address], [place] [phone] documented in this encounter Visit Diagnoses Diagnosis Status post bariatric surgery- Primary Bariatric surgery status Obesity, Class II, BMI 35-39.9 Fatigue, unspecified type documented in this encounter Care Teams Lock Tender Chief Operator Relationship Specialty Start Date End Date Jasmin Ahumada PA PCP - General Physician Slp 01/17/17 documented as of this encounter
--- OUTSIDE RECORDS SUMMARY | 2024-08-03 08:08 | XMS_ITS | Clinical Summary ---
Author Organization [facility] Address [address] [place] [address] Care Team Providers Care Afternoon Nanny Name Role Phone Jasmin Ahumada Primary Care Provider [phone] Allergies No known active allergies Medications levothyroxine (SYNTHROID, LEVOTHROID) 137 MCG tablet Take 137 mcg by mouth daily. Active Multiple Vitamins-Minera ls (MULTIVITAMIN WITH MINERALS) tablet tablet Take 1 tablet by mouth Daily. Active vitamin D (ERGOCALCIFEROL ) 53229 units capsule capsule Take 1 capsule by mouth 1 (One) Time Per Week. 12 capsule 03/01/2018 Active Active Problems Problem Noted Date Diagnosed Date Status post bariatric surgery 02/18/2017 GERD (gastroesophageal reflux disease) Overview (02/18/2017): better after AGR removed. serum h. pyl neg Hypothyroidism Overview (02/18/2017): w/hx partial thyroidectomy Leukocytosis Overview (02/18/2017): 12.77 asx Microcytic erythrocytes Fatigue Carpal tunnel syndrome Scoliosis Morbid obesity Fibromyalgia Resolved Problems Problem Noted Date Diagnosed Date Resolved Date Morbid obesity with BMI of 50.0-59.9, adult 01/20/2017 04/29/2017 Dysphagia 06/17/2016 04/29/2017 Family History 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 Relation Name Comments Heart attack Father Hypertension Father Diabetes Maternal Grandmother Heart murmur Mother Hypertension Mother Relation Name Status Comments Father Maternal Grandmother Mother Social History Tobacco Use Types Packs/Day Years Used Date Smoking Tobacco: Former Cigarettes 2 - 2013 Smokeless Tobacco: Never Tobacco Cessation:Counseling Given: Yes Comments:is around secondhand smoke infrequently Alcohol Use Standard Drinks/Week Comments No 0 (1 standard drink = 0.6 oz pur e alcohol) Abuse Screen Answer Date Recorded Unsafe at Home or Work/School Not on file Feels Threatened by Someone? Not on file 05/2023 Does Anyone Keep You from Co ntacting Others or Doint Things Outside the Home? Not on file 06/27/2023 Physical Sign of Abuse Present Not on file 1 Housing Stability Answer Date Recorded Current Living Arrangements Not on file 05/2023 Potentially Unsafe Housing Conditions Not on shantel e 06/27/2023 Family and Community Support Answer Jean-Paul e Recorded Help with Day-to-Day Activities Not on file 06/27/2023 Lonely or Isolated Not on file 06/27/2023 Employment Answer Date Recorded Do you want help finding or keeping work or a chucky b? Not on file 06/27/2023 Disabilities Answer Date Recorded Concentrating, Remembering, or Making Decisions Difficulty Not on file 06/27/2023 Doing Errands Independently Difficulty Not on fi le 06/27/2023 Education Answer Date Recorded Help with school or training? 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 Not on file Not on fi le Not on file Last Filed Vital Signs Vital Sign Reading Time Taken Comments Blood Pressure 115/82 02/15/2018 8:42 AM EDT Pulse 60 02/15/2018 8:42 AM EDT Temperature 36.5 ??C (97.7 ??F) 02/15/2018 8:42 AM ED T Respiratory Rate 18 02/15/2018 8:42 AM EDT Oxygen Saturation 99% 02/15/2018 8:42 AM EDT Inhaled Oxygen Concentration - - Weight 108 kg (237 lb 0.2 oz) 02/15/2018 8:42 AM EDT Height 170.2 cm (5' 7 ) 02/15/2018 8:42 AM EDT Body Mass Index 37.12 02/15/2018 8:42 AM EDT Plan of Treatment Health Maintenance Due Date Last Done Comments Annual Gynecologic Pelvic an d Breast Exam 1980 MAMMOGRAM 1980 TDAP/TD VACCINES (1 - Tdap) 1998 ANNUAL PHYSICAL 12/15/2016 HEPATITIS C SCREENING 12/15/2016 PAP SMEAR 12/15/2016 INFLUENZA VACCINE 04/19/2024 COVID-19 Vaccine (1 - 2023-2 5 season) 2024 Pneumococcal Vaccine 0-64 Aged Out No longer eligible based on patient's age to complete this topic Medical Devices Implanted Type Area English Language Learner Tutor Device Identifier Shelf Expiration Date Model / Serial / Lot Stplln Peristrip Dry Veritas Ech60 6fire - [id number] Implanted:Qty : 1 on 01/20/2017 by Shane Cunha MD at [facility] Implant N/A: Stomach [employer] 11/03/2019 [id number] V / / [id number] 1023 Description:1st and 2nd load s Stplln Peristrip Dry Veritas Ech60 6fire - [id number] Implanted:Qty : 1 on 01/20/2017 by Shane Cunha MD at [facility] Implant N/A: Stomach [employer]IS 11/03/2019 [id number] V / / [id number] 1023 Description:3rd and 4th load Stplln Peristrip Dry Veritas Ech60 6fire - [id number] Implanted:Qty : 1 on 01/20/2017 by Shane Cunha MD at [facility] Implant N/A: Stomach [employer] 11/03/2019 [id number] V / / [id number] 1023 Description:5th load Sealant Fibrin Tisseel Fz 4ml - [id number] - [id number] Implanted:Qty : 1 on 01/20/2017 by Shane Cunha MD at [facility] Implant N/A: Stomach [facility] 07/19/2018 [id number] / [id number] / [id number] [place] [address] Advance Directives * Full Code (Latest Code Status on File) Date Activated Date Inactivated Comments 01/20/2017 1:59 PM 01/21/2017 6:10 PM * Full Code Date Activated Date Inactivated Comments 06/17/2016 9:53 AM 06/18/2016 11:41 AM Care Teams Afternoon Nanny Relationship Specialty Start Date End Date Jasmin Ahumada PA PCP - General Physician Game Designer 01/17/17
--- OUTSIDE RECORDS SUMMARY | 2024-08-03 08:08 | XMS_ITS | Encounter Summary ---
[facility] Address [address] [place] [address] Care Team Providers Care Senior Oracle Developer Name Role Phone Jasmin Ahumada Primary Care Provider [phone] Encounter Details Date Type Department Care Team (Late st Contact Info) Description 02/15/2018 9:00 AM EDT Office Visit [facility] BARI[facility]RIC SURGERY [address] [place] [address] Olive Thomson PA [address] [place], [place] [id number] Dyspepsia (Primary Dx); Abnormal blood level of iron; Vitamin D deficiency; Hypothyroidism, unspecified type; Obesity, Class II, BMI 35-39.9; S/P bariatric surgery Social History Tobacco Use Types Packs/Day Years [...] Job Start Date Job End Date 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 : 1980 Date of Visit: 02/17/2018 Reason for Visit: Annual Eval - 1 year postop HPI: Jelena Chaudhari is a 37 y.o. female s/p LSG by GDW on 01/20/17 (hx AGB 2007 JSO, s/p AGBR 2015GDW), s/p lap HHR by GDW 10/24/17 complicated by gastrotomy with patch and repair. Now doing well. She is relieved that all of her swallowing issues prior to HHR have now resolved. Feeling good w/ no issues/concerns. Denies dysphagia, reflux, nausea, vomiting, abdominal pain, memory loss, vision changes and numbness/tingling. Continues w/ high protein food choices. Last labs 11/14/17 WNL. Taking MVI. Exercising - 3 days/week. Presurgery weight: 321 pounds. Today's weight is 108 kg (237 lb 0.2 oz) pounds,??today's Body mass index is 37.12 kg/m??.,??and??her weight loss since surgery is 84 pounds - stable. Past 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: Diagnosis Date ??? Carpal [...] normal ??? SECTION x 2 ??? COLONOSCOPY 2014 ??? ENDOSCOPY N/A 04/28/2016 Procedure: ESOPHAGOGASTRODUODENOSCOPY WITH [...] Outpatient Prescriptions Marked as Taking for the 02/15/18 encounter (Office Visit) with SRI Conley Medication Sig Dispense Refill ??? levothyroxine (SYNTHROID, LEVOTHROID) 137 MCG tablet Take 137 mcg by mouth daily. ??? Multiple Vitamins-Minerals (MULTIVITAMIN WITH MINERALS) tablet tablet Take 1 tablet by mouth Daily. No Known Allergies Social History Social History ??? Marital status: Spouse name: N/A ??? Number of children: N/A ??? Years of education: N/A Occupational History ??? 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 Smoking status: Former Smoker Years: 10.00 Types: Cigarettes Quit date: 2013 ??? Smokeless tobacco: Never Used Comment: is around secondhand smoke infrequently ??? Alcohol use No ??? Drug use: No ??? Sexual activity: Defer Comment: Nexplanon Other Topics Concern ??? Not on file Social History Narrative with 2 male children, lives in [place], [place] and works for the [employer]. Lives with two children and boyfriend. BP 115/82 (BP Location: Left arm, Patient Position: Sitting, Cuff Size: Large Adult) Pulse 60 Temp 97.7 ??F (36.5 ??C) (Temporal Artery ) Resp 18 Ht 170.2 cm (67 ) Wt 108 kg (237 lb 0.2 oz) SpO2 99% BMI 37.12 kg/m?? Physical Exam Constitutional: She appears well-developed and well-nourished. She is cooperative. HENT: Mouth/Throat: Oropharynx is clear and moist and mucous membranes are normal. Eyes: Conjunctivae are normal. No scleral icterus. Cardiovascular: Normal rate. Pulmonary/Chest: Effort normal. Abdominal: Soft. There is no tenderness. Musculoskeletal: Normal range of motion. She exhibits no edema. Neurological: She is alert. Skin: Skin is warm and dry. No rash noted. Psychiatric: She has a normal mood and affect. Judgment normal. Assessment: 1 year s/p LSG by GDW on 01/20/17 (hx AGB 2007 JSO, s/p AGBR 2015 GDW) ICD-10-CM ICD-9-CM 1. Dyspepsia R10.13 536.8 2. Abnormal blood level of iron R79.0 790.6 3. Vitamin D deficiency E55.9 268.9 4. Hypothyroidism, unspecified type E03.9 244.9 5. Obesity, Class II, BMI 35-39.9 E66.9 278.00 6. S/P bariatric surgery Z98.84 V45.86 Plan: Continue w/ good food choices and healthy habits. Continue to focus on high protein, low carb. Encouraged to track intake. Continue routine exercise. Routine bariatric labs ordered. Further input pending lab results. Call w/ problems/concerns. The patient was instructed to follow up in 6 months, sooner if needed. documented in this encounter Plan of Treatment Not on file documented as of this encounter Visit Diagnoses Diagnosis Dyspepsia- Primary Dyspepsia and other specified disorders of function of stomach Abnormal blood level of iron Other abnormal blood chemistry Vitamin D deficiency Hypothyroidism, unspecified type Obesity, Class II, BMI 35-39.9 S/P bariatric surgery documented in this encounter Care Teams Senior Oracle Developer Relationship Specialty Start Date End Date Jasmin Ahumada PA PCP - General Physician Coil Cutter 01/17/17 documented as of this encounter
--- OUTSIDE RECORDS SUMMARY | 2024-08-03 08:08 | XMS_ITS | Encounter Summary ---
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 She states the ER doctor ran some tests but everything came back fine. Pt wanted to make us aware. Thanks. documented in this encounter Plan of Treatment Not on file documented as of this encounter Visit Diagnoses Not on filedocumented in this encounter Care Teams Transit Department Clerk Relationship Specialty Start Date End Date Jasmin Ahumada PA PCP - General Physician Meal Cooker 01/17/17 documented as of this encounter
--- OUTSIDE RECORDS SUMMARY | 2024-08-03 08:08 | XMS_ITS | Encounter Summary ---
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 [address] ? Patient Name: ??Jelena Saha. : ??1980 ? Reason for Visit: ?dysphagia, hiatal hernia ? HPI: Jelena Saha -??37 y/o 9 months s/p LSG by [facility] on 01/20/17 (hx AGB 2007 JSO, s/p AGBR 2015 [facility]) ?? Saw her recently in the office for routine f/up. ??Reportedly has had ongoing issues w/ dysphagia although this has not been discussed at prior appointments - was apparently a problem when she had lapband and has persisted s/p LSG, but again she has never made mention of it before. ??Now says everything just feels like it gets stuck in her throat, but mostly just on the right side, before it goes down. ??Does have a h/o thyroid nodules s/p partial thyroidectomy and wonders if it may actually be related to what is left of her thyroid. ??Denies assoc reflux, nausea, vomiting and abdominal pain. ??Not currently taking a PPI - doesn't like having to take medications and doesn't feel she needsit. ? UGI 08/22/17 @ [facility] reveals mild reflux and small sliding hiatal hernia. EGD 10/03/17 w/ Dr. Cunha revealed a small hiatal hernia but was o/w unremarkable. She wishes to pursue further eval/treatment from a bariatric standpoint before discussing her issues w/ thyroid MD. ??Presents now for HHR. ?? Past 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: Diagnosis Date ??? Carpal [...] WITH BIOPSY; Surgeon: Shane Cunha MD; Location: [facility]; Service: ??? GASTRIC BANDING REMOVAL N/A [...] PARTIAL ??? TONSILLECTOMY ??? WISDOM TOOTH EXTRACTION ?? Current Outpatient Prescriptions: ??? levothyroxine (SYNTHROID, LEVOTHROID) 137 MCG tablet, Take 137 mcg by mouth daily., Disp: , Rfl: ??? Multiple Vitamins-Minerals (MULTIVITAMIN WITH MINERALS) tablet tablet, Take 1 tablet by mouth Daily., Disp: , Rfl: ??? vitamin E 100 UNIT capsule, Take 100 Units by mouth Daily., Disp: , Rfl: ? No Known Allergies ? Social History Social History ??? Marital status: Spouse name: N/A ??? Number of children: N/A ??? Years of education: N/A Occupational History ??? 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 Smoking status: Former Smoker Years: 10.00 Types: Cigarettes Quit date: 2013 ??? Smokeless tobacco: Never Used Comment: is around secondhand smoke infrequently ??? Alcohol use No ??? Drug use: No ??? Sexual activity: Defer Comment: Nexplanon Other Topics Concern ??? Not on file Social History Narrative with 2 male children, lives in [place], [place] and works for the [employer]. Lives with two children and boyfriend. ?? BP 135/83 (BP Location: Left arm, Patient Position: Sitting, Cuff Size: Large Adult) Pulse 96 Temp 98.4 ??F (36.9 ??C) (Temporal Artery ) ?? Resp 18 Ht 67 (170.2 cm) Wt 249 lb 8 oz (113 kg) SpO2 99% BMI 39.08 kg/m2 ? Physical Exam?? Constitutional: She appears well-developed??and well-nourished. She is cooperative. obese?? HENT: Mouth/Throat: Oropharynx is clear and moist??and mucous membranes are normal. Eyes: Conjunctivae??are normal. No scleral icterus. Cardiovascular: Normal rate. ?? Pulmonary/Chest: Effort normal. Abdominal: Soft. Bowel sounds are normal. There is no tenderness. Incisions well healed, unremarkable?? Musculoskeletal: Normal range of motion. She exhibits no edema. Neurological: She is alert. Skin: Skin is warm??and dry. No rash??noted. Psychiatric: She has a normal mood and affect. Judgment??normal. ? Assessment: ??9 months s/p LSG by [facility] on 01/20/17 w/ dysphagia and hiatal hernia ?? Plan: ??Laparoscopic Hiatal Hernia Repair. documented in this encounter Plan of Treatment Not on file documented as of this encounter Visit Diagnoses Not on filedocumented in this encounter Care Teams Oracle Drm Consultant Relationship Specialty Start Date End Date Jasmin Ahumada PA PCP - General Physician Internal Sales 01/17/17 documented as of this encounter
--- OUTSIDE RECORDS SUMMARY | 2024-08-03 08:08 | XMS_ITS | Encounter Summary ---
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 * Telephone Encounter - Rachel Robertson MA - 10/27/2017 2:48 PM EST Pt is scared to remove the bulb, pt is coming to be seen tomorrow as we discussed. * Telephone Encounter - Rachel Robertson MA - 10/27/2017 1:30 PM EST Pt called in stating that where her tube was placed during her HHR on 10/24/2017 (scanned in media) is leaking on her abdomen and is not draining at all in the bulb. Pt stated that she can see in the bulb in stringy blood tinged mucus. Pt wanted to know if she needs to be seen. Please advise, thank you. documented in this encounter Plan of Treatment Not on file documented as of this encounter Visit Diagnoses Not on filedocumented in this encounter Care Teams Painting Machine Operator Relationship Specialty Start Date End Date Jasmin Ahumada PA PCP - General Physician Fruit Buying Grader 01/17/17 documented as of this encounter
--- OUTSIDE RECORDS SUMMARY | 2024-08-03 08:08 | XMS_ITS | Encounter Summary ---
[facility] [address] [place] [address] Care Team Providers Care Potline Monitor Name Role Phone Jasmin Ahumada Primary Care Provider [phone] Reason for Referral * Surgical (Routine) - Closed Specialty Diagnoses / Procedures Referred By Contcharbel t Referred To Contact Diagnoses Hiatal hernia Procedures External Facility Surgical/Procedural Request Olive Thomson PA [address] [place] [id number] Phone: tel: fax: [facility] [address] [place] [address] Phone: tel: fax: Referral ID Status Reason Start Date Expiration Date V isits Requested Visits Authorized [id number] Closed Other 10/04/2017 10/04/2018 1 1 Encounter Details Date Type Department Care Team (Late st Contact Info) Description 10/04/2017 Telephone [facility] BARIATRIC SURGERY [address] [place] [address] Olive Thomson PA [address] [place] [address] Social History Tobacco Use Types Packs/Day Years [...] Industry 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 Thank you. * Telephone Encounter - Ranjeet David MA - 10/04/2017 12:40 PM EST Left voicemail for pt to call me back. * Telephone Encounter - Olive Thomson PA - 10/04/2017 12:31 PM EST OK to sched Lap R, thanks John Cunha MD [facility] Bariatric Surgery documented in this encounter Plan of Treatment Scheduled Orders Name Type Priority Associated Diagnoses Orde r Schedule External Facility Surgical/Procedural Request Procedures Routine Hiatal hernia Ordered: 10/04/2017 documented as of this encounter Visit Diagnoses Diagnosis Hiatal hernia- Primary Diaphragmatic hernia without mention of obstruction or gangrene documented in this encounter Care Teams Potline Monitor Relationship Specialty Start Date End Date Jasmin Ahumada PA PCP - General Physician Foundry Laborer Coreroom 01/17/17 documented as of this encounter
--- OUTSIDE RECORDS SUMMARY | 2024-08-03 08:08 | XMS_ITS | Encounter Summary ---
[facility] Address [address] [place] [address] Care Team Providers Care Strategic Consultant Name Role Phone Jasmin Ahumada Primary Care Provider [phone] Encounter Details Date Type Department Care Team (Late st Contact Info) Description 10/24/2017 9:30 AM EST Outside Facility Service [facility] BARIATRIC SURGERY [address] [place] [address] Shane Cunha MD [address] [place] [address] Social History Tobacco Use Types Packs/Day Years Used Date Smoking Tobacco: Former Cigarettes 2 2013 Smokeless Tobacco: Never Comments:is around secondhan [...] Job Start Date Job End Date 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
--- OUTSIDE RECORDS SUMMARY | 2024-08-03 08:08 | XMS_ITS | Encounter Summary ---
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
--- OUTSIDE RECORDS SUMMARY | 2024-08-03 08:08 | XMS_ITS | Encounter Summary ---
[facility] [address] [place] [address] Care Team Providers Care Job Honer Name Role Phone Jasmin Ahumada Primary Care Provider [phone] Encounter Details Date Type Department Care Team (Late st Contact Info) Description 10/28/2017 9:30 AM EST Office Visit 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 Not on file Not on fi le Not on file documented as of this encounter Last Filed Vital Signs Vital Sign Reading Time Taken Comments Blood Pressure 125/87 10/28/2017 9:35 AM EST Pulse 77 10/28/2017 9:35 AM EST Temperature 36.7 ??C (98.1 ??F) 10/28/2017 9:35 AM ES T Respiratory Rate 18 10/28/2017 9:35 AM EST Oxygen Saturation 99% 10/28/2017 9:35 AM EST Inhaled Oxygen Concentration - - Weight 106 kg (233 lb 8.2 oz) 10/28/2017 9:35 AM EST Height 170.2 cm (5' 7 ) 10/28/2017 9:35 AM EST Body Mass Index 36.57 10/28/2017 9:35 AM EST documented in this encounter Progress Notes * Marixa Del Angel PA-C - 10/28/2017 9:30 AM EST [facility] Bariatric Surgery [address] [facility] [address] Patient Name: Jelena Saha. Date of : 1980 Date of Visit: 10/28/2017 Reason for Visit: POD#4 HHR HPI: Jelena Saha is a 37 y.o. female s/p LSG by [facility] on 01/20/17 (hx AGB 2007 JSO, s/p AGBR 2015 [facility]), most recently POD#4 s/p lap HHR by [facility] 10/24/17 complicated by gastrotomy with patch and repair, left with PRAVEEN drain. Patient had appt scheduled next week but came in sooner with concerns about PRAVEEN drain. Noting it is draining around skin site bloody/ pink drainage, changing guaze once a day.Also tubing is clogged. POD#1 with n/v temp 101. Has been doing well since. She does have a lot of itching around incision sites, reacted to glue, this happened at last surgery as well but she forgot to mention this. Also with rash under breast. Feels like there is still gas in chest. Denies abd pain/n/v/SOA/ dyspnea/ fevers, chills. Is tolerating PO, on soft diet. Drinking 1 bottle water a day. Voiding, is constipated. 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 PRAVEEN draining 20cc POD#1, 65, 75, 50cc per day, pink bloody drainage. Presurgery weight: 321 pounds. Today's weight is 106 kg (233 lb 8.2 oz) pounds,??today's Body mass index is 36.57 kg/(m^2).,??and??her weight loss since surgery is 88 pounds. Past 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: Diagnosis Date ??? 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 Smoking status: Former Smoker Years: 10.00 Types: Cigarettes Quit date: 2013 ??? Smokeless tobacco: Never Used Comment: is around secondhand smoke infrequently ??? Alcohol use No ??? Drug use: No ??? Sexual activity: Defer Comment: Nexplanon Other Topics Concern ??? Not on file Social History Narrative with 2 male children, lives in [place], [place] and works for the [employer]. Lives with two children and boyfriend. Vitals: 10/28/17 0935 BP: 125/87 Pulse: 77 Resp: 18 Temp: 98.1 ??F (36.7 ??C) SpO2: 99% Weight 106 kg (233 lb 8.2 oz) Body mass index is 36.57 kg/(m^2). Physical Exam Constitutional: She is oriented to person, place, and time. She appears well- developed and well-nourished. HENT: Head: Normocephalic and atraumatic. Cardiovascular: Normal rate and regular rhythm. Pulmonary/Chest: Effort normal and breath sounds normal. Abdominal: Soft. Bowel sounds are normal. Incisions healing well. With erythematous skin surrounding each site. Without fluctuance or drainage. PRAVEEN with pink serous drainage and thick tissue through tubing. Neurological: She is alert and oriented to person, place, and time. Skin: Skin is warm and dry. Psychiatric: She has a normal mood and affect. Her behavior is normal. Assessment: ICD-10-CM ICD-9-CM 1. Hiatal hernia K44.9 553.3 Plan: PRAVEEN was removed, site bandaged. Continue soft diet, progressing as tolerated. Increase fluids to 64oz/ day. Keep incision sites clean and dry. Zyrtec ok for itching, antihistamine/ hydrocortisone on irritated abdominal skin ok. Continue with PPI. Call w/ issues/concerns. RTC as scheduled for follow up in a couple week, sooner w/ problems. documented in this encounter Plan of Treatment Not on file documented as of this encounter Visit Diagnoses Diagnosis Hiatal hernia- Primary Diaphragmatic hernia without mention of obstruction or gangrene documented in this encounter Care Teams Job Honer Relationship Specialty Start Date End Date Jasmin Ahumada PA PCP - General Physician Manager Test 01/17/17 documented as of this encounter
--- OUTSIDE RECORDS SUMMARY | 2024-08-03 08:08 | XMS_ITS | Encounter Summary ---
Author Organization Address [address] [place] [address] Care Team Providers Care Drying Can Worker Name Role Phone Rudi Arce MD Primary Care Provider [phone] Encounter Details Date Type Department Care Team (Late st Contact Info) Description 10/27/2016 [facility] Vitals Encounter [facility] OUTPATIENT CONVERSIONS [address] [place] [address] ProviderAyden MD [address] [place] [address] Social History Tobacco Use Types Packs/Day Years Used Date Smoking Tobacco: Never Assessed Comments Unknown Sex and Gender Information Value Date Recorded Sex Assigned at Not on file Legal Sex Female 6:50 PM EDT Gender Identity Not on file Sexual Orientation Not on file documented as of this [...] Mass Index 51.53 10/27/2016 1:55 PM EST documented in this encounter Plan of Treatment Not on file documented as of this encounter Visit Diagnoses Not on filedocumented in this encounter Care Teams Drying Can Worker Relationship Specialty Start Date End Date Rudi Arce MD [address] [facility] [address] [place] [address] PCP - General 01/30/21 documented as of this encounter
--- OUTSIDE RECORDS SUMMARY | 2024-08-03 08:09 | XMS_ITS | Encounter Summary ---
[facility] Address [address] [place] [address] Care Team Providers Care Preschool Lead Teacher Name Role Phone Jasmin Ahumada Primary Care Provider [phone] Reason for Referral * Surgical (Routine) - Closed Specialty Diagnoses / Procedures Referred By Contac t Referred To Contact Diagnoses Dysphagia, unspecified type Procedures External Facility Surgical/Procedural Request Olive Thomson PA [address] [facility] [address] [place] [address] Phone: tel: fax: [address] [address] Phone: tel: fax: Referral ID Status Reason Start Date Expiration Date V isits Requested Visits Authorized [id number] Closed Other 09/05/2017 09/05/2018 1 1 * Diagnostic Imaging (Routine) - Closed Specialty Diagnoses / Procedures Referred By Contac t Referred To Contact Radiology Diagnoses Dysphagia, unspecified type Procedures FL Upper GI Single Contrast With KUB Olive Thomson PA [address] [place] [address] Phone: tel: fax: [facility] [address] [place] [address] Phone: tel: Referral ID Status Reason Start Date Expiration Date Visits Re quested Visits Authorized [id number] Closed 08/17/2017 08/17/2018 1 1 Encounter Details Date Type Department Care Team (Late st Contact Info) Description 08/17/2017 4:30 PM EST Office Visit [facility] BARIATRIC SURGERY [address] [place] [address] Olive Thomson PA [address] [place] [address] Dyspepsia (Primary Dx); Dysphagia, unspecified type; Fatigue, unspecified type; Iron deficiency; Hypothyroidism, unspecified type Social History Tobacco Use Types [...] Job Start Date Job End Date 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, 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 Not on file Not on fi le Not on file documented as of this encounter Last Filed Vital Signs Vital Sign Reading Time Taken Comments Blood Pressure 135/83 08/17/2017 4:06 PM EST Pulse 96 08/17/2017 4:06 PM EST Temperature 36.9 ??C (98.4 ??F) 08/17/2017 4:06 PM ES T Respiratory Rate 18 08/17/2017 4:06 PM EST Oxygen Saturation 99% 08/17/2017 4:06 PM EST Inhaled Oxygen Concentration - - Weight 113 kg (249 lb 8 oz) 08/17/2017 4:[address] Height 170.2 cm (5' 7 ) 08/17/2017 4:06 PM EST Body Mass Index 39.08 08/17/2017 4:06 PM EST documented in this encounter Progress Notes * Olive Thomson PA - 09/05/2017 12:47 PM ESTAddended by: OLIVE THOMSON on: 09/05/2017 12:47 PM Modules accepted: Orders * Olive Thomson PA - 08/17/2017 4:30 PM EST [facility] Bariatric Surgery [address] [facility] [address] Patient Name: Jelena Saha. : 1980 Date of Visit: 08/19/2017 Reason for Visit: 7 months postop HPI: Jelena Saha is a 36 y.o. female s/p LSG by GDW on 01/20/17 Several complaints today -- c/o fatigue, joint pains, and feeling blah all the time - says has dxof fibromyalgia but does not want to take medication for that. Reportedly has had ongoing issues w/dysphagia although this has not been discussed at prior appointments - was apparently a problem when she had lapband and has persisted s/p LSG. Says everything just feels like it gets stuck in her throat, mostly just on the right side, before it goes down. Does have a h/o thyroid nodules s/p partial thyroidectomy and wonders if it may actually be related to what is left of her thyroid. Last UGIwas POD#1 s/p LSG and was unremarkable. Denies any further imaging since that time. Denies assoc reflux, nausea, vomiting and abdominal pain. Not currently taking a PPI - again says she just doesn't like having to take medications. Only other concern is that at times she will have a small spot erupt from her old lapband port site incision that will look like a small pimple, but then resolves later on that same day. Always in the same spot, medial aspect of the incision, but then spontaneously resolves. Denies associated pain/discharge/fevers/etc. Getting 80g prot/day - does use GenePro as a supplement. Labs 04/26/17 - low iron (45), but o/w okay.Advised to start once daily iron supplements. Now taking MVI, iron, Vit C and biotin. Exercising - walking 3-4x/week. Presurgery weight: 321 pounds. Today's weight is 249 lb 8 oz (113 kg) pounds,??today's Body mass index is 39.08 kg/(m^2).,??and??her weight loss since surgery is 72 pounds. Past 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: Diagnosis Date ??? [...] N/A 01/20/2017 Procedure: GASTRIC SLEEVE LAPAROSCOPIC; Surgeon: Shaen Cunha MD; Location: [facility]; Service: ??? LAPAROSCOPIC GASTRIC BANDING APS, JSO 2007 ??? LIPOMA EXCISION left abdomen ??? OTHER SURGICAL HISTORY Left nexplanon control impant left arm ??? STEROID INJECTION most recently 05/2016, wrist ??? THYROIDECTOMY, PARTIAL ??? TONSILLECTOMY ??? WISDOM TOOTH EXTRACTION Outpatient Prescriptions Marked as Taking for the 08/17/17 encounter (Office Visit) with SRI Elias Medication Sig Dispense Refill ??? levothyroxine (SYNTHROID, LEVOTHROID) 137 MCG tablet Take 137 mcg by mouth daily. ??? Multiple Vitamins-Minerals (MULTIVITAMIN WITH MINERALS) tablet tablet Take 1 tablet by mouth Daily. ??? ursodiol (ACTIGALL) 300 MG capsule 300 mg 2 (Two) Times a Day. ??? vitamin E 100 UNIT capsule Take 100 Units by mouth Daily. No Known Allergies Social History Social History ??? Marital status: Spouse name: N/A ??? Number of children: N/A ??? Years of education: N/A Occupational History ??? 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 Smoking status: Former Smoker Years: 10.00 Types: Cigarettes Quit date: 2013 ??? Smokeless tobacco: Never Used Comment: is around secondhand smoke infrequently ??? Alcohol use No ??? Drug use: No ??? Sexual activity: Defer Comment: Nexplanon Other Topics Concern ??? Not on file Social History Narrative with 2 male children, lives in [place], [place] and works for the [employer]. Lives with two children and boyfriend. BP 135/83 (BP Location: Left arm, Patient Position: Sitting, Cuff Size: Large Adult) Pulse 96 Temp 98.4 ??F (36.9 ??C) (Temporal Artery ) Resp 18 Ht 67 (170.2 cm) Wt 249 lb 8 oz (113 kg) SpO2 99% BMI 39.08 kg/m2 Physical Exam Constitutional: She appears well-developed and well-nourished. She is cooperative. obese HENT: Mouth/Throat: Oropharynx is clear and moist and mucous membranes are normal. Eyes: Conjunctivae are normal. No scleral icterus. Cardiovascular: Normal rate. Pulmonary/Chest: Effort normal. Abdominal: Soft. Bowel sounds are normal. There is no tenderness. Incisions well healed, unremarkable Musculoskeletal: Normal range of motion. She exhibits no edema. Neurological: She is alert. Skin: Skin is warm and dry. No rash noted. Psychiatric: She has a normal mood and affect. Judgment normal. Assessment: almost 7 months s/p LSG by GDW on 01/20/17 ICD-10-CM ICD-9-CM 1. Dyspepsia R10.13 536.8 2. Dysphagia, unspecified type R13.10 787.20 3. Fatigue, unspecified type R53.83 780.79 4. Iron deficiency E61.1 280.9 5. Hypothyroidism, unspecified type E03.9 244.9 Plan: UGI ordered to further evaluate dysphagia. Encouraged to follow up w/ PCP/endocrinology re: thyroid concerns as well. Routine bariatric labs ordered. Continue vitamins w/ adjustments pending lab results. Continue w/ good food choices and healthy habits otherwise. Call w/ problems/concerns. The patient was instructed to follow up in 2-3 months, sooner if needed. Total time spent w/ patient 25 minutes and 15 minutes spent counseling the patient on nutrition andnecessary dietary/lifestyle modifications. documented in this encounter Plan of Treatment Scheduled Orders Name Type Priority Associated Diagnoses Orde r Schedule External Facility Surgical/Procedural Request Procedures Routine Dysphagia, unspecified type Ordered: 09/05/2017 documented as of this encounter Procedures Procedure Name Priority Date/Time Associated Diagnosis Comments METHYLMALONIC ACID, SERUM Routine 08/17/2017 4:50 PM EST Dyspepsia Dysphagia, unspecified type Fatigue, unspecified type Iron deficiency Hypothyroidism, unspecified type VITAMIN B1, WHOLE BLOOD Routine 08/17/2017 4:50 PM EST Dyspepsia Dysphagia, unspecified type Fatigue, unspecified type Iron deficiency Hypothyroidism, unspecified type CBC AND DIFFERENTIAL Routine 08/17/2017 4:50 PM EST Dyspepsia Dysphagia, unspecified type Fatigue, unspecified type Iron deficiency Hypothyroidism, unspecified type PREALBUMIN Routine 08/17/2017 4:50 PM EST Dyspepsia Dysphagia, unspecified type Fatigue, unspecified type Iron deficiency Hypothyroidism, unspecified type IRON Routine 08/17/2017 4:50 PM EST Dyspepsia Dysphagia, unspecified type Fatigue, unspecified type Iron deficiency Hypothyroidism, unspecified type FOLATE Routine 08/17/2017 4:50 PM EST Dyspepsia Dysphagia, unspecified type Fatigue, unspecified type Iron deficiency Hypothyroidism, unspecified type FERRITIN Routine 08/17/2017 4:50 PM EST Dyspepsia Dysphagia, unspecified type Fatigue, unspecified type Iron deficiency Hypothyroidism, unspecified type COMPREHENSIVE METABOLIC PANEL Routine 08/17/2017 4:50 PM EST Dyspepsia Dysphagia, unspecified type Fatigue, unspecified type Iron deficiency Hypothyroidism, unspecified type documented in this encounter Results * FL Upper GI Single Contrast With KUB (08/22/2017 9:58 AM EST) Anatomical Region Laterality Modality Body N/A Radio Fluoroscop y 08/22/2017 3:35 PM EST Impressions 08/23/2017 9:52 PM EST 1. Status post vertical sleeve gastrectomy x6 months. There was no evidence of extraluminal contrast. There was no delay in gastric emptying. No postoperative strictures are seen. 2. Mild gastroesophageal reflux to the level of the thoracic inlet 3. Small sized sliding-type hernia ?? This report was finalized on 08/23/2017 9:[address] Matthew Zaman MD. Narrative 08/23/2017 9:52 PM EST EXAMINATION: FL UPPER GI SINGLE CONTRAST W KUB- INDICATION: dyspepsia; R13.10-Dysphagia, unspecified ? TECHNIQUE: 42 seconds of fluoroscopic time was used for this exam. 8 associated images were saved. Lead Caster Helper imaging reveals a nonobstructive bowel gas pattern. There is a suture line visible in the left upper quadrant. COMPARISON: NONE FINDINGS: Under fluoroscopic observation, the patient ingested thin barium. The oral phase of deglutition appeared normal. The esophageal mucosa appeared grossly normal. There was mild gastroesophageal reflux to the level of the thoracic inlet. There was no evidence of a focal esophageal stricture. Examination of the stomach demonstrated postoperative changes that are consistent with a vertical sleeve gastrectomy. There is a small sized sliding-type hiatal hernia. No extravasation of contrast was seen. No postoperative strictures were seen. The gastric folds and gastric mucosa appeared grossly normal. There was no evidence of a gastric or duodenal ulcer. There was no delay in gastric emptying. The duodenal bulb and duodenal C-loop appeared grossly normal. Procedure Note Kari Becerra PA - 08/23/2017 EXAMINATION: FL UPPER GI SINGLE CONTRAST W KUB- INDICATION: dyspepsia; R13.10-Dysphagia, unspecified TECHNIQUE: 42 seconds of fluoroscopic time was used for this exam. 8 associated images were saved. Lead Caster Helper imaging reveals a nonobstructive bowel gas pattern. There is a suture line visible in the left upper quadrant. COMPARISON: NONE FINDINGS: Under fluoroscopic observation, the patient ingested thin barium. The oral phase of deglutition appeared normal. The esophageal mucosa appeared grossly normal. There was mild gastroesophageal reflux to the level of the thoracic inlet. There was no evidence of a focal esophageal stricture. Examination of the stomach demonstrated postoperative changes that are consistent with a vertical sleeve gastrectomy. There is a small sized sliding-type hiatal hernia. No extravasation of contrast was seen. No postoperative strictures were seen. The gastric folds and gastric mucosa appeared grossly normal. There was no evidence of a gastric or duodenal ulcer. There was no delay in gastric emptying. The duodenal bulb and duodenal C-loop appeared grossly normal. IMPRESSION: 1. Status post vertical sleeve gastrectomy x6 months. There was no evidence of extraluminal contrast. There was no delay in gastric emptying. No postoperative strictures are seen. 2. Mild gastroesophageal reflux to the level of the thoracic inlet 3. Small sized sliding-type hernia This report was finalized on 08/23/2017 9:[address] Matthew Zaman MD. Olive FIERRO IMG FLUOROSCOPY ORDERABLES Final Result * Vitamin B1, Whole Blood (08/17/2017 4:50 PM EST) Vitamin B1, Whole Blood 157.0 66.5 - 200.0 nmol/L [facility] Comment: This test was developed and its performance characteristics determined by [employer]. It has not been cleared or approved by the Food and Drug Administration. Blood 08/17/2017 4:50 PM EST 08/17/2017 Narrative [facility] (AMBULATORY) - 08/22/2017 3:11 PM EST Performed at: ??02 - [address] ??[id number] Sanitarian Aide: Diego Jimenez MD, Phone: ??[phone] Patient Fasting: ??N Olive FIERRO LAB BLOOD ORDERABLES Final Result [facility] (AMBULATORY) [address] [place] [address], [facility] [address] [place] [address], * Prealbumin (08/17/2017 4:50 PM EST) Prealbumin 23 14 - 35 mg/dL [facility] Blood 08/17/2017 4:50 PM EST 08/17/2017 Narrative [facility] (AMBULATORY) - 08/22/2017 3:11 PM EST Performed at: ??01 - [facility] [address] [place] [address] ??[id number] Sanitarian Aide: Daniel Espinosa PhD, Phone: ??[phone] Patient Fasting: ??N Olive FIERRO LAB BLOOD ORDERABLES Final Result Performing Organization Address City/[facility]/ZIP Co de Phone Number [facility] (AMBULATORY) [address] [place] [address], [facility] [address] [place] [address], * Methylmalonic Acid, Serum (08/17/2017 4:50 PM EST) Methylmalonic Acid 128 0 - 378 nmol/L [facility] Blood 08/17/2017 4:50 PM EST 08/17/2017 Narrative [facility] ([facility]) - 08/22/2017 3:11 PM EST Performed at: ??02 - [address] ??[id number] Sanitarian Aide: Diego Jimenez MD, Phone: ??[phone] Patient Fasting: ??N Olive [facility] BLOOD ORDERABLES Final Result [facility] (AMBULATORY) [address] [place] [address], [place] [phone] [facility] [address] [place] [address], [place] [phone] * Iron (08/17/2017 4:50 PM EST) Iron 35 27 - 159 ug/dL [facility] Blood 08/17/2017 4:50 PM EST 08/17/2017 Narrative [facility] (AMBULATORY) - 08/22/2017 3:11 PM EST Performed at: ??01 - [facility] [address] ??[id number] Sanitarian Aide: Daniel Espinosa PhD, Phone: ??[phone] Patient Fasting: ??N Olive [facility]ERRO [facility] BLOOD ORDERABLES Final Result [facility] (AMBULATORY) [address] [place] [address], [facility] [address] [place] [address], * Folate (08/17/2017 4:50 PM EST) Folate 13.1 >3.0 ng/mL [facility] Comment: A serum folate concentration of less than 3.1 ng/mL is considered to represent clinical deficiency. Blood 08/17/2017 4:50 PM EST 08/17/2017 Narrative [facility] (AMBULATORY) - 08/22/2017 3:11 PM EST Performed at: ??01 - [facility] ??[id number] Sanitarian Aide: Daniel Espinosa PhD, Phone: ??[phone] Patient Fasting: ??N Olive FIERRO [facility] BLOOD ORDERABLES Final Result [facility] ([facility]) [address] [place] [address], [place] [phone] [facility] [address] [place] [address], [place] [phone] * Ferritin (08/17/2017 4:50 PM EST) Ferritin 132 15 - 150 ng/mL [facility] Blood 08/17/2017 4:50 PM EST 08/17/2017 Narrative [facility] ([facility]) - 08/22/2017 3:11 PM EST Performed at: ??01 - [facility] [address] [place], [place] ??[id number] Sanitarian Aide: Daniel Espinosa PhD, Phone: ??[phone] Patient Fasting: ??N us Olive [facility]ERRO [facility] BLOOD ORDERABLES Final Result [facility] ([facility]) [address] [place] [address], [place] [phone] [facility] [address] [place] [address], * Comprehensive Metabolic Panel (08/17/2017 4:50 PM EST) Glucose 83 65 - 99 mg/dL [facility] BUN 15 6 - 20 mg/dL [facility] Creatinine 0.72 0.57 - 1.00 mg/dL [facility] eGFR Non Am 107 >59 mL/min/1.7 3 [facility] eGFR Am 124 >59 mL/min/1.7 3 [facility] BUN/Creatinine Ratio 21 9 - 23 [facility] Sodium 144 134 - 144 mmol/L [facility] Potassium 4.4 3.5 - 5.2 mmol/L [facility] Chloride 104 96 - 106 mmol/L [facility] Total CO2 24 18 - 29 mmol/L [facility] Calcium 8.8 8.7 - 10.2 mg/dL [facility] Total Protein 6.5 6.0 - 8.5 g/dL [facility] Albumin 4.2 3.5 - 5.5 g/dL [facility] Globulin 2.3 1.5 - 4.5 g/dL [facility] A/G Ratio 1.8 1.2 - 2.2 [facility] Total Bilirubin 0.3 0.0 - 1.2 mg/dL [facility] Alkaline Phosphatase 94 39 - 117 IU/L [facility] AST (SGOT) 13 0 - 40 IU/L [facility] ALT (SGPT) 7 0 - 32 IU/L [facility] Blood 08/17/2017 4:50 PM EST 08/17/2017 Narrative [facility] ([facility]) - 08/22/2017 3:11 PM EST Performed at: ??01 - [facility] [address] [place], [place] ??[id number] Sanitarian Aide: Daniel Espinosa PhD, Phone: ??[phone] Patient Fasting: ??N Olive [facility]ERRO [facility] BLOOD ORDERABLES Final Result [facility] ([facility]) [address] [place] [address], [facility] [address] [place] [address], * (ABNORMAL) CBC & Differential (08/17/2017 4:50 PM EST) WBC 13.1(H) 3.4 - 10.8 x10E3/uL [facility] RBC 4.75 3.77 - 5.28 x10E6/uL [facility] Hemoglobin 13.2 11.1 - 15.9 g/dL [facility] Comment: Effective August 22, 2017 the reference interval ??for Hemoglobin MALES only will be changing to: ?Males 13-15 years: 12.6 - 17.7 ?Males ?? >15 years: 13.0 - 17.7 Hematocrit 39.7 34.0 - 46.6 % [facility] MCV 84 79 - 97 fL [facility] MCH 27.8 26.6 - 33.0 pg [facility] MCHC 33.2 31.5 - 35.7 g/dL [facility] RDW 14.7 12.3 - 15.4 % [facility] Platelets 351 150 - 379 x10E3/uL [facility] Neutrophil Rel % 65 Not Estab. % [facility] Lymphocyte Rel % 30 Not Estab. % [facility] Monocyte Rel % 4 Not Estab. % [facility] Eosinophil Rel % 1 Not Estab. % [facility] Basophil Rel % 0 Not Estab. % [facility] Neutrophils Absolute 8.4(H) 1.4 - 7.0 x10E3/uL [facility] Lymphocytes Absolute 3.9(H) 0.7 - 3.1 x10E3/uL [facility] Monocytes Absolute 0.5 0.1 - 0.9 x10E3/uL [facility] Eosinophils Absolute 0.2 0.0 - 0.4 x10E3/uL [facility] Basophils Absolute 0.0 0.0 - 0.2 x10E3/uL [facility] Immature Granulocyte Rel % 0 Not Estab. % [facility] Immature Grans Absolute 0.0 0.0 - 0.1 x10E3/uL [facility] Blood 08/17/2017 4:50 PM EST 08/17/2017 Narrative [facility] ([facility]) - 08/22/2017 3:11 PM EST Performed at: ??01 - [facility] [address] ??[id number] Sanitarian Aide: Daniel Espinosa PhD, Phone: ??[phone] Patient Fasting: ??N Olive [facility] BLOOD ORDERABLES Final Result Performing Organization Address City/State/[facility] Co de Phone Number [facility] ([facility]) [address] [place] [address], [facility] [address] [place] [address], documented in this encounter Visit Diagnoses Diagnosis Dyspepsia- Primary Dyspepsia and other specified disorders of function of stomach Dysphagia, unspecified type Fatigue, unspecified type Iron deficiency Disorders of iron metabolism Hypothyroidism, unspecified type Dysphagia, unspecified type documented in this encounter Care Teams Preschool Lead Teacher Relationship Specialty Start Date End Date Jasmin Ahumada PA PCP - General Physician Commercial Insulator 01/17/17 documented as of this encounter
--- OUTSIDE RECORDS SUMMARY | 2024-08-03 08:09 | XMS_ITS | Encounter Summary ---
Author Organization [facility] Address [address] [place] [address] Care Team Providers Care Tobacco Primer Machine Operator Name Role Phone Jasmin Ahumada Primary Care Provider Reason for Visit * Auth/Cert Specialty Diagnoses / Procedures Referred By Contac t Referred To Contact Diagnoses Morbid obesity with BMI of 50.0-59.9, adult Morbid obesity with BMI of 50.0-59.9, adult [E66.01, Z68.43] Procedures GASTRIC SLEEVE LAPAROSCOPIC Referral ID Status Reason Start Date Expiration Date Visits Re quested Visits Authorized [id number] 1 1 Encounter Details Date Type Department Care Team (Late st Contact Info) Description 01/20/2017 12:06 PM EDT Anesthesia Event [facility] OR [address] [facility] [place] [address] Sly Grady MD Anesthesia Record Procedure Summary Procedure Name Responsible Anesthesiologist Anesthesia Start Time Anesthesia Stop Time GASTRIC SLEEVE LAPAROSCOPIC (Abdomen) Sly Grady MD 01/20/17 1206 01/20/17 1407 Events Date Time Event Comment 01/20/2017 1206 AN Equip Check 1206 An Start 1206 An Start Data 1213 An Induction The patient was reevaluated immediately before moderate or deep sedation use and before anesthesia induction. 1215 An Intubation 1350 An Extubation 1358 an stop data 1406 Handoff to RN The following has been completed: 1. Identification of Patient, higuera family member(s) or patient surrogate 2. Identification of the responsible Practitioner (primary service) 3. Discussion of the pertinent/attainable medical history 4. Discussion of the surgical/procedure course (procedure, reason for surgery, procedure performed) 5. Intraoperative anesthetic management and issue/concerns to include things such as airway, hemodynamics, narcotic, sedation level and paralytic management and intravenous fluids/blood products and urine output during the procedure 6. Expectations/Plans for the early post-procedure period to include things such as anticipated course (anticipatory guidance), complications, need for laboratory or ECG and medication administration 7. Opportunity for questions and acknowledgment of understanding of report from the receiving PACU/ICU team 1407 An Stop Meds Name Total midazolam (VERSED) 2 mg/2mL 2 mg propofol (DIPRIVAN) injection 200 mg lidocaine (XYLOCAINE) injection 2% 50 mg Rocuronium 50 mg/5mL 50 mg ondansetron 2 mg/mL 4 mg dexamethasone 10 mg/mL 4 mg neostigmine injection 10 mg/10 mL 3 mg glycopyrrolate 0.2 mg/mL 0.4 mg acetaminophen (OFIRMEV) injection 1,000 mg 1,000 mg CeFAZolin in Sodium Chloride (ANCEF) IVP B solution 3 g 3 g propofol (DIPRIVAN) infusion 10 mg/mL 10 0 mL 404.04 mg buprenorphine (BUPRENEX) injection 300 m cg bupivacaine 0.25% PF (MARCAINE) injectio n 60 mL dexamethasone sod phoshate injection PF 10 mg/mL 4 mg atracurium injection 50 mg/5 mL 16 mg lactated ringers infusion 800 mL * Agents Name O2 Desflurane * Blood No blood administrations on file. Lines, Drains, and Airways Type Details Placement Removal Retired Peripheral IV Line - Single Lumen 01/20/17; 0739; median vein (underside of arm), right; [id number] catheter system; 18 gauge; 1; metacarpal vein (top of hand), left; intradermal injection, tolerated well, appears comfortable; louie Villatoro RN; 01/21/17; 1507 01/20/17 0739 by Karyn Rivera RN 01/21/17 1507 by Magdalena House RN Retired Airway 01/20/17; 1238 (created via procedure documentation); 01/20/17; 1350 01/20/17 1238 by Gianfranco Cerna SLICE CUTTING MACHINE OPERATOR 01/20/17 1350 by Kenyatta Phan CRNA Retired Naso/Oral/Gastric Tube 01/20/17; 1252; [place] sump, orogastric; center mouth; In and Out; 01/21/17; 1507 01/20/17 1252 by Gianfranco Cenra CRNA 01/21/17 1507 by Magdalena House RN Retired Incision 01/20/17; 1253; othe r (see comments); abdomen; 02/01/18 (Removed via batch job for 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 post CPM S17 upgrade); 1034 (Removed via batch job for 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 post CPM S17 upgrade) 01/20/17 1253 by Luna Castellanos RN 02/01/18 1034 by Infection Control Practitioner (MASKED), Batch documented in this encounter Social History Tobacco Use Types Packs/Day Years [...] Industry Job Start Date Job End Date 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, 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 Not on file Not on fi le Not on file documented as of this encounter OR Notes * Anesthesia Postprocedure Evaluation - Kenyatta Phan CRNA - 01/20/2017 2:06 PM EDT Patient: Jelena Saha Procedure Summary Date Anesthesia Start Anesthesia Stop Room / Location 01/20/17 1206 [facility] / [facility] Procedure Diagnosis Surgeon Provider GASTRIC SLEEVE LAPAROSCOPIC (N/A Abdomen) Morbid obesity with BMI of 50.0-59.9, adult (Morbid obesity with BMI of 50.0-59.9, adult [E66.01, Z68.43]) MD Sly Faustin MD Anesthesia Type: general Last vitals BP 153/94 Temp 98.3 Pulse 86 Resp 12 SpO2 97% Post Anesthesia Care and Evaluation Patient location during evaluation: PACU Patient participation: complete - patient participated Level of consciousness: awake and alert Pain score: 0 Pain management: adequate Airway patency: patent Anesthetic complications: No anesthetic complications PONV Status: none Cardiovascular status: hemodynamically stable and acceptable Respiratory status: nonlabored ventilation, acceptable and nasal cannula Hydration status: acceptable * Anesthesia Procedure Notes - Gianfranco Cerna CRNA - 01/20/2017 12:38 PM EDTAssociated Order(s): ANESTHESIA INTUBATION Airway Urgency: elective Airway not difficult General Information and Staff Patient location during procedure: OR Indications and Patient Condition Indications for airway management: airway protection Preoxygenated: yes Mask difficulty assessment: 1 - vent by mask Final Airway Details Final airway type: endotracheal airway Successful airway: ETT Successful intubation technique: direct laryngoscopy Facilitating devices/methods: intubating stylet Endotracheal tube insertion site: oral Blade: Toth ETT size: 7.5 mm Cormack-Lehane Classification: grade I - full view of glottis Placement verified by: chest auscultation and capnometry Measured from: lips ETT to lips (cm): 22 Number of attempts at approach: 1 * Anesthesia Procedure Notes - Gianfranco Cerna CRNA - 01/20/2017 12:23 PM EDTAssociated Order(s): ANESTHESIA PERIPHERAL BLOCK Peripheral Block Patient location during procedure: pre-op Reason for block: at surgeon's request and post-op pain management Performed by Anesthesiologist: SLY GRADY Preanesthetic Checklist Completed: patient identified, site marked, surgical consent, pre-op evaluation, timeout performed,IV checked, risks and benefits discussed and monitors and equipment checked Peripheral Block Prep: Sterile barriers:cap, gloves, sterile barriers and mask Prep: ChloraPrep Patient monitoring: blood pressure monitoring, continuous pulse oximetry and EKG Peripheral Procedure Nursing cardiac assessment comments yes: Sedation, GA, Spinal,Epidural Guidance:ultrasound guided Images:still images obtained Laterality:Bilateral Block Type:TAP Injection Technique:single-shot Needle Type:short-bevel Needle Gauge:20 G Needle gauge: 20g 4 Stimuplex. Medications Comment:Block Injection: LA dose divided between Right and Left block Adjuncts: Decadron 4mg PSF, Buprenex 0.3mg (Per total volume of LA) Local Injected:bupivacaine 0.25% without epinephrine Local Amount Injected:60mL Post Assessment Injection Assessment: negative aspiration for heme, incremental injection and no paresthesia on injection Patient Tolerance:comfortable throughout block Complications:no Additional Notes The pt was placed in the Supine Position and was anesthetized with general anesthesia. Under Ultrasound guidance, a BBraun 4inch 360 degree needle was advanced with Normal Saline hydro dissection of tissue. The Internal Oblique and Transversus Abdominus muscles where visualized. At or before the aponeurosis of Internal Oblique, local anesthetic spread was visualized in the Transversus Abdominus Plane. Injection was made incrementally with aspiration every 5 mls. There was no intravascular injection, injection pressure was normal, there was no neural injection, and the procedure was completed without difficulty. Thank You. 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 Plan discussed with SLICE CUTTING MACHINE OPERATOR. documented in this encounter Plan of Treatment Not on file documented as of this encounter Procedures Procedure Name Priority Date/Time Associated Diagnosis Comments ANESTHESIA INTUBATION Routine 01/20/2017 12:38 PM EDT ANESTHESIA PERIPHERAL BLOCK Routine 01/20/2017 12:24 PM EDT documented in this encounter Results * Anesthesia Intubation (01/20/2017 12:38 PM EDT) Narrative Gianfranco Cerna CRNA - 01/20/2017 12:38 PM EDT Gianfranco Cerna CRNA ? 01/20/2017 12:38 PM Airway Urgency: elective Airway not difficult General Information and Staff Patient location during procedure: OR Indications and Patient Condition Indications for airway management: airway protection Preoxygenated: yes Mask difficulty assessment: 1 - vent by mask Final Airway Details Final airway type: endotracheal airway Successful airway: ETT Successful intubation technique: direct laryngoscopy Facilitating devices/methods: intubating stylet Endotracheal tube insertion site: oral Blade: Toth ETT size: 7.5 mm Cormack-Lehane Classification: grade I - full view of glottis Placement verified by: chest auscultation and capnometry Measured from: lips ETT to lips (cm): 22 Number of attempts at approach: 1 Procedure Note Gianfranco Cerna CRNA - 01/20/2017 12:38 PM EDT Airway Urgency: elective Airway not difficult General Information and Staff Patient location during procedure: OR Indications and Patient Condition Indications for airway management: airway protection Preoxygenated: yes Mask difficulty assessment: 1 - vent by mask Final Airway Details Final airway type: endotracheal airway Successful airway: ETT Successful intubation technique: direct laryngoscopy Facilitating devices/methods: intubating stylet Endotracheal tube insertion site: oral Blade: Toth ETT size: 7.5 mm Cormack-Lehane Classification: grade I - full view of glottis Placement verified by: chest auscultation and capnometry Measured from: lips ETT to lips (cm): 22 Number of attempts at approach: 1 us Sly Grady MD ANESTHESIA ORDERABLES Final R esult * Anesthesia Peripheral Block (01/20/2017 12:24 PM EDT) Narrative Gianfranco Cerna CRNA - 01/20/2017 12:24 PM EDT Gianfranco Cerna CRNA ? 01/20/2017 12:24 PM Peripheral Block Patient location during procedure: pre-op Reason for block: at surgeon's request and post-op pain management Performed by Anesthesiologist: SLY GRADY Preanesthetic Checklist Completed: patient identified, site marked, surgical consent, pre-op evaluation, timeout performed, IV checked, risks and benefits discussed and monitors and equipment checked Peripheral Block Prep: Sterile barriers:cap, gloves, sterile barriers and mask Prep: ChloraPrep Patient monitoring: blood pressure monitoring, continuous pulse oximetry and EKG Peripheral Procedure Nursing cardiac assessment comments yes: Sedation, GA, Spinal,Epidural Guidance:ultrasound guided Images:still images obtained Laterality:Bilateral Block Type:TAP Injection Technique:single-shot Needle Type:short-bevel Needle Gauge:20 G Needle gauge: 20g 4 Stimuplex. Medications Comment:Block Injection: ??LA dose divided between Right and Left block ?? Adjuncts: ??Decadron 4mg PSF, Buprenex 0.3mg (Per total volume of LA) Local Injected:bupivacaine 0.25% without epinephrine Local Amount Injected:60mL Post Assessment Injection Assessment: negative aspiration for heme, incremental injection and no paresthesia on injection Patient Tolerance:comfortable throughout block Complications:no Additional Notes The pt was placed in the Supine Position and was ??anesthetized with general anesthesia. Under Ultrasound guidance, a BBraun 4inch 360 degree needle was advanced with Normal Saline hydro dissection of tissue. ??The Internal Oblique and Transversus Abdominus muscles where visualized. ??At or before the aponeurosis of Internal Oblique, local anesthetic spread was visualized in the Transversus Abdominus Plane. Injection was made incrementally with aspiration every 5 mls. ??There was no ??intravascular injection, ??injection pressure was normal, there was no neural injection, and the procedure was completed without difficulty. ??Thank You. Procedure Note Gianfranco Cerna CRNA - 01/20/2017 12:23 PM EDT Peripheral Block Patient location during procedure: pre-op Reason for block: at surgeon's request and post-op pain management Performed by Anesthesiologist: SLY GRADY Preanesthetic Checklist Completed: patient identified, site marked, surgical consent, pre-opevaluation, timeout performed, IV checked, risks and benefits discussedand monitors and equipment checked Peripheral Block Prep: Sterile barriers:cap, gloves, sterile barriers and mask Prep: ChloraPrep Patient monitoring: blood pressure monitoring, continuous pulse oximetryand EKG Peripheral Procedure Nursing cardiac assessment comments yes: Sedation, GA, Spinal,Epidural Guidance:ultrasound guided Images:still images obtained Laterality:Bilateral Block Type:TAP Injection Technique:single-shot Needle Type:short-bevel Needle Gauge:20 G Needle gauge: 20g 4 Stimuplex. Medications Comment:Block Injection: LA dose divided between Right and Left block Adjuncts: Decadron 4mg PSF, Buprenex 0.3mg (Per total volume of LA) Local Injected:bupivacaine 0.25% without epinephrine Local AmountInjected:60mL Post Assessment Injection Assessment: negative aspiration for heme, incremental injectionand no paresthesia on injection Patient Tolerance:comfortable throughout block Complications:no Additional Notes The pt was placed in the Supine Position and was anesthetized withgeneral anesthesia. Under Ultrasound guidance, a BBraun 4inch 360 degree needle was advancedwith Normal Saline hydro dissection of tissue. The Internal Oblique andTransversus Abdominus muscles where visualized. At or before theaponeurosis of Internal Oblique, local anesthetic spread was visualized inthe Transversus Abdominus Plane. Injection was made incrementally withaspiration every 5 mls. There was no intravascular injection, injectionpressure was normal, there was no neural injection, and the procedure wascompleted without difficulty. Thank You. us Sly Grady MD ANESTHESIA ORDERABLES Final R esult documented in this encounter Visit Diagnoses Not on filedocumented in this encounter Administered Medications Inactive Administered Medications - up to 3 most recent administrations Medication Order MAR Action Action Date Dose Rate Site acetaminophen (OFIRMEV) injection 1,000 mg 1,000 mg, Intravenous, Administer over 15 Minutes, Once, On Deedee 01/20/17 at 0815, For 1 dose, Do not exceed 4 grams of acetaminophen in a 24 hr period., Is the medication for pre-op use? Yes, Is the medication used for post-op use? NoIndications:Morbid obesity with BMI of 50.0-59.9, adult Given 01/20/2017 1:26 PM EDT 1,000 mg atracurium injection As Needed, Starting on Deedee 01/20/17 at 1229 Given 01/20/2017 12:50 PM EDT 6 mg Given 01/20/2017 12:29 PM EDT 10 mg bupivacaine PF (MARCAINE) 0.25 % injection As Needed, Starting on Deedee 01/20/17 at 1217 Given 01/20/2017 12:19 PM EDT 3 0 mL Given 01/20/2017 12:17 PM EDT 30 mL buprenorphine (BUPRENEX) injection As Needed, Moderate Pain, Starting on Deedee 01/20/17 at 1219 Given 01/20/2017 12:19 PM EDT 150 mcg Given 01/20/2017 12:17 PM EDT 150 mcg CeFAZolin in Sodium Chloride (ANCEF) IVPB solution 3 g 3 g, Intravenous, Administer over 30 Minutes, Once, On Deedee 01/20/17 at 0815, For 1 dose, Administer within 1 hour of surgical incision. Redose 4 hours from pre-op dose if procedure ongoing or >1.5 L blood loss. Refrigerate, Indications: Surgical ProphylaxisIndications:Surgical Prophylaxis Given 01/20/2017 12:06 PM EDT 3 g dexamethasone (DECADRON) injection Intravenous, As Needed, Starting on Deedee 01/20/17 at 1224 Given 01/20/2017 12:24 PM EDT 4 mg dexamethasone sodium phosphate injection As Needed, Starting on Deedee 01/20/17 at 1219 Given 01/20/2017 12:19 PM EDT 2 mg Given 01/20/2017 12:17 PM EDT 2 mg glycopyrrolate (ROBINUL) injection Intravenous, As Needed, Excess Secretions, Starting on Deedee 01/20/17 at 1359 Given 01/20/2017 1:42 PM EDT 0.4 mg lactated ringers infusion 150 mL/hr, Intravenous, Continuous, Starting on Deedee 01/20/17 at 0815Indications:Morbid obesity with BMI of 50.0-59.9, adult New Bag 01/20/2017 12:06 PM EDT lidocaine (XYLOCAINE) 2% injection Injection, As Needed, Starting on Deedee 01/20/17 at 1212 Given 01/20/2017 12:12 PM EDT 50 mg midazolam (VERSED) injection Intravenous, As Needed, Starting on Deedee 01/20/17 at 1206 Given 01/20/2017 12:06 PM EDT 2 mg neostigmine injection Intravenous, As Needed, Starting on Deedee 01/20/17 at 1359 Given 01/20/2017 1:42 PM EDT 3 mg ondansetron (ZOFRAN) injection Intravenous, As Needed, Nausea, Vomiting, Starting on Deedee 01/20/17 at 1332 Given 01/20/2017 1:32 PM EDT 4 mg propofol (DIPRIVAN) infusion 10 mg/mL 100 mL Continuous PRN, Starting on Deedee 01/20/17 at 1216 New Bag 01/20/2017 12:16 PM EDT 25 mcg/kg/min 21.8 mL/hr Propofol (DIPRIVAN) injection Intravenous, As Needed, Starting on Deedee 01/20/17 at 1213 Given 01/20/2017 12:13 PM EDT 200 mg rocuronium (ZEMURON) injection Intravenous, As Needed, Starting on Deedee 01/20/17 at 1213 Given 01/20/2017 12:13 PM EDT 50 mg documented in this encounter Care Teams Tobacco Primer Machine Operator Relationship Specialty Start Date End Date Jasmin Ahumada PA PCP - General Physician Home Paraprofessional 01/17/17 documented as of this encounter
--- OUTSIDE RECORDS SUMMARY | 2024-08-03 08:09 | XMS_ITS | Encounter Summary ---
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 Patient Name: Jelena Saha. : 1980 ? Reason for Visit: dysphagia ?? HPI: Jelena Saha -??36 y/o 8 months s/p LSG by [facility] on 01/20/17 [...] mild reflux and small sliding hiatal hernia. ??She wishes to pursue further eval from a bariatric standpoint before discussing her issues w/ thyroid MD. ? Past 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: Diagnosis Date ??? Carpal [...] WITH BIOPSY; Surgeon: Shane Cunha MD; Location: [facility]; Service: ??? GASTRIC BANDING REMOVAL N/A 06/17/2016 Procedure: GASTRIC BANDING REMOVAL LAPAROSCOPIC; Surgeon: Shane Cunha MD; Location: [facility]; Service: ??? GASTRIC SLEEVE LAPAROSCOPIC N/A 01/20/2017 Procedure: GASTRIC SLEEVE LAPAROSCOPIC; Surgeon: Shane Cunha MD; Location: [facility]; Service: ??? LAPAROSCOPIC GASTRIC BANDING APS, JSO 2007 ??? LIPOMA EXCISION left abdomen ??? OTHER SURGICAL HISTORY Left nexplanon control impant left arm ??? STEROID INJECTION most recently 05/2016, wrist ??? THYROIDECTOMY, PARTIAL ??? TONSILLECTOMY ??? WISDOM TOOTH EXTRACTION Current Outpatient Prescriptions: ??? levothyroxine (SYNTHROID, LEVOTHROID) 137 MCG tablet, Take 137 mcg by mouth daily., Disp: , Rfl: ??? Multiple Vitamins-Minerals (MULTIVITAMIN WITH MINERALS) tablet tablet, Take 1 tablet by mouth Daily., Disp: , Rfl: ??? ursodiol (ACTIGALL) 300 MG capsule, 300 mg 2 (Two) Times a Day., Disp: , Rfl: ??? vitamin E 100 UNIT capsule, Take 100 Units by mouth Daily., Disp: , Rfl: ?? No Known Allergies ?? Social History Social History ??? Marital status: Spouse name: N/A ??? Number of children: N/A ??? Years of education: N/A Occupational History ??? 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 Smoking status: Former Smoker Years: 10.00 Types: Cigarettes Quit date: 2013 ??? Smokeless tobacco: Never Used Comment: is around secondhand smoke infrequently ??? Alcohol use No ??? Drug use: No ??? Sexual activity: Defer Comment: Nexplanon Other Topics Concern ??? Not on file Social History Narrative with 2 male children, lives in [place], [place] and works for the [employer]. Lives with two children and boyfriend. BP 135/83 (BP Location: Left arm, Patient Position: Sitting, Cuff Size: Large Adult) Pulse 96 Temp 98.4 ??F (36.9 ??C) (Temporal Artery ) Resp 18 Ht 67 (170.2 cm) Wt 249 lb 8 oz (113 kg) SpO2 99% BMI 39.08 kg/m2 ?? Physical Exam Constitutional: She appears well-developed and [...] a normal mood and affect. Judgment normal. ? Assessment: 8 months s/p LSG by [facility] on 01/20/17 w/ dysphagia, possible hiatal hernia ?? Plan: EGD w/ Dr. Cunha for further eval. documented in this encounter Plan of Treatment Not on file documented as of this encounter Visit Diagnoses Not on filedocumented in this encounter Care Teams Party Plan Sales Host/Hostess Relationship Specialty Start Date End Date Jasmin Ahumada PA PCP - General Physician Lime Trimmer 01/17/17 documented as of this encounter
--- OUTSIDE RECORDS SUMMARY | 2024-08-03 08:09 | XMS_ITS | Encounter Summary ---
[facility] Address [address] [place] [address] Care Team Providers Care Naturopathic Doctor Name Role Phone Jasmin Ahumada Primary Care Provider [phone] Encounter Details Date Type Department Care Team (Late st Contact Info) Description 02/18/2017 10:00 AM EDT Office Visit [facility] BARIATRIC SURGERY [address] [facility] [place] [address] [place] [address] Karyn Gunn, PA-C [address] [place] [address] Status post bariatric surgery (Primary Dx); Morbid obesity due to excess calories; Hypothyroidism, unspecified type; Leukocytosis, unspecified type; GERD without esophagitis Social History Tobacco Use Types Packs/Day Years [...] Industry Job 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 Date 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, 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 Not on file Not on fi le Not on file documented as of this encounter Last Filed Vital Signs Vital Sign Reading Time Taken Comments Blood Pressure 118/78 02/18/2017 9:56 AM EDT Pulse 94 02/18/2017 9:56 AM EDT Temperature 36.2 ??C (97.2 ??F) 02/18/2017 9:56 AM ED T Respiratory Rate 18 02/18/2017 9:56 AM EDT Oxygen Saturation 99% 02/18/2017 9:56 AM EDT Inhaled Oxygen Concentration - - Weight 132 kg (291 lb 8 oz) 02/18/2017 9:56 AM E DT Height 170.2 cm (5' 7 ) 02/18/2017 9:56 AM EDT Body Mass Index 45.66 02/18/2017 9:56 AM EDT documented in this encounter Progress Notes * Karyn Gunn, PA - 02/18/2017 10:00 AM EDT [facility] BARIATRIC SURGERY [address] [place] [address] [facility] [phone] Jelena Saha. 1980 Date of visit: 02/18/2017 REASON FOR VISIT: 1 month postop HPI: Jelena Saha is a 36 y.o. female 1 month s/p LSG performed by Dr. Cunha on 01/20/17. Overall feeling good. .she reports Vomiting and Constipation. Vomited a couple of times when she tried eggs and cauliflower. she denies: Abdominal pain, Dysphagia, Diarrhea, Fatigue, Hair loss and Reflux. Progressing through diet w/out issue- on stage 4. Jelena states that ??she is eating 70 grams of protein per day. ??drinking 64-oz. of water per day,??no carbonated beverage consumption and is starting to do more exercises regularly. Jelena is taking Omeprazole and Actigall . Taking MVI, B12, B1, Vit D andiron. Pre-surgery weight: 321 lbs. Today's weight is 291 lb 8 oz (132 kg) pounds,??today's BMI is Body mass index is 45.66 kg/(m^2).,??she has a loss of 13 pounds since the last visit??and??her weight loss since surgery is 30 pounds. Past 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: Diagnosis Date ??? Carpal tunnel syndrome ??? 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 Dysphagia ??? Fatigue ??? Fibromyalgia ??? GERD (gastroesophageal reflux disease) better after AGR removed. serum h. pyl neg ??? Hypothyroidism w/hx partial thyroidectomy ??? Leukocytosis 12.77 asx ??? Microcytic erythrocytes ??? Morbid obesity ??? Obesity ??? Scoliosis ??? Wears contact lenses ??? [...] by mouth daily., Disp: , Rfl: ??? omeprazole (PRILOSEC) 20 MG capsule, Take 1 capsule by mouth Daily., Disp: 60 capsule, Rfl: 1 ??? ursodiol (ACTIGALL) 300 MG capsule, Take 1 capsule by mouth 2 (Two) Times a Day for 30 days. Take twice daily x 6 months, Disp: 60 capsule, Rfl: 5 No Known Allergies Social History Social History ??? Marital status: Spouse name: N/A ??? Number of children: N/A ??? Years of education: N/A Occupational History ??? 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 Smoking status: Former Smoker Years: 10.00 Types: Cigarettes Quit date: 2013 ??? Smokeless tobacco: Never Used Comment: is around secondhand smoke infrequently ??? Alcohol use No ??? Drug use: No ??? Sexual activity: Defer Comment: Nexplanon Other Topics Concern ??? Not on file Social History Narrative with 2 male children, lives in [place], [place] and works for the [employer]. Lives with two children and boyfriend. Review of Systems General ROS: Negative for - fatigue Ophthalmic ROS: Negative for - vision changes ENT ROS: Negative for - swallowing difficulty Gastrointestinal ROS: Negative for - abdominal pain, diarrhea, heartburn/reflux Positive for nausea/vomiting, constipation Neurological ROS: Negative for - dizziness, numbness/tingling of extremities, memory loss Dermatological ROS: Negative for - Hair loss Physical Exam: BP 118/78 (BP Location: Left arm, Patient Position: Sitting, Cuff Size: Large Adult) Pulse 94 Temp 97.2 ??F (36.2 ??C) (Temporal Artery ) Resp 18 Ht 67 (170.2 cm) Wt 291 lb 8 oz (132 kg) SpO2 99% BMI 45.66 kg/m2 General Appearance: Well nourished. In no acute distress. Patient was observed to be obese. Oral Cavity: Buccal Mucosa: The buccal mucosa was moist. Lungs: Normal breath sounds/voice sounds. Cardiovascular: Heart Rate And Rhythm: Heart rate and rhythm normal. Edema: No calf tenderness. Abdomen: Abdomen:incisions healing well. Auscultation: The bowel sounds were normal. Palpation: No mass was palpated in the abdomen, Soft, nontender, and nondistended. Hernia: No hernia was discovered. Musculoskeletal System: General/bilateral: No edema present in extremities. Normal movement of all extremities. Neurological: Was alert and oriented. Gait And Stance: Gait and stance were normal. Psychiatric: Attitude: The attitude was cooperative. Mood: Mood pleasant. Skin: The complexion was normal. The skin moisture was normal and the skin temperature was normal. Assessment: 1 month s/p LSG; the patient is doing well. ICD-10-CM ICD-9-CM 1. Status post bariatric surgery Z98.84 V45.86 2. Morbid obesity due to excess calories E66.01 278.01 3. Hypothyroidism, unspecified type E03.9 244.9 4. Leukocytosis, unspecified type D72.829 288.60 5. GERD without esophagitis K21.9 530.81 Plan: Full bariatric panel ordered. Continue vitamins faithfully - will adjust pending lab results. Orders Placed This Encounter Procedures ??? CBC (No Diff) ??? Comprehensive Metabolic Panel ??? Ferritin ??? Folate ??? Iron ??? Magnesium ??? Methylmalonic Acid, Serum ??? Phosphorus ??? Prealbumin ??? PTH, Intact ??? Vitamin A ??? Vitamin B1, Whole Blood ??? Vitamin D 25 Hydroxy ??? Vitamin E ??? Zinc ?? Advised to take Miralax prn constipation ??? Advance diet per the manual. No ASA, NSAIDs, or steroids for 6 weeks. ??? Diet history reviewed and discussed with the patient. Weight loss to date discussed with the patient. ??? Recommended patient be sure to get at least 70 grams of protein per day by eating small, frequent meals all with high lean protein choices. Be sure to limit/cut back on daily carbohydrate intake.Discussed with the patient the recommended amount of water per day to intake- half of body weight in ounces. Reviewed vitamin requirements. Be sure to do routine exercise, 150 minutes per week minimum, including both cardio and strength training. Behavior modifications recommended??and??instructed to call the office for concerns, questions, or problems. ??? The patient was instructed to follow up in 2 months note: approx 15 of the 25 minute visit was spent counseling on dietary/lifestyle modifications Karyn Gunn, PAC documented in this encounter Plan of Treatment Not on file documented as of this encounter Procedures Procedure Name Priority Date/Time Associated Diagnosis Comments METHYLMALONIC ACID, SERUM Routine 02/18/2017 10:23 AM EDT Status post bariatric surgery Morbid obesity due to excess calories Hypothyroidism, unspecified type Leukocytosis, unspecified type GERD without esophagitis VITAMIN B1, WHOLE BLOOD Routine 02/18/2017 10:23 AM EDT Status post bariatric surgery Morbid obesity due to excess calories Hypothyroidism, unspecified type Leukocytosis, unspecified type GERD without esophagitis ZINC Routine 02/18/2017 10:23 AM EDT Status post bariatric surgery Morbid obesity due to excess calories Hypothyroidism, unspecified type Leukocytosis, unspecified type GERD without esophagitis VITAMIN A Routine 02/18/2017 10:23 AM EDT Status post bariatric surgery Morbid obesity due to excess calories Hypothyroidism, unspecified type Leukocytosis, unspecified type GERD without esophagitis VITAMIN D,25-HYDROXY Routine 02/18/2017 10:23 AM EDT Status post bariatric surgery Morbid obesity due to excess calories Hypothyroidism, unspecified type Leukocytosis, unspecified type GERD without esophagitis CBC (NO DIFF) Routine 02/18/2017 10:23 AM EDT Status post bariatric surgery Morbid obesity due to excess calories Hypothyroidism, unspecified type Leukocytosis, unspecified type GERD without esophagitis VITAMIN E Routine 02/18/2017 10:23 AM EDT Status post bariatric surgery Morbid obesity due to excess calories Hypothyroidism, unspecified type Leukocytosis, unspecified type GERD without esophagitis PREALBUMIN Routine 02/18/2017 10:23 AM EDT Status post bariatric surgery Morbid obesity due to excess calories Hypothyroidism, unspecified type Leukocytosis, unspecified type GERD without esophagitis PHOSPHORUS Routine 02/18/2017 10:23 AM EDT Status post bariatric surgery Morbid obesity due to excess calories Hypothyroidism, unspecified type Leukocytosis, unspecified type GERD without esophagitis PTH, INTACT Routine 02/18/2017 10:23 AM EDT Status post bariatric surgery Morbid obesity due to excess calories Hypothyroidism, unspecified type Leukocytosis, unspecified type GERD without esophagitis MAGNESIUM Routine 02/18/2017 10:23 AM EDT Status post bariatric surgery Morbid obesity due to excess calories Hypothyroidism, unspecified type Leukocytosis, unspecified type GERD without esophagitis IRON Routine 02/18/2017 10:23 AM EDT Status post bariatric surgery Morbid obesity due to excess calories Hypothyroidism, unspecified type Leukocytosis, unspecified type GERD without esophagitis FOLATE Routine 02/18/2017 10:23 AM EDT Status post bariatric surgery Morbid obesity due to excess calories Hypothyroidism, unspecified type Leukocytosis, unspecified type GERD without esophagitis FERRITIN Routine 02/18/2017 10:23 AM EDT Status post bariatric surgery Morbid obesity due to excess calories Hypothyroidism, unspecified type Leukocytosis, unspecified type GERD without esophagitis COMPREHENSIVE METABOLIC PANEL Routine 02/18/2017 10:23 AM EDT Status post bariatric surgery Morbid obesity due to excess calories Hypothyroidism, unspecified type Leukocytosis, unspecified type GERD without esophagitis documented in this encounter Results * Zinc (02/18/2017 10:23 AM EDT) Zinc 105 56 - 134 ug/dL [facility] Comment:Detection Limit = 5 Blood 02/18/2017 10:2 3 AM EDT 02/18/2017 Narrative [facility] (AMBULATORY) - 02/21/2017 5:09 PM EDT Performed at: ??02 - [address] ??[id number] Cancer Registry Manager: Diego Jimenez MD, Phone: ??[phone] Patient Fasting: ??N Karyn Gunn PA-C LAB BLOOD ORDERABLES Final Result [facility] [address] [place] [address], [facility] [address] [place] [address], * (ABNORMAL) Vitamin E (02/18/2017 10:23 AM EDT) Vitamin E (Alpha Tocopherol) 4.3(L) 5.3 - 16.8 mg/L [facility] Blood 02/18/2017 10:2 3 AM EDT 02/18/2017 Narrative [facility] ([facility]) - 02/21/2017 5:09 PM EDT Performed at: ??02 - [address] ??[id number] Cancer Registry Manager: Diego Jimenez MD, Phone: ??[phone] Patient Fasting: ??N Karyn Gunn PA-C LAB BLOOD ORDERABLES Final Result Performing Organization Address [facility] [address] [facility] Co de Phone Number [facility] [address] [place] [address], [facility] [address] [place] [address], * Vitamin D 25 Hydroxy (02/18/2017 10:23 AM EDT) 25 Hydroxy, Vitamin D 32.7 ng/mL [facility] Comment: Reference Ranges for Total Vitamin D 25([place]) Deficiency ?<20.0 ng/ml Insufficiency ?? 20-30 ng/ml Sufficiency ?30-100 ng/ml Toxicity ? >100 ng/ml Blood 02/18/2017 10:2 3 AM EDT 02/18/2017 Narrative [facility] (AMBULATORY) - 02/21/2017 5:09 PM EDT Performed at: ?? [address] ??[id number] Cancer Registry Manager: Marin Farfan MD, Phone: ??[phone] Patient Fasting: ??N Karyn Gunn PA-C LAB BLOOD ORDERABLES Final Result Performing Organization Address [facility] [address]/[facility] de Phone Number [facility] [address] [place] [address], [place] [phone] [facility] [address] [place] [address], * (ABNORMAL) Vitamin B1, Whole Blood (02/18/2017 10:23 AM EDT) Pathologist [facility] Vitamin B1, Whole Blood 229.5(H) 66.5 - 200.0 nmol/L [facility] Blood 02/18/2017 10:2 3 AM EDT 02/18/2017 Narrative [facility] ([facility]) - 02/21/2017 5:09 PM EDT Performed at: ??02 - [facility] [address] ??[id number] Cancer Registry Manager: Diego Jimenez MD, Phone: ??[phone] Patient Fasting: ??N Karyn Gunn PA-C LAB BLOOD ORDERABLES Final Result Performing Organization Address [facility] [address]/[facility] de Phone Number [facility] ([facility]) [address] [place] [address], [facility] [address] [place] [address], * Vitamin A (02/18/2017 10:23 AM EDT) Vitamin A 40 20 - 65 ug/dL [facility] Blood 02/18/2017 10:2 3 AM EDT 02/18/2017 Narrative [facility] ([facility]) - 02/21/2017 5:09 PM EDT Performed at: ??02 - [facility] ??[id number] Cancer Registry Manager: Diego Jimenez MD, Phone: ??[phone] Patient Fasting: ??N Karyn Gunn PA-C LAB BLOOD ORDERABLES Final Result Performing Organization Address [facility] de Phone Number [facility] ([facility]) [address] [place] [address], [facility] [address] [place] [address], * PTH, Intact (02/18/2017 10:23 AM EDT) PTH, Intact 20 15 - 65 pg/mL [facility] Blood 02/18/2017 10:2 3 AM EDT 02/18/2017 Narrative [facility] ([facility]) - 02/21/2017 5:09 PM EDT Performed at: ??03 - [facility] [address] [place], [place] ??[id number] Cancer Registry Manager: Daniel Espinosa PhD, Phone: ??[phone] Patient Fasting: ??N Karyn Gunn PA-C LAB BLOOD ORDERABLES Final Result Performing Organization Address [facility] [address]/[facility] Co de Phone Number [facility] (AMBULATORY) [address] [place] [address], [facility] [address] [place] [address], * Prealbumin (02/18/2017 10:23 AM EDT) Prealbumin 18 14 - 35 mg/dL [facility] Blood 02/18/2017 10:2 3 AM EDT 02/18/2017 Narrative [facility] (AMBULATORY) - 02/21/2017 5:09 PM EDT Performed at: ??03 - [facility] ??[id number] Cancer Registry Manager: Daniel Espinosa PhD, Phone: ??[phone] Patient Fasting: ??N Karyn Gunn PA-C LAB BLOOD ORDERABLES Final Result Performing Organization Address [facility] [address]/[facility] de Phone Number [facility] (AMBULATORY) [address] [place] [address], [facility] [address] [place] [address], * Phosphorus (02/18/2017 10:23 AM EDT) Phosphorus 3.6 2.4 - 5.1 mg/dL [facility] Blood 02/18/2017 10:2 3 AM EDT 02/18/2017 Narrative [facility] ([facility]) - 02/21/2017 5:09 PM EDT Performed at: ??[address], [place], [place] ??[id number] Cancer Registry Manager: Marin Farfan MD, Phone: ??[phone] Patient Fasting: ??N Karyn Gunn PA-C LAB BLOOD ORDERABLES Final Result Performing Organization Address City/[facility] [address]/ZIP Co de Phone Number [facility] (AMBULATORY) [address] [place] [address], [facility] [address] [place] [address], * Methylmalonic Acid, Serum (02/18/2017 10:23 AM EDT) Methylmalonic Acid 77 0 - 378 nmol/L [facility] Blood 02/18/2017 10:2 3 AM EDT 02/18/2017 Narrative [facility] (AMBULATORY) - 02/21/2017 5:09 PM EDT Performed at: ??02 - [address] ??[id number] Cancer Registry Manager: Diego Jimenez MD, Phone: ??[phone] Patient Fasting: ??N Karyn Gnun PA-C LAB BLOOD ORDERABLES Final Result Performing Organization Address City/[facility] [address]/ZIP Co de Phone Number [facility] (AMBULATORY) [address] [place] [address], [facility] [address] [place] [id number], * Magnesium (02/18/2017 10:23 AM EDT) Pathologist [facility] Magnesium 2.0 1.3 - 2.7 mg/dL [facility] Blood 02/18/2017 10:2 3 AM EDT 02/18/2017 Narrative [facility]) - 02/21/2017 5:09 PM EDT Performed at: ??01 - [address] ??[id number] Cancer Registry Manager: Marin Farfan MD, Phone: ??[phone] Patient Fasting: ??N Karyn Gunn PA-C LAB BLOOD ORDERABLES Final Result Performing Organization Address [facility] de Phone Number [facility] ([facility]) [address] [place] [address], [facility] [address] [place] [address], * Iron (02/18/2017 10:23 AM EDT) Iron 62 50 - 175 mcg/dL [facility] Blood 02/18/2017 10:2 3 AM EDT 02/18/2017 Narrative [facility] ([facility]) - 02/21/2017 5:09 PM EDT Performed at: ??[address] ??[id number] Cancer Registry Manager: Marin Farfan MD, Phone: ??[phone] Patient Fasting: ??N us Karyn Gunn PA-C LAB BLOOD ORDERABLES Final Result Performing Organization Address [facility] de Phone Number [facility] ([facility]) [address] [place] [address], [facility] [address] [place] [address], * (ABNORMAL) Folate (02/18/2017 10:23 AM EDT) Folate >24.00(H) 3.20 - 20.00 ng/mL [facility] Blood 02/18/2017 10:2 3 AM EDT 02/18/2017 Narrative [facility] ([facility]) - 02/21/2017 5:09 PM EDT Performed at: ?? [address] ??[id number] Cancer Registry Manager: Marin Farfan MD, Phone: ??[phone] Patient Fasting: ??N us Karyn Gunn PA-C LAB BLOOD ORDERABLES Final Result Performing Organization Address [facility] [address]/[facility] Co de Phone Number [facility] ([facility]) [address] [place] [address], [facility] [address] [place] [address], * Ferritin (02/18/2017 10:23 AM EDT) Ferritin 143.00 10.00 - 291.00 ng/mL [facility] Blood 02/18/2017 10:2 3 AM EDT 02/18/2017 Narrative [facility] ([facility]) - 02/21/2017 5:09 PM EDT Performed at: ??01 - [address], [place], [place] ??[id number] Cancer Registry Manager: Marin Farfan MD, Phone: ??[phone] Patient Fasting: ??N Karyn Gunn PA-C LAB BLOOD ORDERABLES Final Result [facility] ([facility]) [address] [place] [address], [facility] [address] [place] [address], * Comprehensive Metabolic Panel (02/18/2017 10:23 AM EDT) Pathologist [facility] Glucose 84 70 - 100 mg/dL [facility] BUN 11 9 - 23 mg/dL [facility] Creatinine 0.70 0.60 - 1.30 mg/dL [facility] eGFR Non Am 94 >60 mL/min/1.7 3 [facility] Comment: National Kidney Foundation Guidelines Stage ? Description ?GFR 1 ? Normal or High ? 90+ 2 ? Mild decrease ?60-89 3 ? Moderate decrease ??30-59 4 ? Severe decrease ?15-29 5 ? Kidney failure ? <15 eGFR Am 114 >60 mL/min/1.7 3 [facility] BUN/Creatinine Ratio 15.7 7.0 - 25.0 [facility] Sodium 142 132 - 146 mmol/L [facility] Potassium 4.9 3.5 - 5.5 mmol/L [facility] Chloride 107 99 - 109 mmol/L [facility] Total CO2 27.0 20.0 - 31.0 mmol/L [facility] Calcium 9.7 8.7 - 10.4 mg/dL [facility] Total Protein 7.1 5.7 - 8.2 g/dL [facility] Albumin 4.40 3.20 - 4.80 g/dL [facility] Globulin 2.7 gm/dL [facility] A/G Ratio 1.6 1.5 - 2.5 g/dL [facility] Total Bilirubin 0.5 0.3 - 1.2 mg/dL [facility] Alkaline Phosphatase 83 25 - 100 U/L [facility] AST (SGOT) 16 0 - 33 U/L [facility] ALT (SGPT) 16 7 - 40 U/L [facility] Blood 02/18/2017 10:2 3 AM EDT 02/18/2017 Narrative [facility] ([facility]) - 02/21/2017 5:09 PM EDT Performed at: ??[address] ??[id number] Cancer Registry Manager: Marin Farfan MD, Phone: ??[phone] Patient Fasting: ??N Karyn Gunn PA-C LAB BLOOD ORDERABLES Final Result [facility] ([facility]) [address] [place] [address], [facility] [address] [place] [address], * (ABNORMAL) CBC (No Diff) (02/18/2017 10:23 AM EDT) WBC 8.68 3.50 - 10.80 10*3/mm3 [facility] RBC 5.44(H) 3.89 - 5.14 10*6/mm3 [facility] Hemoglobin 13.8 11.5 - 15.5 g/dL [facility] Hematocrit 43.9 34.5 - 44.0 % [facility] MCV 80.7 80.0 - 99.0 fL [facility] MCH 25.4(L) 27.0 - 31.0 pg [facility] MCHC 31.4(L) 32.0 - 36.0 g/dL [facility] RDW 17.1(H) 11.3 - 14.5 % [facility] Platelets 293 150 - 450 10*3/mm3 [facility] Blood 02/18/2017 10:2 3 AM EDT 02/18/2017 Narrative [facility] ([facility]) - 02/21/2017 5:09 PM EDT Performed at: ??[address] ??[id number] Cancer Registry Manager: Marin Farfan MD, Phone: ??[phone] Patient Fasting: ??N Karyn Gunn PA-C LAB BLOOD ORDERABLES Final Result Performing Organization Address City/State/[facility] Co de Phone Number [facility] ([facility]) [address] [place] [address], [place] [phone] [facility] [address] [place] [id number], documented in this encounter Visit Diagnoses Diagnosis Status post bariatric surgery- Primary Bariatric surgery status Morbid obesity due to excess calories Hypothyroidism, unspecified type Leukocytosis, unspecified type GERD without esophagitis Esophageal reflux documented in this encounter Care Teams Naturopathic Doctor Relationship Specialty Start Date End Date Jasmin Ahumada PA PCP - General Physician Creative Arts Therapist 01/17/17 documented as of this encounter
--- OUTSIDE RECORDS SUMMARY | 2024-08-03 08:09 | XMS_ITS | Encounter Summary ---
[facility] Organization [facility] Address [address] [place] [address] Care Team Providers Care Route Sales Person Name Role Phone Jasmin Ahumada Primary Care Provider [phone] Reason for Referral * Diagnostic Imaging (Routine) - Closed Specialty Diagnoses / Procedures Referred By Contac t Referred To Contact Radiology Diagnoses Dysphagia, unspecified type Procedures FL Upper GI Single Contrast With KUB Olive Thomson PA [address] [place] [address] Phone: tel: fax: [place] [phone] Phone: tel: Referral ID Status Reason Start Date Expiration Date Visits Re quested Visits Authorized [id number] Closed 08/17/2017 08/17/2018 1 1 Reason for Visit * Diagnostic Imaging (Routine) - Closed Specialty Diagnoses / Procedures Referred By Contac t Referred To Contact Radiology Diagnoses Dysphagia, unspecified type Procedures FL Upper GI Single Contrast With KUB Olive Thomson PA [address] [place] [address] Phone: tel: fax: [address] [address] Phone: tel: Referral ID Status Reason Start Date Expiration Date Visits Re quested Visits Authorized [id number] Closed 08/17/2017 08/17/2018 1 1 Encounter Details Date Type Department Care Team (Latest Contact Info) Description 08/22/2017 9:23 AM EST - 08/22/2017 11:59 PM EST Hospital Encounter [facility] XRAY [address] [place] [id number] Olive Thomson PA [address] [place], [place] [id number] Dysphagia, unspecified type Discharge Disposition: Home or Self Care Social History Tobacco Use Types Packs/Day Years [...] Industry 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 Multiple Vitamins-Minerals (MULTIVITAMIN WITH MINERALS) tablet tablet Take 1 tablet by mouth Daily. ursodiol (ACTIGALL) 300 MG capsule 300 mg 2 (Two) Times a Day. 04/11/2017 02/15/2018 vitamin E 100 UNIT capsule Take 100 Units by mouth Daily. 02/15/2018 documented as of this encounter Plan of Treatment Not on file documented as of this encounter Procedures Procedure Name Priority Date/Time Associated Diagnosis Comments FL UPPER GI SINGLE CONTRAST W KUB Routine 08/22/2017 9:58 AM EST Dysphagia, unspecified type documented in this encounter Results [...] this exam. 8 associated images were saved. [facility] imaging reveals a nonobstructive bowel gas pattern. [...] this exam. 8 associated images were saved. [facility] imaging reveals a nonobstructive bowel gas pattern. [...] Olive FIERRO IMG FLUOROSCOPY ORDERABLES Final Result documented in this encounter Visit Diagnoses Diagnosis Dysphagia, unspecified type documented in this encounter Care Teams Route Sales Person Relationship Specialty Start Date End Date Jasmin Ahumada PA PCP - General Physician Public Policy Associate 01/17/17 documented as of this encounter
--- OUTSIDE RECORDS SUMMARY | 2024-08-03 08:09 | XMS_ITS | Encounter Summary ---
[facility] Address [address] [place] [address] Care Team Providers Care Communications Advisor Name Role Phone Jasmin Ahumada Primary Care Provider [phone] Encounter Details Date Type Department Care Team (Late st Contact Info) Description 01/28/2017 2:30 PM EDT Office Visit [facility] BARI[facility]RIC SURGERY [address] [facility] [place] [address] [place] [address] Karyn Gunn, PA-C [address] [place] [address] Status post bariatric surgery (Primary Dx); Morbid obesity due to excess calories; Rash Social History Tobacco Use Types Packs/Day Years [...] Job Start Date Job End Date 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, 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 Not on file Not on fi le Not on file documented as of this encounter Last Filed Vital Signs Vital Sign Reading Time Taken Comments Blood Pressure 118/70 01/28/2017 2:26 PM EDT Pulse 84 01/28/2017 2:26 PM EDT Temperature 36.7 ??C (98 ??F) 01/28/2017 2:26 PM EDT Respiratory Rate 18 01/28/2017 2:26 PM EDT Oxygen Saturation 99% 01/28/2017 2:26 PM EDT Inhaled Oxygen Concentration - - Weight 138 kg (304 lb 8 oz) 01/28/2017 2:26 PM E DT Height 170.2 cm (5' 7 ) 01/28/2017 2:26 PM EDT Body Mass Index 47.69 01/28/2017 2:26 PM EDT documented in this encounter Progress Notes * Karyn Gunn, PA - 01/28/2017 2:30 PM EDT [facility] BARIATRIC SURGERY [address] [facility] [address] Jelena Saha. 1980 REASON FOR VISIT: 1 week post-op HPI: Jelena Saha is a 36 y.o. female. 1 week s/p LSG by Dr. Cunha on 01/20/17. Overall feeling good. Reports redness and itching around each incision. Says sx started 3 days ago but has progressivelyworsened. Benadryl cream not helping. No fevers/AP, o/w doing fine. she denies: Abdominal pain, Nausea, Vomiting, Dysphagia, Diarrhea, Constipation, Fatigue and Reflux. Tolerating stage 1 diet w/out issue. she states that she is eating 90 grams of protein per day. She reports drinking 64-oz. of water per day,??no carbonated beverage consumption. she is taking Omeprazole and Lovenox . She's not started on recommended vitamins. Ambulating often. Pre-surgery weight:321 lbs. Today's weight is (!) 30 4 lb 8 oz (138 kg) pounds,??today's BMI is Body mass index is 47.69 kg/(m^2).,??and??her weight loss since surgery is 17 pounds. Past 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: Diagnosis Date ??? [...] WISDOM TOOTH EXTRACTION Current Outpatient Prescriptions: ??? HYDROcodone-acetaminophen (NORCO) 7.5-325 MG per tablet, Take 1 tablet by mouth Every 6 (Six) Hours As Needed for Moderate Pain (4-6)., Disp: 30 tablet, Rfl: 0 ??? levothyroxine (SYNTHROID, LEVOTHROID) 137 MCG tablet, Take 137 mcg by mouth daily., Disp: , Rfl: ??? omeprazole (PRILOSEC) 20 MG capsule, Take 1 capsule by mouth Daily., Disp: 60 capsule, Rfl: 1 No Known Allergies Social History Social History ??? Marital status: Spouse name: N/A ??? Number of children: N/A ??? Years of education: N/A Occupational History ??? 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 Smoking status: Former Smoker Years: 10.00 Types: Cigarettes Quit date: 2013 ??? Smokeless tobacco: Never Used Comment: is around secondhand smoke infrequently ??? Alcohol use No ??? Drug use: No ??? Sexual activity: Defer Comment: Nexplanon Other Topics Concern ??? Not on file Social History Narrative with 2 male children, lives in [place], [place] and works for the [employer]. Lives with two children and boyfriend. Review of Systems General ROS: Negative for - fatigue Ophthalmic ROS: Negative for - vision changes ENT ROS: Negative for - swallowing difficulty Respiratory ROS: no cough, shortness of breath, or wheezing Cardiovascular ROS: no chest pain or dyspnea on exertion Gastrointestinal ROS: Negative for - abdominal pain, constipation, diarrhea, heartburn/reflux, nausea/vomiting Neurological ROS: Negative for - dizziness, numbness/tingling of extremities, memory loss Dermatological ROS: Positive for - Hair loss Physical Exam: BP 118/70 (BP Location: Left arm, Patient Position: Sitting, Cuff Size: Large Adult) Pulse 84 Temp 98 ??F (36.7 ??C) (Temporal Artery ) Resp 18 Ht 67 (170.2 cm) Wt (!) 304 lb 8 oz (138 kg) SpO2 99% BMI 47.69 kg/m2 General Appearance: Well nourished. In no acute distress. Patient was observed to be obese. Oral Cavity: Buccal Mucosa: The buccal mucosa was moist. Lungs: Normal breath sounds/voice sounds. Cardiovascular: Heart Rate And Rhythm: Heart rate and rhythm normal. Edema: No calf tenderness. Abdomen: Abdomen:incisions healing well. Redness around each incision appears allergic, no induration. Auscultation: The bowel sounds were normal. Palpation: [...] normal and the skin temperature was normal. Assessment/Plan: 1 week s/p LSG, the patient is doing well. ICD-10-CM ICD-9-CM 1. Status post bariatric surgery Z98.84 V45.86 2. Morbid obesity due to excess calories E66.01 278.01 ?? Advised to remove as much of the skin glue as possible. Can take Benadryl for itching and use OTC hydrocortisone cream. ?? Call if sx persist/worsen. ?? Advised to start recommended vitamins and Biotin. Activity restrictions: no lifting, pushing or pulling over 25lbs for 3 weeks. Recommended patient be sure to get at least 70g protein per day, preferably > 100 gams of protein per day. Discussed with the patient the recommended amount of water per day to intake. Reviewed vitamin requirements. Be sure to do routine exercise and increase activity as tolerated. Advance diet per the manual. No ASA, NSAIDs, or steroids for 6 weeks. ??? The patient was counseled regarding post op bariatric manual ??? Instructed to call the office for concerns, questions, or problems. ??? The patient was instructed to follow up in 3 weeks. Karyn Gunn, PAC documented in this encounter Plan of Treatment Not on file documented as of this encounter Visit Diagnoses Diagnosis Status post bariatric surgery- Primary Bariatric surgery status Morbid obesity due to excess calories Rash Rash and other nonspecific skin eruption documented in this encounter Care Teams Communications Advisor Relationship Specialty Start Date End Date Jasmin Ahumada PA PCP - General Physician Knit Tubing Dyer 01/17/17 documented as of this encounter
--- OUTSIDE RECORDS SUMMARY | 2024-08-03 08:09 | XMS_ITS | Encounter Summary ---
[facility] Address [address] [place] [address] Care Team Providers Care Packager Or Packer And Weigher Name Role Phone Jasmin Ahumada Primary Care Provider [phone] Reason for Visit * Auth/Cert Specialty Diagnoses / Procedures Referred By Contac t Referred To Contact Diagnoses Morbid obesity with BMI of 50.0-59.9, adult Morbid obesity with BMI of 50.0-59.9, adult [E66.01, Z68.43] Procedures GASTRIC SLEEVE LAPAROSCOPIC Referral ID Status Reason Start Date Expiration Date Visits Re quested Visits Authorized [id number] 1 Encounter Details Date Type Department Care Team (Latest Contact Info) Description 01/20/2017 6:12 AM EDT - 01/21/2017 4:10 PM EDT Hospital Encounter [facility] [address] [place] [address] Shane Cunha MD [address] [place] [address] Morbid obesity with BMI of 50.0-59.9, adult Discharge Disposition: Home or Self Care Social [...] Job 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, 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 Not on file Not on fi le Not on file documented as of this encounter Last Filed Vital Signs Vital Sign Reading Time Taken Comments Blood Pressure 123/65 01/21/2017 8:00 AM EDT Pulse 58 01/21/2017 8:00 AM EDT Temperature 37.1 ??C (98.7 ??F) 01/21/2017 8:00 AM ED T Respiratory Rate 18 01/21/2017 8:00 AM EDT Oxygen Saturation 96% 01/21/2017 8:00 AM EDT Inhaled Oxygen Concentration - - Weight 146 kg (321 lb) 01/20/2017 3:00 PM EDT Height 167.6 cm (5' 6 ) 01/20/2017 3:00 PM EDT Body Mass Index 51.81 01/20/2017 3:00 PM EDT documented in this encounter Discharge Instructions * Attachments The following attachments cannot be sent through Care Everywhere. * BARIATRIC SURGERY INFORMATION (CYMRAES) * OMEPRAZOLE TABLETS (OTC) (CYMRAES) * ENOXAPARIN INJECTION (CYMRAES) * ACETAMINOPHEN; HYDROCODONE TABLETS OR CAPSULES (CYMRAES) documented in this encounter Medications at Time of Discharge levothyroxine (SYNTHROID, LEVOTHROID) 137 MCG tablet Take 137 mcg by mouth daily. enoxaparin (LOVENOX) 40 MG/0.4ML solution syringe Inject 0.4 mL under the skin Daily for 21 doses. 11.2 mL 01/04/2017 01/25/2017 HYDROcodone-acet aminophen (NORCO) 7.5-325 MG per tablet Take 1 tablet by mouth Every 6 (Six) Hours As Needed for Moderate Pain (4-6). 30 tablet 01/21/2017 02/18/2017 omeprazole (PRILOSEC) 20 MG capsule Take 1 capsule by mouth Daily. 60 capsule 1 01/21/2017 04/26/2017 documented as of this encounter Progress Notes * Korin Flores MD - 01/21/2017 2:58 PM EDT Bariatric Surgery Progress Note: Chief Complaint: POD #1 Subjective Interval History: Doing well. No complaints. Pain controlled. Denies N/V. No fevers. Ambulating. Voiding. IS 2000 Objective Vital Signs Blood pressure 123/65, pulse 58, temperature 98.7 ??F (37.1 ??C), temperature source Oral, resp. rate 18, height 66 (167.6 cm), weight (!) 321 lb (146 kg), SpO2 96 %. Intake/Output Summary (Last 24 hours) at 01/21/17 8638 Last data filed at 01/21/17 1007 Gross per 24 hour Intake 0 ml Output 2250 ml Net -2250 ml Physical Exam: General: Alert, NAD Lungs: Clear Heart: RRR Abdomen: soft, appropriate, incisions okay Extremities: warm, (+) SCDs Labs: Lab Results (last 24 hours) Procedure Component Value Units Date/Time CBC & Differential [[id number]] Collected: 01/21/17441 Specimen: Blood Updated: 01/21/17522 Narrative: The following orders were created for panel order CBC & Differential. Procedure Abnormality Status --------- ------ CBC Auto Differential[[id number]] Abnormal Final result Please view results for these tests on the individual orders. CBC Auto Differential [[id number]] (Abnormal) Collected: 01/21/17441 Specimen: Blood Updated: 01/21/17522 WBC 14.40 (H) 10*3/mm3 RBC 4.65 10*6/mm3 Hemoglobin 11.8 g/dL Hematocrit 37.7 % MCV 81.1 fL MCH 25.4 (L) pg MCHC 31.3 (L) g/dL RDW 16.1 (H) % RDW-SD 47.9 fl MPV 10.3 fL Platelets 319 10*3/mm3 Neutrophil % 84.9 (H) % Lymphocyte % 11.7 (L) % Monocyte % 3.0 % Eosinophil % 0.0 % Basophil % 0.1 % Immature Grans % 0.3 % Neutrophils, Absolute 12.24 (H) 10*3/mm3 Lymphocytes, Absolute 1.68 10*3/mm3 Monocytes, Absolute 0.43 10*3/mm3 Eosinophils, Absolute 0.00 (L) 10*3/mm3 Basophils, Absolute 0.01 10*3/mm3 Immature Grans, Absolute 0.04 (H) 10*3/mm3 Comprehensive Metabolic Panel [[id number]] (Abnormal) Collected: 01/21/17441 Specimen: Blood Updated: 01/21/17542 Glucose 106 (H) mg/dL BUN 9 mg/dL Creatinine 0.60 mg/dL Sodium 136 mmol/L Potassium 4.8 mmol/L Chloride 103 mmol/L CO2 26.0 mmol/L Calcium 8.9 mg/dL Total Protein 6.2 g/dL Albumin 3.60 g/dL ALT (SGPT) 18 U/L AST (SGOT) 16 U/L Alkaline Phosphatase 78 U/L Total Bilirubin 0.4 mg/dL eGFR Non Amer 112 mL/min/1.73 Globulin 2.6 gm/dL A/G Ratio 1.4 (L) g/dL BUN/Creatinine Ratio 15.0 Anion Gap 7.0 mmol/L Narrative: National Kid[employer] Guidelines Stage Description GFR 1 Normal or High 90+ 2 Mild decrease 60-89 3 Moderate decrease 30-59 4 Severe decrease 15-29 5 Kidney failure <15 Iron [[id number]] (Abnormal) Collected: 01/21/17441 Specimen: Blood Updated: 01/21/17542 Iron 24 (L) mcg/dL Assessment/Plan POD # 1 s/p LSG. Doing well. UGI normal post-sleeve, images reviewed. IV iron given for low Fe. Patient feels well and has met discharge criteria. Will discharge home with follow up in 1 week with PA. Rx given for Lortab, omeprazole. Discharge instructions reviewed with patient and all questions answered. She will begin her Lovenox this evening (x 3 weeks). Has Rx already filled at home. 01/21/17 2:58 PM Korin Flores MD * Teresa Bautista RN - 01/21/2017 8:30 AM EDT Discharge Planning Assessment [place] Patient Name: Jelena Saha Today's Date: 01/21/2017 Admit Date: 01/20/2017 Discharge Needs Assessment 01/21/17 0827 Living Environment Lives With significant other;child(dami), dependent Living Arrangements mobile home Provides Primary Care For no one Quality Of Family Relationships supportive;helpful;involved Able to Return to Prior Living Arrangements yes Discharge Needs Assessment Concerns To Be Addressed no discharge needs identified;denies needs/concerns at this time Readmission Within The Last 30 Days no previous admission in last 30 days Anticipated Changes Related to Illness none Equipment Currently Used at Home none Equipment Needed After Discharge none Transportation Available car;family or friend will provide Discharge Disposition home or self-care Discharge Contact Information if Applicable Jacques Chaudhari, significant other [phone] Discharge Plan 01/21/17827 Case Management/Social Work Plan Plan Home Patient/Family In Agreement With Plan yes Additional Comments Spoke with patient at bedside regarding discharge planning. Patient denies use of Home Health or DME. Denies difficulty affording medications. Patient lives with her significant other and 2 dependent children in a mobile home. No anticipated discharge needs noted. Patient plans to discharge home via car with family to transport when medically ready. Discharge Placement No information found Expected Discharge Date and Time Expected Discharge Date Expected Discharge Time January 21, 2017 Demographic Summary 01/21/17825 Referral Information Admission Type inpatient Referral Source admission list Reason For Consult discharge planning Record Reviewed clinical discipline documentation;history and physical;patient profile Primary Care Physician Information Name SRI Schulz Functional Status 01/21/17825 Functional Status Current Current Functional Level Comment Per Nursing Assessment Functional Status Prior Ambulation 0-->independent Transferring 0-->independent Toileting 0-->independent Bathing 0-->independent Dressing 0-->independent Eating 0-->independent Communication 0-->understands/communicates without difficulty Swallowing 0-->swallows foods/liquids without difficulty IADL Medications independent Meal Preparation independent Housekeeping independent Laundry independent Shopping independent Oral Care independent Activity Tolerance Current Activity Limitations lifting restrictions Usual Activity Tolerance excellent Current Activity Tolerance good Employment/Financial Employment/Finance Comments AET[employer] Better Health Psychosocial None Abuse/Neglect None Legal None Substance Abuse None Patient Forms None Teresa Bautista RN documented in this encounter H&P Notes * Shane Cunha MD - 01/20/2017 12:00 PM EDT H&P reviewed. The patient was examined and there are no changes to the H&P. Source Note - Shane Cunha MD - 01/04/2017 3:00 PM EDT Images from the original note were not included. [facility] BARIATRIC SURGERY [address] [facility] [address] Patient Name: Jelena Saha. : 1980 Date of Visit: 01/04/2017 Chief Complaint: weight gain; unable to maintain weight loss. Preop LSG History of Present Illness: Jelena Saha is a 36 y.o. female who presents today for evaluation, education and consultation regarding weight loss surgery. The patient is interested in sleeve gastrectomy (previous AGBR 05/2016) Jelena has been overweight for at least 26 years, has been 35 pounds or more overweight for at least30 years, has been 100 pounds or more overweight for 26 or more years and started dieting at age 24. Jelena describes her eating habits as emotional eater. Previous diet attempts include: None; Weight Watchers; None. The most weight Jelena lost was 50 pounds on lapband but was only able to maintain that weight loss for 1 yr. Her maximum lifetime weight is 333 pounds. She has done her medical weight loss, and is s/p band removal by GDW 05/2016. She is here today for H&P update. She has passed psychology (Dr. Echols, 03/03/16), and had favorable cardiac (10/19/16, [place] for Dr. Riggins) and pulmonary (10/27/16 Dr. Oliveros) clearances. Returns for final visit prior to LSG. Aware at her BMI LSG may be 1st stage procedure. No problems w AGBR. Doesn't like old port site scar. Pt is aware that LSG after prev AGB/AGBR carries increased risk over primary LSG alone, dottie wrt bleeding, infection, leak, prolonged OR times with incr risk pulm complications and VTE, etc and still wishes to proceed. Agreed to post op lovenox injxns, but doesn't like them. Says Dr. Galo required post op Lovenox w orig AGB, but Jewed him down to 10 doses rather than the usual 14 at that time. Aware my rec 21, agreeable. Had HC w AGBR w/o prob. Past 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: Diagnosis Date ??? Carpal tunnel syndrome ??? 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 Dysphagia ??? Fatigue ??? Fibromyalgia ??? GERD (gastroesophageal reflux disease) better after AGR removed. ??? Hypothyroidism w/hx partial thyroidectomy ??? Morbid obesity ??? Obesity ??? Scoliosis ??? Wears contact lenses Past Surgical History: Procedure Laterality Date ??? CARDIAC CATHETERIZATION no stents, diagnostic, normal ??? SECTION x 2 ??? COLONOSCOPY 2014 ??? ENDOSCOPY N/A 04/28/2016 Procedure: ESOPHAGOGASTRODUODENOSCOPY WITH BIOPSY; Surgeon: Shane Cunha MD; Location: [facility] ENDOSCOPY; Service: ??? GASTRIC BANDING REMOVAL N/A 06/17/2016 Procedure: GASTRIC BANDING REMOVAL LAPAROSCOPIC; Surgeon: Shane Cunha MD; Location: [facility] OR; Service: ??? LAPAROSCOPIC GASTRIC BANDING APS, JSO 2007 ??? LIPOMA EXCISION left abdomen ??? STEROID INJECTION most recently 05/2016, wrist ??? THYROIDECTOMY, PARTIAL ??? TONSILLECTOMY ??? WISDOM TOOTH EXTRACTION Nexplanon implant LUE No Known Allergies Current Outpatient Prescriptions: ??? levothyroxine (SYNTHROID, LEVOTHROID) 137 MCG tablet, Take 137 mcg by mouth daily., Disp: , Rfl: ??? Cholecalciferol (VITAMIN D3) 5000 UNITS capsule capsule, Take 5,000 Units by mouth Daily., Disp: , Rfl: ??? DULoxetine (CYMBALTA) 60 MG capsule, Take 60 mg by mouth Daily., Disp: , Rfl: ??? gabapentin (NEURONTIN) 300 MG capsule, Take 300 mg by mouth 3 (Three) Times a Day., Disp: , Rfl: Social History Social History ??? Marital status: Spouse name: N/A ??? Number of children: N/A ??? Years of education: N/A Occupational History ??? 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 Smoking status: Former Smoker Years: 10.00 Types: Cigarettes Quit date: 2013 ??? Smokeless tobacco: Never Used Comment: is around secondhand smoke infrequently ??? Alcohol use No ??? Drug use: No ??? Sexual activity: Defer Comment: Nexplanon Other Topics Concern ??? Not on file Social History Narrative with 2 male children, lives in [place], [place] and works for the [employer]. Lives with two children and boyfriend. Family History Problem Relation Age of Onset ??? Heart murmur Mother ??? Hypertension Mother ??? Heart attack Father 54 ??? Hypertension Father ??? Diabetes Maternal Grandmother Review of Systems: Constitutional: The patient reports fatigue, weight gain and denies fevers and chills. Cardiovascular: The patient reports none and denies HTN, HLD, CP, DC, heart disease, DVT and edema. Respiratory: The patient reports none and denies asthma, apnea and PE. Gastrointestinal: The patient reports heartburn and denies pancreatitis, liver disease and IBS. Genitourinary: The patient denies renal insufficiency. Musculoskeletal: The patient reports joint pain, fibromyalgia and denies arthritis and autoimmune disease. Neurological: The patient reports none and denies seizure and stroke. Psychiatric: The patient reports none and denies anxiety, depression and bipolar disorder. Endocrine: The patient reports thyroid disease and denies diabetes and gout. Hematologic: The patient reports none and denies anemia and bleeding disorder. Skin: The patient denies MRSA. Physical Exam: Vital Signs: Weight: (!) 321 lb (146 kg) Body mass index is 50.28 kg/(m^2). Temp: 97.8 ??F (36.6 ??C) Heart Rate: 84 BP: 128/98 Physical Exam Constitutional: She is oriented to person, place, and time. She appears well- developed and well-nourished. No distress. HENT: Head: Normocephalic and atraumatic. Mouth/Throat: No oropharyngeal exudate. Eyes: EOM are normal. Pupils are equal, round, and reactive to light. No scleral icterus. Neck: Normal range of motion. Neck supple. Carotid bruit is not present. No thyromegaly present. Well-healed collar incision Cardiovascular: Normal rate, regular rhythm, normal heart sounds and intact distal pulses. Pulmonary/Chest: Effort normal and breath sounds normal. No respiratory distress. Abdominal: Soft. She exhibits no distension. There is no tenderness. Musculoskeletal: Normal range of motion. She exhibits no edema or deformity. Neurological: She is alert and oriented to person, place, and time. No cranial nerve deficit. Skin: Skin is warm and dry. No erythema. Psychiatric: She has a normal mood and affect. Her behavior is normal. Judgment and thought contentnormal. Patient Active Problem List Diagnosis ??? Dysphagia Greg - HC x 1 w AGBR Assessment: Jelena Saha is a 36 y.o. year old female with medically complicated obesity pursuing sleeve gastrectomy. Weight loss surgery is deemed medically necessary given the following obesity related comorbiditiesincluding knee pain and fibromyalgia with current Weight: (!) 321 lb (146 kg) and Body mass index is 50.28 kg/(m^2).. Patient is aware that surgery is a tool, and that weight loss is not guaranteed but only seen in the context of appropriate use, follow up and exercise. Complications of laparoscopic/possible robotic gastric sleeve were discussed. The patient is well aware of the potential complications of surgery that include but not limited to bleeding, infections,deep venous thrombosis, pulmonary embolism, pulmonary complications such as pneumonia, cardiac events, hernias, small bowel obstruction, damage to the spleen or other organs, bowel injury, disfiguring scars, failure to lose weight, need for additional surgery, conversion to an open procedure, and . Patient is also aware of complications which apply in this particular procedure that can include but are not limited to a leak at the staple line which in some instances may require conversionto gastric bypass. Greater than 10 minutes was spent with the patient discussing avoiding all tobacco products and second hand smoke at least 2 weeks pre-operatively and 6 weeks post-operatively to minimize the risk ofsleeve leak Discussed the risks, benefits and alternative therapies at great length as outlined in our extensive consent forms, consent videos, and educational teaching process under the direction of the center's scientific programmer analyst. A copy of the patient's signed informed consent is on file. R/B/A Rx discussed to postop anticoagulation incl but not limited to bleeding, drug reaction, venothromboembolic events, etc. and agreeable to taking post op lovenox. Prescription 40 mg SQ Q AM #21 Plan: The consultation plan and program requirements were reviewed with the patient. The patient has been advised that a letter of medical support must be obtained from her primary care physician or referring provider. A psychological evaluation will be arranged. A nutritional evaluation will be performed. The patient was advised to start a high protein and low carbohydrate diet. Necessary lifestyle modifications were discussed. Instructions on how to access ABBY was given to the patient. ABBY is an internet based educational video that explains the surgical procedure chosen and answers basicquestions regarding that procedure. Preoperative testing will include: CBC, CMP, Fasting Lipids, TSH, H.Pylori, CXR, EKG and already had EGD before band was taken out. Additional preop clearances required prior to surgery: Cardiac and Pulmonary. Both already done (see HPI) Patient understands that bariatric surgery is not cosmetic surgery but rather a tool to help make alifelong commitment to lifestyle changes including diet, exercise, behavior modifications, and healthy habits. I spent 60 minutes with the patient and over half the time was spent counseling. Shane Cunha MD documented in this encounter Nursing Notes * Magdalena House RN - 01/21/2017 2:29 PM EDT Problem: Patient Care Overview (Adult) Goal: Plan of Care Review Outcome: Ongoing (interventions implemented as appropriate) 01/21/17 1428 Coping/Psychosocial Response Interventions Plan Of Care Reviewed With patient Patient Care Overview Progress improving Outcome Evaluation Outcome Summary/Follow up Plan Pt has ambulated several times, drinking protein, watched educational video. Sitting in the bed comfortably. Goal: Adult Individualization and Mutuality Outcome: Ongoing (interventions implemented as appropriate) 01/20/17 1545 Individualization Patient Specific Interventions monitor pain and nausea prn Problem: Bariatric Surgery (Open/Laparoscopic) (Adult,Pediatric) Goal: Signs and Symptoms of Listed Potential Problems Will be Absent or Manageable (Bariatric Surgery) Outcome: Ongoing (interventions implemented as appropriate) 01/21/17 1428 Bariatric Surgery (Open/Laparoscopic) Problems Assessed (Bariatric Surgery) all Problems Present (Bariatric Surgery) pain * Tanesha Kelley RN - 01/21/2017 3:55 AM EDT Problem: Patient Care Overview (Adult) Goal: Plan of Care Review Outcome: Ongoing (interventions implemented as appropriate) Goal: Adult Individualization and Mutuality Outcome: Ongoing (interventions implemented as appropriate) Goal: Discharge Needs Assessment Outcome: Ongoing (interventions implemented as appropriate) Problem: Bariatric Surgery (Open/Laparoscopic) (Adult,Pediatric) Goal: Signs and Symptoms of Listed Potential Problems Will be Absent or Manageable (Bariatric Surgery) Outcome: Ongoing (interventions implemented as appropriate) * Magdalena House RN - 01/20/2017 3:47 PM EDT Problem: Patient Care Overview (Adult) Goal: Plan of Care Review Outcome: Ongoing (interventions implemented as appropriate) 01/20/17 1545 Coping/Psychosocial Response Interventions Plan Of Care Reviewed With patient Patient Care Overview Progress progress toward functional goals as expected Outcome Evaluation Outcome Summary/Follow up Plan pt states she has some pain, gave morphine, pt resting well in the bed. Encouraged ambulating and incentive spirometer Goal: Adult Individualization and Mutuality Outcome: Ongoing (interventions implemented as appropriate) 01/20/17 1545 Individualization Patient Specific Interventions monitor pain and nausea prn Problem: Bariatric Surgery (Open/Laparoscopic) (Adult,Pediatric) Goal: Signs and Symptoms of Listed Potential Problems Will be Absent or Manageable (Bariatric Surgery) Outcome: Ongoing (interventions implemented as appropriate) 01/20/17 1545 Bariatric Surgery (Open/Laparoscopic) Problems Assessed (Bariatric Surgery) all Problems Present (Bariatric Surgery) pain * Karyn Rivera RN - 01/20/2017 7:35 AM EDT Problem: Perioperative Period (Adult) Goal: Signs and Symptoms of Listed Potential Problems Will be Absent or Manageable (Perioperative Period) Outcome: Ongoing (interventions implemented as appropriate) * Karyn Rivera RN - 01/20/2017 7:35 AM EDT Problem: Patient Care Overview (Adult) Goal: Plan of Care Review Outcome: Ongoing (interventions implemented as appropriate) documented in this encounter OR Notes * Brief Op Note - Shane Cunha MD - 01/20/2017 1:57 PM EDT GASTRIC SLEEVE LAPAROSCOPIC Procedure Note Jelena Saha 01/20/2017 Pre-op Diagnosis: Morbid obesity with BMI of 50.0-59.9, adult [E66.01, Z68.43] Post-op Diagnosis: Post-Op Diagnosis Codes: * Morbid obesity with BMI of 50.0-59.9, adult [E66.01, Z68.43] Procedure/CPT?? Codes: [place] LAP, JEAN PAUL RESTRICT PROC, LONGITUDINAL GASTRECTOMY [37415] [place] ESOPHAGOGASTRODUODENOSCOPY TRANSORAL DIAGNOSTIC [36193] Procedure(s): GASTRIC SLEEVE LAPAROSCOPIC Surgeon(s): Shane Cunha MD Anesthesia: General with Block Staff: Green Prize Packer: Luna Castellanos RN; Ayla Mares RN Scrub Person: Jolene Riggs; Kyara Pérez Electrotype Servicer: Myra Ang CNA; Jessica Joy Estimated Blood Loss: * No values recorded between 01/20/2017 12:06 PM and 01/20/2017 1:57 PM * Urine Voided: * No values recorded between 01/20/2017 12:06 PM and 01/20/2017 1:57 PM * Specimens: ID Type Source Tests Collected by Time Destination A : SUB-TOTAL GASTRECTOMY Tissue Stomach TISSUE EXAM Shane Cunha MD 01/20/2017 1317 Drains: Naso/Oral/Gastric Tube 01/20/17 1252 [place] sump;orogastric center mouth (Active) Findings: Complications: none Shane Cunha MD Date: 01/20/2017 Time: 1:57 PM * Op Note - Shane Cunha MD - 01/20/2017 6:12 AM EDT DATE OF PROCEDURE: 01/20/2017 PREOPERATIVE DIAGNOSIS: Supermorbid obesity with multiple comorbidities, status post laparoscopic Lap-Band placement 09/2007 and removal 05/2016. POSTOPERATIVE DIAGNOSIS: Supermorbid obesity with multiple comorbidities, status post laparoscopic Lap-Band placement 09/2007 and removal 05/2016. PROCEDURES PERFORMED: 1. Laparoscopic sleeve gastrectomy (85% subtotal vertical gastrectomy) over a 36-Lithuanian bougie dilator. 2. Esophagogastroduodenoscopy. SURGEON: Shane Cunha MD ANESTHESIA: General endotracheal. ESTIMATED BLOOD LOSS: 50 mL. FLUIDS: Crystalloid. SPECIMENS: Subtotal gastrectomy. DRAINS: None. COUNTS: Correct. COMPLICATIONS: None. INDICATIONS: This is a 36-year-old super morbidly obese white female, status post laparoscopic Lap-Band placement by Dr. Galo in 09/2007. I removed the band in 05/2016 for intolerance. She presentsnow for elective revision to a sleeve gastrectomy. She understands that this carries increased riskover primary sleeve gastrectomy alone, especially with respect to bleeding, infection, leak, prolonged operative times with increased risk of pulmonary complications and venothromboembolic events, etc., and wished to proceed. She has undergone our extensive education, teaching, and consent process;everything is in order. DESCRIPTION OF PROCEDURE: The patient brought to the operating room and placed supine upon the operating room table. SCD hose were placed. She underwent uneventful general endotracheal anesthesia perthe Anesthesiology staff. She received IV Ancef and subcutaneous Lovenox. The Anesthesiology staff performed a TAP block, and her abdomen was prepped and draped with ChloraPrep in a sterile fashion. An Ioban was used as well. A Peña catheter was not placed. The peritoneal cavity was entered in theupper abdomen to the left of midline using an 11 mm trocar and an Optiview technique, and the abdomen insufflated to pressure of 15 mmHg with CO2 gas. Exploratory laparoscopy revealed no evidence of injury from the entrance technique, normal-appearing liver, mild rectus diastasis; no other abnormalities. Later in the case, the gallbladder was visualized and unremarkable. Remaining trocars were placed under direct visualization, including an additional 11 mm trocar on the left, 5 mm trocars in the right upper quadrant and left subcostal position, and underneath a deep skin fold to the right ofthe umbilicus off the midline, a 15 mm trocar was placed. Through a stab incision in the epigastrium, a Tess retractor was used to elevate the left lobe of liver. Some adhesions of the undersurface of the left lobe of the liver to the lesser omentum were divided and this allowed exposure of the hiatus. No visible hiatal hernia from the anterior view; this was photodocumented. Beginning approximately two-thirds of the way around the greater curvature of the stomach, the gastrocolic vessels were divided with the Harmonic scalpel. This proceeded proximally, taking down all the short gastric vessels and exposing the left clemencia along its length. There were no posterior hernias or lipomas. The old Lap-Band tunnel was opened up as well posteriorly and this was photodocumented. Gastrocolic vessels were then divided medially to 5 cm proximal to the pylorus. Some of the anterior remaining imbrications were sharply divided, taking care to avoid a gastrotomy. The Anesthesiology staff passed [id number] blunt-tip bougie dilator which was manipulated along the lesser curvature into the distalantrum. The 85% subtotal vertical sleeve gastrectomy was then performed over the 36-Lithuanian bougie dilator using an [place] 60 mm articulating electric GST stapler. The first firing was a black load, the next 5 firings were green loads; all included a single absorbable Veritas Amanda-Strip. After clamping down the final green load and prior to firing it, the bougie dilator was removed. The sleeve was performed such that it was uniform in size; no hourglassing or narrowing, especially at the angularis, and the final firing was done a centimeter away from the angle of Hiss to hopefully avoid incorporating esophageal fibers. The second to last staple line, the jimmy did not appear as well-formed as I would like and this was oversewn using running 2-0 Vicryl suture. There is also an area of poor staple formation in the midportion of the first staple line and this was oversewn with a tulozt-ry-wawjg 2-0 Vicryl suture. The sleeve was submerged under saline. I performed upper endoscopy. I advanced the endoscope into the duodenal bulb. No air bubbles or leaks seen; no bleeding from the staple line; no narrowing at the angularis; no gastritis; no pyloric spasm or deformity; no hiatal herniaor Leyva's esophagus, and the endoscope was withdrawn. I inspected the subtotal gastrectomy specimen. Jimmy were all well-formed on the specimen side. It was sent unopened to pathology for permanent section. Irrigation fluid was suctioned free. The sleeve was resting nicely and hemostatic. The sleeve staple line was treated; 4 mL of aerosolized Tisseel fibrin glue, forming a nice seal. Photodo cumentation of the sleeve was obtained. The Tess retractor was removed. Fascia at the 15 mm trocar site incision was closed with a horizontal mattress 0 Vicryl suture, placed with a suture passer under direct visualization and tying the knot extracorporeally. Fascia was infiltrated with approximately 10 mL of 0.25% Marcaine with epinephrine, with the okay from Anesthesia. Remaining trocars were removed under direct visualization; no bleeding noted from their sites. Subcutaneous tissue in the 15 mm incision was closed with a [id number]-gywda 2-0 Vicryl Plus suture, and the skin in each incision was closed using 3-0 Monocryl Plus in an interrupted subcuticular stitch, followed by Skin Affix. The patient tolerated the procedure well without complication and was taken to recovery room in stable condition. MD LEOBARDO Faustin/ms Voice Rec. ID #[id number] Voice Original ID #[id number] Doc ID #[id number] Rev. #0 cc: documented in this encounter Plan of Treatment Scheduled Orders Name Type Priority Associated Diagnoses Orde r Schedule Incentive Spirometer / Coughing Exercises at Least 4 Times / Day for 2 Weeks Respiratory Care Routine Morbid obesity with BMI of 50.0-59.9, adult Ordered: 01/21/2017 documented as of this encounter Procedures Procedure Name Priority Date/Time Associated Diagnosis Comments FL UPPER GI SINGLE CONTRAST W KUB Routine 01/21/2017 9:00 AM EDT CBC WITH AUTO DIFFERENTIAL Routine 01/21/2017 4:42 AM EDT CBC AND DIFFERENTIAL Routine 01/21/2017 4:42 AM EDT IRON Routine 01/21/2017 4:42 AM EDT COMPREHENSIVE METABOLIC PANEL Routine 01/21/2017 4:42 AM EDT TISSUE PATHOLOGY EXAM Routine 01/20/2017 1:17 PM EDT Morbid obesity with BMI of 50.0-59.9, adult GASTRIC SLEEVE LAPAROSCOPIC 01/20/2017 11:51 AM EDT Morbid obesity with BMI of 50.0-59.9, adult POCT PEFORM URINE Routine 01/20/2017 7:50 AM EDT SCANNED - TELEMETRY 01/20/2017 SCANNED - TELEMETRY 01/20/2017 documented in this encounter Results * FL Upper GI Single Contrast With KUB (01/21/2017 9:00 AM EDT) Anatomical Region Laterality Modality Body N/A Radio Fluoroscop y 01/21/2017 3:49 PM EDT Impressions 01/21/2017 3:49 PM EDT Status post vertical sleeve gastrectomy. There was no evidence of extraluminal contrast. There was no delay in gastric emptying. ?? This report was finalized on 01/21/2017 3:[address] Harpreet Villafuerte MD. Narrative 01/21/2017 3:49 PM EDT EXAMINATION: FL UPPER GI SINGLE CONTRAST W KUB- INDICATION: sleeve water soluble; E66.01-Morbid (severe) obesity due to excess calories; Z68.43-Body mass index (bmi) 50-59.9 , adult ? TECHNIQUE: 1 minute and 12 seconds of fluoroscopic time was used for this exam. 8 associated images were saved. Antique Jewel[employer] Repairer imaging reveals a nonobstructive bowel gas pattern. There is a suture line visible in left upper quadrant. COMPARISON: NONE FINDINGS: Under fluoroscopic observation, the patient ingested water-soluble contrast. The oral phase of deglutition appeared normal. The esophageal mucosa appeared grossly normal. There was no evidence of a focal esophageal stricture. Examination of the stomach demonstrated postoperative changes that are consistent with a vertical sleeve gastrectomy. No extravasation of contrast was seen. The gastric folds and gastric mucosa appeared grossly normal. There was no evidence of a gastric or duodenal ulcer. There was no delay in gastric emptying. The duodenal bulb and duodenal C-loop appeared grossly normal. Procedure Note Ditsch, Kari, PA - 01/21/2017 EXAMINATION: FL UPPER GI SINGLE CONTRAST W KUB- INDICATION: sleeve water soluble; E66.01-Morbid (severe) obesity due to excess calories; Z68.43-Body mass index (bmi) 50-59.9 , adult TECHNIQUE: 1 minute and 12 seconds of fluoroscopic time was used for this exam. 8 associated images were saved. Antique Jewelry Repairer imaging reveals a nonobstructive bowel gas pattern. There is a suture line visible in left upper quadrant. COMPARISON: NONE FINDINGS: Under fluoroscopic observation, the patient ingested water-soluble contrast. The oral phase of deglutition appeared normal. The esophageal mucosa appeared grossly normal. There was no evidence of a focal esophageal stricture. Examination of the stomach demonstrated postoperative changes that are consistent with a vertical sleeve gastrectomy. No extravasation of contrast was seen. The gastric folds and gastric mucosa appeared grossly normal. There was no evidence of a gastric or duodenal ulcer. There was no delay in gastric emptying. The duodenal bulb and duodenal C-loop appeared grossly normal. IMPRESSION: Status post vertical sleeve gastrectomy. There was no evidence of extraluminal contrast. There was no delay in gastric emptying. This report was finalized on 01/21/2017 3:[address] Harpreet Villafuerte MD. Shane Cunha MD IM FLUOROSCOPY ORDERABLES Final Result * (ABNORMAL) CBC Auto Differential (01/21/2017 4:42 AM EDT) WBC 14.40(H) 3.50 - 10.80 10*3/mm3 01/21/2017 5:23 AM EDT [facility] RBC 4.65 3.89 - 5.14 10*6/mm3 01/21/2017 5:23 AM EDT [facility] Hemoglobin 11.8 11.5 - 15.5 g/dL 01/21/2017 5:23 AM EDT [facility] Hematocrit 37.7 34.5 - 44.0 % 01/21/2017 5:23 AM EDT [facility] MCV 81.1 80.0 - 99.0 fL 01/21/2017 5:23 AM [facility] MCH 25.4(L) 27.0 - 31.0 pg 01/21/2017 5:23 AM [facility] MCHC 31.3(L) 32.0 - 36.0 g/dL 01/21/2017 5:23 AM [facility] RDW 16.1(H) 11.3 - 14.5 % 01/21/2017 5:[facility] RDW-SD 47.9 37.0 - 54.0 fl 01/21/2017 5:23 AM [facility] MPV 10.3 6.0 - 12.0 fL 01/21/2017 5:23 AM [facility] Platelets 319 150 - 450 10*3/mm3 01/21/2017 5:23 AM [facility] Neutrophil % 84.9(H) 41.0 - 71.0 % 01/21/2017 5:23 AM [facility] Lymphocyte % 11.7(L) 24.0 - 44.0 % 01/21/2017 5:23 AM [facility] Monocyte % 3.0 0.0 - 12.0 % 01/21/2017 5:23 AM [facility] Eosinophil % 0.0 0.0 - 3.0 % 01/21/2017 5:23 AM [facility] Basophil % 0.1 0.0 - 1.0 % 01/21/2017 5:23 AM [facility] Immature Grans % 0.3 0.0 - 0.6 % 01/21/2017 5:23 AM [facility] Neutrophils, Absolute 12.24(H) 1.50 - 8.30 10*3/mm3 01/21/2017 5:23 AM [facility] Lymphocytes, Absolute 1.68 0.60 - 4.80 10*3/mm3 01/21/2017 5:23 AM [facility] Monocytes, Absolute 0.43 0.00 - 1.00 10*3/mm3 01/21/2017 5:23 AM EDT [facility] Eosinophils, Absolute 0.00(L) 0.10 - 0.30 10*3/mm3 01/21/2017 5:23 AM EDT [facility] Basophils, Absolute 0.01 0.00 - 0.20 10*3/mm3 01/21/2017 5:23 AM EDT [facility] Immature Grans, Absolute 0.04(H) 0.00 - 0.03 10*3/mm3 01/21/2017 5:23 AM EDT [facility] Blood 01/21/2017 4:42 AM EDT 01/21/2017 5:14 AM EDT Shane Cunha MD LAB BLOOD ORDERABLES Final Result [facility]
[address] [place] [address], * (ABNORMAL) Comprehensive Metabolic Panel (01/21/2017 4:42 AM EDT) Glucose 106(H) 70 - 100 mg/dL 01/21/2017 5:43 AM EDT [facility] BUN 9 9 - 23 mg/dL 01/21/2017 5:43 AM EDT [facility] Creatinine 0.60 0.60 - 1.30 mg/dL 01/21/2017 5:43 AM EDT [facility] Sodium 136 132 - 146 mmol/L 01/21/2017 5:43 AM EDT [facility] Potassium 4.8 3.5 - 5.5 mmol/L 01/21/2017 5:43 AM EDT [facility] Chloride 103 99 - 109 mmol/L 01/21/2017 5:43 AM EDT [facility] CO2 26.0 20.0 - 31.0 mmol/L 01/21/2017 5:43 AM EDT [facility] Calcium 8.9 8.7 - 10.4 mg/dL 01/21/2017 5:43 AM EDT [facility] Total Protein 6.2 5.7 - 8.2 g/dL 01/21/2017 5:43 AM EDT [facility] Albumin 3.60 3.20 - 4.80 g/dL 01/21/2017 5:43 AM [facility] ALT (SGPT) 18 7 - 40 U/L 01/21/2017 5:43 AM T [facility] AST (SGOT) 16 0 - 33 U/L 01/21/2017 5:43 AM [facility] Alkaline Phosphatase 78 25 - 100 U/L 01/21/2017 5:43 AM [facility] Total Bilirubin 0.4 0.3 - 1.2 mg/dL 01/21/2017 5:43 AM [facility] eGFR Non Amer 112 >60 mL/min/1.7 3 01/21/2017 5:43 AM [facility] Globulin 2.6 gm/dL 01/21/2017 5:43 AM [facility] A/G Ratio 1.4(L) 1.5 - 2.5 g/dL 01/21/2017 5:43 AM [facility] BUN/Creatinine Ratio 15.0 7.0 - 25.0 01/21/2017 5:43 AM [facility] Anion Gap 7.0 3.0 - 11.0 mmol/L 01/21/2017 5:43 AM [facility] Blood 01/21/2017 4:42 AM EDT 01/21/2017 5:14 AM EDT [facility] - 01/21/2017 5:43 AM EDT [employer] Guidelines Stage ? Description ?GFR 1 ? Normal or High ? 90+ 2 ? Mild decrease ?60-89 3 ? Moderate decrease ??30-59 4 ? Severe decrease ?15-29 5 ? Kidney failure ? <15 Shane Cunha MD LAB BLOOD ORDERABLES Final Result Performing Organization Address [facility] de Phone Number [facility]
[address] [place] [address], * (ABNORMAL) Iron (01/21/2017 4:42 AM EDT) [facility] Iron 24(L) 50 - 175 mcg/dL 01/21/2017 5:43 AM EDT [facility] Blood 01/21/2017 4:42 AM EDT 01/21/2017 5:14 AM EDT Shane Cunha MD LAB BLOOD ORDERABLES Final Result Performing Organization Address [facility] de Phone Number [facility]
[address] [place] [address], * Tissue Exam (01/20/2017 1:17 PM EDT) [facility] Case Report Surgical Pathology Report ? Case: [id number] ? Authorizing Provider: ??Shane Cunha MD ? Collected: ? 01/20/2017 01:17 PM ? [facility] ?? Received: ?01/20/2017 02:48 PM ? OR ? Pathologist: ? Nabeel Brooks MD ? Specimen: ?Stomach, SUB-TOTAL GASTRECTOMY ? 01/21/2017 3:57 PM [facility] Clinical Information The working history is morbid obesity. 01/21/2017 3:57 PM [facility] Final Diagnosis STOMACH, SUBTOTAL GASTRECTOMY: Reactive gastropathy. Negative for significant active inflammation, dysplasia, and neoplasia. JFNikita/jennifer 01/21/2017 3:57 PM [facility] Gross Description Received in formalin labeled as subtotal gastrectomy is a 20.0 x 5.0 x 4.5 cm intact, unopened subtotal gastrectomy specimen. The serosa is mccracken/pink and smooth with prominent vasculature and a minimal amount of attached fat. The lumen contains bloody fluid and the mucosa is mccracken/pink and focally congested with normal rugae folds. No masses, polyps or ulcers are identified. [employer]eral [employer] Inspector sections are submitted in cassettes A-C. HBM/dlb 01/21/2017 3:57 PM [facility] Microscopic Description Sections show gastric pit hyperplasia with pits which are elongated and somewhat tortuous. There is no significant active inflammation or intestinal metaplasia. The underlying lamina propria shows an increase in chronic inflammatory cells without nodular aggregates as well as increase in connective tissue elements including small slips of smooth muscle which extend to the surface epithelium. the underlying submucosa and muscular layers are unremarkable. 01/21/2017 3:57 PM [facility] Embedded Images 01/21/2017 3:57 PM EDT [facility] Tissue Specimen from stomach / Unknown 01/20/2017 1:17 PM EDT 01/20/2017 2:48 PM EDT Result [facility] Shane Cunha MD PATHOLOGY/CYTOLOGY ORDERAB LES Final Result [facility]
[address] [place] [address], [place] [phone] * POC Urine Test (01/20/2017 7:50 AM EDT) HCG, Urine, QL Negative Negative [facility] Lot Number [id number] ex 06/06 [facility] Internal Positive Control Reactive [facility] Internal Negative Control Presumptive Negative [facility] Urine 01/20/2017 7:50 AM EDT Result [facility] Sly Allen MD POINT OF CARE TEST ORDERABLES Final Result Performing Organization Address City/[facility]/ZIP Co de Phone Number [facility]
[address] [place] [address], [place] [phone] * SCANNED - TELEMETRY (01/20/2017) Anatomical Region Laterality Modality Other [facility] New Onbase ECG ORDERABLES Final Result * SCANNED - TELEMETRY (01/20/2017) Anatomical Region Laterality Modality Other [facility] New Onbase ECG ORDERABLES Final Result documented in this encounter Visit Diagnoses Diagnosis Morbid obesity with BMI of 50.0-59.9, adult Morbid obesity with BMI of 50.0-59.9, adult documented in this encounter Admitting Diagnoses Diagnosis Morbid obesity with BMI of 50.0-59.9, adult documented in this encounter Administered Medications Inactive Administered Medications - up to 3 most recent administrations Medication Order MAR Action Action Date Dose Rate Site acetaminophen (OFIRMEV) injection 1,000 mg 1,000 mg, Intravenous, Administer over 15 Minutes, Every 6 Hours, First dose on Deedee 01/20/17 at 2000, For 3 doses, Do not exceed 4 grams of acetaminophen in a 24 hr period., Is the medication for pre-op use? No, Is the medication used for post-op use? Yes, Is the patient NPO & NPR? Yes Given 01/21/2017 10:07 AM EDT 1,000 mg Given 01/21/2017 2:42 AM EDT 1,000 mg Given 01/20/2017 8:16 PM EDT 1,000 mg CeFAZolin in Sodium Chloride (ANCEF) IVPB solution 3 g 3 g, Intravenous, Administer over 30 Minutes, Every 8 Hours, First dose on Deedee 01/20/17 at 2000, For 2 doses, Refrigerate, Indications: Surgical ProphylaxisIndications:Surgical Prophylaxis Given 01/21/2017 4:53 AM EDT 3 g Given 01/20/2017 8:16 PM EDT 3 g chlorhexidine (PERIDEX) 0.12 % solution 15 mL 15 mL, Mouth/Throat, Once, On Tue01/20/17 at 0815, For 1 dose, Rinse mouth for 60 seconds x 2 doses {BKC} Swish & spit. Do not swallow.Indications:Morbid obesity with BMI of 50.0-59.9, adult Given 01/20/2017 8:09 AM EDT 15 mL Given 01/20/2017 7:57 AM EDT 15 mL cyanocobalamin injection 1,000 mcg 1,000 mcg, Intramuscular, Once, On Tue01/21/17 at 0800, For 1 dose, To be administered Post-op day 1 Given 01/21/2017 10:06 AM EDT 1,000 mcg Right Deltoid enoxaparin (LOVENOX) syringe 40 mg 40 mg, Subcutaneous, Every 12 Hours, First dose on Tue01/20/17 at 2100, Give subcutaneous in abdomen only. Do not massage site after injection. Do not change dose time until after 48 hrs. Given 01/21/2017 10:10 AM EDT 40 mg Right Upper Abdomen Given 01/20/2017 8:16 PM EDT 40 mg Ri ght Lower Abdomen fentaNYL citrate (PF) (SUBLIMAZE) injection 50 mcg 50 mcg, Intravenous, Every 5 Minutes PRN, Moderate Pain, Starting on Deedee 01/20/17 at 1403, For 5 doses, Use filter needle to withdraw dose from ampule. Given 01/20/2017 2:24 PM EDT 50 mcg Given 01/20/2017 2:13 PM EDT 50 mcg ferric gluconate (FERRLECIT) 125 mg in sodium chloride 0.9 % 110 mL IVPB 125 mg, Intravenous, at 110 mL/hr, Administer over 60 Minutes, Once, On Tue01/21/17 at 0900, For 1 dose New Bag 01/21/2017 10:06 AM EDT 125 mg 110 mL/hr HYDROcodone-acetaminophen (NORCO) 7.5-325 MG per tablet 1 tablet 1 tablet, Oral, Every 4 Hours PRN, Moderate Pain, Starting on Tue01/20/17 at 1357, For 10 days, Do not exceed 4g of acetaminophen in a 24 hour period. Given 01/21/2017 3:59 PM EDT 1 tablet HYDROmorphone (DILAUDID) injection 0.5 mg 0.5 mg, Intravenous, Every 5 Minutes PRN, Severe Pain, Starting on Tue01/20/17 at 1403, For 4 doses, Maximum total dose of hydromorphone is 2 mg. Given 01/20/2017 2:39 PM EDT 0.5 mg HYDROmorphone (DILAUDID) tablet 2 mg 2 mg, Oral, Every 4 Hours PRN, Moderate Pain, Severe Pain, also use when can't give Lortab because of IV Tylenol, Starting on Tue01/20/17 at 1357, For 10 days Given 01/21/2017 10:06 AM EDT 2 mg lactated ringers bolus 1,000 mL 1,000 mL, Intravenous, Once, On Tue01/20/17 at 0815, For 1 doseIndications:Morbid obesity with BMI of 50.0-59.9, adult New Bag 01/20/2017 7:57 AM EDT 1,000 mL lactated ringers infusion 150 mL/hr, Intravenous, Continuous, Starting on Tue01/20/17 at 1430 New Bag 01/20/2017 3:17 PM EDT 150 mL/hr 150 mL/hr levothyroxine (SYNTHROID, LEVOTHROID) tablet 137 mcg 137 mcg, Oral, Daily, First dose on Tue01/20/17 at 1430, Take on empty stomach. Given 01/21/2017 10:10 AM EDT 137 mcg Morphine injection 4 mg 4 mg, Intravenous, Every 2 Hours PRN, Moderate Pain, Starting on Deedee 01/20/17 at 1357, For 10 days Morphine sulfate (PF) injection 6 mg 6 mg, Intravenous, Every 2 Hours PRN, Severe Pain, Starting on Deedee 01/20/17 at 1357, For 10 days Given 01/20/2017 8:20 PM EDT 6 mg Given 01/20/2017 6:01 PM EDT 6 mg Given 01/20/2017 3:13 PM EDT 6 mg multiple vitamin (M.V.I. Adult) 10 mL, thiamine (B-1) 100 mg, folic acid 1 mg, pyridoxine (B-6) 25 mg in sodium chloride 0.9 % 1,000 mL infusion 250 mL/hr, Intravenous, Once, On Tue01/21/17 at 0800, For 1 dose, To be started Post-op day 1. New Bag 01/21/2017 10:05 AM EDT 250 mL/hr 250 mL/hr naloxone (NARCAN) injection 0.4 mg 0.4 mg, Intravenous, Every 5 Minutes PRN, Respiratory Depression, Starting on Deedee 01/20/17 at 1357, If respiratory rate is less than 8 breaths/minute or patient is difficult to arouse stop any narcotics and contact physician. Administer slow IV push. Repeat as ordered until patient's respiratory rate is greater than 12 breaths/minute. naloxone (NARCAN) injection 0.4 mg 0.4 mg, Intravenous, Every 5 Minutes PRN, Respiratory Depression, Starting on Deedee 01/20/17 at 1357, If respiratory rate is less than 8 breaths/minute or patient is difficult to arouse stop any narcotics and contact physician. Administer slow IV push. Repeat as ordered until patient's respiratory rate is greater than 12 breaths/minute. ondansetron (ZOFRAN) injection 4 mg 4 mg, Intravenous, Every 6 Hours PRN, Nausea, Vomiting, Starting on Deedee 01/20/17 at 1357 ondansetron (ZOFRAN) tablet 4 mg 4 mg, Oral, Every 6 Hours PRN, Nausea, Vomiting, Starting on Deedee 01/20/17 at 1357 pantoprazole (PROTONIX) injection 40 mg 40 mg, Intravenous, Once, On Deedee 01/20/17 at 0815, For 1 dose, Dilute with 10 mL of 0.9% NaCl and give IV push over 2 minutes.Indications:Mo rbid obesity with BMI of 50.0-59.9, adult Given 01/20/2017 7:57 AM EDT 40 mg pantoprazole (PROTONIX) injection 40 mg 40 mg, Intravenous, Every Bowling Floor Desk Clerk, First dose on Tue01/21/17 at 0600, Dilute with 10 mL of 0.9% NaCl and give IV push over 2 minutes. Given 01/21/2017 5:04 AM EDT 40 mg promethazine (PHENERGAN) injection 12.5 mg 12.5 mg, Intravenous, Every 6 Hours PRN, Nausea, Vomiting, Starting on Deedee 01/20/17 at 1357, For IV administration must dilute in normal saline to 20 mL and give slow IV push If giving IV, dilute dose in 20 mL NS and slow IV push over 3-5 minutes. Administer through large bore vein (not hand or wrist) through running IV line at port furthest from patient's vein. promethazine (PHENERGAN) injection 12.5 mg 12.5 mg, Intramuscular, Every 4 Hours PRN, Nausea, Vomiting, Starting on Tue01/20/17 at 1357, Give Zofran first. Give Phenergan if Zofran not effective. Then if Phenergan not effective, give metoclopramide. If giving IV, dilute dose in 20 mL NS and slow IV push over 3-5 minutes. Administer through large bore vein (not hand or wrist) through running IV line at port furthest from patient's vein. Scopolamine (TRANSDERM-SCOP) 1.5 MG/3DAYS patch 1 patch 1 patch, Transdermal, Administer over 72 Hours, Once, On Tue01/20/17 at 0815, For 1 doseIndications:Morbid obesity with BMI of 50.0-59.9, adult Medication Applied 01/20/2017 7:57 AM EDT 1 patch Behind Left Ear sodium chloride 0.45 % with KCl 20 mEq/L infusion 125 mL/hr, Intravenous, Continuous, Starting on Tue01/21/17 at 0800, Discontinue any other maintenance IVF's New Bag 01/21/2017 10:06 AM EDT 125 mL/hr 125 mL/hr documented in this encounter Active and Recently Administered Medications Times are shown in EDT. Scheduled Medication Order 01/19/2017 01/20/2017 01/21/2017 acetaminophen (OFIRMEV) injection 1,000 mg (COMPLETED) 1,000 mg, Intravenous, Administer over 15 Minutes, Once, On Deedee 01/20/17 at 0815, For 1 dose, Do not exceed 4 grams of acetaminophen in a 24 hr period., Is the medication for pre-op use? Yes, Is the medication used for post-op use? No 1326 (Given - Provider: Kenyatta Phan CRNA) acetaminophen (OFIRMEV) injection 1,000 mg (COMPLETED) 1,000 mg, Intravenous, Administer over 15 Minutes, Every 6 Hours, First dose on Deedee 01/20/17 at 2000, For 3 doses, Do not exceed 4 grams of acetaminophen in a 24 hr period., Is the medication for pre-op use? No, Is the medication used for post-op use? Yes, Is the patient NPO & NPR? Yes 2015 (Given - Provider: Tanesha Kelley RN) 0242 (Given - Provider: Tanesha Kelley RN)1007 (Given - Provider: Magdalena House RN) CeFAZolin in Sodium Chloride (ANCEF) IVPB solution 3 g (COMPLETED) 3 g, Intravenous, Administer over 30 Minutes, Once, On Deedee 01/20/17 at 0815, For 1 dose, Administer within 1 hour of surgical incision. Redose 4 hours from pre-op dose if procedure ongoing or >1.5 L blood loss. Refrigerate, Indications: Surgical Prophylaxis 1206 (Given - Provider: Gianfranco Cerna CRNA) CeFAZolin in Sodium Chloride (ANCEF) IVPB solution 3 g (COMPLETED) 3 g, Intravenous, Administer over 30 Minutes, Every 8 Hours, First dose on Deedee 01/20/17 at 2000, For 2 doses, Refrigerate, Indications: Surgical Prophylaxis 2016 (Given - Provider: Tanesha Kelley RN) 0453 (Given - Provider: Tanesha Kelley RN) chlorhexidine (PERIDEX) 0.12 % solution 15 mL (COMPLETED) 15 mL, Mouth/Throat, Once, On Deedee 01/20/17 at 0815, For 1 dose, Rinse mouth for 60 seconds x 2 doses {BKC} Swish & spit. Do not swallow. 0757 (Given - Provider: Karyn T Rivera, RN)0809 (Given - Provider: Karyn Rivera RN) cyanocobalamin injection 1,000 mcg (COMPLETED) 1,000 mcg, Intramuscular, Once, On Tue01/21/17 at 0800, For 1 dose, To be administered Post-op day 1 1006 (Given - Provid er: Magdalena House RN) enoxaparin (LOVENOX) syringe 40 mg 40 mg, Subcutaneous, Every 12 Hours, First dose on Tue01/20/17 at 2100, Give subcutaneous in abdomen only. Do not massage site after injection. Do not change dose time until after 48 hrs. 2016 (Given - Provider: Tanesha Kelley RN) 1010 (Given - Provider: Magdalena House RN) ferric gluconate (FERRLECIT) 125 mg in sodium chloride 0.9 % 110 mL IVPB (COMPLETED) 125 mg, Intravenous, at 110 mL/hr, Administer over 60 Minutes, Once, On Tue01/21/17 at 0900, For 1 dose 1006 (New Bag - Provider: Magdalena House RN) lactated ringers bolus 1,000 mL (COMPLETED) 1,000 mL, Intravenous, Once, On Tue01/20/17 at 0815, For 1 dose 0757 (New Bag - Provider: Karyn Rivera RN) levothyroxine (SYNTHROID, LEVOTHROID) tablet 137 mcg 137 mcg, Oral, Daily, First dose on Tue01/20/17 at 1430, Take on empty stomach. 1529 (Not Given - Provider: Magdalena House RN - Reason: Other - Comment: PT took this am before surgery) 1010 (Given - Provider: Magdalena House RN) multiple vitamin (M.V.I. Adult) 10 mL, thiamine (B-1) 100 mg, folic acid 1 mg, pyridoxine (B-6) 25 mg in sodium chloride 0.9 % 1,000 mL infusion (COMPLETED) 250 mL/hr, Intravenous, Once, On Tue01/21/17 at 0800, For 1 dose, To be started Post-op day 1. 1005 (New Bag - Provider: Magdalena House RN) pantoprazole (PROTONIX) injection 40 mg (COMPLETED) 40 mg, Intravenous, Once, On Deedee 01/20/17 at 0815, For 1 dose, Dilute with 10 mL of 0.9% NaCl and give IV push over 2 minutes. 0757 (Given - Provider: Karyn Rivera RN) pantoprazole (PROTONIX) injection 40 mg 40 mg, Intravenous, Every Bowling Floor Desk Clerk, First dose on Tue01/21/17 at 0600, Dilute with 10 mL of 0.9% NaCl and give IV push over 2 minutes. 0504 (Given - Provid er: Tanesha Kelley RN) Scopolamine (TRANSDERM-SCOP) 1.5 MG/3DAYS patch 1 patch (CANCELED) 1 patch, Transdermal, Administer over 72 Hours, Once, On Deedee 01/20/17 at 0815, For 1 dose 0757 (Medication Applied - Provider: Karyn Rivera RN) Continuous Medication Order 01/19/2017 01/20/2017 01/21/2017 lactated ringers infusion (CANCELED) 150 mL/hr, Intravenous, Continuous, Starting on Deedee 01/20/17 at 0815 1206 (New Bag - Provider: Kenyatta Phan CRNA)1405 (Stopped - Provider: Kenyatta Phan CRNA) lactated ringers infusion 150 mL/hr, Intravenous, Continuous, Starting on Deedee 01/20/17 at 1430 1517 (New Bag - Provider: Magdalena House, COLEEN) sodium chloride 0.45 % with KCl 20 mEq/L infusion 125 mL/hr, Intravenous, Continuous, Starting on Tue01/21/17 at 0800, Discontinue any other maintenance IVF's 1006 (New Bag - Provider: Magdalena House, RN) PRN Medication Order 01/19/2017 01/20/2017 01/21/2017 albuterol (PROVENTIL) nebulizer solution 0.5% 2.5 mg/0.5mL 2.5 mg, Nebulization, Every 4 Hours PRN, Shortness of Air, Starting on Tue01/20/17 at 1357 bupivacaine-EPINEPHrine PF (MARCAINE w/EPI) 0.25% -[id number] injection (CANCELED) As Needed, Starting on Deedee 01/20/17 at 1248 1248 (Given - Provider: Shane Cunha MD) CloNIDine (CATAPRES) tablet 0.1 mg(Linked Group 1) 0.1 mg, Oral, Every 6 Hours PRN, High Blood Pressure, Starting on Tue01/20/17 at 1357, Given if SBP > 160 1041 (Not Given - Provider: Magdalena House RN - Reason: Other - Comment: pts BP was 123/65) diphenhydrAMINE (BENADRYL) injection 25 mg 25 mg, Intravenous, Every 4 Hours PRN, Itching, Starting on Deedee 01/20/17 at 1357, {BKC} This med may be ordered in other forms and routes. Before giving verify the last time the drug was given by any route/form. 25 mg may be given IV push over less than 1 minute. enoxaparin (LOVENOX) syringe (CANCELED) As Needed, Starting on Deedee 01/20/17 at 1212 1212 (Given - Provider: Shane Cunha MD) fentaNYL citrate (PF) (SUBLIMAZE) injection 50 mcg (CANCELED) 50 mcg, Intravenous, Every 5 Minutes PRN, Moderate Pain, Starting on Deedee 01/20/17 at 1403, For 5 doses, Use filter needle to withdraw dose from ampule. 1413 (Given - Provider: Deepti Ferguson RN)1424 (Given - Provider: Deepti Ferguson RN) fibrin sealant component 4 ML external kit (CANCELED) As Needed, Starting on Deedee 01/20/17 at 1335 1335 (Given - Provider: Shane Cunha MD - Comment: Stomach) HYDROcodone-acetaminophen (NORCO) 7.5-325 MG per tablet 1 tablet 1 tablet, Oral, Every 4 Hours PRN, Moderate Pain, Starting on Deedee 01/20/17 at 1357, For 10 days, Do not exceed 4g of acetaminophen in a 24 hour period. 1559 (Given - Provid er: Magdalena House RN) HYDROmorphone (DILAUDID) injection 0.5 mg (CANCELED) 0.5 mg, Intravenous, Every 5 Minutes PRN, Severe Pain, Starting on Deedee 01/20/17 at 1403, For 4 doses, Maximum total dose of hydromorphone is 2 mg. 1439 (Given - Provider: Deepti Ferguson RN) HYDROmorphone (DILAUDID) tablet 2 mg 2 mg, Oral, Every 4 Hours PRN, Moderate Pain, Severe Pain, also use when can't give Lortab because of IV Tylenol, Starting on Deedee 01/20/17 at 1357, For 10 days 1006 (Given - Provid er: Magdalena House RN) LORazepam (ATIVAN) injection 0.5 mg 0.5 mg, Intravenous, Every 12 Hours PRN, Anxiety, Starting on Deedee 01/20/17 at 1357, For 10 days LORazepam (ATIVAN) tablet 1 mg 1 mg, Oral, Every 12 Hours PRN, Anxiety, Starting on Deedee 01/20/17 at 1357, For 10 days metoclopramide (REGLAN) injection 10 mg 10 mg, Intravenous, Every 6 Hours PRN, Nausea, Starting on Deedee 01/20/17 at 1357 Morphine injection 4 mg(Linked Group 2) 4 mg, Intravenous, Every 2 Hours PRN, Moderate Pain, Starting on Deedee 01/20/17 at 1357, For 10 days Morphine sulfate (PF) injection 6 mg(Linked Group 3) 6 mg, Intravenous, Every 2 Hours PRN, Severe Pain, Starting on Deedee 01/20/17 at 1357, For 10 days 1513 (Given - Provider: Magdalena House RN)1801 (Given - Provider: Magdalena House RN)2020 (Given - Provider: Tanesha Kelley RN) naloxone (NARCAN) injection 0.4 mg(Linked Group 2) 0.4 mg, Intravenous, Every 5 Minutes PRN, Respiratory Depression, Starting on Deedee 01/20/17 at 1357, If respiratory rate is less than 8 breaths/minute or patient is difficult to arouse stop any narcotics and contact physician. Administer slow IV push. Repeat as ordered until patient's respiratory rate is greater than 12 breaths/minute. naloxone (NARCAN) injection 0.4 mg(Linked Group 3) 0.4 mg, Intravenous, Every 5 Minutes PRN, Respiratory Depression, Starting on Deedee 01/20/17 at 1357, If respiratory rate is less than 8 breaths/minute or patient is difficult to arouse stop any narcotics and contact physician. Administer slow IV push. Repeat as ordered until patient's respiratory rate is greater than 12 breaths/minute. ondansetron (ZOFRAN) injection 4 mg(Linked Group 4) 4 mg, Intravenous, Every 6 Hours PRN, Nausea, Vomiting, Starting on Deedee 01/20/17 at 1357 ondansetron (ZOFRAN) tablet 4 mg(Linked Group 4) 4 mg, Oral, Every 6 Hours PRN, Nausea, Vomiting, Starting on Deedee 01/20/17 at 1357 phenol (CHLORASEPTIC) 1.4 % liquid 2 spray 2 spray, Mouth/Throat, Every 2 Hours PRN, Sore Throat, Starting on Deedee 01/20/17 at 1357, {BKC} prochlorperazine (COMPAZINE) injection 5 mg 5 mg, Intravenous, Every 6 Hours PRN, Nausea, Vomiting, Starting on Deedee 01/20/17 at 1358 promethazine (PHENERGAN) injection 12.5 mg(Linked Group 5) 12.5 mg, Intravenous, Every 6 Hours PRN, Nausea, Vomiting, Starting on Deedee 01/20/17 at 1357, For IV administration must dilute in normal saline to 20 mL and give slow IV push If giving IV, dilute dose in 20 mL NS and slow IV push over 3-5 minutes. Administer through large bore vein (not hand or wrist) through running IV line at port furthest from patient's vein. promethazine (PHENERGAN) injection 12.5 mg(Linked Group 5) 12.5 mg, Intramuscular, Every 4 Hours PRN, Nausea, Vomiting, Starting on Deedee 01/20/17 at 1357, Give Zofran first. Give Phenergan if Zofran not effective. Then if Phenergan not effective, give metoclopramide. If giving IV, dilute dose in 20 mL NS and slow IV push over 3-5 minutes. Administer through large bore vein (not hand or wrist) through running IV line at port furthest from patient's vein. simethicone (MYLICON) chewable tablet 80 mg 80 mg, Oral, 4 Times Daily PRN, Flatulence, Starting on Deedee 01/20/17 at 1358 sodium chloride 0.9 % solution (CANCELED) As Needed, Starting on Deedee 01/20/17 at 1247 1247 (Given - Provider: Shane Cunha MD) sterile water irrigation solution (CANCELED) As Needed, Starting on Deedee 01/20/17 at 1247 1247 (Given - Provider: Shane Cunha MD) Linked Groups Order Group 1: CloNIDine (CATAPRES) tablet 0.1 mgJump to med 0.1 mg, Oral, Every 6 Hours PRN, High Blood Pressure, Starting on Deedee 01/20/17 at 1357, Given if SBP > 160 And labetalol (NORMODYNE,TRANDATE) injection 10 mg (CANCELED) 10 mg, Intravenous, Every 3 Hours PRN, High Blood Pressure, Starting on Deedee 01/20/17 at 1357, If SBP remains > 160 after one hour, give Labetalol 10 mg. If SBP remains > 160 after two hours, consult hospitalist. Give by slow IV Push each 20mg (or less) over 2 minutes Group 2: Morphine injection 4 mgJump to med 4 mg, Intravenous, Every 2 Hours PRN, Moderate Pain, Starting on Deedee 01/20/17 at 1357, For 10 days And naloxone (NARCAN) injection 0.4 mgJump to med 0.4 mg, Intravenous, Every 5 Minutes PRN, Respiratory Depression, Starting on Deedee 01/20/17 at 1357, If respiratory rate is less than 8 breaths/minute or patient is difficult to arouse stop any narcotics and contact physician. Administer slow IV push. Repeat as ordered until patient's respiratory rate is greater than 12 breaths/minute. Group 3: Morphine sulfate (PF) injection 6 mgJump to med 6 mg, Intravenous, Every 2 Hours PRN, Severe Pain, Starting on Deedee 01/20/17 at 1357, For 10 days And naloxone (NARCAN) injection 0.4 mgJump to med 0.4 mg, Intravenous, Every 5 Minutes PRN, Respiratory Depression, Starting on Deedee 01/20/17 at 1357, If respiratory rate is less than 8 breaths/minute or patient is difficult to arouse stop any narcotics and contact physician. Administer slow IV push. Repeat as ordered until patient's respiratory rate is greater than 12 breaths/minute. Group 4: ondansetron (ZOFRAN) tablet 4 mgJump to med 4 mg, Oral, Every 6 Hours PRN, Nausea, Vomiting, Starting on Deedee 01/20/17 at 1357 Or ondansetron (ZOFRAN) injection 4 mgJump to med 4 mg, Intravenous, Every 6 Hours PRN, Nausea, Vomiting, Starting on Deedee 01/20/17 at 1357 Group 5: promethazine (PHENERGAN) injection 12.5 mgJump to med 12.5 mg, Intravenous, Every 6 Hours PRN, Nausea, Vomiting, Starting on Deedee 01/20/17 at 1357, For IV administration must dilute in normal saline to 20 mL and give slow IV push If giving IV, dilute dose in 20 mL NS and slow IV push over 3-5 minutes. Administer through large bore vein (not hand or wrist) through running IV line at port furthest from patient's vein. Or promethazine (PHENERGAN) injection 12.5 mgJump to med 12.5 mg, Intramuscular, Every 4 Hours PRN, Nausea, Vomiting, Starting on Deedee 01/20/17 at 1357, Give Zofran first. Give Phenergan if Zofran not effective. Then if Phenergan not effective, give metoclopramide. If giving IV, dilute dose in 20 mL NS and slow IV push over 3-5 minutes. Administer through large bore vein (not hand or wrist) through running IV line at port furthest from patient's vein. documented in this encounter Care Teams Packager Or Packer And Weigher Relationship Specialty Start Date End Date Jasmin Ahumada PA PCP - General Physician Legal Research Analyst 01/17/17 documented as of this encounter
--- OUTSIDE RECORDS SUMMARY | 2024-08-03 08:09 | XMS_ITS | Encounter Summary ---
Author Organization [facility] Address [address] [place] [address] Care Team Providers Care Manager Dish Name Role Phone Rudi Arce MD Primary Care Provider [phone] Encounter Details Date Type Department Care Team (Late st Contact Info) Description 11/15/2016 Documentation [facility]GERY [address] [place] [address] Rachel Robertson MA Social History Tobacco Use Types Packs/Day Years Used Date Smoking Tobacco: Former Cigarettes 2 - 2013 Smokeless Tobacco: Never Alcohol Use Standard Drinks/Week Comments No 0 [...] on filedocumented in this encounter Care Teams Manager Dish Relationship Specialty Start Date End Date Rudi Arce MD [address] [place] [facility] [address] [place] [address] PCP - General Family Medicine 04/22/16 01/16/17 documented as of this encounter
--- OUTSIDE RECORDS SUMMARY | 2024-08-03 08:09 | XMS_ITS | Encounter Summary ---
Author Organization 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, 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 Not on file Not on fi le Not on file documented as of this encounter Plan of Treatment Not on file documented as of this encounter Procedures Procedure Name Priority Date/Time Associated Diagnosis Comments CBC (NO DIFF) Routine 12/24/2016 8:41 AM EDT Dyspnea, unspecified type Fatigue, unspecified type COMPREHENSIVE METABOLIC PANEL Routine 12/24/2016 8:41 AM EDT Dyspnea, unspecified type Fatigue, unspecified type documented in this encounter Results * (ABNORMAL) Comprehensive Metabolic Panel (12/24/2016 8:41 AM EDT) [facility] Glucose 85 70 - 100 mg/dL 12/24/2016 9:43 AM [facility] BUN 10 9 - 23 mg/dL 12/24/2016 9:43 AM [facility] Creatinine 0.70 0.60 - 1.30 mg/dL 12/24/2016 9:43 AM [facility] Sodium 141 132 - 146 mmol/L 12/24/2016 9:43 AM T [facility] Potassium 4.4 3.5 - 5.5 mmol/L 12/24/2016 9:43 AM [facility] Chloride 107 99 - 109 mmol/L 12/24/2016 9:43 AM [facility] CO2 27.0 20.0 - 31.0 mmol/L 12/24/2016 9:43 AM [facility] Calcium 9.1 8.7 - 10.4 mg/dL 12/24/2016 9:43 AM [facility] Total Protein 7.1 5.7 - 8.2 g/dL 12/24/2016 9:43 AM [facility] Albumin 4.10 3.20 - 4.80 g/dL 12/24/2016 9:43 AM [facility] ALT (SGPT) 19 7 - 40 U/L 12/24/2016 9:43 AM [facility] AST (SGOT) 18 0 - 33 U/L 12/24/2016 9:43 AM [facility] Alkaline Phosphatase 96 25 - 100 U/L 12/24/2016 9:43 AM [facility] Total Bilirubin 0.4 0.3 - 1.2 mg/dL 12/24/2016 9:43 AM [facility] eGFR Non Amer 94 >60 mL/min/1.7 3 12/24/2016 9:43 AM [facility] Globulin 3.0 gm/dL 12/24/2016 9:43 AM [facility] A/G Ratio 1.4(L) 1.5 - 2.5 g/dL 12/24/2016 9:43 AM EDT [facility] BUN/Creatinine Ratio 14.3 7.0 - 25.0 12/24/2016 9:43 AM T [facility] Anion Gap 7.0 3.0 - 11.0 mmol/L 12/24/2016 9:43 AM T [facility] Blood Venipuncture / Unknown 12/24/2016 8:41 AM EDT 12/24/2016 8:41 AM EDT Narrative [facility] - 12/24/2016 9:43 AM EDT National Kid[employer] Guidelines Stage ? Description ? GFR ? 1 ? Normal or High ?90+ 2 ? Mild decrease ?60-89 3 ? Moderate decrease ? 30-59 4 ? Severe decrease ? 15-29 5 ? Kidney failure ? <15 Olive FIERRO [facility] BLOOD ORDERABLES Final Result [facility]
[address] [place] [address], * (ABNORMAL) CBC (No Diff) (12/24/2016 8:41 AM EDT) WBC 12.77(H) 3.50 - 10.80 10*3/mm3 12/24/2016 9:15 AM EDT [facility] RBC 4.94 3.89 - 5.14 10*6/mm3 12/24/2016 9:15 AM EDT [facility] Hemoglobin 12.8 11.5 - 15.5 g/dL 12/24/2016 9:15 AM EDT [facility] Hematocrit 40.2 34.5 - 44.0 % 12/24/2016 9:15 AM EDT [facility] MCV 81.4 80.0 - 99.0 fL 12/24/2016 9:15 AM EDT [facility] MCH 25.9(L) 27.0 - 31.0 pg 12/24/2016 9:15 AM EDT [facility] MCHC 31.8(L) 32.0 - 36.0 g/dL 12/24/2016 9:15 AM EDT [facility] RDW 15.7(H) 11.3 - 14.5 % 12/24/2016 9:15 AM EDT [facility] RDW-SD 47.0 37.0 - 54.0 fl 12/24/2016 9:15 AM EDT [facility] MPV 10.0 6.0 - 12.0 fL 12/24/2016 9:15 AM EDT [facility] Platelets 375 150 - 450 10*3/mm3 12/24/2016 9:15 AM EDT [facility] Blood Venipuncture / Unknown 12/24/2016 8:41 AM EDT 12/24/2016 8:41 AM EDT Olive FIERRO [facility] BLOOD ORDERABLES Final Result [facility]
[address] [place] [address], documented in this encounter Visit Diagnoses Diagnosis Dyspnea, unspecified type Fatigue, unspecified type documented in this encounter Care Teams Seafood Technology Specialist Relationship Specialty Start Date End Date Rudi Arce MD [address] [facility] [address] [facility] [address] [place] [address] PCP - General Family Medicine 04/22/16 01/16/17 documented as of this encounter
--- OUTSIDE RECORDS SUMMARY | 2024-08-03 08:09 | XMS_ITS | Encounter Summary ---
Author Organization [facility] Address [address] [place] [address] Care Team Providers Care Crew Clerk Name Role Phone Rudi Arce MD Primary Care Provider [phone] Encounter Details Date Type Department Care Team (Latest Contact Info) Description 12/24/2016 8:18 AM EDT - 12/24/2016 11:59 PM EDT Hospital Encounter [facility] XRAY [address] [place] [id number] Olive Thomson, SRI [address] [place], [place] [id number] Dyspnea, unspecified type; Fatigue, unspecified type Discharge Disposition: Home or Self [...] 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 Cholecalciferol (VITAMIN D3) 5000 UNITS capsule capsule Take 5,000 Units by mouth Daily. 01/17/2017 DULoxetine (CYMBALTA) 60 MG capsule Take 60 mg by mouth Daily. 01/17/2017 gabapentin (NEURONTIN) 300 MG capsule Take 300 mg by mouth 3 (Three) Times a Day. 01/17/2017 documented as of this encounter Plan of Treatment Not on file documented as of this encounter Procedures Procedure Name Priority Date/Time Associated Diagnosis Comments XR CHEST 2 VW Routine 12/24/2016 8:28 AM EDT Dyspnea, unspecified type Fatigue, unspecified type documented in this encounter Results * XR Chest 2 View (12/24/2016 8:28 AM EDT) Anatomical Region Laterality Modality Body N/A Radiographic Danette ging 12/24/2016 11:0 3 AM EDT Impressions 12/24/2016 11:12 AM EDT No active disease. D: ??12/24/2016 E: ??12/24/2016 This report was finalized on 12/24/2016 11:[address] Harpreet Villafuerte MD. Narrative 12/24/2016 11:12 AM EDT EXAMINATION: XR CHEST 2 VIEWS-12/24/2016: INDICATION: Dyspnea; R06.00-Dyspnea, unspecified; R53.83-Other fatigue. COMPARISON: NONE. FINDINGS: The cardiac silhouette is normal. There is no pulmonary inflammatory process, mass or effusion. ? Procedure Note Eliezer Villafuerte MD - 12/24/2016 EXAMINATION: XR CHEST 2 VIEWS-12/24/2016: INDICATION: Dyspnea; R06.00-Dyspnea, unspecified; R53.83-Other fatigue. COMPARISON: NONE. FINDINGS: The cardiac silhouette is normal. There is no pulmonary inflammatory process, mass or effusion. IMPRESSION: No active disease. E: 12/24/2016 This report was finalized on 12/24/2016 11:[address] Harpreet Villafuerte MD. [facility] Final Result documented in this encounter Visit Diagnoses Diagnosis Dyspnea, unspecified type Fatigue, unspecified type documented in this encounter Care Teams Crew Clerk Relationship Specialty Start Date End Date [place], Rudi T, MD [address] [facility] [address] [place] [id number] PCP - General Family Medicine 04/22/16 01/16/17 documented as of this encounter
--- OUTSIDE RECORDS SUMMARY | 2024-08-03 08:09 | XMS_ITS | Encounter Summary ---
[facility] Address [address] [place] [address] Care Team Providers Care Carton Gluing Machine Operator Name Role Phone Rudi Arce MD Primary Care Provider [phone] Encounter Details Date Type Department Care Team (Late st Contact Info) Description 11/23/2016 2:15 PM EST Office Visit [facility] [address] [place] [address] Korin Flores MD [address] [place], [place] [id number] Other fatigue (Primary Dx); Body mass index (BMI) of 50-59.9 in adult; Gastroesophageal reflux disease, esophagitis presence not specified Social History Tobacco Use Types Packs/Day Years [...] Job 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, 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 on file Not on fi le Not on file documented as of this encounter Last Filed Vital Signs Vital Sign Reading Time Taken Comments Blood Pressure 128/76 11/23/2016 2:16 PM EST Pulse 74 11/23/2016 2:16 PM EST Temperature 36.4 ??C (97.5 ??F) 11/23/2016 2:16 PM ES T Respiratory Rate 18 11/23/2016 2:16 PM EST Oxygen Saturation 98% 11/23/2016 2:16 PM EST Inhaled Oxygen Concentration - - Weight 149 kg (329 lb) 11/23/2016 2:16 PM EST Height 170.2 cm (5' 7 ) 11/23/2016 2:16 PM EST Body Mass Index 51.53 11/23/2016 2:16 PM EST documented in this encounter Patient Instructions * Patient Instructions* Korin Flores MD - 11/23/2016 2:15 PM EST As directed. documented in this encounter Progress Notes * Korin Flores MD - 11/23/2016 2:15 PM EST Images from the original note were not included. [facility] [address] [address] Patient Name: Jelena Saha. : 1980 Date of Visit: 11/23/2016 Chief Complaint: weight gain; unable to maintain weight loss History of Present Illness: Jelena Saha is [...] Riggins) and pulmonary (10/27/16 Dr. Oliveros) clearances. Past 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 Diagnosis Date ??? Carpal tunnel syndrome ??? 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 Fatigue ??? Fibromyalgia ??? GERD (gastroesophageal reflux disease) better after AGR removed. ??? Obesity ??? Scoliosis ??? Wears contact lenses Past Surgical History Procedure Laterality Date ??? [place] tooth extraction ??? Tonsillectomy ??? section x 2 ??? Laparoscopic gastric banding APS, JSO 2007 ??? Endoscopy N/A 04/28/2016 Procedure: ESOPHAGOGASTRODUODENOSCOPY WITH BIOPSY; Surgeon: Shane Cunha MD; Location: [facility]; Service: ??? Steroid injection most recently 05/2016, wrist ??? Cardiac catheterization no stents, diagnostic, normal ??? Colonoscopy 2014 ??? Gastric banding removal N/A 06/17/2016 Procedure: GASTRIC BANDING REMOVAL LAPAROSCOPIC; Surgeon: Shane Cunha MD; Location: [facility] OR; Service: ??? Thyroidectomy, partial ??? Lipoma excision left abdomen No Known Allergies Current Outpatient Prescriptions: ??? Cholecalciferol (VITAMIN D3) 5000 UNITS capsule capsule, Take 5,000 Units by mouth Daily., Disp: , Rfl: ??? DULoxetine (CYMBALTA) 60 MG capsule, Take 60 mg by mouth Daily., Disp: , Rfl: ??? gabapentin (NEURONTIN) 300 MG capsule, Take 300 mg by mouth 3 (Three) Times a Day., Disp: , Rfl: ??? levothyroxine (SYNTHROID, LEVOTHROID) 137 MCG tablet, Take 137 mcg by mouth daily., Disp: , Rfl: Social History Social History ??? Marital status: Spouse name: N/A ??? Number of children: N/A ??? Years of education: N/A Occupational History ??? 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 Smoking status: Former Smoker Years: 10.00 Types: Cigarettes Quit date: 2013 ??? Smokeless tobacco: Never Used Comment: is around secondhand smoke infrequently ??? Alcohol use No ??? Drug use: No ??? Sexual activity: Defer Comment: Nexplanon Other Topics Concern ??? Not on file Social History Narrative with 2 male children, lives in [place], [place] and works for the [employer]. Lives with two children and boyfriend. Family History Problem Relation Age of Onset ??? Heart murmur Mother ??? Heart attack Father 54 ??? Diabetes Maternal Grandmother Review of Systems: Constitutional: The patient reports fatigue, weight gain and denies fevers and chills. Cardiovascular: The patient reports none and denies HTN, HLD, CP, [place], heart disease, DVT and edema. Respiratory: The [...] MRSA. Physical Exam: Vital Signs: Weight: (!) 329 lb (149 kg) Body mass index is 51.53 kg/(m^2). Temp: 97.5 ??F (36.4 ??C) Heart Rate: 74 BP: 128/76 Physical Exam Constitutional: She is oriented to person, place, and time. She appears well- developed and well-nourished. No distress. HENT: Head: Normocephalic and atraumatic. Mouth/Throat: No oropharyngeal exudate. Eyes: EOM are normal. Pupils are equal, round, and reactive to light. No scleral icterus. Neck: Normal range of motion. Neck supple. No thyromegaly present. Well-healed collar incision Cardiovascular: [...] Patient Active Problem List Diagnosis ??? Dysphagia Assessment: Jelena Saha is a 36 y.o. year old female with medically complicated obesity pursuing sleeve gastrectomy. Weight loss surgery is deemed medically necessary given the following obesity related comorbiditiesincluding knee pain and fibromyalgia with current Weight: (!) 329 lb (149 kg) and Body mass index is 51.53 kg/(m^2).. Plan: The consultation plan and program requirements [...] over half the time was spent counseling. I spent 3-10 minutes discussion smoking cessation and/or avoidance of second- hand smoke. Korin Flores MD documented in this encounter Plan of Treatment Not on file documented as of this encounter Visit Diagnoses Diagnosis Other fatigue- Primary Body mass index (BMI) of 50-59.9 in adult Gastroesophageal reflux disease, esophagitis presence not specified documented in this encounter Care Teams Carton Gluing Machine Operator Relationship Specialty Start Date End Date Rudi Arce MD [address] [facility] [address] [place] [address] PCP - General Family Medicine 04/22/16 01/16/17 documented as of this encounter
--- OUTSIDE RECORDS SUMMARY | 2024-08-03 08:09 | XMS_ITS | Encounter Summary ---
Author Organization [facility] Address [address] [place] [address] Care Team Providers Care General Matcher Name Role Phone Rudi Arce MD Primary Care Provider [phone] Reason for Referral * Surgical (Routine) - Closed Specialty Diagnoses / Procedures Referred By Ruy iraheta Referred To Contact Diagnoses Morbid obesity with BMI of 50.0-59.9, adult Procedures Case Request Shane Cunha MD [address] [place] [address] Phone: tel: fax: [facility] [address] [place] [address] Referral ID Status Reason Start Date Expiration Date Visits Re quested Visits Authorized [id number] Closed 01/04/2017 01/04/2018 1 1 Encounter Details Date Type Department Care Team (Late st Contact Info) Description 01/04/2017 3:00 PM EDT Consult [facility] [address] [place] [address] Shane Cunha MD [address] [place] [address] Morbid obesity with BMI of 50.0-59.9, adult (Primary Dx) Social History Tobacco Use Types [...] Start Date Job 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, 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 on file Not on fi le Not on file documented as of this encounter Last Filed Vital Signs Vital Sign Reading Time Taken Comments Blood Pressure 128/98 01/04/2017 7:35 AM EDT Pulse 84 01/04/2017 7:35 AM EDT Temperature 36.6 ??C (97.8 ??F) 01/04/2017 7:35 AM ED T Respiratory Rate 18 01/04/2017 7:35 AM EDT Oxygen Saturation 99% 01/04/2017 7:35 AM EDT Inhaled Oxygen Concentration - - Weight 146 kg (321 lb) 01/04/2017 7:35 AM EDT Height 170.2 cm (5' 7 ) 01/04/2017 7:35 AM EDT Body Mass Index 50.28 01/04/2017 7:35 AM EDT documented in this encounter Progress Notes * Shane Cunha MD - 01/04/2017 3:00 PM EDT Images from the original note were not included. [facility] [address] [address] Patient Name: Jelena Saha. : 1980 Date [...] WITH BIOPSY; Surgeon: Shane Cunha MD; Location: [facility]; Service: ??? GASTRIC BANDING REMOVAL N/A 06/17/2016 Procedure: GASTRIC BANDING REMOVAL LAPAROSCOPIC; Surgeon: Shane Cunha MD; Location: [facility]; Service: ??? 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 Smoking status: Former Smoker Years: 10.00 Types: Cigarettes Quit date: 2013 ??? Smokeless tobacco: Never Used Comment: is around secondhand smoke infrequently ??? Alcohol use No ??? Drug use: No ??? Sexual activity: Defer Comment: Nexplanon Other Topics Concern ??? Not on file Social History Narrative with 2 male children, lives in [place], [place] and works for the [employer]. Lives with two children and boyfriend. Family History Problem Relation Age of Onset ??? Heart murmur Mother ??? Hypertension Mother ??? Heart attack Father 54 ??? Hypertension Father ??? Diabetes Maternal Grandmother Review of Systems: Constitutional: The patient reports fatigue, weight gain and denies fevers and chills. Cardiovascular: The patient reports none and denies HTN, HLD, CP, [place], heart disease, DVT and edema. Respiratory: The [...] process under the direction of the center's sales program manager. A copy of the patient's signed informed [...] Shane Cunha MD documented in this encounter Plan of Treatment Not on file documented as of this encounter Visit Diagnoses Diagnosis Morbid obesity with BMI of 50.0-59.9, adult- Primary documented in this encounter Care Teams General Matcher Relationship Specialty Start Date End Date Rudi Arce MD [address] [place] [facility] [address] [facility] [address] [address] PCP - General Family Medicine 04/22/16 01/16/17 documented as of this encounter
--- OUTSIDE RECORDS SUMMARY | 2024-08-03 08:09 | XMS_ITS | Encounter Summary ---
Author Organization [facility]: [address] Address [address] [place] [address] Care Team Providers Care Side Seam Envelope Machine Operator Name Role Phone Jasmin Ahumada Primary Care Provider [phone] Encounter Details Date Type Department Care Team (Late st Contact Info) Description 04/26/2017 10:30 AM EDT Office Visit [facility] BARIATRIC SURGERY [address] [place] [address] Olive Thomson PA [address] [place], [place] [id number] Dyspepsia (Primary Dx); Vitamin deficiency; Hypothyroidism, unspecified type; Fibromyalgia; Morbid obesity, unspecified obesity type; S/P bariatric surgery Social History Tobacco Use [...] Date Job End Date 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, 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 on file Not on fi le Not on file documented as of this encounter Last Filed Vital Signs Vital Sign Reading Time Taken Comments Blood Pressure 141/91 04/26/2017 10:23 AM EDT Pulse 66 04/26/2017 10:23 AM EDT Temperature 36.6 ??C (97.9 ??F) 04/26/2017 10:23 AM E DT Respiratory Rate 18 04/26/2017 10:23 AM EDT Oxygen Saturation 99% 04/26/2017 10:23 AM EDT Inhaled Oxygen Concentration - - Weight 124 kg (274 lb) 04/26/2017 10:23 AM EDT Height 170.2 cm (5' 7 ) 04/26/2017 10:23 AM EDT Body Mass Index 42.91 04/26/2017 10:23 AM EDT documented in this encounter Progress Notes * Olive Thomson PA - 04/26/2017 10:30 AM EDT [facility] Bariatric Surgery [address] [facility] [address] Patient Name: Jelena Saha. : 1980 Date of Visit: 04/29/2017 Reason for Visit: 3 months postop HPI: Jelena Saha is a 36 y.o. female s/p LSG by [facility] on 01/20/17 Doing well. No issues/concerns. Denies dysphagia, reflux, nausea, vomiting and abdominal pain. Getting 70-90g prot/day. Drinking 64 fluid oz/day - mostly water or some unsweet tea. 1 month labs revealed low Vit E. Taking MVI and Vit E. On Omeprazole and Actigall . Exercising - walking 3-4x/week. Presurgery weight: 321 pounds. Today's weight is 274 lb (124 kg) pounds,??today's Body mass index is 42.91 kg/(m^2).,??and??her weight loss since surgery is 47 pounds. Past 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: Diagnosis Date ??? [...] Outpatient Prescriptions Marked as Taking for the 04/26/17 encounter (Office Visit) with [facility] Conley Medication Sig Dispense Refill ??? levothyroxine (SYNTHROID, LEVOTHROID) 137 MCG tablet Take 137 mcg by mouth daily. ??? Multiple Vitamins-Minerals (MULTIVITAMIN WITH MINERALS) tablet tablet Take 1 tablet by mouth Daily. ??? omeprazole (priLOSEC) 20 MG capsule Take 20 mg by mouth Daily. ??? ursodiol (ACTIGALL) 300 MG capsule 300 mg 2 (Two) Times a Day. ??? vitamin E 100 UNIT capsule Take 100 Units by mouth Daily. No Known Allergies Social History Social History ??? Marital status: Spouse name: N/A ??? Number of children: N/A ??? Years of education: N/A Occupational History ??? 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 Smoking status: Former Smoker Years: 10.00 Types: Cigarettes Quit date: 2013 ??? Smokeless tobacco: Never Used Comment: is around secondhand smoke infrequently ??? Alcohol use No ??? Drug use: No ??? Sexual activity: Defer Comment: Nexplanon Other Topics Concern ??? Not on file Social History Narrative with 2 male children, lives in [place], [place] and works for the [employer] Lives with two children and boyfriend. BP 141/91 (BP Location: Left arm, Patient Position: Sitting, Cuff Size: Large Adult) Pulse 66 Temp 97.9 ??F (36.6 ??C) (Temporal Artery ) Resp 18 Ht 67 (170.2 cm) Wt 274 lb (124 kg) EpD801% BMI 42.91 kg/m2 Physical Exam Constitutional: She appears well-developed and well-nourished. She is cooperative. obese HENT: Mouth/Throat: Oropharynx is clear and moist and mucous membranes are normal. Eyes: Conjunctivae are normal. No scleral icterus. Cardiovascular: Normal rate. Pulmonary/Chest: Effort normal. Abdominal: Soft. Bowel sounds are normal. There is no tenderness. Incisions well healed Musculoskeletal: Normal range of motion. She exhibits no edema. Neurological: She is alert. Skin: Skin is warm and dry. No rash noted. Psychiatric: She has a normal mood and affect. Judgment normal. Assessment: 3 months s/p LSG by [facility]DW on 01/20/17 ICD-10-CM ICD-9-CM 1. Dyspepsia R10.13 536.8 2. Vitamin deficiency E56.9 269.2 3. Hypothyroidism, unspecified type E03.9 244.9 4. Fibromyalgia M79.7 729.1 5. Morbid obesity, unspecified obesity type E66.01 278.01 6. S/P bariatric surgery Z98.84 V45.86 Plan: Doing well. Continue w/ good food choices and healthy habits. Continue protein >70g/day. Continue routine exercise. Routine bariatric labs ordered. Continue vitamins w/ adjustments pending lab results. Call w/ problems/concerns. The patient was instructed to follow up in 3 months, sooner if needed. note: approx 15 of the 25 minute visit was spent counseling on nutrition and necessary dietary/lifestyle modifications. documented in this encounter Plan of Treatment Not on file documented as of this encounter Procedures Procedure Name Priority Date/Time Associated Diagnosis Comments METHYLMALONIC ACID, SERUM Routine 04/26/2017 10:50 AM EDT Dyspepsia Vitamin deficiency Hypothyroidism, unspecified type Fibromyalgia VITAMIN B1, WHOLE BLOOD Routine 04/26/2017 10:50 AM EDT Dyspepsia Vitamin deficiency Hypothyroidism, unspecified type Fibromyalgia CBC AND DIFFERENTIAL Routine 04/26/2017 10:50 AM EDT Dyspepsia Vitamin deficiency Hypothyroidism, unspecified type Fibromyalgia VITAMIN E Routine 04/26/2017 10:50 AM EDT Dyspepsia Vitamin deficiency Hypothyroidism, unspecified type Fibromyalgia PREALBUMIN Routine 04/26/2017 10:50 AM EDT Dyspepsia Vitamin deficiency Hypothyroidism, unspecified type Fibromyalgia IRON Routine 04/26/2017 10:50 AM EDT Dyspepsia Vitamin deficiency Hypothyroidism, unspecified type Fibromyalgia FOLATE Routine 04/26/2017 10:50 AM EDT Dyspepsia Vitamin deficiency Hypothyroidism, unspecified type Fibromyalgia FERRITIN Routine 04/26/2017 10:50 AM EDT Dyspepsia Vitamin deficiency Hypothyroidism, unspecified type Fibromyalgia COMPREHENSIVE METABOLIC PANEL Routine 04/26/2017 10:50 AM EDT Dyspepsia Vitamin deficiency Hypothyroidism, unspecified type Fibromyalgia documented in this encounter Results * Vitamin E (04/26/2017 10:50 AM EDT) Vitamin E (Alpha Tocopherol) 7.0 5.3 - 16.8 mg/L [facility] Blood 04/26/2017 10:5 0 AM EDT 04/26/2017 Narrative [facility] ([facility]) - 05/01/2017 4:07 PM EDT Performed at: ??02 - [facility] [address] ??[id number] School Standards Coach: Diego Jimenez MD, Phone: ??[phone] Patient Fasting: ??N us Olive FIERRO LAB BLOOD ORDERABLES Final Result [facility] ([facility]) [address] [place] [address], [facility] [address] [place] [address], * Vitamin B1, Whole Blood (04/26/2017 10:50 AM EDT) Vitamin B1, Whole Blood 163.2 66.5 - 200.0 nmol/L [facility] Blood 04/26/2017 10:5 0 AM EDT 04/26/2017 Narrative [facility] ([facility]) - 05/01/2017 4:07 PM EDT Performed at: ??02 - [facility] [address] ??[id number] School Standards Coach: Diego Jimenez MD, Phone: ??[phone] Patient Fasting: ??N Olive FIERRO LAB BLOOD ORDERABLES Final Result Performing Organization Address [facility] de Phone Number [facility] [address] [place] [address], [facility] [address] [place] [address], * Prealbumin (04/26/2017 10:50 AM EDT) Prealbumin 20 14 - 35 mg/dL [facility] Blood 04/26/2017 10:5 0 AM EDT 04/26/2017 Narrative [facility] (AMBULATORY) - 05/01/2017 4:07 PM EDT Performed at: ??03 - [facility] [place] [address] [place], [place] ??[id number] School Standards Coach: Daniel Espinosa PhD, Phone: ??[phone] Patient Fasting: ??N Olive FIERRO LAB BLOOD ORDERABLES Final Result Performing Organization Address [facility]/ZIP Co de Phone Number [facility] ([facility] [address] [place] [address], [facility] [address] [place] [address], * Methylmalonic Acid, Serum (04/26/2017 10:50 AM EDT) Pathologist [facility] Methylmalonic Acid 100 0 - 378 nmol/L [facility] Blood 04/26/2017 10:5 0 AM EDT 04/26/2017 Narrative [facility] (AMBULATORY) - 05/01/2017 4:07 PM EDT Performed at: ??02 - [address] ??[id number] School Standards Coach: Diego Jimenez MD, Phone: ??[phone] Patient Fasting: ??N Olive FIERRO LAB BLOOD ORDERABLES Final Result Performing Organization Address [facility] de Phone Number [facility] ([facility]) [address] [place] [address], [facility] [address] [place] [address], * (ABNORMAL) Iron (04/26/2017 10:50 AM EDT) [facility] Iron 45(L) 50 - 175 mcg/dL [facility] Blood 04/26/2017 10:5 0 AM EDT 04/26/2017 [facility] (AMBULATORY) - 05/01/2017 4:07 PM EDT Performed at: ??[address] ??[id number] School Standards Coach: Marin Farfan MD, Phone: ??[phone] Patient Fasting: ??N Olive FIERRO LAB BLOOD ORDERABLES Final Result Performing Organization Address [facility]/ZIP Co de Phone Number [facility] ([facility]) [address] [place] [address], [facility] [address] [place] [id number], * Folate (04/26/2017 10:50 AM EDT) Pathologist [facility] Folate 15.93 3.20 - 20.00 ng/mL [facility] Blood 04/26/2017 10:5 0 AM EDT 04/26/2017 Narrative [facility] ([facility]) - 05/01/2017 4:07 PM EDT Performed at: ??[address] ??[id number] School Standards Coach: Marin Farfan MD, Phone: ??[phone] Patient Fasting: ??N Olive FIERRO LAB BLOOD ORDERABLES Final Result Performing Organization Address [facility]/ZIP Co de Phone Number [facility] ([facility]) [address] [place] [address], [place] [phone] [facility] [address] [place] [address], [place] [phone] * Ferritin (04/26/2017 10:50 AM EDT) Ferritin 66.00 10.00 - 291.00 ng/mL [facility] Blood 04/26/2017 10:5 0 AM EDT 04/26/2017 Narrative [facility] ([facility]) - 05/01/2017 4:07 PM EDT Performed at: ??[address] ??[id number] School Standards Coach: Marin Farfan MD, Phone: ??[phone] Patient Fasting: ??N Olive FIERRO LAB BLOOD ORDERABLES Final Result Performing Organization Address City/[facility]/ZIP Co de Phone Number [facility] ([facility]) [address] [place] [address], [place] [phone] [facility] [address] [place] [address], [place] [phone] * (ABNORMAL) Comprehensive Metabolic Panel (04/26/2017 10:50 AM EDT) Glucose 75 70 - 100 mg/dL [facility] BUN 8(L) 9 - 23 mg/dL [facility] Creatinine 0.60 0.60 - 1.30 mg/dL [facility] eGFR Non Am 112 >60 mL/min/1.7 3 [facility] Comment: National Kidney Foundation Guidelines Stage ? Description ?GFR 1 ? Normal or High ? 90+ 2 ? Mild decrease ?60-89 3 ? Moderate decrease ??30-59 4 ? Severe decrease ?15-29 5 ? Kidney failure ? <15 eGFR Am 136 >60 mL/min/1.7 3 [facility] BUN/Creatinine Ratio 13.3 7.0 - 25.0 [facility] Sodium 141 132 - 146 mmol/L [facility] Potassium 4.4 3.5 - 5.5 mmol/L [facility] Chloride 110(H) 99 - 109 mmol/L [facility] Total CO2 27.0 20.0 - 31.0 mmol/L [facility] Calcium 8.7 8.7 - 10.4 mg/dL [facility] Total Protein 6.0 5.7 - 8.2 g/dL [facility] Albumin 4.00 3.20 - 4.80 g/dL [facility] Globulin 2.0 gm/dL [facility] A/G Ratio 2.0 1.5 - 2.5 g/dL [facility] Total Bilirubin 0.3 0.3 - 1.2 mg/dL [facility] Alkaline Phosphatase 81 25 - 100 U/L [facility] AST (SGOT) 14 0 - 33 U/L [facility] ALT (SGPT) 11 7 - 40 U/L [facility] Blood 04/26/2017 10:5 0 AM EDT 04/26/2017 Narrative [facility] ([facility]) - 05/01/2017 4:07 PM EDT Performed at: ?? - [address], [place], [place] ??[id number] School Standards Coach: Marin Farfan MD, Phone: ??[phone] Patient Fasting: ??N us Olive FIERRO LAB BLOOD ORDERABLES Final Result [facility] ([facility]) [address] [place] [address], [facility] [address] [place] [address], * (ABNORMAL) CBC & Differential (04/26/2017 10:50 AM EDT) WBC 10.04 3.50 - 10.80 10*3/mm3 [facility] RBC 5.09 3.89 - 5.14 10*6/mm3 [facility] Hemoglobin 13.0 11.5 - 15.5 g/dL [facility] Hematocrit 41.3 34.5 - 44.0 % [facility] MCV 81.1 80.0 - 99.0 fL [facility] MCH 25.5(L) 27.0 - 31.0 pg [facility] MCHC 31.5(L) 32.0 - 36.0 g/dL [facility] RDW 17.6(H) 11.3 - 14.5 % [facility] Platelets 281 150 - 450 10*3/mm3 [facility] Neutrophil Rel % 64.2 41.0 - 71.0 % [facility] Lymphocyte Rel % 30.0 24.0 - 44.0 % [facility] Monocyte Rel % 4.3 0.0 - 12.0 % [facility] Eosinophil Rel % 1.1 0.0 - 3.0 % [facility] Basophil Rel % 0.2 0.0 - 1.0 % [facility] Neutrophils Absolute 6.45 1.50 - 8.30 10*3/mm3 [facility] Lymphocytes Absolute 3.01 0.60 - 4.80 10*3/mm3 [facility] Monocytes Absolute 0.43 0.00 - 1.00 10*3/mm3 [facility] Eosinophils Absolute 0.11 0.00 - 0.30 10*3/mm3 [facility] Basophils Absolute 0.02 0.00 - 0.20 10*3/mm3 [facility] Immature Granulocyte Rel % 0.2 0.0 - 0.6 % [facility] Immature Grans Absolute 0.02 0.00 - 0.03 10*3/mm3 [facility] Blood 04/26/2017 10:5 0 AM EDT 04/26/2017 Narrative [facility] ([facility]) - 05/01/2017 4:07 PM EDT Performed at: ??[address] [place] [address] ??[id number] [employer] Standards Coach: Marin Farfan MD, Phone: ??[phone] Patient Fasting: ??N us Olive FIERRO LAB BLOOD ORDERABLES Final Result [facility] ([facility]) [address] [place] [address], [place] [phone] [facility] [address] [place] [id number], [place] [phone] documented in this encounter Visit Diagnoses Diagnosis Dyspepsia- Primary Dyspepsia and other specified disorders of function of stomach Vitamin deficiency Unspecified vitamin deficiency Hypothyroidism, unspecified type Fibromyalgia Unspecified myalgia and myositis Morbid obesity, unspecified obesity type S/P bariatric surgery documented in this encounter Care Teams Side Seam Envelope Machine Operator Relationship Specialty Start Date End Date Jasmin Ahumada PA PCP - General Physician [place] [facility] [place] [facility] 01/17/17 documented as of this encounter
--- OUTSIDE RECORDS SUMMARY | 2024-08-03 08:09 | XMS_ITS | Encounter Summary ---
[facility] Address [address] [place] [address] Care Team Providers Care Roofing Subcontractor Name Role Phone Jasmin Ahumada Primary Care Provider [phone] Reason for Visit * Auth/Cert Specialty Diagnoses / Procedures Referred By Contac t Referred To Contact Diagnoses Morbid obesity with BMI of 50.0-59.9, adult Morbid obesity with BMI of 50.0-59.9, adult [E66.01, Z68.43] Procedures GASTRIC SLEEVE LAPAROSCOPIC Referral ID Status Reason Start Date Expiration Date Visits Re quested Visits Authorized [id number] 1 1 Encounter Details Date Type Department Care Team (Late st Contact Info) Description 01/20/2017 11:45 AM EDT - 01/20/2017 1:45 PM EDT Surgery [facility] OR [address] [place] [id number] Shane Cunha MD [address] [place] [address] GASTRIC SLEEVE LAPAROSCOPIC Social History Tobacco Use Types Packs/Day Years [...] 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, 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 Not on file Not on fi le Not on file documented as of this encounter Last Filed Vital Signs Vital Sign Reading Time Taken Comments Blood Pressure 142/83 01/20/2017 8:01 AM EDT Pulse 73 01/20/2017 8:01 AM EDT Temperature 36.9 ??C (98.5 ??F) 01/20/2017 8:01 AM ED T Respiratory Rate 16 01/20/2017 8:01 AM EDT Oxygen Saturation 98% 01/20/2017 8:01 AM EDT Inhaled Oxygen Concentration - - Weight 146 kg (321 lb) 01/20/2017 8:01 AM EDT Height 170.2 cm (5' 7 ) 01/20/2017 8:01 AM EDT Body Mass Index 51.81 01/20/2017 3:00 PM EDT documented in this encounter Discharge Instructions * Attachments The following attachments cannot be sent through Care Everywhere. * BARIATRIC SURGERY INFORMATION ([facility]) * OMEPRAZOLE TABLETS (OTC) ([facility]) * ENOXAPARIN INJECTION ([facility]) * ACETAMINOPHEN; HYDROCODONE TABLETS OR CAPSULES ([facility]) documented in this encounter Medications at Time [...] Intake/Output Summary (Last 24 hours) at 01/21/17 1458 Last data filed at 01/21/17 1007 Gross per 24 hour Intake 0 ml Output 2250 ml Net -2250 ml Physical Exam: General: Alert, NAD Lungs: Clear Heart: RRR Abdomen: soft, appropriate, incisions okay Extremities: warm, (+) SCDs Labs: Lab Results (last 24 hours) Procedure Component Value Units Date/Time CBC & Differential [[id number]] Collected: 01/21/17441 Specimen: Blood Updated: 01/21/17522 Narrative: The following orders were created for panel order CBC & Differential. Procedure Abnormality Status --------- ------ CBC Auto Differential[[id number]] Abnormal Final result Please view results for these tests on the individual orders. CBC Auto Differential [[id number]] (Abnormal) Collected: 01/21/17441 Specimen: Blood Updated: 01/21/17522 [...] Absolute 0.04 (H) 10*3/mm3 Comprehensive Metabolic Panel [[id number]] (Abnormal) Collected: 01/21/17441 Specimen: Blood Updated: 01/21/17542 [...] decrease 15-29 5 Kidney failure <15 Iron [[id number]] (Abnormal) Collected: 01/21/17441 Specimen: Blood Updated: 01/21/17542 [...] 01/21/2017 8:30 AM EDT Discharge Planning Assessment [facility] Patient Name: Jelena Saha Today's Date: 01/21/2017 [...] Information if Applicable Jacques Chaudhari, significant other [phone] Discharge Plan 01/21/17827 Case Management/Social Work Plan [...] Substance Abuse None Patient Forms None Teresa Bautista, RN documented in this encounter H&P Notes * Shane Cunha MD - 01/20/2017 12:00 PM EDT H&P reviewed. The patient was examined and there are no changes to the H&P. Source Note - Shane Cunha MD - 01/04/2017 3:00 PM EDT Images from the original note were not included. [facility] BARIATRIC SURGERY [address] [facility] [id number] Patient Name: Jelena Saha. : 1980 Date [...] WITH BIOPSY; Surgeon: Shane Cunha MD; [facility]; Service: ??? GASTRIC BANDING REMOVAL N/A 06/17/2016 Procedure: GASTRIC BANDING REMOVAL LAPAROSCOPIC; Surgeon: Shane Cunha MD; [facility]; Service: ??? LAPAROSCOPIC GASTRIC BANDING APS, [...] Years of education: N/A Occupational History ??? 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 Smoking status: Former Smoker Years: 10.00 Types: Cigarettes Quit date: 2013 ??? Smokeless tobacco: Never Used Comment: is around secondhand smoke infrequently ??? Alcohol use No ??? Drug use: No ??? Sexual activity: Defer Comment: Nexplanon Other Topics Concern ??? Not on file Social History Narrative with 2 male children, lives in [place], [place] and works for the [employer]. Lives with two children and boyfriend. Family History Problem Relation Age of Onset ??? Heart murmur Mother ??? Hypertension Mother ??? Heart attack Father 54 ??? Hypertension Father ??? Diabetes Maternal Grandmother Review of Systems: Constitutional: The patient reports fatigue, weight gain and denies fevers and chills. Cardiovascular: The patient reports none and denies HTN, HLD, CP, MO, heart disease, DVT and edema. Respiratory: The [...] process under the direction of the center's programmer developer. A copy of the patient's signed informed [...] of 50.0-59.9, adult [E66.01, Z68.43] Procedure/CPT?? Codes: ME LAP, JEAN PAUL RESTRICT PROC, LONGITUDINAL GASTRECTOMY [68045] ME ESOPHAGOGASTRODUODENOSCOPY TRANSORAL DIAGNOSTIC [37811] Procedure(s): GASTRIC SLEEVE LAPAROSCOPIC Surgeon(s): Shane Cunha MD Anesthesia: General with Block Staff: Line Service Person: Luna Castellanos RN; Ayla Mares RN Scrub Person: Jolene Riggs; Kyara Pérez Finish Remover: Myra Ang CNA; Jessica Joy Estimated Blood Loss: * No values recorded between 01/20/2017 12:06 PM and 01/20/2017 1:57 PM * Urine Voided: * No values recorded between 01/20/2017 12:06 PM and 01/20/2017 1:57 PM * Specimens: ID Type Source Tests Collected by Time Destination A : SUB-TOTAL GASTRECTOMY Tissue Stomach TISSUE EXAM Shane Cunha MD 01/20/2017 1317 Drains: Naso/Oral/Gastric Tube 01/20/[address] [facility] sump;orogastric center mouth (Active) Findings: Complications: none [...] gastrectomy (85% subtotal vertical gastrectomy) over a 36-Montserratian bougie dilator. 2. Esophagogastroduodenoscopy. SURGEON: Shane Cunha [...] placed. She underwent uneventful general endotracheal anesthesia pert Anesthesiology staff. She received IV Ancef and [...] avoid a gastrotomy. The Anesthesiology staff passed c39-Abiuoa blunt-tip bougie dilator which was manipulated along the lesser curvature into the distalantrum. The 85% subtotal vertical sleeve gastrectomy was then performed over the 36-Montserratian bougie dilator using an Fountain 60 mm articulating electric GST stapler. The [...] The second to last staple line, the alfa did not appear as well-formed as I would like and this was oversewn using running 2-0 Vicryl suture. There is also an area of poor staple formation in the midportion of the first staple line and this was oversewn with a phfmfo-nl-dftwk 2-0 Vicryl suture. The sleeve was submerged under saline. I performed upper endoscopy. I advanced the endoscope into the duodenal bulb. No air bubbles or leaks seen; no bleeding from the staple line; no narrowing at the angularis; no gastritis; no pyloric spasm or deformity; no hiatal herniaor Leyva's esophagus, and the endoscope was withdrawn. I inspected the subtotal gastrectomy specimen. [place] were all well-formed on the specimen side. [...] 15 mm incision was closed with a jvnboi-bg-lluqf 2-0 Vicryl Plus suture, and the skin in each incision was closed using 3-0 Monocryl Plus in an interrupted subcuticular stitch, followed by Skin Affix. The patient tolerated the procedure well without complication and was taken to recovery room in stable condition. Shane Cunha MD GDW/ms Voice Rec. ID #[id number] Voice Original ID #[id number] Doc ID #[id number] Rev. #0 cc: documented in this encounter [...] this exam. 8 associated images were saved. Bottle Sorter imaging reveals a nonobstructive bowel gas pattern. [...] normal. Procedure Note Kari Becerra PA - 01/21/2017 EXAMINATION: FL UPPER GI SINGLE CONTRAST W KUB- INDICATION: sleeve water soluble; E66.01-Morbid (severe) obesity due to excess calories; Z68.43-Body mass index (bmi) 50-59.9 , adult TECHNIQUE: 1 minute and 12 seconds of fluoroscopic time was used for this exam. 8 associated images were saved. Bottle Sorter imaging reveals a nonobstructive bowel gas pattern. [...] - 10.80 10*3/mm3 01/21/2017 5:23 AM EDT [facility] RBC 4.65 3.89 - 5.14 10*6/mm3 01/21/2017 5:23 AM EDT [facility] Hemoglobin 11.8 11.5 - 15.5 g/dL 01/21/2017 5:23 AM EDT [facility] Hematocrit 37.7 34.5 - 44.0 % 01/21/2017 5:23 AM EDT [facility] MCV 81.1 80.0 - 99.0 fL 01/21/2017 5:23 AM EDT [facility] MCH 25.4(L) 27.0 - 31.0 pg 01/21/2017 5:23 AM [facility] MCHC 31.3(L) 32.0 - 36.0 g/dL 01/21/2017 5:23 AM [facility] RDW 16.1(H) 11.3 - 14.5 % 01/21/2017 5:23 AM [facility] RDW-SD 47.9 37.0 - 54.0 fl 01/21/2017 5:23 AM [facility] MPV 10.3 6.0 - 12.0 fL 01/21/2017 5:23 AM [facility] Platelets 319 150 - 450 10*3/mm3 01/21/2017 5:23 AM [facility] Neutrophil % 84.9(H) 41.0 - 71.0 % 01/21/2017 5:23 AM [facility] Lymphocyte % 11.7(L) 24.0 - 44.0 % 01/21/2017 5:23 AM [facility] Monocyte % 3.0 0.0 - 12.0 % 01/21/2017 5:23 AM [facility] Eosinophil % 0.0 0.0 - 3.0 % 01/21/2017 5:23 AM [facility] Basophil % 0.1 0.0 - 1.0 % 01/21/2017 5:23 AM [facility] Immature Grans % 0.3 0.0 - 0.6 % 01/21/2017 5:23 AM [facility] Neutrophils, Absolute 12.24(H) 1.50 - 8.30 10*3/mm3 01/21/2017 5:23 AM [facility] Lymphocytes, Absolute 1.68 0.60 - 4.80 10*3/mm3 01/21/2017 5:23 AM [facility] Monocytes, Absolute 0.43 0.00 - 1.00 10*3/mm3 01/21/2017 5:23 AM [facility] Eosinophils, Absolute 0.00(L) 0.10 - 0.30 10*3/mm3 01/21/2017 5:23 AM EDT [facility] Basophils, Absolute 0.01 0.00 - 0.20 10*3/mm3 01/21/2017 5:23 AM EDT [facility] Immature Grans, Absolute 0.04(H) 0.00 - 0.03 10*3/mm3 01/21/2017 5:23 AM EDT [facility] Blood 01/21/2017 4:42 AM EDT 01/21/2017 5:14 AM EDT Shane Cunha MD LAB BLOOD ORDERABLES Final Result [facility]
[address] [place] [address], * (ABNORMAL) Comprehensive Metabolic Panel (01/21/2017 4:42 AM EDT) Glucose 106(H) 70 - 100 mg/dL 01/21/2017 5:43 AM EDT [facility] BUN 9 9 - 23 mg/dL 01/21/2017 5:43 AM EDT [facility] Creatinine 0.60 0.60 - 1.30 mg/dL 01/21/2017 5:43 AM EDT [facility] Sodium 136 132 - 146 mmol/L 01/21/2017 5:43 AM EDT [facility] Potassium 4.8 3.5 - 5.5 mmol/L 01/21/2017 5:43 AM EDT [facility] Chloride 103 99 - 109 mmol/L 01/21/2017 5:43 AM EDT [facility] CO2 26.0 20.0 - 31.0 mmol/L 01/21/2017 5:43 AM EDT [facility] Calcium 8.9 8.7 - 10.4 mg/dL 01/21/2017 5:43 AM EDT [facility] Total Protein 6.2 5.7 - 8.2 g/dL 01/21/2017 5:43 AM EDT [facility] Albumin 3.60 3.20 - 4.80 g/dL 01/21/2017 5:43 AM EDT [facility] ALT (SGPT) 18 7 - 40 U/L 01/21/2017 5:43 AM EDT [facility] AST (SGOT) 16 0 - 33 U/L 01/21/2017 5:43 AM [facility] Alkaline Phosphatase 78 25 - 100 U/L 01/21/2017 5:43 AM EDT [facility] Total Bilirubin 0.4 0.3 - 1.2 mg/dL 01/21/2017 5:43 AM [facility] eGFR Non Amer 112 >60 mL/min/1.7 3 01/21/2017 5:43 AM [facility] Globulin 2.6 gm/dL 01/21/2017 5:43 AM [facility] A/G Ratio 1.4(L) 1.5 - 2.5 g/dL 01/21/2017 5:43 AM T [facility] BUN/Creatinine Ratio 15.0 7.0 - 25.0 01/21/2017 5:43 AM [facility] Anion Gap 7.0 3.0 - 11.0 mmol/L 01/21/2017 5:43 AM [facility] Blood 01/21/2017 4:42 AM EDT 01/21/2017 5:14 AM EDT [facility] - 01/21/2017 5:43 AM EDT National Kidney Foundation Guidelines Stage ? Description ?GFR 1 ? Normal or High ? 90+ 2 ? Mild decrease ?60-89 3 ? Moderate decrease ??30-59 4 ? Severe decrease ?15-29 5 ? Kidney failure ? <15 us Shane Cunha MD LAB BLOOD ORDERABLES Final Result Performing Organization Address [facility] de Phone Number [facility]
[address] [place] [address], * (ABNORMAL) Iron (01/21/2017 4:42 AM EDT) [facility] Iron 24(L) 50 - 175 mcg/dL 01/21/2017 5:43 AM EDT [facility] Blood 01/21/2017 4:42 AM EDT 01/21/2017 5:14 AM EDT Shane Cunha MD LAB BLOOD ORDERABLES Final Result Performing Organization Address [facility] de Phone Number [facility]
[address] [place] [address], * Tissue Exam (01/20/2017 1:17 PM EDT) [facility] Case Report Surgical Pathology Report ? Case: [id number] ? Authorizing Provider: ??Shane Cunha MD ? Collected: ? 01/20/2017 01:17 PM ? Ordering Location: ? [facility] ?? Received: ?01/20/2017 02:48 PM ? OR ? Pathologist: ? Nabeel Brooks MD ? Specimen: ?Stomach, SUB-TOTAL GASTRECTOMY ? 01/21/2017 3:57 PM T [facility] Clinical Information The working history is morbid obesity. 01/21/2017 3:57 PM [facility] Final Diagnosis STOMACH, SUBTOTAL GASTRECTOMY: Reactive gastropathy. Negative for significant active inflammation, dysplasia, and neoplasia. JFJ/jennifer 01/21/2017 3:57 PM [facility] Gross Description Received in formalin labeled as subtotal gastrectomy is a 20.0 x 5.0 x 4.5 cm intact, unopened subtotal gastrectomy specimen. The serosa is mccracken/pink and smooth with prominent vasculature and a minimal amount of attached fat. The lumen contains bloody fluid and the mucosa is mccracken/pink and focally congested with normal rugae folds. No masses, polyps or ulcers are identified. Mexican [employer] Machine Tender sections are submitted in cassettes A-C. HBM/dlb 01/21/2017 3:57 PM [facility] Microscopic Description Sections show gastric pit [...] muscular layers are unremarkable. 01/21/2017 3:57 PM [facility] Embedded Images 01/21/2017 3:57 PM [facility] Tissue Specimen from stomach / Unknown 01/20/2017 1:17 PM EDT 01/20/2017 2:48 PM EDT Shane Cunha MD PATHOLOGY/CYTOLOGY ORDERAB LES Final Result Performing Organization Address City/[facility]/ZIP Co de Phone Number [facility]
[address] [place] [address], [place] [phone] * POC Urine Test (01/20/2017 7:50 AM EDT) HCG, Urine, QL Negative Negative [facility] Lot Number [id number] ex 06/06 [facility] Internal Positive Control Reactive [facility] Internal Negative Control Presumptive Negative [facility] Urine 01/20/2017 7:50 AM EDT Sly Allen MD POINT OF CARE TEST ORDERABLES Final Result Performing Organization Address City/[facility] Co de Phone Number [facility]
[address] [place] [address], [place] [phone] * SCANNED - TELEMETRY (01/20/2017) Anatomical Region Laterality Modality Other [facility] Onbase ECG ORDERABLES Final Result * SCANNED - TELEMETRY (01/20/2017) Anatomical Region Laterality Modality Other [facility] Onbase ECG ORDERABLES Final Result documented in [...] MAR Action Action Date Dose Rate Site bupivacaine-EPINEPHrine PF (MARCAINE w/EPI) 0.25% -1:647522 injection As Needed, Starting on Deedee 01/20/17 at 1248 Given 01/20/2017 12:48 PM EDT 30 mL Abdominal Tissue enoxaparin (LOVENOX) syringe 40 mg 40 mg, Subcutaneous, Every 12 Hours, First dose on Deedee 01/20/17 at 2100, Give subcutaneous in abdomen only. Do not massage site after injection. Do not change dose time until after 48 hrs. Given 01/21/2017 10:10 AM EDT 40 mg Right Upper Abdomen Given 01/20/2017 8:16 PM EDT 40 mg Ri ght Lower Abdomen enoxaparin (LOVENOX) syringe As Needed, Starting on Deedee 01/20/17 at 1212 Given 01/20/2017 12:12 PM EDT 40 mg Left Lower Abdomen fibrin sealant component 4 ML external kit As Needed, Starting on Deedee 01/20/17 at 1335 Given 01/20/2017 1:35 PM EDT 1 application HYDROcodone-acetaminoph en (NORCO) 7.5-325 MG per tablet 1 tablet 1 tablet, Oral, Every 4 Hours PRN, Moderate Pain, Starting on Deedee 01/20/17 at 1357, For 10 days, Do not exceed 4g of acetaminophen in a 24 hour period. Given 01/21/2017 3:59 PM EDT 1 tablet HYDROmorphone (DILAUDID) tablet 2 mg 2 mg, Oral, Every 4 Hours PRN, Moderate Pain, Severe Pain, also use when can't give Lortab because of IV Tylenol, Starting on Deedee 01/20/17 at 1357, For 10 days Given 01/21/2017 10:06 AM EDT 2 mg lactated ringers infusion 150 mL/hr, Intravenous, Continuous, Starting on Deedee 01/20/17 at 1430 New Bag 01/20/2017 3:17 PM EDT 150 mL/hr 150 mL/hr levothyroxine (SYNTHROID, LEVOTHROID) tablet 137 mcg 137 mcg, Oral, Daily, First dose on Deedee 01/20/17 at 1430, Take on empty stomach. Given [...] Given 01/20/2017 3:13 PM EDT 6 mg naloxone (NARCAN) injection 0.4 mg 0.4 mg, [...] injection 40 mg 40 mg, Intravenous, Every Floral Arranger, First dose on Tue01/21/17 at 0600, Dilute [...] line at port furthest from patient's vein. sodium chloride 0.45 % with KCl 20 mEq/L infusion 125 mL/hr, Intravenous, Continuous, Starting on Tue01/21/17 at 0800, Discontinue any other maintenance IVF's New Bag 01/21/2017 10:06 AM EDT 125 mL/hr 125 mL/hr sodium chloride 0.9 % solution As Needed, Starting on Deedee 01/20/17 at 1247 Given 01/20/2017 12:47 PM EDT 1,000 mL sterile water irrigation solution As Needed, Starting on Deedee 01/20/17 at 1247 Given 01/20/2017 12:47 PM EDT 1,000 mL documented in this encounter Active and Recently [...] 2015 (Given - Provider: Tanesha Kelley RN) 024 (Given - Provider: Tanesha Kelley RN)1006 (Given - Provider: Magdalena House RN) CeFAZolin [...] For 2 doses, Refrigerate, Indications: Surgical Prophylaxis 2015 (Given - Provider: Tanesha Kelley RN) 0453 (Given - Provider: Tanesha Kelley RN) chlorhexidine (PERIDEX) 0.12 % solution 15 mL (COMPLETED) 15 mL, Mouth/Throat, Once, On Deedee 01/20/17 at 0815, For 1 dose, Rinse mouth for 60 seconds x 2 doses {BKC} Swish & spit. Do not swallow. 0757 (Given - Provider: Karyn Rivera RN)0809 (Given - Provider: Karyn Rivera RN) cyanocobalamin injection 1,000 mcg (COMPLETED) 1,000 mcg, Intramuscular, Once, On Tue01/21/17 at 0800, For 1 dose, To be administered Post-op day 1 1006 (Given - Provid er: Magdalena House RN) enoxaparin (LOVENOX) syringe 40 mg 40 mg, Subcutaneous, Every 12 Hours, First dose on Deedee 01/20/17 at 2100, Give subcutaneous in abdomen only. Do not massage site after injection. Do not change dose time until after 48 hrs. 2015 (Given - Provider: Tanesha Kelley RN) 1010 [...] mL (COMPLETED) 1,000 mL, Intravenous, Once, On Deedee 01/20/17 at 0815, For 1 dose 0757 (New [...] mg (COMPLETED) 40 mg, Intravenous, Once, On Tue01/20/17 at 0815, For 1 dose, Dilute with 10 mL of 0.9% NaCl and give IV push over 2 minutes. 0757 (Given - Provider: Karyn Rivera RN) pantoprazole (PROTONIX) injection 40 mg 40 mg, Intravenous, Every Floral Arranger, First dose on Tue01/21/17 at 0600, Dilute with 10 mL of 0.9% NaCl and give IV push over 2 minutes. 0504 (Given - Provid er: Tanesha Kelley RN) Scopolamine (TRANSDERM-SCOP) 1.5 MG/3DAYS patch 1 patch (CANCELED) 1 patch, Transdermal, Administer over 72 Hours, Once, On Tue01/20/17 at 0815, For 1 dose 0757 (Medication Applied - Provider: Karyn Rivera RN) Continuous Medication Order 01/19/2017 01/20/2017 01/21/2017 lactated ringers infusion (CANCELED) 150 mL/hr, Intravenous, Continuous, Starting on Tue01/20/17 at 0815 1206 (New Bag - Provider: Kenyatta Phan CRNA)1405 (Stopped - Provider: Kenyatta Phan CRNA) lactated ringers infusion 150 mL/hr, Intravenous, Continuous, Starting on Tue01/20/17 at 1430 1517 (New Bag - Provider: Magdalena House RN) sodium chloride 0.45 % with KCl 20 mEq/L infusion 125 mL/hr, Intravenous, Continuous, Starting on Tue01/21/17 at 0800, Discontinue any other maintenance IVF's 1006 (New Bag - Provider: Magdalena House RN) PRN Medication Order 01/19/2017 01/20/2017 01/21/2017 albuterol (PROVENTIL) nebulizer solution 0.5% 2.5 mg/0.5mL 2.5 mg, Nebulization, Every 4 Hours PRN, Shortness of Air, Starting on Deedee 01/20/17 at 1357 bupivacaine-EPINEPHrine PF (MARCAINE w/EPI) 0.25% -1:804323 injection (CANCELED) As Needed, Starting on Tue01/20/17 at 1248 1248 (Given - Provider: Shane [...] Provider: Magdalena House RN)2020 (Given - Provider: Franessa C Kelley, RN) naloxone (NARCAN) injection 0.4 mg(Linked Group [...] vein. documented in this encounter Care Teams Roofing Subcontractor Relationship Specialty Start Date End Date Jasmin Ahumada PA PCP - General Physician Carpet Winder 01/17/17 documented as of this encounter
--- OUTSIDE RECORDS SUMMARY | 2024-08-03 08:09 | XMS_ITS | Encounter Summary ---
[facility] [address] [place] [address] Care Team Providers Care Housekeeping Supervisor Name Role Phone Jasmin Ahumada Primary Care Provider [phone] Encounter Details Date Type Department Care Team (Late st Contact Info) Description 01/18/2017 Telephone [facility] [address] [place] [address] Olive Thomson PA [address] [place], [place] [id number] Social History Tobacco Use Types Packs/Day Years [...] Start Date 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 We wrote for 21, or [facility] in [place] did have Heparin available. Thanks * Telephone Encounter - Katya Dos Santos MA - 01/18/2017 8:36 AM EDT Attempted to contact patient, no answer LVM for patient to return our call * Telephone Encounter - Olive Thomson PA - 01/18/2017 8:17 AM EDT See note below regarding postop anticoagulation. Thanks! documented in this encounter Plan of Treatment Not on file documented as of this encounter Visit Diagnoses Not on filedocumented in this encounter Care Teams Housekeeping Supervisor Relationship Specialty Start Date End Date Jasmin Ahumada PA PCP - General Physician Driller Multiple Spindle 01/17/17 documented as of this encounter
--- OUTSIDE RECORDS SUMMARY | 2024-08-03 08:10 | XMS_ITS | Encounter Summary ---
Author Organization [facility] Address [address] [place] [address] Care Team Providers Care Scada Engineer Name Role Phone Rudi Arce MD Primary Care Provider [phone] Reason for Referral * (Routine) - Closed Specialty Diagnoses / Procedures Referred By Ruy iraheta Referred To Contact Procedures Diet: Shane Cunha MD [address] [place] [address] Phone: tel: fax: Referral ID Status Reason Start Date Expiration Date Visits Re quested Visits Authorized [id number] Closed 04/28/2016 10/25/2016 1 1 Encounter Details Date Type Department Care Team (Latest Contact Info) Description 04/28/2016 8:58 AM EDT - 04/28/2016 12:55 PM EDT Hospital Encounter [facility] OR [address] [place] [phone] Shane Cunha MD [address] [place] [address] Dysphagia, unspecified dysphagia Discharge Disposition: Home or Self Care Social [...] Sign Reading Time Taken Comments Blood Pressure 100/63 04/28/2016 12:30 PM EDT Pulse 88 04/28/2016 12:45 PM EDT Temperature 36.3 ??C (97.3 ??F) 04/28/2016 12:45 PM E DT Respiratory Rate 18 04/28/2016 12:45 PM EDT Oxygen Saturation 100% 04/28/2016 12:30 PM EDT Inhaled Oxygen Concentration - - Weight 149 kg (328 lb) 04/28/2016 9:41 AM EDT Height 167.6 cm (5' 6 ) 04/28/2016 9:41 AM EDT Body Mass Index 52.94 04/28/2016 9:41 AM EDT documented in this encounter Discharge Instructions * Attachments The following attachments cannot be sent through Care Everywhere. * GENERAL ANESTHESIA, ADULT, CARE AFTER (SERBIAN) * ESOPHAGOGASTRODUODENOSCOPY, CARE AFTER (SERBIAN) documented in this encounter Medications at Time of Discharge levothyroxine (SYNTHROID, LEVOTHROID) 137 MCG tablet Take 137 mcg by mouth daily. DULoxetine (CYMBALTA) 60 MG capsule Take 60 mg by mouth daily. 06/15/2016 Etonogestrel (NEXPLANON) 68 MG implant subdermal implant Inject 1 each into the skin 1 (one) time. 09/02/2015 06/15/2016 GABAPENTIN PO Take 300 mg by mouth 3 (three) times a day. 06/15/2016 Niacin (VITAMIN B-3 PO) Take 6,000 Units by mouth daily. 06/15/2016 documented as of this encounter Nursing Notes * Etta Peace, RN - 04/28/2016 12:03 PM EDT Problem: GI Endoscopy (Adult) Goal: Signs and Symptoms of Listed Potential Problems Will be Absent or Manageable (GI Endoscopy) Outcome: Ongoing (interventions implemented as appropriate) * Etta Peace, RN - 04/28/2016 9:51 AM EDT Problem: Perioperative Period (Adult) Goal: Signs and Symptoms of Listed Potential Problems Will be Absent or Manageable (Perioperative Period) Outcome: Ongoing (interventions implemented as appropriate) documented in this encounter OR Notes * Brief Op Note - Shane Cunha MD - 04/28/2016 11:56 AM EDT ESOPHAGOGASTRODUODENOSCOPY Procedure Note Jelena Saha 04/28/2016 Pre-op Diagnosis: * No pre-op diagnosis entered * Post-op Diagnosis: Post-Op Diagnosis Codes: * Dysphagia [787.2] Procedure/CPT?? Codes: CO ESOPHAGOGASTRODUODENOSCOPY TRANSORAL DIAGNOSTIC [76973] Procedure(s): ESOPHAGOGASTRODUODENOSCOPY WITH BIOPSY Surgeon(s): Shane Cunha MD Anesthesia: Monitor Anesthesia Care Staff: Endo Nurse: Etta Peace RN Estimated Blood Loss: * No values recorded between 04/28/2016 12:00 AM and 04/28/2016 11:56 AM * Specimens: * No specimens in log * Drains: Findings: Complications: none Shane Cunha MD Date: 04/28/2016 Time: 11:56 AM * Op Note - Shane Cunha MD - 04/28/2016 8:58 AM EDT DATE OF PROCEDURE: 04/28/2016 PREOPERATIVE DIAGNOSIS: Dysphagia, status post laparoscopic Lap-Band AP standard placement in 09/2007. POSTOPERATIVE DIAGNOSES: 1. Dysphagia, status post laparoscopic Lap-Band AP standard placement in 09/2007. 2. Duodenitis. 3. Mild gastritis. 4. Diminutive gastric polyps. PROCEDURE PERFORMED: Esophagogastroduodenoscopy with biopsy x3. SURGEON: Shane Cunha MD ANESTHESIA: MAC. SPECIMENS: Duodenal biopsy x1, antrum biopsy x 1, and gastric body polyps x2. COMPLICATIONS: None. FINDINGS: There was no evidence of slip or erosion. No esophagitis. There was some mild gastritis, a couple of diminutive polyps seen in the body of the stomach, which were biopsied. Some duodenitis of the bulb with erythema of the mucosa. Z line 38 cm. INDICATIONS: This is a 35-year-old super morbidly obese white female, status post laparoscopic Lap-Band AP standard by Dr. Galo in 09/2007. She has had problems with chronic dysphagia despite no fluid in her band. Upper GI shows no evidence of slip. Please see our office notes. Risks, benefits, and alternative therapies were discussed and she wished to proceed with diagnostic and possible therapeutic EGD. OPERATIVE TECHNIQUE: The patient was brought to the endoscopy suite and placed supine upon the stretcher. A bite-block was placed. She was sedated by the anesthesiology staff and the standard flexible endoscope was advanced under direct visualization into the posterior pharynx and the esophagus intubated. The endoscope advanced easily through the esophagus and it was not dilated. No retained secretions. There were some mild tertiary spasms. On reaching the distal esophagus, no visible hiatal hernia, Leyva esophagus, or gross esophagitis. The gastric pouch was entered. It was appropriate size. The area of the banding was patent. No visible erosion. The gastric cavity below the band was entered. There was some mild edema and erythema, a couple of diminutive polyps in the body of the stomach. The pylorus itself was not in spasm and not deformed. It was easily intubated and the endoscope advanced through the first and second portions of the duodenum. In the duodenal bulb, there was some punctate erythema. This was seen prior to advancing the scope beyond the area and a biopsy of this area was obtained. The endoscope was withdrawn to the antrum and a biopsy was obtained. Retroflexed examination revealed an excellent outline of the band. No evidence of slip or erosion from the retroflex view. No new abnormalities were noted otherwise. The gastric body polyps were biopsied and senttogether in the same jar. The endoscope was withdrawn to the Z line. It was 38 cm from the incisors. Photo documentation of the area was obtained. The endoscope was slowly withdrawn. No new abnormalities were noted. The patient tolerated the procedure well without complication and was taken to the recovery room in stable condition. MD LEOBARDO Faustin/rona Voice Rec. ID #[id number] Voice Original ID #[id number] Doc ID #[id number] Rev. #0 cc: documented in this encounter Plan of Treatment Not on file documented as of this encounter Procedures Procedure Name Priority Date/Time Associated Diagnosis Comments TISSUE PATHOLOGY EXAM Routine 04/28/2016 12:07 PM EDT Dysphagia, unspecified dysphagia ESOPHAGOGASTRODUODENOSCOPY 04/28 11:40 AM EDT Dysphagia Special Needs PER FAX SX TO START AT 1100 documented in this encounter Results * Tissue Exam (04/28/2016 12:07 PM EDT) Case Report Surgical Pathology Report ? Case: [id number] ? Authorizing Provider: ??Shane Cunha MD ? Collected: ? 04/28/2016 12:07 PM ? Ordering Location: ? [facility] ?? Received: ?04/28/2016 12:35 PM ? ENDO SUITES ? Pathologist: ? Shayne Waite MD ? Specimens: ?? 1) - Small Intestine, Duodenum ? 2) - Gastric, Antrum ? 3) - Gastric, Body ? 04/29/2016 4:34 PM EDT [facility] Clinical Information The working history is dysphagia. 04/29/2016 4:34 PM EDT [facility] Final Diagnosis 1. DUODENAL BIOPSY: Mild duodenitis. 2. GASTRIC ANTRUM BIOPSY: Reactive gastropathic changes and slight chronic gastritis. 3. GASTRIC BODY BIOPSY: Changes suggestive of fundic polyp. DGD/mbc 04/29/2016 4:34 PM EDT [facility] Gross Description Specimen 1 received in formalin labeled as duodenal biopsy is a 0.4 x 0.4 x 0.3 cm mccracken soft tissue fragment. Submitted in toto in cassette 1. Specimen 2 received in formalin labeled as gastric antrum biopsy is a 0.3 x 0.3 x 0.3 cm ttan soft tissue fragment. Submitted in toto in cassette 2. Specimen 3 received in formalin labeled as gastric body polyp are two pieces of mccracken soft tissue fragments aggregating 0.5 x 0.4 x 0.4 cm. Submitted in toto in cassette 3. HANNA/tavo 04/29/2016 4:34 PM EDT [facility] Microscopic Description Sections of the duodenum show distortion of the superficial architecture with some flattening of the villi and an inflammatory/re generative atypia in the epithelium superficially. There is a brisk chronic inflammatory infiltrate present in lamina propria. Chiqui's glands appear unremarkable. Sections of the gastric antrum show distortion of the superficial mucosal architecture with elongation of the gastric pits, increased branching, increased variability of the gland sizes, shapes, and spatial distribution of the glands in the lamina propria. Bundles of smooth muscle are seen arising in the lamina propria ascending toward the mucosal surface. No intestinal metaplasia or dysplasia is seen. A slight diffuse inflammatory infiltrate is seen in the lamina propria. Sections of the gastric biopsy show foveolar epithelial hyperplasia along the surface with dilated glands in lamina propria that are lined variably by entirely hyperplastic foveolar epithelium or with flattened foveolar epithelium and parietal cells. Bundles of smooth muscle are seen arising in lamina propria and ascending toward the mucosal surface. The findings in the gastric body biopsy appear compatible with a mixed hyperplastic gastric polyp and fundic polyp. DGD/mbc 04/29/2016 4:34 PM EDT [facility] Embedded Images 04/29/2016 4:34 PM EDT [facility] Tissue Specimen from small intestine / Unknown 04/28/2016 12:07 PM EDT 04/28/2016 12:35 PM EDT Tissue specimen (specimen) Pyloric antrum structure / Unknown 04/28/2016 12:07 PM EDT 04/28/2016 12:35 PM EDT Tissue specimen (specimen) Gastric corpus structure / Unknown 04/28/2016 12:09 PM EDT 04/28/2016 12:35 PM EDT Shane Cunha MD PATHOLOGY/CYTOLOGY ORDERAB LES Final Result [facility]
[address] [place] [address], documented in this encounter Visit Diagnoses Diagnosis Dysphagia, unspecified dysphagia documented in this encounter Administered Medications Inactive Administered Medications - up to 3 most recent administrations Medication Order MAR Action Action Date Dose Rate Site famotidine (PEPCID) injection 20 mg 20 mg, Intravenous, Once, On Tue04/28/16 at 1030, For 1 dose, Dilute to 10 mL total volume and give IV push over 2 minutes. Given 04/28/2016 9:54 AM EDT 20 mg lactated ringers infusion 9 mL/hr, Intravenous, Continuous, Starting on Tue04/28/16 at 1030, May switch to NS IV at KVO if renal / if indicated New Bag 04/28/2016 9:54 AM EDT 9 mL/hr 9 mL/hr sodium chloride 0.9 % infusion 150 mL/hr, Intravenous, Continuous, Starting on Tue04/28/16 at 1030 documented in this encounter Active and Recently Administered Medications Times are shown in EDT. Scheduled Medication Order 04/26/2016 04/27/2016 04/28/2016 famotidine (PEPCID) injection 20 mg (COMPLETED) 20 mg, Intravenous, Once, On Tue04/28/16 at 1030, For 1 dose, Dilute to 10 mL total volume and give IV push over 2 minutes. 0954 (Given - Provid er: Etta Peace RN) Continuous Medication Order 04/26/2016 04/27/2016 04/28/2016 lactated ringers infusion 9 mL/hr, Intravenous, Continuous, Starting on Tue04/28/16 at 1030, May switch to NS IV at KVO if renal / if indicated 0954 (New Bag - Prov ider: Etta Peace RN) sodium chloride 0.9 % infusion 150 mL/hr, Intravenous, Continuous, Starting on Tue04/28/16 at 1030 1030 (Due) documented in this encounter Care Teams Scada Engineer Relationship Specialty Start Date End Date Rudi Arce MD [address] [facility] [address] [facility] [address] [place] [address] PCP - General Family Medicine 04/22/16 01/16/17 documented as of this encounter
--- OUTSIDE RECORDS SUMMARY | 2024-08-03 08:10 | XMS_ITS | Encounter Summary ---
Author Organization [facility] Address [address] [place] [address] Care Team Providers Care Chemistry Intern Name Role Phone Rudi Arce MD Primary Care Provider [phone] Reason for Visit * Auth/Cert Specialty Diagnoses / Procedures Referred By Ruy iraheta Referred To Contact Diagnoses GASTRIC BANDING REMOVAL LAPAROSCOPIC Procedures GASTRIC BANDING REMOVAL LAPAROSCOPIC Referral ID Status Reason Start Date Expiration Date Visits Re quested Visits Authorized [id number] 1 1 Encounter Details Date Type Department Care Team (Late st Contact Info) Description 06/17/2016 7:39 AM EDT Anesthesia Event [facility] OR [address] [place] [phone] Lloyd Grossman MD [address] [place] [id number] Anesthesia Record Procedure Summary Procedure Name Responsible Anesthesiologist Anesthesia Start Time Anesthesia Stop Time GASTRIC BANDING REMOVAL LAPAROSCOPIC (Abdomen) Lloyd Grossman MD 06/17/16 0739 06/17/16 0834 Events Date Time Event Comment 06/17/2016 0643 0650 AN Equip Check 0739 An Start 0739 An Start Data 0745 An Induction The patient was reevaluated immediately before moderate or deep sedation use and before anesthesia induction. 0747 An Intubation 0756 Quick Note Incision 0828 An Extubation 0829 an stop data 0834 Handoff to RN 0834 An Stop Meds Name Total midazolam (VERSED) 2 mg/2mL 2 mg fentaNYL (SUBLIMAZE) injection 150 mcg propofol (DIPRIVAN) injection 200 mg lidocaine (XYLOCAINE) injection 2% 30 mg ondansetron 2 mg/mL 4 mg dexamethasone 10 mg/mL 10 mg neostigmine injection 10 mg/10 mL 2 mg glycopyrrolate 0.2 mg/mL 0.4 mg ceFAZolin in 0.9% normal saline (ANCEF) IVPB solution 3 g 3 g propofol (DIPRIVAN) infusion 10 mg/mL 10 0 mL 110.7 mg atracurium injection 50 mg/5 mL 50 mg lactated ringers infusion 700 mL * Agents Name O2 Desflurane * Blood No blood administrations on file. Lines, Drains, and Airways Type Details Placement Removal Retired Peripheral IV Line - Single Lumen 06/17/16; 0703; cephalic vein (lateral side of arm), left; [id number] catheter system; 18 gauge; intradermal injection, appears comfortable, tolerated well; no longer indicated, catheter/device intact; 06/18/16; 0840 06/17/16 0703 by Karyn Rivera RN 06/18/16 0840 by Kyara Trevino RN Retired Airway 06/17/16; 0752 (created via procedure documentation); 06/17/16; 0828 06/17/16 0752 by Gianfranco Cerna CRNA 06/17/16 0828 by Gianfranco Cerna CRNA Retired Incision 06/17/16; 0805; othe r (see comments); abdomen; 01/20/17; 0740 06/17/16 0805 by Ayla Blanco RN 01/20/17 0740 by Karyn Rivera, COLEEN documented in this encounter Social History Tobacco Use Types Packs/Day Years Used Date Smoking Tobacco: Former Cigarettes 2013 Smokeless Tobacco: Never Alcohol Use Standard Drinks/Week Comments No 0 (1 standard drink = 0.6 oz pur e alcohol) Comments No Sex and Gender Information Value Date Recorded Sex Assigned at Not on file Legal Sex Female 12:11 PM EDT Gender Identity Not on file Sexual Orientation Not on file documented as of this encounter OR Notes * Anesthesia Postprocedure Evaluation - Gianfranco Cerna CRNA - 06/17/2016 8:35 AM EDT Patient: Jelena Saha Procedure Summary Date Anesthesia Start Anesthesia Stop Room / Location 06/17/16 0739 0834 [facility] / [facility] Procedure Diagnosis Surgeon Provider GASTRIC BANDING REMOVAL LAPAROSCOPIC (N/A Abdomen) Dysphagia MD Lloyd Faustin MD Anesthesia Type: general Last vitals BP Temp Pulse Resp SpO2 Post Anesthesia Care and Evaluation Patient location during evaluation: PACU Patient participation: complete - patient participated Level of consciousness: awake and alert Pain score: 0 Pain management: adequate Airway patency: patent Anesthetic complications: no Cardiovascular status: hemodynamically stable and acceptable Respiratory status: nonlabored ventilation, acceptable and nasal cannula Hydration status: stable * Anesthesia Procedure Notes - Gianfranco Cerna CRNA - 06/17/2016 7:51 AM EDTAssociated Order(s): ANESTHESIA INTUBATION Airway Urgency: elective Airway not difficult General Information and Staff Patient location during procedure: OR Indications and Patient Condition Indications for airway management: airway protection Preoxygenated: yes Mask difficulty assessment: 1 - vent by mask Final Airway Details Final airway type: endotracheal airway Successful airway: ETT Cuffed: yes Successful intubation technique: direct laryngoscopy Facilitating devices/methods: intubating stylet Endotracheal tube insertion site: oral Blade: Toth Blade size: #2 ETT size: 7.5 mm Cormack-Lehane Classification: grade I - full view of glottis Placement verified by: chest auscultation and capnometry Measured from: lips ETT to lips (cm): 21 Number of attempts at approach: 1 * Anesthesia Preprocedure Evaluation - Lloyd Grossman MD - 06/17/2016 6:42 AM EDT Anesthesia Evaluation Airway Mallampati: III TM distance: >3 FB Neck ROM: full no difficulty expected Dental - normal exam Pulmonary - normal exam Cardiovascular - normal exam Neuro/Psych GI/Hepatic/Renal/Endo (+) morbid obesity, GERD, hypothyroidism, Musculoskeletal Abdominal - normal exam Bowel sounds: normal. 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 Plan discussed with [facility]. documented in this encounter Plan of Treatment Not on file documented as of this encounter Procedures Procedure Name Priority Date/Time Associated Diagnosis Comments ANESTHESIA INTUBATION Routine 06/17/2016 7:52 AM EDT documented in this encounter Results * Anesthesia Intubation (06/17/2016 7:52 AM EDT) Narrative Gianfranco Cerna CRNA - 06/17/2016 7:52 AM EDT Gianfranco Cerna CRNA ? 06/17/2016 ??7:52 AM Airway Urgency: elective Airway not difficult General Information and Staff Patient location during procedure: OR Indications and Patient Condition Indications for airway management: airway protection Preoxygenated: yes Mask difficulty assessment: 1 - vent by mask Final Airway Details Final airway type: endotracheal airway Successful airway: ETT Cuffed: yes Successful intubation technique: direct laryngoscopy Facilitating devices/methods: intubating stylet Endotracheal tube insertion site: oral Blade: Toth Blade size: #2 ETT size: 7.5 mm Cormack-Lehane Classification: grade I - full view of glottis Placement verified by: chest auscultation and capnometry Measured from: lips ETT to lips (cm): 21 Number of attempts at approach: 1 Procedure Note Gianfranco Cerna CRNA - 06/17/2016 7:51 AM EDT Airway Urgency: elective Airway not difficult General Information and Staff Patient location during procedure: OR Indications and Patient Condition Indications for airway management: airway protection Preoxygenated: yes Mask difficulty assessment: 1 - vent by mask Final Airway Details Final airway type: endotracheal airway Successful airway: ETT Cuffed: yes Successful intubation technique: direct laryngoscopy Facilitating devices/methods: intubating stylet Endotracheal tube insertion site: oral Blade: Toth Blade size: #2 ETT size: 7.5 mm Cormack-Lehane Classification: grade I - full view of glottis Placement verified by: chest auscultation and capnometry Measured from: lips ETT to lips (cm): 21 Number of attempts at approach: 1 us Lloyd Grossman MD ANESTHESIA ORDERABLES Final R esult documented in this encounter Visit Diagnoses Not on filedocumented in this encounter Administered Medications Inactive Administered Medications - up to 3 most recent administrations Medication Order MAR Action Action Date Dose Rate Site atracurium injection As Needed, Starting on [place] 06/17/16 at 0745 Given 06/17/2016 7:45 AM EDT 50 mg ceFAZolin in 0.9% normal saline (ANCEF) IVPB solution 3 g 3 g, Intravenous, Once, On [place] 06/17/16 at 0715, For 1 dose, Refrigerate, Indications: Surgical ProphylaxisIndications:Surgical Prophylaxis Given 06/17/2016 7:39 AM EDT 3 g dexamethasone (DECADRON) injection Intravenous, As Needed, Starting on [place] 06/17/16 at 0754 Given 06/17/2016 7:54 AM EDT 10 mg FentaNYL Citrate (PF) (SUBLIMAZE) injection Intravenous, As Needed, Severe Pain, Starting on [place] 06/17/16 at 0744 Given 06/17/2016 8:07 AM EDT 50 mcg Given 06/17/2016 7:58 AM EDT 50 mcg Given 06/17/2016 7:44 AM EDT 50 mcg glycopyrrolate (ROBINUL) injection Intravenous, As Needed, Excess Secretions, Starting on [place] 06/17/16 at 0820 Given 06/17/2016 8:20 AM EDT 0.4 mg lidocaine (XYLOCAINE) 2 % injection Injection, As Needed, Starting on [place] 06/17/16 at 0744 Given 06/17/2016 7:44 AM EDT 30 mg midazolam (VERSED) injection Intravenous, As Needed, Starting on [place] 06/17/16 at 0739 Given 06/17/2016 7:39 AM EDT 2 mg neostigmine injection Intravenous, As Needed, Starting on [place] 06/17/16 at 0820 Given 06/17/2016 8:20 AM EDT 2 mg ondansetron (ZOFRAN) injection Intravenous, As Needed, Nausea, Vomiting, Starting on [place] 06/17/16 at 0808 Given 06/17/2016 8:08 AM EDT 4 mg propofol (DIPRIVAN) infusion 10 mg/mL 100 mL Continuous PRN, Starting on [place]ed[place] 06/17/16 at 0750 New Bag 06/17/2016 7:50 AM EDT 25 mcg/kg/min 22.1 mL/hr Propofol (DIPRIVAN) injection Intravenous, As Needed, Starting on [place] 06/17/16 at 0745 Given 06/17/2016 7:45 AM EDT 200 mg documented in this encounter Care Teams Chemistry Intern Relationship Specialty Start Date End Date Rudi Arce MD [address] [place] [address] PCP - General Family Medicine 04/22/16 01/16/17 documented as of this encounter
--- OUTSIDE RECORDS SUMMARY | 2024-08-03 08:10 | XMS_ITS | Encounter Summary ---
Author Organization [facility] Address [address] [place] [address] Care Team Providers Care City Magistrate Name Role Phone Rudi Arce MD Primary Care Provider [phone] Encounter Details Date Type Department Care Team (Late st Contact Info) Description 04/28/2016 12:01 PM EDT Anesthesia Event [facility] [address] [place] [address] Jacques Arambula MD [address] [place] [id number] Anesthesia Record Procedure Summary Procedure Name Responsible Anesthesiologist Anesthesia Start Time Anesthesia Stop Time ESOPHAGOGASTRODUODENOSCOPY W ITH BIOPSY (Esophagus) Jacques Arambula MD 04/28/16 1201 04/28/16 1216 Events Date Time Event Comment 04/28/2016 0942 1152 AN Equip Check 1201 An Start 1201 An Start Data 1203 An Induction The patient was reevaluated immediately before moderate or deep sedation use and before anesthesia induction. 1203 Start Supplemental O2 1204 Anesthesia Ready 1211 an stop data 1216 Handoff to RN 1216 An Stop Meds Name Total propofol (DIPRIVAN) 10 mg/ml 300 mg lidocaine (XYLOCAINE) injection 1% 100 m g * Agents Name O2 * Blood No blood administrations on file. Lines, Drains, and Airways Type Details Placement Removal Retired Peripheral IV Line - Single Lumen 04/28/16; 0949; median cubital vein (antecubital fossa), left; wgnz-gam-bsiihy catheter system; 18 gauge; 04/28/16; 1255 04/28/16 0949 by Etta Peace RN 04/28/16 1255 by Lurdes Roblero RN documented in this encounter Social History Tobacco Use Types Packs/Day Years Used Date Smoking Tobacco: Former Cigarettes 2 2013 Smokeless Tobacco: Never Alcohol Use Standard Drinks/Week Comments No 0 (1 standard drink = 0.6 oz pur e alcohol) Comments No Sex and Gender Information Value Date Recorded Sex Assigned at Not on file Legal Sex Female 12:11 PM EDT Gender Identity Not on file Sexual Orientation Not on file documented as of this encounter OR Notes * Anesthesia Postprocedure Evaluation - Jacques Arambula MD - 04/30/2016 7:12 AM EDT Patient: Jelena Saha Procedure Summary Date Anesthesia Start Anesthesia Stop Room / Location 04/28/16 1201 1216 [facility] / [facility] Procedure Diagnosis Surgeon Provider ESOPHAGOGASTRODUODENOSCOPY WITH BIOPSY (N/A Esophagus) Dysphagia MD Jacques Faustin MD Anesthesia Type: MAC Last vitals BP Temp Pulse Resp SpO2 Post Anesthesia Care and Evaluation Patient location during evaluation: PACU Patient participation: complete - patient participated Level of consciousness: awake and alert Pain management: adequate Airway patency: patent Anesthetic complications: no Cardiovascular status: hemodynamically stable and acceptable Respiratory status: nonlabored ventilation and acceptable Hydration status: stable * Anesthesia Preprocedure Evaluation - Jacques Arambula MD - 04/28/2016 9:41 AM EDT Anesthesia Evaluation Patient summary reviewed and Nursing notes reviewed Airway Mallampati: II TM distance: >3 FB Neck ROM: full no difficulty expected Dental - normal exam Pulmonary - negative pulmonary ROS Cardiovascular - negative cardio ROS ECG reviewed Neuro/Psych (+) numbness, GI/Hepatic/Renal/Endo (+) morbid obesity, GERD, hypothyroidism, Musculoskeletal (+) myalgias, Abdominal Substance History - negative use CITY 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 Plan discussed with CARD CLOTHIER. documented in this encounter Plan of Treatment Not on file documented as of this encounter Visit Diagnoses Not on filedocumented in this encounter Administered Medications Inactive Administered Medications - up to 3 most recent administrations Medication Order MAR Action Action Date Dose Rate Site lidocaine (XYLOCAINE) 1 % injection As Needed, Starting on Tue04/28/16 at 1203 Given 04/28/2016 12:03 PM EDT 100 mg Propofol (DIPRIVAN) injection Intravenous, As Needed, Starting on Tue04/28/16 at 1203 Given 04/28/2016 12:05 PM EDT 150 mg Given 04/28/2016 12:03 PM EDT 150 mg documented in this encounter Care Teams City Magistrate Relationship Specialty Start Date End Date Rudi Arce MD [facility] [address] [facility] [address] [place] [address] PCP - General Family Medicine 04/22/16 01/16/17 documented as of this encounter
--- OUTSIDE RECORDS SUMMARY | 2024-08-03 08:10 | XMS_ITS | Encounter Summary ---
Author Organization [facility] Address [address] [place] [address] Care Team Providers Care Resident Physician Name Role Phone Rudi Arce MD Primary Care Provider [phone] Encounter Details Date Type Department Care Team (Latest Contact Info) Description 04/28/2016 10:45 AM EDT - 04/28/2016 11:45 AM EDT Surgery [facility]O SUIT[facility] [address] [place] [address] Shane Cunha MD [address] [place] [place] [address] ESOPHAGOGASTRODUODENOSCOPY WITH BIOPSY Social History Tobacco Use Types Packs/Day Years [...] Sign Reading Time Taken Comments Blood Pressure 140/89 04/28/2016 9:45 AM EDT Pulse 92 04/28/2016 9:45 AM EDT Temperature 36.4 ??C (97.5 ??F) 04/28/2016 9:45 AM ED T Respiratory Rate 20 04/28/2016 9:45 AM EDT Oxygen Saturation 93% 04/28/2016 9:45 AM EDT Inhaled Oxygen Concentration - - Weight 149 kg (328 lb) 04/28/2016 9:41 AM EDT Height 167.6 cm (5' 6 ) 04/28/2016 9:41 AM EDT Body Mass Index 52.94 04/28/2016 9:41 AM EDT documented in this encounter Discharge Instructions * Attachments The following attachments cannot be sent through Care Everywhere. * GENERAL ANESTHESIA, ADULT, CARE AFTER ([place]) * ESOPHAGOGASTRODUODENOSCOPY, CARE AFTER ([facility]ALL[facility]) documented in this encounter Medications at Time [...] of this encounter Nursing Notes * Etta Peace RN - 04/28/2016 12:03 PM EDT Problem: GI Endoscopy (Adult) Goal: Signs and Symptoms of Listed Potential Problems Will be Absent or Manageable (GI Endoscopy) Outcome: Ongoing (interventions implemented as appropriate) * Etta Peace RN - 04/28/2016 9:51 AM EDT Problem: [...] Diagnosis Codes: * Dysphagia [787.2] Procedure/CPT?? Codes: [place] ESOPHAGOGASTRODUODENOSCOPY TRANSORAL DIAGNOSTIC [00398] Procedure(s): ESOPHAGOGASTRODUODENOSCOPY WITH BIOPSY Surgeon(s): Shane Cunha [...] to the recovery room in stable condition. Shane Cunha MD [facility]/so Voice Rec. ID #[id number] Voice Original ID #[id number] Doc ID #[id number] Rev. #0 cc: documented in this encounter [...] Case Report Surgical Pathology Report ? Case: [id number] ? Authorizing Provider: ??Shane Cunha MD ? Collected: ? 04/28/2016 12:07 PM ? Ordering Location: ? [facility] ?? Received: ?04/28/2016 12:35 PM ? ENDO SUITES ? Pathologist: ? Shayne Waite MD ? Specimens: ?? 1) - Small Intestine, Duodenum ? 2) - Gastric, Antrum ? 3) - Gastric, Body ? 04/29/2016 4:34 PM [facility] Clinical Information The working history is dysphagia. 04/29/2016 4:34 PM EDT PSYCHIATRIC LABORATORY Final Diagnosis 1. DUODENAL BIOPSY: Mild duodenitis. 2. GASTRIC ANTRUM BIOPSY: Reactive gastropathic changes and slight chronic gastritis. 3. GASTRIC BODY BIOPSY: Changes suggestive of fundic polyp. DGD/mbc 04/29/2016 4:34 PM [facility] Gross Description Specimen 1 received [...] cm. Submitted in toto in cassette 3. HBRaymundo/tavo 04/29/2016 4:34 PM T PSYCHIATRIC LABORATORY Microscopic Description Sections of the duodenum [...] fundic polyp. DGD/mbc 04/29/2016 4:34 PM EDT PSYCHIATRIC LABORATORY Embedded Images 04/29/2016 4:34 PM EDT PSYCHIATRIC LABORATORY Tissue Specimen from small intestine / Unknown 04/28/2016 12:07 PM EDT 04/28/2016 12:35 PM EDT Tissue specimen (specimen) Pyloric antrum structure / Unknown 04/28/2016 12:07 PM EDT 04/28/2016 12:35 PM EDT Tissue specimen (specimen) Gastric corpus structure / Unknown 04/28/2016 12:09 PM EDT 04/28/2016 12:35 PM EDT Shane Cunha MD PATHOLOGY/CYTOLOGY ORDERAB LES Final Result PSYCHIATRIC LABORATORY
[address] [place] [address], documented in this encounter Visit Diagnoses Diagnosis Dysphagia, unspecified dysphagia Dysphagia documented in this encounter Administered Medications Inactive [...] minutes. 0954 (Given - Provid er: Etta Peace, RN) Continuous Medication Order 04/26/2016 04/27/2016 04/28/2016 lactated ringers infusion 9 mL/hr, Intravenous, Continuous, Starting on Tue04/28/16 at 1030, May switch to NS IV at [facility] if renal / if indicated 0954 (New Bag - Prov ider: Etta Peace RN) sodium chloride 0.9 % infusion 150 mL/hr, Intravenous, Continuous, Starting on Tue04/28/16 at 1030 1030 (Due) documented in this encounter Care Teams Resident Physician Relationship Specialty Start Date End Date Rudi Arce MD [address] [facility] [address] [facility] [address] [place] [address] PCP - General Family Medicine 04/22/16 01/16/17 documented as of this encounter
--- OUTSIDE RECORDS SUMMARY | 2024-08-03 08:10 | XMS_ITS | Encounter Summary ---
Author Organization [facility] Address [address] [place] [address] Care Team Providers Care Team Coordinator Name Role Phone Rudi Arce MD Primary Care Provider [phone] Reason for Referral * (Routine) - Closed Specialty Diagnoses / Procedures Referred By Ruy iraheta Referred To Contact Diagnoses Dysphagia Procedures Diet: Shane Cunha MD [address] [place] [address] Phone: tel: fax: Referral ID Status Reason Start Date Expiration Date Visits Re quested Visits Authorized [id number] Closed 06/18/2016 12/15/2016 1 1 Reason for Visit * Auth/Cert Specialty Diagnoses / Procedures Referred By Ruy iraheta Referred To Contact Diagnoses GASTRIC BANDING REMOVAL LAPAROSCOPIC Procedures GASTRIC BANDING REMOVAL LAPAROSCOPIC Referral ID Status Reason Start Date Expiration Date Visits Re quested Visits Authorized [id number] 1 1 Encounter Details Date Type Department Care Team (Latest Contact Info) Description 06/17/2016 5:59 AM EDT - 06/18/2016 9:40 AM EDT Hospital Encounter [facility] [address] [place] [id number] Shane Cunha MD [address] [place] [address] Dysphagia Discharge Disposition: Home or Self Care Social [...] Sign Reading Time Taken Comments Blood Pressure 112/68 06/18/2016 5:47 AM EDT Pulse 66 06/18/2016 5:47 AM EDT Temperature 36.8 ??C (98.2 ??F) 06/18/2016 5:47 AM ED T Respiratory Rate 18 06/18/2016 5:47 AM EDT Oxygen Saturation 98% 06/18/2016 5:47 AM EDT Inhaled Oxygen Concentration - - Weight 151 kg (332 lb 3.2 oz) 06/17/2016 9:49 AM EDT Height 170.2 cm (5' 7 ) 06/17/2016 9:49 AM EDT Body Mass Index 52.03 06/17/2016 9:49 AM EDT documented in this encounter Discharge Instructions * Attachments The following attachments cannot be sent through Care Everywhere. * ACETAMINOPHEN; HYDROCODONE TABLETS OR CAPSULES (TELUGU) documented in this encounter Medications at Time of Discharge levothyroxine (SYNTHROID, LEVOTHROID) 137 MCG tablet Take 137 mcg by mouth daily. HYDROcodone-acet aminophen (NORCO) 7.5-325 MG per tablet Take 1 tablet by mouth Every 4 (Four) Hours As Needed for moderate pain (4-6) for up to 9 days. 20 tablet 06/18/2016 06/27/2016 documented as of this encounter Progress Notes * Kirstin Roland RN - 06/18/2016 9:40 AM EDT Discharge Planning Assessment ARTIS Baker Patient Name: Jelena Saha Today's Date: 06/18/2016 Admit Date: 06/17/2016 Discharge Needs Assessment 06/18/16 1421 Living Environment Lives With significant other;child(dami), dependent Living Arrangements mobile home Discharge Needs Assessment Concerns To Be Addressed no discharge needs identified Equipment Currently Used at Home none Transportation Available car;family or friend will provide Discharge Plan 06/18/16 1421 Case Management/Social Work Plan Plan Home Patient/Family In Agreement With Plan yes Additional Comments Discharged to home acc. by family. No d/c needs at this time. Discharge Placement No information found Expected Discharge Date and Time Expected Discharge Date Expected Discharge Time Jun 18, 2016 Demographic Summary 06/18/16 1419 Referral Information Referral Source admission list Reason For Consult discharge planning Functional Status 06/18/16 1420 Functional Status Current Ambulation 0-->independent Transferring 0-->independent Toileting 0-->independent Bathing 0-->independent Dressing 0-->independent Eating 0-->independent Communication 0-->understands/communicates without difficulty Functional Status Prior Ambulation 0-->independent Transferring 0-->independent Toileting 0-->independent Bathing 0-->independent Dressing 0-->independent Eating 0-->independent Communication 0-->understands/communicates without difficulty Swallowing 0-->swallows foods/liquids without difficulty IADL Medications independent Meal Preparation independent Housekeeping independent Laundry independent Shopping independent Oral Care independent Psychosocial None Abuse/Neglect None Legal None Substance Abuse None Patient Forms None Kirstin Roland RN * Olive Thomson PA - 06/18/2016 8:23 AM EDT Bariatric Surgery LOS: 1 day Patient Care Team: Rudi Arce MD as PCP - General (Family Medicine) Chief Complaint: POD #1 Subjective Interval History: Doing well - ready to go home. No complaints. Tolerating PO - burkinan toast and sausage. Denies N/V. No fevers. Pain controlled. Ambulating. Voiding. IS 1999 Objective Vital Signs Blood pressure 112/68, pulse 66, temperature 98.2 ??F (36.8 ??C), temperature source Oral, resp. rate 18, height 67 (170.2 cm), weight (!) 332 lb 3.2 oz (151 kg), last menstrual period 07/13/2006, SpO2 98 %. Intake/Output Summary (Last 24 hours) at 06/18/16 0827 Last data filed at 06/18/16 0400 Gross per 24 hour Intake 2820 ml Output 1150 ml Net 1670 ml Physical Exam: General: Alert, NAD Lungs: Clear Heart: RRR Abdomen: soft, appropriate, incisions okay Extremities: warm, (+) SCDs Labs: CBC Auto Differential [[id number]] (Abnormal) Collected: 06/18/16438 Specimen: Blood Updated: 06/18/16 0601 WBC 14.58 (H) 10*3/mm3 RBC 4.33 10*6/mm3 Hemoglobin 11.1 (L) g/dL Hematocrit 34.9 % MCV 80.6 fL MCH 25.6 (L) pg MCHC 31.8 (L) g/dL RDW 15.4 (H) % RDW-SD 45.3 fl MPV 10.0 fL Platelets 324 10*3/mm3 Neutrophil % 74.6 (H) % Lymphocyte % 20.0 (L) % Monocyte % 4.9 % Eosinophil % 0.1 % Basophil % 0.1 % Immature Grans % 0.3 % Neutrophils, Absolute 10.89 (H) 10*3/mm3 Lymphocytes, Absolute 2.91 10*3/mm3 Monocytes, Absolute 0.71 10*3/mm3 Eosinophils, Absolute 0.01 (L) 10*3/mm3 Basophils, Absolute 0.01 10*3/mm3 Immature Grans, Absolute 0.05 (H) 10*3/mm3 Comprehensive Metabolic Panel [[id number]] (Abnormal) Collected: 06/18/16438 Specimen: Blood Updated: 06/18/16 0609 Glucose 109 (H) mg/dL BUN 8 (L) mg/dL Creatinine 0.70 mg/dL Sodium 138 mmol/L Potassium 4.2 mmol/L Chloride 105 mmol/L CO2 30.0 mmol/L Calcium 8.3 (L) mg/dL Total Protein 6.4 g/dL Albumin 3.70 g/dL ALT (SGPT) 21 U/L AST (SGOT) 19 U/L Alkaline Phosphatase 78 U/L Total Bilirubin 0.3 mg/dL eGFR Non Amer 95 mL/min/1.73 Globulin 2.7 gm/dL A/G Ratio 1.4 g/dL BUN/Creatinine Ratio 11.4 Anion Gap 3.0 mmol/L Narrative: National Kidney Foundation Guidelines Stage Description GFR 1 Normal or High 90+ 2 Mild decrease 60-89 3 Moderate decrease 30-59 4 Severe decrease 15-29 5 Kidney failure <15 Assessment/Plan POD # 1 s/p AGBR. Doing well. Discharge home. SRI Conley for John Cunha MD 06/18/16 8:23 AM Cosigned by Shane Cunha MD at 06/18/2016 12:11 PM EDT Associated attestation - Shane Cunha MD - 06/18/2016 12:11 PM EDT Agree documented in this encounter Nursing Notes * Rachel Waite RN - 06/18/2016 8:48 AM EDT Problem: Patient Care Overview (Adult) Goal: Discharge Needs Assessment Outcome: Ongoing (interventions implemented as appropriate) * Karyn Brothers RN - 06/18/2016 6:43 AM EDT Problem: Patient Care Overview (Adult) Goal: Plan of Care Review Outcome: Ongoing (interventions implemented as appropriate) 06/18/16 0642 Coping/Psychosocial Response Interventions Plan Of Care Reviewed With patient;mother Patient Care Overview Progress improving Goal: Adult Individualization and Mutuality Outcome: Ongoing (interventions implemented as appropriate) Goal: Discharge Needs Assessment Outcome: Ongoing (interventions implemented as appropriate) Problem: Perioperative Period (Adult) Goal: Signs and Symptoms of Listed Potential Problems Will be Absent or Manageable (Perioperative Period) Outcome: Ongoing (interventions implemented as appropriate) * Rachel Waite RN - 06/17/2016 5:50 PM EDT Problem: Patient Care Overview (Adult) Goal: Plan of Care Review Outcome: Ongoing (interventions implemented as appropriate) 06/17/16 1749 Coping/Psychosocial Response Interventions Plan Of Care Reviewed With patient Patient Care Overview Progress progress toward functional goals as expected Goal: Adult Individualization and Mutuality Outcome: Ongoing (interventions implemented as appropriate) 06/17/161748 Individualization Patient Specific Interventions walking Problem: Perioperative Period (Adult) Goal: Signs and Symptoms of Listed Potential Problems Will be Absent or Manageable (Perioperative Period) Outcome: Ongoing (interventions implemented as appropriate) 06/17/161748 Perioperative Period Problems Assessed (Perioperative Period) all Problems Present (Perioperative Period) pain * Karyn Rivera RN - 06/17/2016 6:54 AM EDT Problem: Perioperative Period (Adult) Goal: Signs and Symptoms of Listed Potential Problems Will be Absent or Manageable (Perioperative Period) Outcome: Ongoing (interventions implemented as appropriate) * Karyn Rivera RN - 06/17/2016 6:54 AM EDT Problem: Patient Care Overview (Adult) Goal: Plan of Care Review Outcome: Ongoing (interventions implemented as appropriate) documented in this encounter OR Notes * Brief Op Note - Shane Cunha MD - 06/17/2016 7:44 AM EDT GASTRIC BANDING REMOVAL LAPAROSCOPIC Procedure Note Jelena Saha 06/17/2016 Pre-op Diagnosis: * No pre-op diagnosis entered * Post-op Diagnosis: Post-Op Diagnosis Codes: * Dysphagia [R13.10] Procedure/CPT?? Codes: [place] LAP, REMOVE ADJUST JEAN PAUL RESTRICT DEVICE/PORT [54315] Procedure(s): GASTRIC BANDING REMOVAL LAPAROSCOPIC Surgeon(s): Shane Cunha MD Anesthesia: General Staff: Inspector Packager: Ayla Waite RN Scrub Person: Soni Rivas Coke Still Cleaner: Guillermo Milligan Estimated Blood Loss: * No values recorded between 06/17/2016 7:39 AM and 06/17/2016 7:44 AM * Specimens: * No specimens in log * Drains: Findings: Complications: none Shane Cunha MD Date: 06/17/2016 Time: 7:44 AM * Op Note - Shane Cunha MD - 06/17/2016 5:59 AM EDT DATE OF OPERATION: 06/17/2016 PREOPERATIVE DIAGNOSIS: Intolerance of LapBand AP standard with dysphagia, nausea, and vomiting. POSTOPERATIVE DIAGNOSIS: Intolerance of LapBand AP standard with dysphagia, nausea, and vomiting. PROCEDURE PERFORMED: Laparoscopic LapBand AP standard and port removal. SURGEON: Shane Cunha MD ANESTHESIA: General endotracheal. ESTIMATED BLOOD LOSS: Minimal. FLUIDS: Crystalloid. SPECIMENS: LapBand APS and port. DRAINS: None. COUNTS: Correct. COMPLICATIONS: None. INDICATIONS FOR PROCEDURE: This is a 35-year-old super morbidly obese white female status post laparoscopic LapBand AP standard placement by Dr. Galo in 09/2007. She has had problems with dysphagia, nausea, and vomiting despite all the fluid removed from her band. Upper GI and EGD showed no evidence of slip or erosion. She would like the band removed. Please see our office notes. The risks, benefits, and alternative therapies were discussed, and she wished to proceed with laparoscopic LapBandand port removal. DESCRIPTION OF PROCEDURE: The patient was brought to the operating room and placed supine upon the operating room table. SCD hose were placed. She underwent uneventful general endotracheal anesthesiaper the anesthesiology staff. She received IV Ancef and subcutaneous Lovenox, and her abdomen was prepped and draped with ChloraPrep in a sterile fashion. An Ioban was used as well. The peritoneal cavity was entered in the upper abdomen to the left of midline using a 5 mm trocar and an Optiview technique, and the abdomen insufflated to a pressure of 15 mmHg with CO2 gas. Exploratory laparoscopy revealed no evidence of injury from the entrance technique, normal-appearing liver. The LapBand tubing was freed in the left upper quadrant. No incisional hernia at the port site and the left upper quadrant. The remaining trocars were placed under direct visualization including an additional 5 mm trocar in the right upper quadrant. The old port site incision in the left midabdomen was incised and through this incision medially, an 11 mm trocar was placed and through this incision laterally, a 5 mm trocar was placed. The LapBand tubing was cut adjacent to the peritoneum. No fluid was noted in the system. The left lobe of the liver was elevated exposing the buckle. It was cleaned off with cautery. The buckle was unclasped and the band gently eviscerated from its tunnel. There was no discoloration of the balloon to suggest erosion. This was photo documented. The band and its attached tubing were retrieved through the 11 mm trocar site incision and placed aside to be sent later with the entire specimen. The capsule was fairly thick and was debrided medially. Care was taken to avoid a gastr otomy. One of the anterior imbrications was divided as were some of the adhesions to the undersurface of left lobe of the liver. This seemed to open up everything nicely. Photo documentation was obtained. All trocars were removed under direct visualization. There was no bleeding noted from their sites. Subcutaneous tissue in the port site incision was deepened with cautery down to the port. It was a type I port. It was in appropriate orientation. One of the fascial sutures had come loose and was slightly turned, but not flipped. There was no evidence of infection. It was well encapsulated. Itwas dissected free from its fascial attachments and removed with its attached tubing, thereby removing the entire foreign body which was sent together as specimen. The Ethibond sutures were removed. The fascia was infiltrated with local anesthetic and the subcutaneous tissue closed with a [id number] 2-0 Vicryl plus suture. The skin in each of the 3 incisions was closed using 3-0 Monocryl plus in an interrupted subcuticular stitch followed by Skin Affix. The patient tolerated the procedure well without complication and was taken to the recovery room in stable condition. MD LEOBARDO Faustin/ramon Voice Rec. ID #[id number] Original Voice Rec. ID #[id number] Doc ID #[id number] Revision Count: 0 cc: Shane Cunha MD documented in this encounter Plan of Treatment Scheduled Orders Name Type Priority Associated Diagnoses Orde r Schedule Incentive Spirometer / Coughing Exercises at Least 4 Times / Day for 2 Weeks Respiratory Care Routine Dysphagia Ordered: 06/18/2016 documented as of this encounter Procedures Procedure Name Priority Date/Time Associated Diagnosis Comments CBC WITH AUTO DIFFERENTIAL Routine 06/18/2016 4:39 AM EDT CBC AND DIFFERENTIAL Routine 06/18/2016 4:39 AM EDT COMPREHENSIVE METABOLIC PANEL Routine 06/18/2016 4:39 AM EDT SURGICAL PATHOLOGY EXAM Routine 06/17/2016 8:15 AM EDT Dysphagia GASTRIC BANDING REMOVAL LAPAROSCOPIC 06/17/2016 7:24 AM EDT Dysphagia Special Needs PA POCT PEFORM URINE Routine 06/17/2016 6:41 AM EDT documented in this encounter Results * (ABNORMAL) CBC Auto Differential (06/18/2016 4:39 AM EDT) WBC 14.58(H) 3.50 - 10.80 10*3/mm3 06/18/2016 6:01 AM EDT [facility] RBC 4.33 3.89 - 5.14 10*6/mm3 06/18/2016 6:01 AM EDT [facility] Hemoglobin 11.1(L) 11.5 - 15.5 g/dL 06/18/2016 6:01 AM EDT [facility] Hematocrit 34.9 34.5 - 44.0 % 06/18/2016 6:01 AM EDT [facility] MCV 80.6 80.0 - 99.0 fL 06/18/2016 6:01 AM EDT [facility] MCH 25.6(L) 27.0 - 31.0 pg 06/18/2016 6:01 AM EDT [facility] MCHC 31.8(L) 32.0 - 36.0 g/dL 06/18/2016 6:01 AM EDT [facility] RDW 15.4(H) 11.3 - 14.5 % 06/18/2016 6:01 AM EDT [facility] RDW-SD 45.3 37.0 - 54.0 fl 06/18/2016 6:01 AM [facility] MPV 10.0 6.0 - 12.0 fL 06/18/2016 6:01 AM [facility] Platelets 324 150 - 450 10*3/mm3 06/18/2016 6:01 AM [facility] Neutrophil % 74.6(H) 41.0 - 71.0 % 06/18/2016 6:01 AM [facility] Lymphocyte % 20.0(L) 24.0 - 44.0 % 06/18/2016 6:01 AM [facility] Monocyte % 4.9 0.0 - 12.0 % 06/18/2016 6:01 AM [facility] Eosinophil % 0.1 0.0 - 3.0 % 06/18/2016 6:01 AM [facility] Basophil % 0.1 0.0 - 1.0 % 06/18/2016 6:01 AM [facility] Immature Grans % 0.3 0.0 - 0.6 % 06/18/2016 6:01 AM [facility] Neutrophils, Absolute 10.89(H) 1.50 - 8.30 10*3/mm3 06/18/2016 6:01 AM [facility] Lymphocytes, Absolute 2.91 0.60 - 4.80 10*3/mm3 06/18/2016 6:01 AM [facility] Monocytes, Absolute 0.71 0.00 - 1.00 10*3/mm3 06/18/2016 6:01 AM [facility] Eosinophils, Absolute 0.01(L) 0.10 - 0.30 10*3/mm3 06/18/2016 6:01 AM [facility] Basophils, Absolute 0.01 0.00 - 0.20 10*3/mm3 06/18/2016 6:01 AM [facility] Immature Grans, Absolute 0.05(H) 0.00 - 0.03 10*3/mm3 06/18/2016 6:01 AM [facility] Blood 06/18/2016 4:39 AM EDT 06/18/2016 5:28 AM EDT Shane Cunha MD LAB BLOOD ORDERABLES Final Result [facility]
[address] [place] [address], * (ABNORMAL) Comprehensive Metabolic Panel (06/18/2016 4:39 AM EDT) Glucose 109(H) 70 - 100 mg/dL 06/18/2016 6:09 AM EDT [facility] BUN 8(L) 9 - 23 mg/dL 06/18/2016 6:09 AM EDT [facility] Creatinine 0.70 0.60 - 1.30 mg/dL 06/18/2016 6:09 AM EDT [facility] Sodium 138 132 - 146 mmol/L 06/18/2016 6:09 AM EDT [facility] Potassium 4.2 3.5 - 5.5 mmol/L 06/18/2016 6:09 AM EDT [facility] Chloride 105 99 - 109 mmol/L 06/18/2016 6:09 AM EDT [facility] CO2 30.0 20.0 - 31.0 mmol/L 06/18/2016 6:09 AM EDT [facility] Calcium 8.3(L) 8.7 - 10.4 mg/dL 06/18/2016 6:09 AM EDT [facility] Total Protein 6.4 5.7 - 8.2 g/dL 06/18/2016 6:09 AM EDT [facility] Albumin 3.70 3.20 - 4.80 g/dL 06/18/2016 6:09 AM EDT [facility] ALT (SGPT) 21 7 - 40 U/L 06/18/2016 6:09 AM EDT [facility] AST (SGOT) 19 0 - 33 U/L 06/18/2016 6:09 AM EDT [facility] Alkaline Phosphatase 78 25 - 100 U/L 06/18/2016 6:09 AM EDT [facility] Total Bilirubin 0.3 0.3 - 1.2 mg/dL 06/18/2016 6:09 AM EDT [facility] eGFR Non Amer 95 >60 mL/min/1.7 3 06/18/2016 6:09 AM EDT [facility] Globulin 2.7 gm/dL 06/18/2016 6:09 AM EDT [facility] A/G Ratio 1.4 g/dL 06/18/2016 6:09 AM EDT [facility] BUN/Creatinine Ratio 11.4 7.0 - 25.0 06/18/2016 6:09 AM EDT [facility] Anion Gap 3.0 3.0 - 11.0 mmol/L 06/18/2016 6:09 AM T [facility] Blood 06/18/2016 4:39 AM EDT 06/18/2016 5:28 AM EDT [facility] - 06/18/2016 6:09 AM EDT National Kidney Foundation Guidelines Stage ? Description ?GFR 1 ?Normal or High ? 90+ 2 ?Mild decrease ? 60-89 3 ?Moderate decrease ?30-59 4 ?Severe decrease ?15-29 5 ?Kidney failure ?<15 us Shane Cunha MD LAB BLOOD ORDERABLES Final Result [facility]
[address] [place] [address], * Surgical Pathology Exam (06/17/2016 8:15 AM EDT) Case Report Surgical Pathology Report ? Case: [id number] ? Authorizing Provider: ??Shane Cunha MD ? Collected: ? 06/17/2016 08:15 AM ? Ordering Location: ? [facility] ?? Received: ?06/17/2016 09:18 AM ? OR ? Pathologist: ? Shayne Waite MD ? Specimen: ?Abdominal Wall, EXPLANTED PORT and Band ? 06/17/2016 4:36 PM EDT [facility] Clinical Information The working history is dysphagia. 06/17/2016 4:36 PM EDT [facility] Final Diagnosis GROSS DIAGNOSIS: Specimen consistent with surgically removed, unremarkable lap band and port-a-cath. MIHAELAM:ANN MARIE/jennifer 06/17/2016 4:36 PM EDT [facility] Gross Description Received fresh labeled explanted port and band is an intact white plastic lap band with a moderate amount of adherent dried bloody fluid. No identifying trademark, serial number or obvious defects are noted. Also received in the same container is an unremarkable port-a-cath with the serial number [id number] . No sections are submitted; specimen for gross exam only. MIHAELAM/jennifer 06/17/2016 4:36 PM EDT [facility] Embedded Images 06/17/2016 4:36 PM EDT [facility] Tissue Abdominal wall / Unknown 06/17/2016 8:15 AM EDT 06/17/2016 9:18 AM EDT us Shane Cunha MD PATHOLOGY/CYTOLOGY ORDERAB LES Final Result [facility]
[address] [id number], * POC , Urine (06/17/2016 6:41 AM EDT) HCG, Urine, QL Negative Negative [facility] Lot Number [id number] [facility] Internal Positive Control Positive [facility] Internal Negative Control Negative [facility] Urine 06/17/2016 6:41 AM EDT Shane Cunha MD POINT OF CARE TEST ORDERAB LES Final Result [facility]
[address] [place] [address], documented in this encounter Visit Diagnoses Diagnosis Dysphagia Dysphagia documented in this encounter Admitting Diagnoses Diagnosis Dysphagia documented in this encounter Administered Medications Inactive Administered Medications - up to 3 most recent administrations Medication Order MAR Action Action Date Dose Rate Site cloNIDine (CATAPRES) tablet 0.1 mg 0.1 mg, Oral, Every 6 Hours PRN, High Blood Pressure, Starting on Deedee 06/17/16 at 0953, Given if SBP > 160 enoxaparin (LOVENOX) syringe 40 mg 40 mg, Subcutaneous, Every 24 Hours Scheduled, First dose on Deedee 06/17/16 at 1030, Give subcutaneous in abdomen only. Do not massage site after injection. Do not change dose time until after 48 hrs. Given 06/17/2016 10:19 AM EDT 40 mg Left Arm famotidine (PEPCID) tablet 20 mg 20 mg, Oral, Once, On Deedee 06/17/16 at 0745, For 1 dose Given 06/17/2016 7:09 AM EDT 20 mg HYDROcodone-acetaminophen (NORCO) 7.5-325 MG per tablet 1 tablet 1 tablet, Oral, Every 4 Hours PRN, Moderate Pain, Starting on Deedee 06/17/16 at 0953, For 10 days, Do not exceed 4g of acetaminophen in a 24 hour period. Given 06/18/2016 9:07 AM EDT 1 tablet Given 06/18/2016 4:05 AM EDT 1 tablet Given 06/17/2016 9:59 PM EDT 1 tablet HYDROmorphone (DILAUDID) injection 0.5 mg 0.5 mg, Intravenous, Every 5 Minutes PRN, Severe Pain, Starting on Deedee 06/17/16 at 0852, For 4 doses, Maximum total dose of hydromorphone is 2 mg. Given 06/17/2016 9:10 AM EDT 0.5 mg Given 06/17/2016 9:00 AM EDT 0.5 mg Le ft Arm labetalol (NORMODYNE,TRANDATE) injection 10 mg 10 mg, Intravenous, Every 3 Hours PRN, High Blood Pressure, Starting on Deedee 06/17/16 at 0953, If SBP remains > 160 after one hour, give Labetalol 10 mg. If SBP remains > 160 after two hours, consult hospitalist. Give by slow IV Push each 20mg (or less) over 2 minutes lactated ringers infusion 150 mL/hr, Intravenous, Continuous, Starting on Deedee 06/17/16 at 0715 New Bag 06/17/2016 7:04 AM EDT 150 mL/hr 150 mL/hr levothyroxine (SYNTHROID, LEVOTHROID) tablet 137 mcg 137 mcg, Oral, Every [employer], First dose on Deedee 06/17/16 at 1100, Take on empty stomach. Given 06/18/2016 6:07 AM EDT 137 mcg Given 06/17/2016 10:18 AM EDT 137 mcg lidocaine PF (XYLOCAINE) 1 % injection 1 mL 1 mL, Infiltration, Once, On Deedee 06/17/16 at 0715, For 1 dose, Indications: Local AnesthesiaIndications:Local Anesthesia Given 06/17/2016 7:03 AM EDT 1 mL morphine sulfate (PF) injection 6 mg 6 mg, Intravenous, Every 2 Hours PRN, Severe Pain, Starting on Deedee 06/17/16 at 0953, For 10 days naloxone (NARCAN) injection 0.4 mg 0.4 mg, Intravenous, Every 5 Minutes PRN, Respiratory Depression, Starting on Deedee 06/17/16 at 0953, If respiratory rate is less than 8 breaths/minute or patient is difficult to arouse stop any narcotics and contact physician. Administer slow IV push. Repeat as ordered until patient's respiratory rate is greater than 12 breaths/minute. ondansetron (ZOFRAN) injection 4 mg 4 mg, Intravenous, Every 6 Hours PRN, Nausea, Vomiting, Starting on Deedee 06/17/16 at 0953 ondansetron (ZOFRAN) tablet 4 mg 4 mg, Oral, Every 6 Hours PRN, Nausea, Vomiting, Starting on Deedee 06/17/16 at 0953 promethazine (PHENERGAN) injection 12.5 mg 12.5 mg, Intravenous, Every 4 Hours PRN, Nausea, Vomiting, Starting on Deedee 06/17/16 at 0953, Give Zofran first. Give Phenergan if Zofran [...] Hours PRN, Nausea, Vomiting, Starting on Deedee 06/17/16 at 0953, Give Zofran first. Give Phenergan if Zofran not effective. Then if Phenergan not effective, give metoclopramide. If giving IV, dilute dose in 20 mL NS and slow IV push over 3-5 minutes. Administer through large bore vein (not hand or wrist) through running IV line at port furthest from patient's vein. sodium chloride 0.45 % with KCl 20 mEq/L infusion 100 mL/hr, Intravenous, Continuous, Starting on Deedee 06/17/16 at 1000 New Bag 06/17/2016 9:20 PM EDT 100 mL/hr 100 mL/hr Restarted 06/17/2016 10:11 AM EDT 100 mL/hr 100 mL/hr New Bag 06/17/2016 9:05 AM EDT 100 mL/hr 100 mL/hr documented in this encounter Active and Recently Administered Medications Times are shown in EDT. Scheduled Medication Order 06/16/2016 06/17/2016 06/18/2016 ceFAZolin in 0.9% normal saline (ANCEF) IVPB solution 3 g (COMPLETED) 3 g, Intravenous, Once, On Deedee 06/17/16 at 0715, For 1 dose, Refrigerate, Indications: Surgical Prophylaxis 0739 (Given - Provider: Gianfranco Cerna CRNA) enoxaparin (LOVENOX) syringe 40 mg 40 mg, Subcutaneous, Every 24 Hours Scheduled, First dose on Deedee 06/17/16 at 1030, Give subcutaneous in abdomen only. Do not massage site after injection. Do not change dose time until after 48 hrs. 1019 (Given - Provider: Kyara Trevino, COLEEN) 0900 (Due) famotidine (PEPCID) tablet 20 mg (COMPLETED) 20 mg, Oral, Once, On Deedee 06/17/16 at 0745, For 1 dose 0709 (Given - Provider: Karyn Rivera, COLEEN) levothyroxine (SYNTHROID, LEVOTHROID) tablet 137 mcg 137 mcg, Oral, Every [employer], First dose on Deedee 06/17/16 at 1100, Take on empty stomach. 1018 (Given - Provider: Kyara Trevino, COLEEN) 0607 (Given - Provider: Karyn Brothers, COLEEN) lidocaine PF (XYLOCAINE) 1 % injection 1 mL (COMPLETED) 1 mL, Infiltration, Once, On Deedee 06/17/16 at 0715, For 1 dose, Indications: Local Anesthesia 0703 (Given - Provider: Karyn Rivera RN) Continuous Medication Order 06/16/2016 06/17/2016 06/18/2016 lactated ringers infusion (CANCELED) 150 mL/hr, Intravenous, Continuous, Starting on Deedee 06/17/16 at 0715 0704 (New Bag - Provider: Romulo Rivera RN)0834 (Anesthesia Volume Adjustment - Provider: Gianfranco Cerna CRNA) sodium chloride 0.45 % with KCl 20 mEq/L infusion 100 mL/hr, Intravenous, Continuous, Starting on Deedee 06/17/16 at 1000 0905 (New Bag - Provider: Sarita Bazzi RN)1011 (Restarted - Provider: Kyara Trevino RN)2120 (New Bag - Provider: Karyn Brothers, COLEEN) PRN Medication Order 06/16/2016 06/17/2016 06/18/2016 albuterol (PROVENTIL) nebulizer solution 2.5 mg 2.5 mg, Nebulization, Every 4 Hours PRN, Shortness of Air, Starting on Deedee 06/17/16 at 0953 bupivacaine-EPINEPHrine PF (MARCAINE w/EPI) 0.5% -[id number] injection (CANCELED) As Needed, Starting on Deedee 06/17/16 at 0802 0802 (Given - Provider: Shane Cunha MD) cloNIDine (CATAPRES) tablet 0.1 mg(Linked Group 1) 0.1 mg, Oral, Every 6 Hours PRN, High Blood Pressure, Starting on Deedee 06/17/16 at 0953, Given if SBP > 160 diphenhydrAMINE (BENADRYL) injection 25 mg 25 mg, Intravenous, Every 4 Hours PRN, Itching, Starting on Deedee 06/17/16 at 0953, {BKC} This med may be ordered in other forms and routes. Before giving verify the last time the drug was given by any route/form. 25 mg may be given IV push over less than 1 minute. enoxaparin (LOVENOX) syringe (CANCELED) As Needed, Starting on Deedee 06/17/16 at 0752 0752 (Given - Provider: Ayla Waite V RN) HYDROcodone-acetaminophen (NORCO) 7.5-325 MG per tablet 1 tablet 1 tablet, Oral, Every 4 Hours PRN, Moderate Pain, Starting on Deedee 06/17/16 at 0953, For 10 days, Do not exceed 4g of acetaminophen in a 24 hour period. 1309 (Given - Provider: Kyara Trevino RN)1743 (Given - Provider: Kyara Trevino, COLEEN)2159 (Given - Provider: Karyn Brothers, COLEEN) 0405 (Given - Provider: Karyn Brothers, COLEEN)0907 (Given - Provider: Kyara Trevino, COLEEN) HYDROmorphone (DILAUDID) injection 0.5 mg (CANCELED) 0.5 mg, Intravenous, Every 5 Minutes PRN, Severe Pain, Starting on Deedee 06/17/16 at 0852, For 4 doses, Maximum total dose of hydromorphone is 2 mg. 0900 (Given - Provider: Sarita Bazzi, COLEEN)0910 (Given - Provider: Sarita Bazzi, COLEEN) labetalol (NORMODYNE,TRANDATE) injection 10 mg(Linked Group 1) 10 mg, Intravenous, Every 3 Hours PRN, High Blood Pressure, Starting on Deedee 06/17/16 at 0953, If SBP remains > 160 after one hour, give Labetalol 10 mg. If SBP remains > 160 after two hours, consult hospitalist. Give by slow IV Push each 20mg (or less) over 2 minutes LORazepam (ATIVAN) tablet 1 mg 1 mg, Oral, Every 12 Hours PRN, Anxiety, Starting on Deedee 06/17/16 at 0953, For 10 days morphine sulfate (PF) injection 6 mg(Linked Group 2) 6 mg, Intravenous, Every 2 Hours PRN, Severe Pain, Starting on Deedee 06/17/16 at 0953, For 10 days naloxone (NARCAN) injection 0.4 mg(Linked Group 2) 0.4 mg, Intravenous, Every 5 Minutes PRN, Respiratory Depression, Starting on Deedee 06/17/16 at 0953, If respiratory rate is less than 8 breaths/minute or patient is difficult to arouse stop any narcotics and contact physician. Administer slow IV push. Repeat as ordered until patient's respiratory rate is greater than 12 breaths/minute. ondansetron (ZOFRAN) injection 4 mg(Linked Group 3) 4 mg, Intravenous, Every 6 Hours PRN, Nausea, Vomiting, Starting on Deedee 06/17/16 at 0953 ondansetron (ZOFRAN) tablet 4 mg(Linked Group 3) 4 mg, Oral, Every 6 Hours PRN, Nausea, Vomiting, Starting on Deedee 06/17/16 at 0953 phenol (CHLORASEPTIC) 1.4 % liquid 2 spray 2 spray, Mouth/Throat, Every 2 Hours PRN, Sore Throat, Starting on Deedee 06/17/16 at 0953, {BKC} promethazine (PHENERGAN) injection 12.5 mg(Linked Group 4) 12.5 mg, Intravenous, Every 4 Hours PRN, Nausea, Vomiting, Starting on Deedee 06/17/16 at 0953, Give Zofran first. Give Phenergan if Zofran not effective. Then if Phenergan not effective, give metoclopramide. If giving IV, dilute dose in 20 mL NS and slow IV push over 3-5 minutes. Administer through large bore vein (not hand or wrist) through running IV line at port furthest from patient's vein. promethazine (PHENERGAN) injection 12.5 mg(Linked Group 4) 12.5 mg, Intramuscular, Every 4 Hours PRN, Nausea, Vomiting, Starting on Deedee 06/17/16 at 0953, Give Zofran first. Give Phenergan if Zofran not effective. Then if Phenergan not effective, give metoclopramide. If giving IV, dilute dose in 20 mL NS and slow IV push over 3-5 minutes. Administer through large bore vein (not hand or wrist) through running IV line at port furthest from patient's vein. sodium chloride 0.9 % solution (CANCELED) As Needed, Starting on Deedee 06/17/16 at 0802 0802 (Given - Provider: Shane Cunha MD) sterile water irrigation solution (CANCELED) As Needed, Starting on Deedee 06/17/16 at 0802 0802 (Given - Provider: Shane Cunha MD) Linked Groups Order Group 1: cloNIDine (CATAPRES) tablet 0.1 mgJump to med 0.1 mg, Oral, Every 6 Hours PRN, High Blood Pressure, Starting on Deedee 06/17/16 at 0953, Given if SBP > 160 And labetalol (NORMODYNE,TRANDATE) injection 10 mgJump to med 10 mg, Intravenous, Every 3 Hours PRN, High Blood Pressure, Starting on Deedee 06/17/16 at 0953, If SBP remains > 160 after one hour, give Labetalol 10 mg. If SBP remains > 160 after two hours, consult hospitalist. Give by slow IV Push each 20mg (or less) over 2 minutes Group 2: morphine sulfate (PF) injection 6 mgJump to med 6 mg, Intravenous, Every 2 Hours PRN, Severe Pain, Starting on Deedee 06/17/16 at 0953, For 10 days And naloxone (NARCAN) injection 0.4 mgJump to med 0.4 mg, Intravenous, Every 5 Minutes PRN, Respiratory Depression, Starting on Deedee 06/17/16 at 0953, If respiratory rate is less than 8 breaths/minute or patient is difficult to arouse stop any narcotics and contact physician. Administer slow IV push. Repeat as ordered until patient's respiratory rate is greater than 12 breaths/minute. Group 3: ondansetron (ZOFRAN) tablet 4 mgJump to med 4 mg, Oral, Every 6 Hours PRN, Nausea, Vomiting, Starting on Deedee 06/17/16 at 0953 Or ondansetron (ZOFRAN) injection 4 mgJump to med 4 mg, Intravenous, Every 6 Hours PRN, Nausea, Vomiting, Starting on Deedee 06/17/16 at 0953 Group 4: promethazine (PHENERGAN) injection 12.5 mgJump to med 12.5 mg, Intravenous, Every 4 Hours PRN, Nausea, Vomiting, Starting on Deedee 06/17/16 at 0953, Give Zofran first. Give Phenergan if Zofran [...] Hours PRN, Nausea, Vomiting, Starting on Deedee 06/17/16 at 0953, Give Zofran first. Give Phenergan if Zofran not effective. Then if Phenergan not effective, give metoclopramide. If giving IV, dilute dose in 20 mL NS and slow IV push over 3-5 minutes. Administer through large bore vein (not hand or wrist) through running IV line at port furthest from patient's vein. documented in this encounter Care Teams Team Coordinator Relationship Specialty Start Date End Date Rudi Arce MD [facility] [place] [facility] [address] [facility] [address] [place] [id number] PCP - General Family Medicine 04/22/16 01/16/17 documented as of this encounter
--- OUTSIDE RECORDS SUMMARY | 2024-08-03 08:10 | XMS_ITS | Encounter Summary ---
[facility] Address [address] [place] [address] Care Team Providers Care Disease Education Specialist Name Role Phone Rudi Arce MD Primary Care Provider [phone] Reason for Visit * Auth/Cert Specialty Diagnoses / Procedures Referred By Ruy iraheta Referred To Contact Diagnoses GASTRIC BANDING REMOVAL LAPAROSCOPIC Procedures GASTRIC BANDING REMOVAL LAPAROSCOPIC Referral ID Status Reason Start Date Expiration Date Visits Re quested Visits Authorized [id number] 1 1 Encounter Details Date Type Department Care Team (Late st Contact Info) Description 06/17/2016 7:15 AM EDT - 06/17/2016 8:45 AM EDT Surgery [facility] OR [address] [place] [address] Shane Cunha MD [address] [place] [address] GASTRIC BANDING REMOVAL LAPAROSCOPIC Social History Tobacco Use Types Packs/Day [...] Sign Reading Time Taken Comments Blood Pressure 137/73 06/17/2016 8:45 AM EDT Pulse 99 06/17/2016 8:35 AM EDT Temperature 36.7 ??C (98 ??F) 06/17/2016 8:45 AM EDT Respiratory Rate 18 06/17/2016 8:45 AM EDT Oxygen Saturation 100% 06/17/2016 8:35 AM EDT Inhaled Oxygen Concentration - - Weight 148 kg (325 lb 8 oz) 06/17/2016 6:50 AM E DT Height 170.2 cm (5' 7 ) 06/17/2016 6:50 AM EDT Body Mass Index 52.03 06/17/2016 9:49 AM EDT documented in this encounter Discharge Instructions * Attachments The following attachments cannot be sent through Care Everywhere. * ACETAMINOPHEN; HYDROCODONE TABLETS OR CAPSULES (HEBREW) documented in this encounter Medications at Time [...] 06/18/2016 9:40 AM EDT Discharge Planning Assessment [facility] Patient Name: Jelena Saha Today's Date: 06/18/2016 [...] go home. No complaints. Tolerating PO - tajik toast and sausage. Denies N/V. No fevers. Pain controlled. Ambulating. Voiding. IS 2000 Objective Vital Signs Blood pressure 112/68, pulse 66, temperature 98.2 ??F (36.8 ??C), temperature source Oral, resp. rate 18, height 67 (170.2 cm), weight (!) 332 lb 3.2 oz (151 kg), last menstrual period 07/13/2006, SpO2 98 %. Intake/Output Summary (Last 24 hours) at 06/18/16 0823 Last data filed at 06/18/16 0400 Gross per 24 hour Intake 2820 ml Output 1150 ml Net 1670 ml Physical Exam: General: Alert, NAD Lungs: Clear Heart: RRR Abdomen: soft, appropriate, incisions okay Extremities: warm, (+) SCDs Labs: CBC Auto Differential [[id number]] (Abnormal) Collected: 06/18/16 0439 Specimen: Blood Updated: 06/18/16 06 WBC 14.58 (H) 10*3/mm3 RBC 4.33 10*6/mm3 [...] Absolute 0.05 (H) 10*3/mm3 Comprehensive Metabolic Panel [[id number]] (Abnormal) Collected: 06/18/16 0439 Specimen: Blood Updated: 06/18/16 06 Glucose 109 (H) mg/dL BUN 8 (L) [...] Mutuality Outcome: Ongoing (interventions implemented as appropriate) 06/17/16 1749 Individualization Patient Specific Interventions walking Problem: Perioperative Period (Adult) Goal: Signs and Symptoms of Listed Potential Problems Will be Absent or Manageable (Perioperative Period) Outcome: Ongoing (interventions implemented as appropriate) 06/17/16 1749 Perioperative Period Problems Assessed (Perioperative Period) all [...] Diagnosis Codes: * Dysphagia [R13.10] Procedure/CPT?? Codes: AR LAP, REMOVE ADJUST JEAN PAUL RESTRICT DEVICE/PORT [10394] Procedure(s): GASTRIC BANDING REMOVAL LAPAROSCOPIC Surgeon(s): Shane Cunha MD Anesthesia: General Staff: Shirt Sewer: Ayla Waite RN Scrub Person: Soni Rivas Surfboard Maker: Guillermo Milligan Estimated Blood Loss: * No [...] and the subcutaneous tissue closed with a [id number]-yrlns 2-0 Vicryl plus suture. The skin in each of the 3 incisions was closed using 3-0 Monocryl plus in an interrupted subcuticular stitch followed by Skin Affix. The patient tolerated the procedure well without complication and was taken to the recovery room in stable condition. MD LEOBARDO Faustin/pr Voice Rec. ID #[id number] Original Voice Rec. ID #[id number] Doc ID #[id number] Revision Count: 0 cc: Shane Cunha MD [...] - 10.80 10*3/mm3 06/18/2016 6:01 AM EDT [facility] RBC 4.33 3.89 - 5.14 10*6/mm3 06/18/2016 6:01 AM EDT [facility] Hemoglobin 11.1(L) 11.5 - 15.5 g/dL 06/18/2016 6:01 AM EDT [facility] Hematocrit 34.9 34.5 - 44.0 % 06/18/2016 6:01 AM EDT [facility] MCV 80.6 80.0 - 99.0 fL 06/18/2016 6:01 AM EDT [facility] MCH 25.6(L) 27.0 - 31.0 pg 06/18/2016 6:01 AM EDT [facility] MCHC 31.8(L) 32.0 - 36.0 g/dL 06/18/2016 6:01 AM EDT [facility] RDW 15.4(H) 11.3 - 14.5 % 06/18/2016 6:01 AM EDT [facility] RDW-SD 45.3 37.0 - 54.0 fl 06/18/2016 6:01 AM EDT [facility] MPV 10.0 6.0 - 12.0 fL 06/18/2016 6:01 AM EDT [facility] Platelets 324 150 - 450 10*3/mm3 06/18/2016 6:01 AM EDT [facility] Neutrophil % 74.6(H) 41.0 - 71.0 % 06/18/2016 6:01 AM EDT [facility] Lymphocyte % 20.0(L) 24.0 - 44.0 % 06/18/2016 6:01 AM EDT [facility] Monocyte % 4.9 0.0 - 12.0 % 06/18/2016 6:01 AM EDT [facility] Eosinophil % 0.1 0.0 - 3.0 % 06/18/2016 6:01 AM EDT [facility] Basophil % 0.1 0.0 - 1.0 % 06/18/2016 6:01 AM EDT [facility] Immature Grans % 0.3 0.0 - 0.6 % 06/18/2016 6:01 AM EDT [facility] Neutrophils, Absolute 10.89(H) 1.50 - 8.30 10*3/mm3 06/18/2016 6:01 AM EDT [facility] Lymphocytes, Absolute 2.91 0.60 - 4.80 10*3/mm3 06/18/2016 6:01 AM EDT [facility] Monocytes, Absolute 0.71 0.00 - 1.00 10*3/mm3 06/18/2016 6:01 AM EDT [facility] Eosinophils, Absolute 0.01(L) 0.10 - 0.30 10*3/mm3 06/18/2016 6:01 AM EDT [facility] Basophils, Absolute 0.01 0.00 - 0.20 10*3/mm3 06/18/2016 6:01 AM EDT [facility] Immature Grans, Absolute 0.05(H) 0.00 - 0.03 10*3/mm3 06/18/2016 6:01 AM EDT [facility] Blood 06/18/2016 4:39 AM EDT 06/18/2016 5:28 AM EDT Shane Cunha MD LAB BLOOD ORDERABLES Final Result [facility]
[address] [place] [address], * (ABNORMAL) Comprehensive Metabolic Panel (06/18/2016 4:39 AM EDT) [facility] Signature Glucose 109(H) 70 - 100 mg/dL 06/18/2016 6:09 AM [facility] BUN 8(L) 9 - 23 mg/dL 06/18/2016 6:09 AM [facility] Creatinine 0.70 0.60 - 1.30 mg/dL 06/18/2016 6:09 AM [facility] Sodium 138 132 - 146 mmol/L 06/18/2016 6:09 AM [facility] Potassium 4.2 3.5 - 5.5 mmol/L 06/18/2016 6:09 AM [facility] Chloride 105 99 - 109 mmol/L 06/18/2016 6:09 AM [facility] CO2 30.0 20.0 - 31.0 mmol/L 06/18/2016 6:09 AM [facility] Calcium 8.3(L) 8.7 - 10.4 mg/dL 06/18/2016 6:09 AM [facility] Total Protein 6.4 5.7 - 8.2 g/dL 06/18/2016 6:09 AM [facility] Albumin 3.70 3.20 - 4.80 g/dL 06/18/2016 6:09 AM [facility] ALT (SGPT) 21 7 - 40 U/L 06/18/2016 6:09 AM [facility] AST (SGOT) 19 0 - 33 U/L 06/18/2016 6:09 AM [facility] Alkaline Phosphatase 78 25 - 100 U/L 06/18/2016 6:09 AM [facility] Total Bilirubin 0.3 0.3 - 1.2 mg/dL 06/18/2016 6:09 AM [facility] eGFR Non Amer 95 >60 mL/min/1.7 3 06/18/2016 6:09 AM [facility] Globulin 2.7 gm/dL 06/18/2016 6:09 AM [facility] A/G Ratio 1.4 g/dL 06/18/2016 6:09 AM [facility] BUN/Creatinine Ratio 11.4 7.0 - 25.0 06/18/2016 6:09 AM EDT [facility] Anion Gap 3.0 3.0 - 11.0 mmol/L 06/18/2016 6:09 AM EDT [facility] Blood 06/18/2016 4:39 AM EDT 06/18/2016 5:28 AM EDT [facility] - 06/18/2016 6:09 AM EDT National Kid[employer] Guidelines Stage ? Description ?GFR 1 ?Normal or High ? 90+ 2 ?Mild decrease ? 60-89 3 ?Moderate decrease ?30-59 4 ?Severe decrease ?15-29 5 ?Kidney failure ?<15 us Shane Cunha MD LAB BLOOD ORDERABLES Final Result [facility]
[address] [id number], * Surgical Pathology Exam (06/17/2016 8:15 AM EDT) Case Report Surgical Pathology Report ? Case: [id number] ? Authorizing Provider: ??Shane Cunha MD ? Collected: ? 06/17/2016 08:15 AM ? Ordering Location: ? [facility] ?? Received: ?06/17/2016 09:18 AM ? OR ? Pathologist: ? Shayne Waite MD ? Specimen: ?Abdominal Wall, EXPLANTED PORT and Band ? 06/17/2016 4:36 PM EDT [facility] Clinical Information The working history is dysphagia. 06/17/2016 4:36 PM EDT [facility] Final Diagnosis GROSS DIAGNOSIS: Specimen consistent with surgically removed, unremarkable lap band and port-a-cath. HBM:ANN MARIE/jennifer 06/17/2016 4:36 PM EDT [facility] Gross Description Received fresh labeled explanted port and band is an intact white plastic lap band with a moderate amount of adherent dried bloody fluid. No identifying trademark, serial number or obvious defects are noted. Also received in the same container is an unremarkable port-a-cath with the serial number [id number] . No sections are submitted; specimen for gross exam only. HANNA/jennifer 06/17/2016 4:36 PM EDT [facility] Embedded Images 06/17/2016 4:36 PM EDT [facility] Tissue Abdominal wall / Unknown 06/17/2016 8:15 AM EDT 06/17/2016 9:18 AM EDT Shane Cunha MD PATHOLOGY/CYTOLOGY ORDERAB LES Final Result Performing Organization Address City/[facility]/ZIP Co de Phone Number [facility]
[address] [place] [address], [place] [phone] * POC , Urine (06/17/2016 6:41 AM EDT) HCG, Urine, QL Negative Negative [facility] Lot Number [id number] [facility] Internal Positive Control Positive [facility] Internal Negative Control Negative [facility] Urine 06/17/2016 6:41 AM EDT Shane Cunha MD POINT OF CARE TEST ORDERAB LES Final Result [facility]
[address] [place] [address], [place] [phone] documented in this encounter Visit Diagnoses Diagnosis Dysphagia Dysphagia Dysphagia documented in this encounter Admitting Diagnoses Diagnosis Dysphagia documented in this encounter Administered Medications Inactive Administered Medications - up to 3 most recent administrations Medication Order MAR Action Action Date Dose Rate Site bupivacaine-EPINEPHrine PF (MARCAINE w/EPI) 0.5% -1:051172 injection As Needed, Starting on Deedee 06/17/16 at 0802 Given 06/17/2016 8:02 AM EDT 30 mL Abdominal Tissue cloNIDine (CATAPRES) tablet 0.1 mg 0.1 mg, [...] 10:19 AM EDT 40 mg Left Arm enoxaparin (LOVENOX) syringe As Needed, Starting on Deedee 06/17/16 at 0752 Given 06/17/2016 7:52 AM EDT 40 mg Abdominal Tissue HYDROcodone-acetaminophen (NORCO) 7.5-325 MG per tablet 1 tablet 1 tablet, Oral, Every 4 Hours PRN, Moderate Pain, Starting on Deedee 06/17/16 at 0953, For 10 days, Do not exceed 4g of acetaminophen in a 24 hour period. Given 06/18/2016 9:07 AM EDT 1 tablet Given 06/18/2016 4:05 AM EDT 1 tablet Given 06/17/2016 9:59 PM EDT 1 tablet labetalol (NORMODYNE,TRANDATE) injection 10 mg 10 mg, Intravenous, Every 3 Hours PRN, High Blood Pressure, Starting on Deedee 06/17/16 at 0953, If SBP remains > 160 after one hour, give Labetalol 10 mg. If SBP remains > 160 after two hours, consult hospitalist. Give by slow IV Push each 20mg (or less) over 2 minutes levothyroxine (SYNTHROID, LEVOTHROID) tablet 137 mcg 137 mcg, Oral, Every Make Up Arranger, First dose on Deedee 06/17/16 at 1100, Take on empty stomach. Given 06/18/2016 6:07 AM EDT 137 mcg Given 06/17/2016 10:18 AM EDT 137 mcg morphine sulfate (PF) injection 6 mg 6 [...] 9:05 AM EDT 100 mL/hr 100 mL/hr sodium chloride 0.9 % solution As Needed, Starting on Deedee 06/17/16 at 0802 Given 06/17/2016 8:02 A M EDT 1,000 mL sterile water irrigation solution As Needed, Starting on Deedee 06/17/16 at 0802 Given 06/17/2016 8:02 A M EDT 1,000 mL documented in this encounter [...] 48 hrs. 1019 (Given - Provider: Kyara Trevino RN) 0900 (Due) famotidine (PEPCID) tablet 20 mg (COMPLETED) 20 mg, Oral, Once, On Deedee 06/17/16 at 0745, For 1 dose 0709 (Given - Provider: Karyn Rivera RN) levothyroxine (SYNTHROID, LEVOTHROID) tablet 137 mcg 137 mcg, Oral, Every Make Up Arranger, First dose on Deedee 06/17/16 at 1100, Take on empty stomach. 1018 (Given - Provider: Kyara Trevino RN) 0607 (Given - Provider: Karyn Brothers RN) lidocaine PF (XYLOCAINE) 1 % injection 1 [...] 1000 0905 (New Bag - Provider: Sarita Bazzi, COLEEN)1011 (Restarted - Provider: Kyara Trevino, COLEEN)2120 (New Bag - Provider: Karyn Brothers RN) PRN Medication Order 06/16/2016 06/17/2016 06/18/2016 albuterol (PROVENTIL) nebulizer solution 2.5 mg 2.5 mg, Nebulization, Every 4 Hours PRN, Shortness of Air, Starting on Deedee 06/17/16 at 0953 bupivacaine-EPINEPHrine PF (MARCAINE w/EPI) 0.5% -1:[id number] injection (CANCELED) As Needed, Starting on Deedee [...] at 0752 0752 (Given - Provider: Ayla Mares RN) HYDROcodone-acetaminophen (NORCO) 7.5-325 MG per tablet 1 tablet 1 tablet, Oral, Every 4 Hours PRN, Moderate Pain, Starting on Deedee 06/17/16 at 0953, For 10 days, Do not exceed 4g of acetaminophen in a 24 hour period. 1309 (Given - Provider: Kyara Trevino, RN)1743 (Given - Provider: Kyara Trevino, RN)2159 (Given - Provider: Karyn Brothers, COLEEN) 0405 (Given - Provider: Karyn Brothers, COLEEN)0907 (Given - Provider: Kyara Trevino, COLEEN) HYDROmorphone (DILAUDID) injection 0.5 mg (CANCELED) 0.5 mg, Intravenous, Every 5 Minutes PRN, Severe Pain, Starting on Deedee 06/17/16 at 0852, For 4 doses, Maximum total dose of hydromorphone is 2 mg. 0900 (Given - Provider: Sarita Bazzi RN)0910 (Given - Provider: Sarita Bazzi RN) labetalol (NORMODYNE,TRANDATE) injection 10 mg(Linked Group 1) [...] % solution (CANCELED) As Needed, Starting on Tue06/17/16 at 0802 0802 (Given - Provider: Shane [...] vein. documented in this encounter Care Teams Disease Education Specialist Relationship Specialty Start Date End Date Rudi Arce MD [address] [place] [facility] [address] [facility] [address] [place] [id number] PCP - General Family Medicine 04/22/16 01/16/17 documented as of this encounter
[2024-08-03 08:15] VITALS: BP 135/81; PULSE 76; RESP 18; TEMP 37.1; O2SAT 100; BMI 39.1
--- NOTE | 2024-08-03 08:24 | EXP.UTC ---
Discharge Plan Disposition Patient Disposition: Home, Self-Care Condition: Good Prescriptions Prescriptions: New prednisone 20 mg tablet 20 mg PO BID 4 Days Qty: 8 0RF benzonatate 100 mg capsule 100 mg PO TIDP PRN (Reason: Cough) Qty: 30 0RF amoxicillin-pot clavulanate 875-125 mg Tablet 1 tab PO Q12H Qty: 20 0RF guaifenesin [Mucinex] 600 mg tablet extended release 12hr 600 - 1,200 mg PO BIDP PRN (Reason: Congestion) Qty: 30 0RF No Action meloxicam 15 mg tablet 15 mg PO DAILY omeprazole 40 mg capsule,delayed release(DR/EC) 40 mg PO DAILY levothyroxine 150 mcg tablet 150 mcg PO DAILY duloxetine 60 mg capsule,delayed release(DR/EC) 60 mg PO DAILY Referrals Follow up/Referrals: Rudi Arce MD [Primary Care Provider] - See instructions Activity Restrictions/Add. Instructions Additional Instructions/Restrictions: Drink plenty of fluids. Take tylenol or ibuprofen for pain or fever. Take the medications as directed. Follow up with your regular doctor. GO TO THE ER FOR ANY WORSENING SYMPTOMS The cough medication (promethazine dm) will make you drowsy, so don't drive or operate heavy machinery after taking it. Clinical Impressions Clinical Impression: Sinusitis, Bronchitis Instructions Patient Instructions: Sinusitis, DI for Sinusitis Print Language Print Language: Indonesian Discharge ED Provider: Wellington Sow [facility] HPI General Stated complaint: upper resp. Time Seen by Provider: 08/03/24 08:23 Related Data Home Medications ?Medication ?Instructions ?Recorded ?Confirmed duloxetine 60 mg capsule,delayed 60 mg PO DAILY 08/03/24 08/03/24 release levothyroxine 150 mcg tablet 150 mcg PO DAILY 08/03/24 08/03/24 meloxicam 15 mg tablet 15 mg PO DAILY 08/03/24 08/03/24 omeprazole 40 mg capsule,delayed 40 mg PO DAILY 08/03/24 08/03/24 release Previous Rx's ?Medication ?Instructions ?Recorded amoxicillin 875 mg-potassium 1 tab PO Q12H #20 tabs 08/03/24 clavulanate 125 mg tablet benzonatate 100 mg capsule 100 mg PO TIDP PRN Cough #30 caps 08/03/24 guaifenesin 600 mg tablet, 600 - 1,200 mg (1 - 2 x 600 mg) PO 08/03/24 extended release 12 hr (Mucinex) BIDP PRN Congestion #30 tabs prednisone 20 mg tablet 20 mg PO BID 4 days #8 tabs 08/03/24 Allergies Allergy/AdvReac Type Severity Reaction Status Date / Time No Known Allergies Allergy Verified 12/29/23 11:28 [facility] Disclaimer: The information contained in this section may have been updated after the patient was seen, as this information can be updated by other users. 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) Smoking Status: Never smoker second hand exposure: No alcohol intake: never substance use type: denies use current occupational status: employed Travel in the last 8 weeks: None household members: other housing: house current occupation: [employer] current occupational exposures/hazards: No caffeine: Yes ROS Obtained: Yes All systems reviewed & no additional complaints except as documented Constitutional Constitutional: Reports poor appetite Eyes Eyes: Reports system reviewed and no additional complaints, except as documented ENT Ears, Nose, Mouth, and Throat: Reports as per HPI Cardiovascular Cardiovascular: Reports system reviewed and no additional complaints, except as documented and Denies chest pain Respiratory Respiratory: Denies shortness of breath, Reports chest congestion, Reports cough, Denies stridor and Denies wheezing Gastrointestinal Gastrointestingal: Reports system reviewed and no additional complaints, except as documented; Denies abdominal pain, diarrhea or vomiting Musculoskeletal Musculoskeletal: Reports system reviewed and no additional complaints, except as documented and Denies arthralgias Integumentary/Breasts Skin/Breast: Reports system reviewed and no additional complaints, except as documented and Denies rash Neurologic Neurologic: Denies paresthesias Allergic/Immunologic Allergic/Immunologic: Denies wheezing Physical Exam General General appearance: alert and in no apparent distress Eye Eye exam: Present normal appearance, PERRL and EOMI ENT ENT exam: Present mucous membranes moist and normal external ear exam Expanded ENT Exam External ear exam: Present normal external inspection TM/Canal exam: Bilateral TM: erythema and bulging Nose exam: Absent sinus tenderness Nasal speculum exam: Bilateral: normal Mouth exam: Present normal external inspection; Absent drooling Teeth exam: Present normal inspection Throat exam: Present tonsillar erythema and tonsillomegaly Neck Neck exam: Present normal inspection, full ROM and trachea midline; Absent tenderness, lymphadenopathy or thyromegaly Chest Chest inspection: Present normal inspection and symmetric chest wall rise; Absent tenderness or rash Respiratory Respiratory exam: Present normal lung sounds bilaterally; Absent respiratory distress, wheezes, stridor or accessory muscle use Cardiovascular Cardiovascular exam: Present regular rate, normal rhythm and normal heart sounds Abdominal Exam Abdominal exam: Present soft; Absent distention, tenderness, guarding, rebound or rigidity Extremities Exam Extremities exam: Present normal inspection, full ROM and normal capillary refill; Absent tenderness or calf tenderness Back Exam Back exam: Present normal inspection and full ROM; Absent tenderness Neurological Exam Neurological exam: Present alert and oriented X3 Psychiatric Psychiatric exam: Present normal affect and normal mood Skin Skin exam: Present warm, dry, intact and normal color Lymphatic Lymphatic Findings: no adenopathy Medical Decision Making Medical Records Medical records reviewed: No I reviewed the patient's medical records. Screening: Per USPSTF and CDC recommendations, given the prevalence of disease in our region, it is our hospital?s policy to screen for HIV and viral Hepatitis for all patients aged 18 and over and those with ongoing risk factors. Greg Inquiry Pt receiving controlled substance: No
[2024-08-03 08:39] VITALS: BP 135/81; PULSE 76; RESP 18; TEMP 37.1; O2SAT 100
== END 2024-08-03 08:40 | disposition home or self-care (01) ==
PROVIDERS: Emergency Provider Nurse Practitioner Family; PCP Family Medicine
DX: J01.90 Acute sinusitis, unspecified (principal); J40 Bronchitis, not specified as acute or chronic; R05.9 Cough, unspecified; R09.89 Other specified symptoms and signs involving the circulatory and respiratory systems
CPT/HCPCS: 99212; G0381

== ENCOUNTER 2024-08-31 14:43 | Outpatient (CLI) | payer OTHER, SELFPAY ==
--- NOTE | 2024-08-31 14:43 | MM_ITS ---
PROCEDURE INFORMATION: Exam: MG Bilateral Screening 3D Mammography Exam date and time: 08/31/2024 2:59 PM Age: 43 years old Clinical indication: Screening examination. TECHNIQUE: Imaging protocol: Bilateral Screening tomosynthesis and 2D mammography including computer-aided detection (CAD) when performed. COMPARISON: MG MM DIG SCREENING MAMM BI W/CAD 08/31/2024 2:59 PM FINDINGS: MAMMOGRAPHY: Breast composition: There are scattered areas of fibroglandular density. Mass: None. Architectural distortion: None. Calcifications: No suspicious calcifications. Asymmetric density: None. Skin thickening: None. Axillary adenopathy: None. IMPRESSION: No mammographic evidence of malignancy. Annual screening is recommended unless otherwise clinically indicated. ASSESSMENT: BI-RADS Category 1: Negative.
--- NOTE | 2024-08-31 14:43 | US_ITS ---
PROCEDURE: US TRANSVAGINAL CLINICAL INDICATION: Post menopausal bleeding, post Ablation COMPARISON: US US TRANSVAGINAL from 07/16/[address] ABDOMEN W CON from 12/18/2021 FINDINGS: Transvaginal sonographic images of the pelvis were obtained. UTERUS: 8.0cm x 5.8 cm x 5.0 cm retroverted with a combined endometrial thickness of 6.9mm. There are 2 fibroids within the uterus. Fibroid 1. Anterior and measures 1.6 cm x 1.8 cm x 1.1 cm. Fibroid 2. Posterior and measures 2.0 cm x 1.8 cm x 2.0 cm LEFT OVARY: 2.8 cm x1.9 cmx2.3cm with a volume of 6.3ml. Left ovary is more difficult to visualize RIGHT OVARY: 3.4 cmx 2.6 cmx2.2 cm with a volume of 9.9ml. There is an irregularly shaped follicle in the right ovary measuring 2.1 cm x 1.9 cm x 1.1 cm. Both ovaries are seen and appear normal. Doppler flow to both ovaries are seen. There is no fluid in the cul-de-sac. IMPRESSION: 1. Retroverted uterus. The endometrium measures 6.9 mm. It appears heterogenous. 2. There are 2 fibroids within the uterus, 1 is anterior and 1 is posterior. They measured 2 cm and 1.8 cm respectively. 3. Both ovaries are seen and appear normal. There is a collapsing irregularly-shaped follicle in the right ovary measuring 2.1 cm. 4. The left ovary is more difficult to visualize but appears normal. 5. No fluid in the cul-de-sac. Dictated by: Semaj Allen MD 09/03/2024 09:21 Semaj Allen MD in OV 09/03/2024 09:21
== END 2024-08-31 23:59 | disposition home or self-care (01) ==
LOC: RAD 14:43
PROVIDERS: PCP Family Medicine; Visit Provider Nurse Practitioner Obstetrics & Gynecology
DX: Z12.31 Encounter for screening mammogram for malignant neoplasm of breast (principal); N95.0 Postmenopausal bleeding
CPT/HCPCS: 76830; 77063; 77067

== ENCOUNTER 2024-10-09 07:38 | Outpatient (CLI) | payer OTHER, SELFPAY ==
[2024-10-09 08:06] LABS: Basophils % 0.5 % (0.1-2.0); Eosinophils # 0.1 K/mm3 (0.0-0.4); Eosinophils % 0.8 % (0.1-12.0); Hematocrit 40.1 % (37.0-47.0); Lymphocytes # 2.6 K/mm3 (0.7-4.5); Lymphocytes % 30.6 % (10-50); Mean Corpuscular HGB Conc 32.4 g/dL (31.8-35.4); Mean Corpuscular Hemoglobin 26.9 pg (27.0-31.2); Mean Corpuscular Volume 82.9 fl (81-99); Mean Platelet Volume 9.6 fl (7.4-10.4); Monocytes # 0.3 K/mm3 (0.1-1.0); Monocytes % 3.8 % (1.7-9.3); Neutrophils # 5.5 K/mm3 (1.8-7.8); Neutrophils % 64.2 % (37.0-80.0); Platelet Count 340 K/mm3 (142-424); Red Blood Count 4.84 M/mm3 (4.20-5.40); Red Cell Distribution Width 14.4 % (11.5-17.5); White Blood Count 8.5 K/mm3 (4.8-10.8)
[2024-10-09 08:48] LABS: Albumin Level 3.7 g/dl (3.5-5.0); Chloride 103 mmol/L (98-107); Potassium 3.6 mmoL/L (3.5-5.1); Sodium 134 mmol/L (136-145)
[2024-10-09 08:51] LABS: Alanine Aminotransferase 18 U/L (12-78); Albumin/Globulin Ratio 1.6 (1.1-1.8); Alkaline Phosphatase 99 U/L (38-126); Aspartate Amino Transferase 24 U/L (14-36); Bilirubin,Total 0.4 mg/dl (0.2-1.3); Blood Urea Nitrogen 12 mg/dl (7-17); Calcium 8.5 mg/dl (8.4-10.2); Cholesterol 151 mg/dl (140-200); Estimated Glomerular Filt Rate 108 ml/min (>60); GFR (African American) 131 ML/MIN (>60); Globulin 2.3 g/dL (1.3-3.2); Glucose 81 mg/dl (74-100); Triglycerides 93 mg/dl (30-150); VLDL Cholesterol 19 mg/dL (0-40)
[2024-10-09 08:52] LABS: Chol/HDL Ratio 3.3 (1-3.5); HDL Cholesterol 46 mg/dl (40-60)
[2024-10-09 09:03] LABS: Direct LDL Cholesterol 84.37 mg/dL (100-129)
[2024-10-09 09:09] LABS: Triiodothryronine (T3) Uptake 31 % (23.5-40.5)
[2024-10-09 09:10] LABS: Free Thyroxine Index 3.6 ug/dL (5.93-13.13); T4 (Thyroxine) 11.7 ug/dl (5.53-11.0)
[2024-10-09 09:23] LABS: Thyroid Stimulating Hormone 1.35 uIU/mL (0.465-4.68)
[2024-10-09 10:13] LABS: Anion Gap 6.6 mEq/L (5-15); Carbon Dioxide 28 mmol/L (22.0-30.0)
[2024-10-09 11:22] LABS: 25-OH Vitamin D, Total 25.6 ng/mL (30-100)
[2024-10-09 11:55] LABS: Vitamin B12 291 pg/mL (239-931)
== END 2024-10-09 23:59 | disposition home or self-care (01) ==
LOC: LAB 07:39
PROVIDERS: PCP Family Medicine; Visit Provider Nurse Practitioner Obstetrics & Gynecology
DX: N92.6 Irregular menstruation, unspecified (principal); E66.9 Obesity, unspecified; Z98.84 Bariatric surgery status
CPT/HCPCS: 36415; 80053; 80061; 82306; 82607; 84436; 84443; 84479; 85025

== ENCOUNTER 2024-12-24 08:50 | Outpatient (CLI) | payer OTHER, SELFPAY ==
[2024-12-24 09:33] LABS: Glucose,Fasting 81 mg/dl (74-100)
[2024-12-24 10:36] LABS: Thyroid Stimulating Hormone 0.81 uIU/mL (0.465-4.68)
[2024-12-24 10:50] LABS: Hemoglobin A1C 5.1 % (4.0-6.0)
[2024-12-24 10:51] LABS: Glucose 1 Hour 57 mg/dL (74-100)
[2024-12-24 10:55] LABS: Vitamin B12 368 pg/mL (239-931)
[2024-12-24 11:05] LABS: Free T4 (Free Thyroxine) 1.41 ng/dl (0.78-2.19)
[2024-12-24 12:21] LABS: Glucose 2 Hour 71 mg/dL (74-100)
[2024-12-24 13:43] LABS: Glucose 3 Hour 80 mg/dL (74-100)
[2024-12-25 11:18] LABS: Thyroid Peroxidase Antibodies <9 IU/mL (0-34)
== END 2024-12-24 23:59 | disposition home or self-care (01) ==
LOC: LAB 08:50
PROVIDERS: PCP Physician Assistant; Visit Provider Physician Assistant
DX: E03.9 Hypothyroidism, unspecified (principal); E53.8 Deficiency of other specified B group vitamins; E16.2 Hypoglycemia, unspecified; E55.9 Vitamin D deficiency, unspecified
CPT/HCPCS: 36415; 82306; 82607; 82951; 83036; 84439; 84443; 86376

== ENCOUNTER 2025-04-26 12:49 | Outpatient (CLI) | payer OTHER, SELFPAY ==
--- OUTSIDE RECORDS SUMMARY | 2025-04-26 12:51 | XMS_ITS | Clinical Summary ---
Author Organization [facility] Address [address] [place] [address] Care Team Providers Care Coating Mixer Tender Name Role Phone Jasmin Ahumada Primary Care Provider [phone] Allergies No known active allergies Medications levothyroxine (SYNTHROID, LEVOTHROID) 137 MCG tablet Take 137 mcg by mouth daily. Active Multiple Vitamins-Minera ls (MULTIVITAMIN WITH MINERALS) tablet tablet Take 1 tablet by mouth Daily. 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 on file Not on fi le Not on file Last Filed Vital Signs Vital Sign Reading Time Taken Comments Blood Pressure 115/82 02/15/2018 8:42 AM EDT Pulse 60 02/15/2018 8:42 AM EDT Temperature 36.5 C (97.7 F) 02/15/2018 8:42 AM EDT Respiratory Rate 18 02/15/2018 8:42 AM EDT [...] Gynecologic Pelvic an d Breast Exam 1979 TDAP/TD VACCINES (1 - Tdap) 1998 ANNUAL PHYSICAL 12/15/2016 HEPATITIS C SCREENING 12/15/2016 MAMMOGRAM 2019 COVID-19 Vaccine (1 - 2023-2 5 season) 2024 COLOGUARD 2024 COLON CANCER SCREENING 5 YEA R SIGMOIDOSCOPY 2024 COLONOSCOPY 2024 [address] CANCER SCREENING 2024 CT COLONOGRAPHY 2024 FECAL OCCULT BLOOD TEST 2024 FIT Testing (1 year) 2024 INFLUENZA VACCINE 06/19/2025 Pneumococcal Vaccine 0-49 Aged Out No longer eligible based on patient's age to complete this topic Medical Devices Implanted Type Area Relationship Mgr Device Identifier Shelf Expiration Date Model / Serial / Lot Stplln Peristrip Dry Veritas Ech60 6fire - [id number] Implanted:Qty : 1 on 01/20/2017 by Shane Cunha MD at [facility] Implant N/A: Stomach SYNOVIS 11/03/2019 [id number] / / [id number] 1023 Description:1st and 2nd load s Stplln Peristrip Dry Veritas Ech60 6fire - [id number] Implanted:Qty : 1 on 01/20/2017 by Shane Cunha MD at [facility] Implant N/A: Stomach SYNOVIS 11/03/2019 [id number] / / [id number] 1023 Description:3rd and 4th load Stplln Peristrip Dry Veritas Ech60 6fire - [id number] Implanted:Qty : 1 on 01/20/2017 by Shane Cunha MD at [facility] Implant N/A: Stomach SYNOVIS 11/03/2019 [id number] / / [id number] 1023 Description:5th load Sealant Fibrin Tisseel Fz 4ml - [id number] - [id number] Implanted:Qty : 1 on 01/20/2017 by Shane Cunha MD at [facility] Implant N/A: Stomach [employer] 07/19/2018 [id number] / [id number] / [id number] Insurance [facility] Advance Directives * Full Code (Latest Code Status on File) Date Activated Date Inactivated Comments 01/20/2017 1:59 PM 01/21/2017 6:10 PM * Full Code Date Activated Date Inactivated Comments 06/17/2016 9:53 AM 06/18/2016 11:41 AM Care Teams Coating Mixer Tender Relationship Specialty Start Date End Date Jasmin Ahumada PA PCP - General Physician Substance Abuse Clinician 01/17/17
--- OUTSIDE RECORDS SUMMARY | 2025-04-26 12:51 | XMS_ITS | Clinical Summary ---
Author Organization [facility] Address [address] [place] [address] Care Team Providers Care Supervisor Aluminum Fabrication Name Role Phone Rudi Arce MD Primary Care Provider [phone] Family History 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 Relation Name Comments [...] Date Last Done Comments [facility]-Depression Screening 1979 [facility]-/Child/Adol SDOH Screenings 1979 [facility]-Varicella Vaccines (1 of 2 - 13+ 2-dose series) 1992 HPV Vaccines (1 - 3-dose series) 1994 [facility]- SDOH Screenings 1997 [facility]-Adult SDOH Screenings 1997 [facility]-DTaP,Tdap,and Td Vaccine s (1 - Tdap) 1998 [facility]-Hepatitis B Vaccines (1 of 3 - 19+ 3-dose series) 1998 [facility]-Pap Smear 2000 [facility]-Cervical Cancer Screening 2009 [facility]-HPV/Cotest 2009 [id number] Vaccine (1 - 20 24-25 season) 2024 [address] Colonography 2024 Colonoscopy 2024 FIT-DNA 2024 FIT 2024 FOBT 2024 Sigmoidoscopy 2024 [facility]-Colorectal Cancer Screening 2024 [facility]-Influenza Vaccine (#1) 2025 [facility]-Zoster Vaccines (1 of 2) 2029 [facility]-HIB Vaccines Aged Out No longer e ligible based on patient's age to complete this topic [facility]-Hepatitis A Vaccines Aged Out No longer eligible based on patient's age to complete this topic [facility]-IPV Vaccines Aged Out No longer e ligible based on patient's age to complete this topic [facility]-Pneumococcal Vaccine: Pediatrics (0 to 5 Years) and At-Risk Patients (6 to 49 Years) Aged Out No long er eligible based on patient's age to complete this topic [facility]-Rotavirus Vaccines Aged Out No lo nger eligible based on patient's age to complete this topic Care Teams Supervisor Aluminum Fabrication Relationship Specialty Start Date End Date Rudi Arce MD [address] [facility] [address] [place] [address] PCP - General 01/30/21
--- NOTE | 2025-04-26 13:00 | US_ITS ---
FINAL REPORT TECHNIQUE: Real-time grayscale and color ultrasound of the thyroid was performed. CLINICAL HISTORY: difficulty swallowing COMPARISON: None FINDINGS: The patient is status post right thyroid lobectomy. Left lobe of the thyroid measures 44 x 9 x 16 mm. The isthmus measures 4 mm. The parenchyma is unremarkable . Nodules: Largest left thyroid nodule measures 15 x 8 mm and a 2nd nodule measuring 7 mm. These are solid hypoechoic TR 4 nodules. IMPRESSION: 15 mm TR 4 nodule in the left. Recommend biopsy per TI-RADS criteria. Reviewed, Interpreted and Dictated by Juarez Carr MD Transcribed by Etta Young Authenticated and [facility]
== END 2025-04-26 23:59 | disposition home or self-care (01) ==
LOC: RAD 12:49
PROVIDERS: PCP Physician Assistant; Visit Provider Nurse Practitioner
DX: E89.0 Postprocedural hypothyroidism (principal); E04.2 Nontoxic multinodular goiter; Z86.39 Personal history of other endocrine, nutritional and metabolic disease
CPT/HCPCS: 76536

== ENCOUNTER 2025-05-03 08:06 | Outpatient (CLI) | payer OTHER, SELFPAY ==
--- NOTE | 2025-05-03 08:08 | US_ITS ---
FINAL REPORT CLINICAL HISTORY: E04.1 - Nontoxic single thyroid nodule-- LT THYROID FNA-- TEJ FIERRO FINDINGS: Ultrasound guided thyroid biopsy. HISTORY: Thyroid mass. Attending radiologist: Dr. Salmeron Physician Glove Printer: Tej Rashid PA-C PROCEDURE: After informed consent was obtained and a time-out was performed, the patient was prepped and draped in usual sterile fashion over the left neck. Utilizing local anesthesia and sterile technique with a 25-gauge needle, access to lesion was obtaineobtained. A total of 4 passes were made under direct ultrasound guidance. The patient received no conscious sedation. The patient tolerated procedure well and left the department in good condition. IMPRESSION: Status post ultrasound guided biopsy of thyroid without immediate complication. Reviewed, Interpreted and Dictated by Vanessa Salmeron MD Transcribed by SRI Victor Authenticated and [facility]
== END 2025-05-03 23:59 | disposition home or self-care (01) ==
LOC: RAD 08:06
PROVIDERS: PCP Physician Assistant; Visit Provider Nurse Practitioner
DX: E04.1 Nontoxic single thyroid nodule (principal)
CPT/HCPCS: 10005

== ENCOUNTER 2025-05-12 17:19 | Emergency (ER) | payer OTHER, SELFPAY ==
[2025-05-12] VITALS (10 sets, daily range): BP systolic 103–140; BP diastolic 67–87; PULSE 65–90; RESP 16–18; TEMP 36.6–36.7; O2SAT 95–100; BMI 40.0
--- OUTSIDE RECORDS SUMMARY | 2025-05-12 17:52 | XMS_ITS | Clinical Summary ---
Author Organization [facility] Address [address] [place] [address] Care Team Providers Care Ball Winder Name Role Phone Rudi Arce MD Primary Care Provider [phone] Family History 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 Relation Name Comments [...] 19+ 3-dose series) 1998 [facility]-Pap Smear 2000 HPV Vaccines (1 - 3-dose SCD M series) 2006 [facility]-Cervical Cancer Screening 2009 [facility]-HPV/Cotest 2009 [id number] Vaccine (1 - 20 24-25 season) 2024 [...] age to complete this topic Care Teams Ball Winder Relationship Specialty Start Date End Date Rudi Arce MD [address] [facility] [address] [place] [address] PCP - General 01/30/21
--- OUTSIDE RECORDS SUMMARY | 2025-05-12 17:52 | XMS_ITS | Clinical Summary ---
Author Organization [facility] Address [address] [place] [address] Care Team Providers Care Fuel Dock Attendant Name Role Phone Jasmin Ahumada Primary Care Provider [phone] Allergies No known active allergies Medications levothyroxine (SYNTHROID, LEVOTHROID) 137 MCG tablet Take 137 mcg by mouth daily. Active Multiple Vitamins-Minera ls (MULTIVITAMIN WITH MINERALS) tablet tablet Take 1 tablet by mouth Daily. 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 Not on fi [...] this topic Medical Devices Implanted Type Area Propellant Assembler Device Identifier Shelf Expiration Date Model / Serial / Lot Stplln Peristrip Dry Veritas Ech60 6fire - [id number] Implanted:Qty : 1 on 01/20/2017 by Shane Cunha MD at [facility] Implant N/A: Stomach SYNOVIS 11/03/2019 [id number] V / / [id number] 1023 Description:1st and 2nd load s Stplln Peristrip Dry Veritas Ech60 6fire - [id number] Implanted:Qty : 1 on 01/20/2017 by Shane Cunha MD at [facility] Implant N/A: Stomach SYNOVIS 11/03/2019 [id number] V / / [id number] 1023 Description:3rd and 4th load Stplln Peristrip Dry Veritas Ech60 6fire - [id number] Implanted:Qty : 1 on 01/20/2017 by Shane Cunha MD at [facility] Implant N/A: Stomach SYNOVIS 11/03/2019 [id number] V / / [id number] 1023 Description:5th load Sealant Fibrin Tisseel Fz 4ml - [id number] - [id number] Implanted:Qty : 1 on 01/20/2017 by Shane Cunha MD at [facility] Implant N/A: Stomach [facility] 07/19/2018 [id number] / [id number] / [id number] Insurance [facility] Advance Directives * Full Code (Latest Code Status on File) Date Activated Date Inactivated Comments 01/20/2017 1:59 PM 01/21/2017 6:10 PM * Full Code Date Activated Date Inactivated Comments 06/17/2016 9:53 AM 06/18/2016 11:41 AM Care Teams Fuel Dock Attendant Relationship Specialty Start Date End Date Jasmin Ahumada PA PCP - General Physician Hypnotherapist 01/17/17
--- NOTE | 2025-05-12 19:15 | CT_ITS ---
PROCEDURE INFORMATION: Exam: CT Abdomen And Pelvis With Contrast Exam date and time: 05/12/2025 8:14 PM Age: 44 years old Clinical indication: Other: Diarrhea; Abdominal pain; Additional info: Lower abd pain/ttp/diarrhea x 5 days TECHNIQUE: Imaging protocol: Computed tomography of the abdomen and pelvis with contrast. Radiation optimization: All CT scans at this facility use at least one of these dose optimization techniques: automated exposure control; mA and/or kV adjustment per patient size (includes targeted exams where dose is matched to clinical indication); or iterative reconstruction. Contrast material: ISOVUE; Contrast volume: 75 ml; Contrast route: IV; COMPARISON: CT ABDOMEN W CON 12/18/2021 8:35 PM FINDINGS: Lungs: Granuloma right lower lobe. No focal consolidation. Pleural spaces: No pleural effusion. Heart: The visualized heart is normal. No pericardial effusion. Liver: The liver has normal size and contour. Gallbladder and biliary ducts: The gallbladder is unremarkable. No biliary ductal dilatation. Pancreas: The pancreas is unremarkable. Spleen: The spleen is unremarkable. Adrenal glands: The adrenal glands are normal. Kidneys and ureters: The kidneys enhance symmetrically without hydronephrosis. The ureters have normal course and caliber without stone. Stomach and bowel: Postsurgical changes consistent with gastric sleeve. The small bowel is normal caliber. The large bowel has normal course and caliber. No significant pericolonic inflammatory stranding. Appendix: The appendix is mildly enlarged measuring 7 mm without significant periappendiceal fat stranding, appears similar to comparison. Intraperitoneal space: No significant peritoneal free fluid. No free peritoneal air. Vasculature: No abdominal aortic aneurysm. Lymph nodes: No suspicious adenopathy by size criteria. Urinary bladder: The bladder is normal without focal wall thickening. Reproductive: 3 cm hypoattenuating focus, that measures slightly greater than expected for a simple cyst intimately associated with the left ovary. The uterus and right ovary are unremarkable. Bones/joints: Multilevel degenerative type changes of the spine. No acute osseous abnormality. Soft tissues: Unremarkable. IMPRESSION: 1. No acute intra-abdominal/pelvic abnormality. 2. Indeterminate 3 cm hypoattenuating focus intimately associated with the left ovary, consider further evaluation with nonemergent ultrasound. 3. Other findings as above.
--- NOTE | 2025-05-12 19:16 | HMH.EDGENADL ---
Discharge Plan Disposition Patient Disposition: Home, Self-Care Prescriptions Prescriptions: New loperamide 2 mg capsule 2 mg PO Q6H PRN (Reason: loose stool) 5 Days Qty: 20 0RF Rx Instructions: Please take 4 mg initially, followed by 2 mg after each loose stool, maximum 16 mg/day nitrofurantoin monohyd/m-cryst 100 mg capsule 100 mg PO BID 5 Days Qty: 10 0RF Rx Instructions: must administer with a meal/food No Action celecoxib [Celebrex] 100 mg capsule 100 mg PO BID Qty: 60 2RF famotidine 40 mg tablet 40 mg PO HS Qty: 30 2RF triamcinolone acetonide 0.1 % ointment 1 applic topical BID Qty: 30 0RF methylprednisolone 4 mg tablets,dose pack See Rx Instructions PO PER PKG DIR Qty: 21 0RF Rx Instructions: PO PER PKG DIR omeprazole 40 mg capsule,delayed release(DR/EC) 40 mg PO DAILY levothyroxine 150 mcg tablet 150 mcg PO DAILY duloxetine 60 mg capsule,delayed release(DR/EC) 60 mg PO DAILY Referrals Follow up/Referrals: Emilia Salmeron PA [Primary Care Provider, Medical] - See instructions Erik Payan II, MD [Staff Physician, Gastroenterology] - See instructions Activity Restrictions/Add. Instructions Additional Instructions/Restrictions: No obvious explanation for your ongoing diarrhea please take your stool specimen to the lab as instructed for the outpatient diarrhea PCR panel ordered. Also you had a small ovarian cyst that needs to be followed up by ELECTRICIAN SUPERVISOR for an outpatient ultrasound. Lastly you had a mild urinary tract infection which may be the explanation for your suprapubic abdominal pain but does not explain your diarrhea. Antibiotics have been sent in in addition to loperamide for your diarrhea. Please return to the emergency but with any significant worsening of your symptoms. No emergent medical condition identified today. Clinical Impressions Clinical Impression: Diarrhea, Suprapubic pain, UTI (urinary tract infection) Instructions Patient Instructions: DI for Diarrhea and Traveler's Diarrhea -- Adult, DI for Diarrhea and Traveler's Diarrhea -- Child, DI for Nausea -- Adult, DI for Nausea -- Child Print Language Print Language: Mohawk Discharge ED Provider: Nikita Saha General Adult HPI General Chief complaint: Nausea/Vomiting/Diarrhea Stated complaint: diarhea since 8-21 weak/drained Time Seen by Provider: 05/12/25 18:53 Mode of Arrival: Ambulatory Source of Information: Patient Description of Symptoms (Recalled from ER Triage Doc. by RN): PATIENT PRESENTS TO ED FOR DIARRHEA SINCE TUESDAY. DENIES N/V, C/O LOWER ABDOMINAL CRAMPING. History of Present Illness HPI narrative: Patient is a 44-year-old female presenting today with 5 days of diarrhea with some lower abdominal discomfort in the suprapubic region. Denies any dysuria frequency urgency blood in urine etc. No blood in her stool no significant mucus in her stool fevers etc. No history of diverticulitis colitis etc. 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 difficile. Related Data Home Medications ?Medication ?Instructions ?Recorded ?Confirmed duloxetine 60 mg capsule,delayed 60 mg PO DAILY 08/03/24 04/24/25 release levothyroxine 150 mcg tablet 150 mcg PO DAILY 08/03/24 04/24/25 omeprazole 40 mg capsule,delayed 40 mg PO DAILY 08/03/24 04/24/25 release Previous Rx's ?Medication ?Instructions ?Recorded celecoxib 100 mg capsule (Celebrex) 100 mg PO BID #60 caps 01/18/25 methylprednisolone 4 mg tablets in See Rx Instructions PO PER PKG DIR 04/23/25 a dose pack #21 tabs triamcinolone acetonide 0.1 % 1 applic topical BID #30 grams 04/23/25 topical ointment famotidine 40 mg tablet 40 mg PO HS #30 tabs 04/24/25 loperamide 2 mg capsule 2 mg PO Q6H PRN loose stool 5 days 05/12/25 #20 caps nitrofurantoin 100 mg PO BID 5 days #10 caps 05/12/25 monohydrate/macrocrystals 100 mg capsule Allergies Allergy/AdvReac Type Severity Reaction Status Date / Time No Known Allergies Allergy Verified 04/24/25 09:36 [facility] Disclaimer: The information contained in this section may have been updated after the patient was seen, as this information can be updated by other users. 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 (Updated 05/12/25 @ 21:43 by Nikita Saha MD) Thyroid nodule GERD (gastroesophageal reflux disease) History of thyroid nodule Fluid level behind tympanic membrane of both ears Globus sensation History of gastroesophageal reflux (GERD) Anxiety Hypothyroidism RLQ abdominal pain Surgical History History of partial thyroidectomy History of wisdom tooth extraction History of thyroid surgery H/O knee surgery History of History of bariatric surgery History of colonoscopy History of cardiac cath History of hernia repair History of tonsillectomy History of hysteroscopy Family History Other No significant family history Social History Smoking Status: Never smoker second hand exposure: No alcohol intake: never substance use type: denies use current occupational status: employed Travel in the last 8 weeks?: None household members: other housing: house current occupation: [employer] current occupational exposures/hazards: No caffeine: Yes Have you lived/traveled outside US in past 30 days?: No Contact w/someone who lives/traveled outside US past 30 days?: No Exposure to someone with infectious disease in past 14 days?: No Do you have a fever (greater than 100.4 F or 38 C)?: No Have you tested positive for COVID-19?: No Exposed to someone with COVID-19 in past 14 days?: No Do you have a sore throat?: No Do you have a cough?: No Do you have any weakness?: No Do you have any diarrhea?: No Are you experiencing any unusual bleeding?: No Do you have any muscle aches/pain?: No Do you have any abdominal pain?: No Are you experiencing loss of taste or smell?: No Other 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 Have you received the Flu Vaccine for this season: Yes Have you received the Pneumonia Vaccine: No ROS Obtained: Yes All systems reviewed & no additional complaints except as documented Physical Exam General General appearance: alert and in no apparent distress Respiratory Respiratory exam: Present normal lung sounds bilaterally Cardiovascular Cardiovascular exam: Present regular rate Abdominal Exam Abdominal exam: Present soft and tenderness (Suprapubic tenderness to palpation with deep palpation otherwise no rebound or guarding); Absent distention Neurological Exam Neurological exam: Present alert and oriented X3 Medical Decision Making Medical Records Screening: Per USPSTF and CDC recommendations, given the prevalence of disease in our region, it is our hospital?s policy to screen for HIV and viral Hepatitis for all patients aged 18 and over and those with ongoing risk factors. Greg Inquiry Pt receiving controlled substance: No Vital Signs: 05/12/25 17:57 05/12/25 17:57 05/12/25 18:01 Temperature 98.1 F 98.1 F Temperature Source Oral Pulse Rate 70 82 Pulse Rate [Right] 70 Respiratory Rate 18 18 Blood Pressure 135/83 112/69 Blood Pressure [Right Arm] 135/83 Blood Pressure Mean [Right Arm] 100 02 Sat by Pulse Oximetry 99 99 97 Oxygen Delivery Method Room Air 05/12/25 18:45 05/12/25 19:01 05/12/25 19:45 Temperature Temperature Source Pulse Rate 70 71 65 Pulse Rate [Right] Respiratory Rate 18 16 Blood Pressure 117/80 103/67 L 124/80 Blood Pressure [Right Arm] Blood Pressure Mean [Right Arm] 02 Sat by Pulse Oximetry 100 100 100 Oxygen Delivery Method 05/12/25 20:18 Temperature Temperature Source Pulse Rate 90 Pulse Rate [Right] Respiratory Rate Blood Pressure 125/78 Blood Pressure [Right Arm] Blood Pressure Mean [Right Arm] 02 Sat by Pulse Oximetry 100 Oxygen Delivery Method Lab Data Lab results reviewed: Yes I reviewed the patient's lab results. Lab Results 05/12/25 17:38: WBC 9.3, RBC 5.09, Hgb 13.6, Hct 41.6, MCV 81.7, MCH 26.7 L, MCHC 32.7, RDW 14.4, Plt Count 330, MPV 9.8, Neut % (Auto) 70.5, Lymph % (Auto) 23.1, [place] % (Auto) 5.1, Eos % (Auto) 0.6, Baso % (Auto) 0.4, Neut # (Auto) 6.6, Lymph # (Auto) 2.2, [place] # (Auto) 0.5, Eos # (Auto) 0.1, Baso # (Auto) 0.0, Sodium 136, Potassium 3.8, Chloride 103, Carbon Dioxide 25, Anion Gap 11.8, BUN 11, Creatinine 0.80, Estimated Creat Clear 158, Estimated GFR 78, Est GFR ( Amer) 94, Glucose 90, Calcium 8.5, Phosphorus 4.0, Magnesium 1.8, Total Bilirubin 0.3, AST 26, ALT 17, Alkaline Phosphatase 95, Total Protein 7.3, Albumin 4.2, Globulin 3.1, Albumin/Globulin Ratio 1.4 05/12/25 19:43: Urine Color Yellow, Urine Appearance Clear, Urine pH 6.0, Ur Specific [place] 1.015, Urine Protein Negative, Urine Glucose (UA) Negative, Urine Ketones Negative, Urine Blood Trace-i, Urine Nitrate Negative, Urine Bilirubin Negative, Urine Urobilinogen 0.2, Ur Leukocyte Esterase 1+ A, Urine RBC Occasional, Urine WBC None, Ur Squamous Epith Cells 10-20, Urine Bacteria 1+ 05/12/25 17:38 05/12/25 17:38 Orders (Tests/Meds): ED MEDICATIONS Generic Name Dose Route Start Last Admin Trade Name Freq PRN Reason Stop Dose Admin Sodium Chloride 10 ml 05/12/25 20:16 05/12/25 20:16 Sodium Chloride 0.9% 10ml Syr (Rad Only) IV 06/11/25 20:15 10 ml NEEDED PRN Administration Maintain IV Site Discontinued Medications Generic Name Dose Route Start Last Admin Trade Name Freq PRN Reason Stop Dose Admin Lactated Ringer's 1,000 mls @ 999 mls/hr 05/12/25 19:15 05/12/25 21:05 Lactated Ringer's 1000 Ml Bag IV 05/12/25 20:15 Infused .Q1H1M HARVINDER Infusion Iopamidol 75 ml 05/12/25 20:16 05/12/25 20:16 Iopamidol-370 (76%);100ml Bottle IV 05/12/25 20:17 75 ml ONCE ONE Administration ORDERS Category Date Time Status CT abdomen pelvis w con Stat Cat Scan 05/12/25 19:15 Completed CBC w/Auto Diff [Complete Blood Count Auto Diff] Stat Lab 05/12/25 17:38 Completed CMP [Comprehensive Metabolic Panel] Stat Lab 05/12/25 17:38 Completed Diarrhea 23 Panel, PCR Stat Lab 05/12/25 19:11 Ordered Magnesium Stat Lab 05/12/25 17:38 Completed Phosphorous Stat Lab 05/12/25 17:38 Completed UA [Urinalysis and Microscopic] Stat Lab 05/12/25 19:43 Completed Urine Culture Stat Micro 05/12/25 19:43 Received Medical Decision Narrative: 44-year-old with 5 days of diarrhea 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 Also get a CT scan as she may have an inflammatory process in that localized region in her suprapubic area where she is having tenderness such as colitis diverticulitis etc. Will reassess after this initial workup is complete. Reassessment [address] scan was performed I personally interpreted shows no intra-abdominal pathology from an emergency standpoint. Radiology read is consistent with this however there is a small adnexal cyst requiring outpatient follow-up with ultrasound I did discuss this with the patient she is aware and will follow-up. Urinalysis was mildly abnormal with positive leuks she does have suprapubic discomfort we will treat her for possible cystitis but this does not explain her diarrhea. Remain some diagnostic uncertainty with what is going on with that it is most likely viral we arrange an outpatient diarrhea PCR panel to be sent and also follow-up with Dr. Payan. Return precautions emphasized patient was discharged in stable condition Critical Care Critical Care Time Critical Care Time: No
[2025-05-12] MEDS: LACTATED RINGERS 1000ML 1,000 ML 999 ML IV (19:39)
[2025-05-12 19:47] LABS: Microscopic, Urine URINE MICROSCOPIC (MICROSCOPIC)
[2025-05-12 19:50] LABS: Hematocrit 41.6 % (37.0-47.0); Hemoglobin 13.6 g/dL (12.2-16.2); Immature Granulocytes % 0.3 %; Mean Corpuscular HGB Conc 32.7 g/dL (31.8-35.4); Mean Corpuscular Hemoglobin 26.7 pg (27.0-31.2); Mean Corpuscular Volume 81.7 fl (81-99); Nucleated Red Blood Cells % 0 %; Platelet Count 330 K/mm3 (142-424); Red Blood Count 5.09 M/mm3 (4.20-5.40); Red Cell Distribution Width-SD 42.6 fL; White Blood Count 9.3 K/mm3 (4.8-10.8)
[2025-05-12 19:51] LABS: Bilirubin,Urine Negative (Negative); Color,Urine YELLOW (Yellow); Glucose,Urine (UA) Negative (Negative); Ketones,Urine Negative (Negative); Leukocyte Esterase,Urine 1+ (Negative); PH,Urine 6.0 (5.0-8.5); Protein,Urine Negative (Negative); Specific Gravity, Urine 1.015 (1.005-1.030); Urobilinogen,Urine 0.2 EU/dl (0.2)
[2025-05-12 20:00] LABS: Alanine Aminotransferase 17 U/L (12-78); Albumin Level 4.2 g/dl (3.5-5.0); Albumin/Globulin Ratio 1.4 (1.1-1.8); Alkaline Phosphatase 95 U/L (38-126); Anion Gap 11.8 mEq/L (5-15); Aspartate Amino Transferase 26 U/L (14-36); Bilirubin,Total 0.3 mg/dl (0.2-1.3); Blood Urea Nitrogen 11 mg/dl (7-17); Calcium 8.5 mg/dl (8.4-10.2); Carbon Dioxide 25 mmol/L (22.0-30.0); Chloride 103 mmol/L (98-107); Creatinine Clearance Estimated 158 mL/min (50-200); Creatinine,Serum 0.80 mg/dl (0.52-1.04); Estimated Glomerular Filt Rate 78 ml/min (>60); GFR (African American) 94 ML/MIN (>60); Globulin 3.1 g/dL (1.3-3.2); Glucose 90 mg/dl (74-100); Magnesium 1.8 mg/dl (1.6-2.3); Phosphorous 4.0 mg/dl (2.5-4.5); Potassium 3.8 mmoL/L (3.5-5.1); Sodium 136 mmol/L (136-145); Total Protein,Serum 7.3 g/dl (6.3-8.2)
[2025-05-12] MEDS: IOPAMIDOL-370 (76%);100ML BOTTLE 75 ML IV (20:16)
[2025-05-12] MEDS: SODIUM CHLORIDE 0.9% 10ML SYR (RAD ONLY) 10 ML IV (20:16)
[2025-05-12 21:10] LABS: RBC,Urine Occasional #/hpf (0-3)
[2025-05-12 21:11] LABS: Bacteria,Urine 1+ /lpf
== END 2025-05-12 21:54 | disposition home or self-care (01) ==
PROVIDERS: Emergency Provider Student in an Organized Health Care Education/Training Program; PCP Physician Assistant
DX: R10.30 Lower abdominal pain, unspecified (principal); N39.0 Urinary tract infection, site not specified; R19.7 Diarrhea, unspecified
CPT/HCPCS: 74177; 80053; 81001; 83735; 84100; 85025; 87086; 96360; 99285; J7120; Q9967

== ENCOUNTER 2025-05-13 09:55 | Outpatient (CLI) | payer OTHER, SELFPAY ==
[2025-05-13 10:01] LABS: Adenovirus F 40/41, stool Not Detected (NotDetected); Clostridium Difficile A/B, PCR Not Detected (NotDetected); Cyclospora Cayetanesis Not Detected (NotDetected); Plesimonas Shigalloides, PCR Not Detected (NotDetected); Salmonella, PCR Not Detected (NotDetected); Shiga-like toxin E coli Not Detected (NotDetected); Shigella Enterovasive E coli Not Detected (NotDetected); Vibrio, PCR Not Detected (NotDetected); Yersinia Entercolitica, PCR Not Detected (NotDetected)
--- OUTSIDE RECORDS SUMMARY | 2025-05-13 10:39 | XMS_ITS | Clinical Summary ---
Author Organization [facility] Address [address] [place] [address] Care Team Providers Care Library Circulation Technician Name Role Phone Jasmin Ahumada Primary Care Provider [phone] Allergies No known active allergies Medications levothyroxine (SYNTHROID, LEVOTHROID) 137 MCG tablet Take 137 mcg by mouth daily. Active Multiple Vitamins-Minera ls (MULTIVITAMIN WITH MINERALS) tablet tablet Take 1 tablet by mouth Daily. 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 Not on file Not on fi [...] this topic Medical Devices Implanted Type Area Jute Bag Sewer Device Identifier Shelf Expiration Date Model / Serial / Lot Stplln Peristrip Dry Veritas Ech60 6fire - [id number] Implanted:Qty : 1 on 01/20/2017 by Shane Cunha MD at [facility] Implant N/A: Stomach [employer]IS 11/03/2019 [id number] / / [id number] Description:1st and 2nd load s Stplln Peristrip Dry Veritas Ech60 6fire - [id number] Implanted:Qty : 1 on 01/20/2017 by Shane Cunha MD at [facility] Implant N/A: Stomach [employer] 11/03/2019 [id number] V / / [id number] Description:3rd and 4th load Stplln Peristrip Dry Veritas Ech60 6fire - [id number] Implanted:Qty : 1 on 01/20/2017 by Shane Cunha MD at [facility] Implant N/A: Stomach [employer] 11/03/2019 [id number] V / / [id number] Description:5th load Sealant Fibrin Tisseel Fz 4ml - [id number] - [id number] Implanted:Qty : 1 on 01/20/2017 by Shane Cunha MD at [facility] Implant N/A: Stomach [facility] 07/19/2018 [id number] / [id number] / [id number] Insurance [facility] Advance Directives * Full Code (Latest Code Status on File) Date Activated Date Inactivated Comments 01/20/2017 1:59 PM 01/21/2017 6:10 PM * Full Code Date Activated Date Inactivated Comments 06/17/2016 9:53 AM 06/18/2016 11:41 AM Care Teams Library Circulation Technician Relationship Specialty Start Date End Date Jasmin Ahumada PA PCP - General Physician Chief Hospital Administrator 01/17/17
--- OUTSIDE RECORDS SUMMARY | 2025-05-13 10:39 | XMS_ITS | Clinical Summary ---
Author Organization [facility] Address [address] [place] [address] Care Team Providers Care Waterworks Pump Station Operator Name Role Phone Rudi Arce MD Primary Care Provider [phone] Family History 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 Relation Name Comments [...] 2006 [facility]-Cervical Cancer Screening 2009 [facility]-HPV/Cotest 2009 [id number] Vaccine (1 - 20 24-25 season) 2024 [...] age to complete this topic Care Teams Waterworks Pump Station Operator Relationship Specialty Start Date End Date Rudi Arce MD [address] [facility] [address] [place] [address] PCP - General 01/30/21
== END 2025-05-13 23:59 | disposition home or self-care (01) ==
LOC: LAB 09:56
PROVIDERS: PCP Physician Assistant; Visit Provider Student in an Organized Health Care Education/Training Program
DX: R19.7 Diarrhea, unspecified (principal)
CPT/HCPCS: 87507

== ENCOUNTER 2025-08-01 08:35 | Day surgery (SDC) | payer OTHER, SELFPAY ==
--- NOTE | 2025-07-30 07:40 | P.HP_ITS ---
History of Present Illness *Admission Date: 08/01/25 *History of present illness: Mrs. Chaudhari is a 44-year-old female who is here diagnostic/therapeutic EGD and screening colonoscopy. She has developed dysphagia to solids. The patient does report some choking and dysphagia over the last several months especially to solids such as breads and meats. The patient does report having bariatric surgery with a gastric sleeve more than 10 years ago. She was told that she had a hiatal hernia which was repaired at that time. She was told that she had a recurrent hiatal hernia. The patient reports no heartburn, reflux, bloating, belching or abdominal pain. She does get some burning in her throat. She is on omeprazole 40 mg daily and famotidine 40 mg in the evening. She reports no weight loss, melena, hematochezia or bright red blood per rectum. She has had no unintentional weight loss. Her last EGD was more than 10 years ago. She also states that her last colonoscopy was more than 10 years ago and she is due for screening. She reports no family history of esophageal, gastric or colon cancer. The examination is deemed medically necessary for diagnostic/therapeutic EGD and screening colonoscopy. The patient has been seen, interviewed and examined prior to the procedure by both myself and the anesthesia provider. [facility] Disclaimer: The information contained in this section may have been updated after the patient was seen, as this information can be updated by other users. 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 Eustachian tube dysfunction Itching of ear Encounter for audiology evaluation Thyroid nodule GERD (gastroesophageal reflux disease) History of thyroid nodule Fluid level behind tympanic membrane of both ears Globus sensation History of gastroesophageal reflux (GERD) Anxiety Hypothyroidism RLQ abdominal pain Surgical History History of partial thyroidectomy History of wisdom tooth extraction History of thyroid surgery H/O knee surgery History of History of bariatric surgery History of colonoscopy History of cardiac cath History of hernia repair History of tonsillectomy History of hysteroscopy Family History Other Cancer Social History Smoking Status: Former smoker second hand exposure: No alcohol intake: never substance use type: denies use current occupational status: employed Travel in the last 8 weeks?: None household members: other housing: house current occupation: [employer] current occupational exposures/hazards: No caffeine: Yes Have you lived/traveled outside US in past 30 days?: No Contact w/someone who lives/traveled outside US past 30 days?: No Exposure to someone with infectious disease in past 14 days?: No Do you have a fever (greater than 100.4 F or 38 C)?: No Have you tested positive for COVID-19?: No Exposed to someone with COVID-19 in past 14 days?: No Do you have a sore throat?: No Do you have a cough?: No Do you have any weakness?: No Do you have any diarrhea?: No Are you experiencing any unusual bleeding?: No Do you have any muscle aches/pain?: No Do you have any abdominal pain?: No Are you experiencing loss of taste or smell?: No Other 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 Have you received the Flu Vaccine for this season: Yes Have you received the Pneumonia Vaccine: No Review of Systems Review of Systems Review of systems (narrative): Negative *Cardiovascular Comments: Negative *Gastrointestinal Comments: Negative *Genitourinary Comments: Negative *Musculoskeletal Comments: Negative *Neurologic Comments: Negative Meds Home Medications and Allergies Home Medications ?Medication ?Instructions ?Recorded ?Confirmed ?Type duloxetine 60 mg capsule,delayed 60 mg PO BID 08/03/24 08/01/25 History release levothyroxine 150 mcg tablet 150 mcg PO DAILY 08/03/24 08/01/25 History omeprazole 40 mg capsule,delayed 40 mg PO DAILY 08/01/25 History release famotidine 40 mg tablet 40 mg PO HS #30 tabs 04/24/2 5 08/01/25 Rx celecoxib 100 mg capsule (Celebrex) 100 mg PO BID #60 caps 07/02/25 08/01/25 Rx New Prescriptions to Start Prescriptions: Allergies Allergy/AdvReac Type Severity Reaction Status Date / Time No Known Allergies Allergy Verified 08/01/25 10:06 Exam *Routine HEENT Exam Head: Present normocephalic Eye: Present EOMI and PERRL ENT: Present mucous membranes moist *Routine Neck Exam Neck: Present supple *Routine Respiratory Exam Respiratory: Present CTA bilaterally *Routine Cardiovascular Exam Cardiovascular: Present RRR *Routine Abdominal Exam Abdominal: Present soft and normoactive bowel sounds; Absent tenderness *Routine Rectal Exam Rectal:: deferred *Routine Genitalia Exam Genitalia:: deferred *Routine Extremities Exam Extremities: Absent cyanosis, clubbing or edema *Routine Skin Exam Skin: Present warm; Absent rash *Routine Neurological Exam Neurological: Present alert and oriented X3 Assessment and Plan *Assessment and plan (1) Dysphagia: Status: Acute Category: Medical Code(s): R13.10 - Dysphagia, unspecified (2) GERD (gastroesophageal reflux disease): Status: Acute Category: Medical Code(s): K21.9 - Gastro-esophageal reflux disease without esophagitis (3) Burning sensation of throat: Status: Acute Category: Medical Code(s): R07.0 - Pain in throat (4) Screening for colon cancer: Status: Acute Category: Medical Code(s): Z12.11 - Encounter for screening for malignant neoplasm of colon Plan A/P: 1. Dysphagia, GERD and throat burning for EGD and screening for colon cancer for colonoscopy is the preprocedural diagnosis. The patient will be anesthetized/sedated using MAC sedation. The patient has been seen and examined. Cardiac and lung assessment prior to the examination is stable. Proceed with planned EGD and colonoscopy.
[2025-07-31 16:26] VITALS: BMI 41.1
--- NOTE | 2025-08-01 06:55 | P.PCN_ITS ---
[facility] Procedure Note Date: 08/01/25 Time: 11:35 Procedure Note:: Colonoscopy Procedure Report: Colonoscopy with cold snare polypectomy Endoscopist: Erik Payan II, MD Referring physician: Trinidad Salmeron PA-C Date of Procedure: August 01, 2025 Equipment: Olympus [id number] adult colonoscope Sedation: MAC sedation Indication: Mrs. Chaudhari is a 44-year-old female who is here diagnostic/therapeutic EGD and screening colonoscopy. She has developed dysphagia to solids. The patient does report some choking and dysphagia over the last several months especially to solids such as breads and meats. She reports some globus sensation and pyrosis. The patient does report having b ariatric surgery with a gastric sleeve more than 10 years ago. She was told that she had a hiatal hernia which was repaired at that time. She was told that she had a recurrent hiatal hernia. The patient reports no acid reflux but does get some regurgitation at times. She does get some burning in her throat. She is on omeprazole 40 mg daily and famotidine 40 mg in the evening. She reports no weight loss, melena, hematochezia or bright red blood per rectum. She has had no unintentional weight loss. Her last EGD was more than 10 years ago. She also states that her last colonoscopy was more than 10 years ago and she is due for screening. She reports no family history of esophageal, gastric or colon cancer. The examination is deemed medically necessary for diagnostic/therapeutic EGD and screening colonoscopy. Procedure: Prior to the procedure, a history and physical exam was performed, and patient's medications and allergies were reviewed. The risks, benefits and alternatives of the sedation and procedure were discussed with the patient. All questions were answered and informed consent was obtained. The patient was brought to the procedure room. Patient identification and proposed procedure were verified by the physician and the nurse. The patient was placed in a left lateral decubitus position and the scope was passed under direct vision. Throughout the procedur e, the patient's blood pressure, pulse, and oxygen saturations were monitored continuously. The colonoscopy was accomplished without difficulty. The patient tolerated the procedure well. Findings: On digital rectal examination there was normal rectal tone. There were no external hemorrhoids. The colonoscope was introduced through the anal canal to the rectum and advanced to the cecum. The ileocecal valve and appendiceal orifice were identified. The scope was advanced a short distance into the ileum which appeared grossly normal. The scope was then withdrawn into the colon. There was a single 8 to 9 mm sessile polyp in the ascending colon removed via cold snare polypectomy. The remaining cecum, ascending, transverse and descending colon and mucosa were grossly normal. There were mildly scattered diverticuli throughout the sigmoid colon (LEFT colon). The rectum itself was normal. Upon retroflexion within the rectum there were grade 1-2 internal hemorrhoids. The preparation was excellent throughout with [place] Preparation Score of 9. The cecal time was 12 minutes. Impression: 1. Ascending colon polyp (8 to 9 mm) 2. Mild sigmoid diverticulosis 3. Grade 1-2 internal hemorrhoids Plan: I will follow-up the polyp histology and recommend repeat screening/surveillance colonoscopy again in 5 years if the polyp is adenomatous.
--- NOTE | 2025-08-01 06:55 | P.PCN_ITS ---
[facility] Procedure Note Date: 08/01/25 Time: 11:21 Procedure Note:: Upper Endoscopy Procedure Report: Esophagogastroduodenoscopy with cold biopsies and TTS balloon dilation Endoscopost: Erik Payan II, MD Referring Physician: Trinidad Salmeron PA-C Date of Procedure: August 01, 2025 Equipment: Olympus GIF-1100 standard upper endoscope Sedation: MAC sedation Indications: Mrs. Chaudhari is a 44-year-old female who is here diagnostic/therapeutic EGD and screening colonoscopy. She has developed dysphagia to solids. The patient does report some choking and dysphagia over the last several months especially to solids such as breads and meats. She reports some globus sensation and pyrosis. The patient does report having bariatric surgery with a gastric sleeve more than 10 years ago. She was told that she had a hiatal hernia which was repaired at that time. She was told that she had a recurrent hiatal hernia. The patient reports no acid reflux but does get some regurgitation at times. She does get some burning in her throat. She is on omeprazole 40 mg daily and famotidine 40 mg in the evening. She reports no weight loss, melena, hematochezia or bright red blood per rectum. She has had no unintentional weight loss. Her last EGD was more than 10 years ago. She also states that her last colonoscopy was more than 10 years ago and she is due for screening. She reports no family history of esophageal, gastric or colon cancer. The examination is deemed medically necessary for diagnostic/therapeutic EGD and screening colonoscopy. Procedure: Prior to the procedure, a history and physical exam was performed, and patient's medications and allergies were reviewed. The risks, benefits and alternatives of the sedation and procedure were discussed with the patient. All questions were answered and informed consent was obtained. The patient was brought to the procedure room. Patient identification and proposed procedure were verified by the physician and the nurse. The patient was placed in a left lateral decubitus position and the scope was passed under direct vision. Throughout the procedure, the patient's blood pressure, pulse, and oxygen saturations were monitored continuously. The upper GI endoscopy was accomplished without difficulty. The patient tolerated the procedure well. Findings: The scope was passed directly into the upper esophagus and advanced to the third portion of the duodenum. The post bulbar duodenum and duodenal bulb were normal with normal mucosa and conniventes. 2 cold biopsies were taken from the second portion of the duodenum for the disaccharidase assay. The scope was withdrawn through a normal duodenal bulb and pylorus into the stomach. There was very mild linear antral gastropathy. Cold biopsies were taken from the antrum. There was gastric sleeve anatomy with reduced gastric luminal diameter. There was a small 2 cm hiatal hernia that appeared to be paraesophageal. The scope was then withdrawn into the esophagus. There was no evidence of reflux esophagitis or Leyva's. There were no rings, strictures, corrugation, furrowing or webs. There were tertiary contractions and evidence of mild to moderate esophageal dysmotility. The entire esophagus was dilated to 60 Green[place]/20 mm with a TTS hydrostatic balloon. There was some mild resistance at the cricopharyngeus. The remainder of the esophageal mucosa was normal. Impression: 1. Cricopharyngeal spasm status post dilation to 20 mm 2. Nonerosive GERD with mild to moderate esophageal dysmotility and small 2 cm hiatal hernia 3. Mild linear antral gastropathy 4. Gastric sleeve anatomy Plan: I will follow-up the biopsies and disaccharidase assay. I will discuss the findings with the patient and family. I will proceed with screening colonoscopy.
[2025-08-01 10:07] VITALS: BP 145/87; PULSE 62; RESP 18; TEMP 36.4; O2SAT 100
[2025-08-01 10:10] LABS: Urine Pregnancy, HCG Qual. Negative (Negative)
[2025-08-01] MEDS: LACTATED RINGERS 1000ML 1,000 ML 50 ML IV (10:15)
--- NOTE | 2025-08-01 10:32 | P.PNANES_ITS ---
[facility] Disclaimer: The information contained in this section may have been updated after the patient was seen, as this information can be updated by other users. 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 Eustachian tube dysfunction Itching of ear Encounter for audiology evaluation Thyroid nodule GERD (gastroesophageal reflux disease) History of thyroid nodule Fluid level behind tympanic membrane of both ears Globus sensation History of gastroesophageal reflux (GERD) Anxiety Hypothyroidism RLQ abdominal pain Surgical History History of partial thyroidectomy History of wisdom tooth extraction History of thyroid surgery H/O knee surgery History of History of bariatric surgery History of colonoscopy History of cardiac cath History of hernia repair History of tonsillectomy History of hysteroscopy Family History Other Cancer Social History Smoking Status: Former smoker second hand exposure: No alcohol intake: never substance use type: denies use current occupational status: employed Travel in the last 8 weeks?: None household members: other housing: house current occupation: [employer] current occupational exposures/hazards: No caffeine: Yes Have you lived/traveled outside US in past 30 days?: No Contact w/someone who lives/traveled outside US past 30 days?: No Exposure to someone with infectious disease in past 14 days?: No Do you have a fever (greater than 100.4 F or 38 C)?: No Have you tested positive for COVID-19?: No Exposed to someone with COVID-19 in past 14 days?: No Do you have a sore throat?: No Do you have a cough?: No Do you have any weakness?: No Do you have any diarrhea?: No Are you experiencing any unusual bleeding?: No Do you have any muscle aches/pain?: No Do you have any abdominal pain?: No Are you experiencing loss of taste or smell?: No [facility] Anesthesia Checklist Patient Identification Patient Identification: Arm Band Structural Data Admitted From: Home Planned Operative Procedure/s: EGD/Colonoscopy Consent for Planned Operative Procedure(s) Verified: Yes Verified Documents: Surgical Consent and History and Physical NPO Status Verified Time NPO: 06:00 (finished prep) Additional verifications Anesthesia Reactions: No Hx Blood Transfusions: No Blood Transfusion Reaction: No Airway Assessment Mallampati Score:: Class II C-Spine Mobility Assessed: Yes TMJ Mobility Assessed: Yes Dentition: Good Dentition Neurological Assessment Level of Consciousness: Awake, Alert and Appropriate Anesthesia Plan Anesthesia Risk discussed: Yes Anesthesia Plan: Verified ASA Class: II Anesthesia Type: MAC
[2025-08-01 11:37] VITALS: BP 107/72; PULSE 75; RESP 20; TEMP 36.1; O2SAT 98
[2025-08-01 11:47] VITALS: BP 113/78; PULSE 71; RESP 18; O2SAT 95
[2025-08-01 11:57] VITALS: BP 103/74; PULSE 62; O2SAT 99
[2025-08-01 12:07] VITALS: BP 122/86; PULSE 63; O2SAT 99
[2025-08-07 13:12] LABS: Interpretation Notes (.); Lactase 31.02 (>/= 14.0); Maltase 235.38 (>/= 110.0); Palatinase 23.69 (>/= 8.5); Reference Notes (.); Sucrase 88.73 (>/= 25.0)
== END 2025-08-01 12:07 | disposition home or self-care (01) ==
PROVIDERS: PCP Physician Assistant; Visit Provider Internal Medicine Gastroenterology
PROC: 0DJ08ZZ Inspection of Upper Intestinal Tract, Via Natural or Artificial Opening Endoscopic (ICD-10-PCS; CPT 45378; principal; 2025-08-01 10:30)
DX: Z12.11 Encounter for screening for malignant neoplasm of colon (principal); D12.2 Benign neoplasm of ascending colon; K31.89 Other diseases of stomach and duodenum; K44.9 Diaphragmatic hernia without obstruction or gangrene; K22.4 Dyskinesia of esophagus; K57.30 Diverticulosis of large intestine without perforation or abscess without bleeding; K64.0 First degree hemorrhoids; K64.1 Second degree hemorrhoids; K21.9 Gastro-esophageal reflux disease without esophagitis; E03.9 Hypothyroidism, unspecified; Z87.891 Personal history of nicotine dependence; Z98.84 Bariatric surgery status
CPT/HCPCS: 43239; 43249; 45385; 81025; 82657; C1726; J2003; J2704; J7120